=== PATIENT | female | born 1935 | race Hispanic/Latino ===

== ENCOUNTER 2017-02-07 06:23 | Day surgery (SDC) | payer MEDICARE, OTHER ==
[2017-02-07 06:55] VITALS: BMI 23.5
[2017-02-07] MEDS ORDERED: Sodium Chloride 0.9% 1,000 ML IV SCH (07:30)
[2017-02-07] MEDS ORDERED: cefTRIAXone (Rocephin) 1 gm Inj ONE (07:58)
[2017-02-07] MEDS ORDERED: Iohexol 240 (50 ml) ONE (07:59)
[2017-02-07] MEDS ORDERED: Propofol 10 mg/ml Inj (20 ML) ONE (08:03)
[2017-02-07] MEDS ORDERED: Lidocaine 2% Inj (20ml) ONE (08:04)
[2017-02-07 09:36] VITALS: PULSE 76; RESP 18; TEMP 98; O2SAT 98
[2017-02-07 10:06] VITALS: BP 159/73
--- NOTE | 2017-02-16 09:31 | OP ---
UROLOGY OPERATIVE REPORT PROCEDURE DATE: 02/07/2017 PREOPERATIVE DIAGNOSIS: Hematuria and hydronephrosis. POSTOPERATIVE DIAGNOSES: Hematuria and hydronephrosis and nonfunctional left kidney, hematuria and hydronephrosis. PROCEDURES: Cystoscopy, removal of a double-J stent, a right retrograde pyelogram, and insertion of a new right double-J stent. COMPLICATIONS: There were no complications. INDICATIONS: See the history and physical for the details. The patient is here for the above listed change on a stent and there were no complications. DESCRIPTION OF PROCEDURE: After obtaining informed consent from the patient, we discussed the options with the patient. Risks and benefits has been discussed at length. The patient was brought to the OR and placed on the table. Routine monitors placed, time-out was called to confirm the patient's positioning. We introduced the cystoscope via the urethra. We identify the old urethral stent. We removed that without difficulty. We kept a wire through the stent. There is mild , but no difficulty. We put an open-ended over this. We injected a contrast to confirm that positioning outline of the kidney exact to the hydronephrosis noted. And we put a new double-J stent in place. Put a wire back through the open-ended and put a double-J stent and confirmed the positioning. The patient tolerated this without complications. Jareth Lau MD
--- NOTE | 2017-02-16 15:39 | HP ---
UROLOGY ADMISSION HISTORY AND PHYSICAL DATE: 02/07/2017 REASON FOR THE ADMISSION: Changing a stent. HISTORY OF PRESENT ILLNESS: Ms. Antonio is a very pleasant lady, extremely pleasant about all matters who happens to have a nonfunctioning left kidney and right hydronephrosis and an aneurysm, she is very pleasant, but extremely noncompliant with her medical care at large. She is currently 81 years old, she is a patient of Dr. Rey, currently being covered by Dr. Tate and Candido and Dr. Russell Rey is planning on doing some kind of aneurysm endovascular procedure once she quits smoking. From urology standpoint, she was noted to have hydronephrosis and the request was to place the stent, which we have done and we are just waiting and changing the stents until the aneurysm is taken care of. PAST MEDICAL AND SURGICAL HISTORY: She is here today for the stent change. Past medical and surgical history is otherwise unchanged. MEDICATIONS: See chart. ALLERGIES: SEE CHART. REVIEW OF SYSTEMS: Listed as above and noncontributory. SOCIAL HISTORY: Essentially unremarkable. PHYSICAL EXAMINATION: GENERAL: She is a well-developed and well-nourished female, in no apparent distress. She is appearing in her stated age. VITAL SIGNS: Within normal limits. LUNGS: Clear. HEART: Normal S1 and S2. ABDOMEN: Soft and nontender. PELVIC EXAM: , but otherwise no pelvic or rectal mass. LABORATORY DATA: See chart. DIAGNOSES: Right hydronephrosis, nonfunctioning left kidney, and today we are going to add an aneurysm and mild renal dysfunction. PLAN: As follows; today we are going to change her stent and then we are going to wait for the aneurysm repair and then subsequently may be we will consider removing the stent, but for now, we are just going to continue the change the stent particularly on the right side. Jareth Lau MD cc: DR. TATE
== END 2017-02-07 10:30 | disposition home or self-care (01) ==
LOC: SDS 06:23
PROVIDERS: ATTEND Urology
DX: R31.9 Hematuria, unspecified (principal); N13.30 Unspecified hydronephrosis; N28.9 Disorder of kidney and ureter, unspecified
CPT/HCPCS: 52332; 74430; C2625; J0360; J0696; J2405; J2704; J3010; J7040; J7120; Q9966

== ENCOUNTER 2017-06-27 06:44 | Day surgery (SDC) | payer MEDICARE, OTHER ==
[2017-06-27 07:09] VITALS: BMI 23.1
[2017-06-27 07:40] LABS: BASO # 0.01 K/mm3 (0.0-2.0); BASO % 0.2 % (0.0-3.0); EOS # 0.1 (0.0-0.7); EOS % 1.4 % (1.5-5.0); GRAN # 4.2 (1.4-6.5); GRAN % 65.7 % (50.0-68.0); HEMATOCRIT 35.6 % (36.0-48.0); LYMPH # 1.7 (1.2-3.4); LYMPH % 26.8 % (22.0-35.0); MEAN CELL VOLUME 83.4 fl (80.0-105.0); MEAN CORPUSCULAR HGB CONC 31.2 g/dl (31.0-37.0); MEAN PLATELET VOLUME 7.8 fl (7.0-11.0); MONO # 0.4 (0.1-0.6); MONO % 5.9 % (1.0-6.0); RED CELL DISTRIBUTION WIDTH 14.7 % (11.5-14.5); WHITE BLOOD COUNT 6.4 10^3/ul (4.5-11.0)
[2017-06-27 07:55] LABS: CALCIUM 10.6 mg/dL (8.4-10.5); POTASSIUM 4.6 mmol/L (3.6-5.0)
[2017-06-27] MEDS ORDERED: cefTRIAXone (Rocephin) 1 gm Inj ONE (09:07)
[2017-06-27] MEDS ORDERED: Iohexol 240 (50 ml) ONE (09:07)
[2017-06-27] MEDS ORDERED: Oxycodone/Acetaminophen 5/325 mg Tab PO PRN (09:14)
[2017-06-27] MEDS ORDERED: Propofol 10 mg/ml Inj (20 ML) ONE (09:24)
[2017-06-27] MEDS ORDERED: Midazolam 2 MG/2 ML VIAL ONE (09:25)
[2017-06-27] MEDS ORDERED: Etomidate 20 mg/10ml Inj IV ONE (09:25)
[2017-06-27] MEDS ORDERED: Lactated Ringer's 1,000 ML IV SCH (10:15)
--- NOTE | 2017-06-27 11:05 | RAD ---
PROCEDURE: Retrograde pyelogram HISTORY: RT NEPHROURETERAL STENT EXCHANGE COMPARISON: TECHNIQUE: Fluoroscopy was provided in the operating room. 59.4 seconds of fluoro time were use. 22 images were submitted FINDINGS: The study shows right-sided hydronephrosis with narrowing of the proximal ureter. There is passage of a straight catheter and wire past the point of relative obstruction into the collecting system with eventual placement of a ureteral stent. IMPRESSION: As above
[2017-06-27 11:29] VITALS: RESP 24; TEMP 98; O2SAT 98
[2017-06-27 11:46] VITALS: BP 154/70; PULSE 70
--- NOTE | 2017-06-27 13:42 | CARD ---
APPROVED REPORT EKG Measurement Heart [id number] <Conclusion> Sinus rhythm with marked sinus arrhythmia Otherwise normal ECG
--- NOTE | 2017-07-09 08:41 | PN ---
DATE: 06/27/2017 POSTOPERATIVE NOTE PREOPERATIVE DIAGNOSIS: Hydronephrosis, hematuria. POSTOPERATIVE DIAGNOSIS: Hydronephrosis, hematuria. PROCEDURE: Cystoscopy. POSTOPERATIVE DISCHARGE PLAN: There were no complications in the postop. The vital signs are within normal limits. The patient is doing well with the plan for subsequent discharge home. The patient was explained everything. We explained the results to the patient. The patients' vital signs remain stable. Jareth Lau MD
--- NOTE | 2017-07-09 15:01 | HP ---
UROLOGY ADMISSION HISTORY AND PHYSICAL REASON FOR ADMISSION: Changing stent. HISTORY OF PRESENT ILLNESS: A very pleasant, but somewhat noncomplaint lady who has stones, hydronephrosis, who is here now. She mostly has a stent in because she is planning to have an aneurysm adjusted. Waiting for her creatinine, medical clearance and to quit smoking, but from urologic standpoint of view, she is here now to change her stent. PAST MEDICAL AND SURGICAL HISTORY: Otherwise, no other changes. REVIEW OF SYSTEMS: Listed above. SOCIAL HISTORY: Unremarkable. PHYSICAL EXAMINATION: GENERAL: Well-nourished female, in no apparent distress. VITAL SIGNS: Noted. PELVIC: now though no real abnormalities are detected. DIAGNOSES: Hydronephrosis, hematuria, azotemia, urolithiasis. PLAN: The plans for now is as follows; mostly right now she is not having any major stone issue. We just need to change her stent and whenever she is ready for the aneurysm repair. I discussed with the patient plans, risks, benefits and alternatives. The plan is as follows; 1. Antibiotic prophylaxis. 2. Changing stent and then for results to follow. Jareth Lau MD
--- NOTE | 2017-07-09 15:01 | OP ---
PROCEDURE DATE: 06/27/2017 UROLOGY OPERATIVE REPORT PREOPERATIVE DIAGNOSES: Urolithiasis, hematuria, right hydronephrosis, and left nonfunctioning kidney. POSTOPERATIVE DIAGNOSES: Urolithiasis, hematuria, right hydronephrosis, and left nonfunctioning kidney. PROCEDURES: Cystoscopy, removal of right double-J stent, right retrograde pyelogram, and insertion of right double-J stent. ESTIMATED BLOOD LOSS: Less than 10 mL. DRAINS: Mariscal catheter. COMPLICATIONS: There were no complications. INDICATIONS: See history and physical for further details. This is a very pleasant lady, who I know quite well who is here now for the above-listed procedure. She also has an aneurysm and is expecting repair with Interventional Radiology. She has an elevation in BUN and creatinine. For now, all we are planning is changing her stent. She is working on her medical issues including smoking and then she is expecting further treatment. DESCRIPTION OF PROCEDURE: After explaining to the patient risks, benefits, and treatment alternatives, the patient was placed in a table. Routine monitors were placed. Time-outs were called to confirm the patient positioning and antibiotic prophylaxis were given. We introduced the cystoscope via urethra. The medial stent itself is fairly well in the prostate. Certainly, making the procedure somewhat more difficult. We were able to remove the stent without too much difficulty. We passed a wire up to the kidney without again too much difficulty. I do want to mention that on the beet end supervisor film, it looks like the double-J stent is fairly low and then see further at the end of the description here, we definitely fixed the stent in the upper pole. We can see that on the fluoroscopic imaging, but then very quickly it fell back down to the same location, as the previous stent was done. Even as I was trying to get it to stay up in the upper pole, it does not remain up there, but it is definitely beyond and above the renal pelvis. So the procedure continues, we introduced the cystoscope via urethra across stent. We passed the wire, eventually goes up to the kidney at the level where it is on a beet end supervisor film, it gets a little bit jammed from getting further up the wire and putting the wire all the way up, but by using the open-ended ureteral and a wire together, we were able to negotiate the narrowing area and get the wire all the way up to the kidney. This is confirmed with fluoroscopic imaging. So once we had the wire up to the upper pole, we put the double-J stent and then we tried to keep that in the upper pole, but eventually it falls back down, but either way the patient still has a brand new stent, which is draining nicely. I should mention that the patient still has some significant hydronephrosis. Overall, she tolerated the procedure well without complication. ADDENDUM I spoke to the patient about this and I spoke to Dr. Rey about discussing further timing the treatments well. From a Urology standpoint, whenever cleared medically and other issues that are going on, Urology mccauley, she can have the aneurysm addressed. Jareth Lau MD
== END 2017-06-27 11:43 | disposition home or self-care (01) ==
LOC: SDS 06:44
PROVIDERS: ATTEND Urology
DX: N13.2 Hydronephrosis with renal and ureteral calculous obstruction (principal); N28.9 Disorder of kidney and ureter, unspecified
CPT/HCPCS: 36415; 52005; 52332; 74420; 80048; 85025; 93005; C1887; C2625; J0696; J2250; J2704; J3010; J7120 ×2; Q9966

== ENCOUNTER 2018-01-09 12:16 | Observation (INO) | payer MEDICARE, OTHER ==
[2018-01-09 12:16] VITALS: BMI 22.2
--- NOTE | 2018-01-09 13:00 | ED PDOC ---
Arrival/HPI - General Chief Complaint: Abnormal Labs Time Seen by Provider: 01/09/18 12:34 Historian: Patient, Other () - History of Present Illness Narrative History of Present Illness (Text): 01/09/18 12:50 Patient is a 82 year old female who presented to the Emergency department as instructed by due to elevated blood pressure and potassium. reports that the patient was scheduled to undergo a stent placement today in a outpatient setting, but her blood pressure and potassium was elevated. She was subsequently brought to the emergency department to stabilize her blood pressure and potassium. Patient's medical history includes right kidney stent placement, right kidney hydronephrosis, right kidney aneurysm , and left kidney failure. Dr.Peter Rey wants patient to stop smoking before performing surgery on patient's kidney aneurysm. Patient continues to smoke. Patient reports that she urinates every 2 hours, and takes all her medications. Past Medical History - Provider Review Nursing Documentation Reviewed: Yes - Infectious Disease Hx of Infectious Diseases: None - Tetanus Immunization Tetanus Immunization: Unknown - Cardiac Hx Pacemaker: No - Pulmonary Hx Respiratory Disorders: Yes (SMOKES CIGARETTES PPD.ON CHANTIX) Hx Chronic Obstructive Pulmonary Disease (COPD): Yes - Neurological Hx Paralysis: No - HEENT Hx HEENT Disorder: Yes Hx Blind: No Hx Cataracts: Yes Hx Deafness: No Hx Difficulty Chewing: No Hx Epistaxis: No Hx Glaucoma: No Hx Macular Degeneration: No - Renal Hx Renal Failure: No - Endocrine/Metabolic Hx Endocrine Disorders: No Hx Diabetes Mellitus Type 1: No Hx Diabetes Mellitus Type 2: No Hx Hypothyroidism: No - Hematological/Oncological Hx Blood Transfusions: Yes (MANY YRS AGO) Hx Blood Transfusion Reaction: No - Integumentary Hx Dermatological Disorder: Yes (HYPOPIGMENTATION-WHITISH SKIN DISCOLORATION. SCARRING TO LEFT ARM,R ARM,LE) Hx Basal Cell Carcinoma: No Hx Eczema: No Hx Melanoma: No Hx Psoriasis: No Hx Squamous Cell Carcinoma: No - Musculoskeletal/Rheumatological Hx Musculoskeletal Disorders: No - Gastrointestinal Hx Gastrointestinal Disorders: Yes (CONSTIPATION) Hx Colostomy: No Hx Crohn's Disease: No Hx Diverticulitis: No Hx Gall Bladder Disease: Yes (CHOLECYSTECTOMY,) Hx Gastroesophageal Reflux: Yes Hx Gastrointestinal Ulcer: Yes Hx Ileostomy: No Hx Liver Failure: No Hx Pancreatitis: No HX Swallowing Problems: No - Genitourinary/Gynecological Hx Genitourinary Disorders: Yes (LEFT KIDNEY NON FUNCTIONING SHE STATED.) Hx Hematuria: Yes Hx Incontinence: No Hx Prostate Problems: No Hx Sexually Transmitted Diseases: No Hx Urinary Tract Infection: Yes Other/Comment: BILATERAL HYDRONEPHROSIS - Psychiatric Hx Emotional Abuse: No Hx Physical Abuse: No Hx Substance Use: No - Surgical History Hx Cholecystectomy: Yes Hx Hysterectomy: Yes - Anesthesia Hx Anesthesia Reactions: No Hx Malignant Hyperthermia: No - Suicidal Assessment Feels Threatened In Home Enviroment: No Family/Social History - Physician Review Nursing Documentation Reviewed: Yes Family/Social History: No Known Family HX Smoking Status: Current Some Days Smoker Hx Alcohol Use: No Hx Substance Use: No Allergies/Home Meds Allergies/Adverse Reactions: Allergies No Known Allergies Allergy (Verified 08/22/16 07:12) Home Medications: Home Meds Medication Instructions Recorded Confirmed Esomeprazole Magnesium [Nexium] 40 mg PO DAILY 02/25/15 01/09/18 oxyCODONE/Acetaminophen [Percocet 1.5 tab PO DAILY 08/21/16 01/09/18 5/325 mg Tab] Albuterol Sulfate [Proair Hfa] 0.09 mg IH Q4H PRN 02/01/17 01/09/18 Vit C/E/Zn/Coppr/Lutein/Zeaxan 2 tab PO DAILY 01/08/18 01/09/18 [Preservision Areds 2 Softgel] Review of Systems - Physician Review All systems were reviewed & negative as marked: Yes - Review of Systems Constitutional: absent: Fevers, Night Sweats Genitourinary Female: Frequency Neurological: absent: Dizziness Physical Exam Vital Signs Reviewed: Yes Vital Signs Temp Pulse Resp BP Pulse Ox 01/09/18 20:04 77 18 149/72 98 01/09/18 19:35 78 18 188/92 H 98 01/09/18 18:15 83 18 173/81 H 99 01/09/18 18:14 173/81 H 01/09/18 14:37 72 18 150/72 99 01/09/18 13:34 66 190/93 H 01/09/18 12:21 98.4 F 58 L 18 156/101 H 98 Temperature: Afebrile Blood Pressure: Hypertensive Pulse: Bradycardic Respiratory Rate: Normal Appearance: Positive for: Well-Appearing Mental Status: Positive for: Alert and Oriented X 3 - Systems Exam Head: Present: Atraumatic, Normocephalic Pupils: Present: PERRL Extroacular Muscles: Present: EOMI Conjunctiva: Present: Normal Mouth: Present: Moist Mucous Membranes Neck: Present: Normal Range of Motion Respiratory/Chest: Present: Clear to Auscultation, Good Air Exchange. No: Respiratory Distress, Accessory Muscle Use Cardiovascular: Present: Regular Rate and Rhythm, Normal S1, S2. No: Murmurs Abdomen: No: Tenderness, Distention, Peritoneal Signs Back: Present: Normal Inspection Upper Extremity: Present: Normal Inspection. No: Cyanosis, Edema Lower Extremity: Present: Normal Inspection. No: Edema Neurological: Present: GCS=15, CN II-XII Intact, Speech Normal Skin: Present: Warm, Dry, Normal Color. No: Rashes Psychiatric: Present: Alert, Oriented x 3, Normal Insight, Normal Concentration Medical Decision Making ED Course and Treatment: 01/09/18 13:02 Impression: Patient is a 82 year old female who was instructed to present to the Emergency department to stabilize her BP and potassium. Differential Diagnosis included but are not limited to: Hyperkalemia vs. hypertension vs. renal artery stenosis vs. hydronephrosis vs. electrolyte abnormality vs. UTI Plan: --cardiac enzymes --EKG --Labs --Chest X-ray --Apresoline --Urinalysis --Urine and blood cluture -- Reassess and disposition Prior Visits: Notes and results from previous visits were reviewed. Progress Notes: 01/09/18 12:36 would like patient's blood pressure and potassium to be stabilized, and will try to admit patient under so that patient may undergo the stent procedure as an inpatient. 01/09/18 13:05 EKG shows sinus bradycardia at 54 BPM with normal axis and intervals. Interpreted by me. 01/09/18 14:20 Chest X-ray: Creator : Singh Akers MD IMPRESSION: No active disease. - Lab Interpretations Microbiology Results: Microbiology Results 01/09/18 13:13 Blood-Venous Blood Culture - Preliminary NO GROWTH AFTER 24 HOURS Lab Results: 01/09/18 13:30 01/09/18 16:40 Lab Results 01/09/18 16:40: Sodium 144, Chloride 111 H, Potassium 3.8, Carbon Dioxide 22, Anion Gap 15, BUN 16, Creatinine 1.0, Est GFR ( Amer) > 60, Est GFR (Non- Af Amer) 53, Random Glucose 53 L, Calcium 10.2 01/09/18 13:30: pO2 22 L, VBG pH 7.37, VBG pCO2 47.0, VBG HCO3 27.2, VBG Total CO2 28.6 H, VBG O2 Sat (Calc) 48.1, VBG Base Excess 1.3, VBG Potassium 5.4 H, Sodium 140.0, Chloride 110.0 H, Glucose 83, Lactate 1.1, FiO2 21.0, Venous Blood Potassium 5.4 H 01/09/18 13:30: Sodium 143, Chloride 109 H, Potassium 5.4 H, Carbon Dioxide 24, Anion Gap 16, BUN 18, Creatinine 1.2, Est GFR ( Amer) 52, Est GFR (Non- Af Amer) 43, Random Glucose 83, Calcium 10.5, Total Bilirubin 0.4, AST 20, ALT 18, Alkaline Phosphatase 87, Lactate Dehydrogenase 526, Total Creatine Kinase 50 , Troponin I < 0.01 D, NT-Pro-B Natriuret Pep 1520 H, Total Protein 7.4, Albumin 4.3, Globulin 3.1, Albumin/Globulin Ratio 1.4 01/09/18 13:30: PT 12.4, INR 1.08 01/09/18 13:30: WBC 5.8, RBC 4.47, Hgb 11.7 L, Hct 36.9, MCV 82.6, MCH 26.2, MCHC 31.7, RDW 16.2 H, Plt Count 191, MPV 8.0, Gran % 58.2, Lymph % (Auto) 34.1 , Da[place]hin % (Auto) 6.0, Eos % (Auto) 1.4 L, Baso % (Auto) 0.3, Gran # 3.37, Lymph # (Auto) 2.0, Da[place]hin # (Auto) 0.4, Eos # (Auto) 0.1, Baso # (Auto) 0.02 I have reviewed the lab results: Yes - RAD Interpretation Radiology Orders: 01/09/18 12:38 CHEST PORTABLE [RAD] Stat Is/It Project Manager: Radiologist - EKG Interpretation Interpreted by ED Physician: Yes Type: 12 lead EKG - Medication Orders Current Medication Orders: Discontinued Medications Dextrose (Dextrose 50% Inj) 50 ml IVP STAT STA Stop: 01/09/18 14:28 Last Admin: 01/09/18 14:56 Dose: 50 ml IVP Administration Document 01/09/18 14:56 EQ (Rec: 01/09/18 14:57 EQ [id number]) Charges for Administration # of IVP Administrations 1 Furosemide (Lasix) 40 mg IVP STAT STA Stop: 01/09/18 17:00 Last Admin: 01/09/18 18:14 Dose: 40 mg MAR Blood Pressure Document 01/09/18 18:14 EQ (Rec: 01/09/18 18:14 EQ [id number]) Blood Pressure Blood Pressure (100/60-150/90) 173/81 IVP Administration Document 01/09/18 18:14 EQ (Rec: 01/09/18 18:14 EQ [id number]) Charges for Administration # of IVP Administrations 1 Hydralazine HCl (Apresoline) 10 mg IVP ONCE ONE Stop: 01/09/18 12:54 Last Admin: 01/09/18 13:34 Dose: 10 mg IVP Administration Document 01/09/18 13:34 EQ (Rec: 01/09/18 13:35 EQ [id number]) Charges for Administration # of IVP Administrations 1 [facility] Pulse and Blood Pressure Document 01/09/18 13:34 EQ (Rec: 01/09/18 13:35 EQ [id number]) Pulse Pulse Rate (60-90) 66 Blood Pressure Blood Pressure (100/60-150/90) 190/93 Hydralazine HCl (Apresoline) 10 mg IVP ONCE ONE Stop: 01/10/18 09:27 Last Admin: 01/10/18 09:35 Dose: 10 mg IVP Administration Document 01/10/18 09:35 LMN (Rec: 01/10/18 09:36 LMN [id number][place] Charges for Administration # of IVP Administrations 1 [facility] Pulse and Blood Pressure Document 01/10/18 09:35 LMN (Rec: 01/10/18 09:36 LMN [id number][place] Blood Pressure Blood Pressure (100/60-150/90) 163/80 Calcium Gluconate 1,000 mg/ (Sodium Chloride) 110 mls @ 110 mls/hr IVPB ONCE ONE Stop: 01/09/18 15:26 Last Admin: 01/09/18 14:59 Dose: 110 mls/hr eMAR Start Stop Document 01/09/18 14:59 EQ (Rec: 01/09/18 14:59 EQ [id number]) Intravenous Solution Start Date 01/09/18 Start Time 14:59 Sodium Chloride (Sodium Chloride 0.9%) 1,000 mls @ 999 mls/hr IV .Q1H1M STA Stop: 01/09/18 15:27 Last Admin: 01/09/18 14:54 Dose: 999 mls/hr eMAR Start Stop Document 01/09/18 14:54 EQ (Rec: 01/09/18 14:54 EQ [id number]) Intravenous Solution Start Date 01/09/18 Start Time 14:54 Insulin Human Regular (Humulin R) 7 units IVP STAT STA Stop: 01/09/18 14:28 Last Admin: 01/09/18 14:54 Dose: 7 units IVP Administration Document 01/09/18 14:54 EQ (Rec: 01/09/18 14:54 EQ [id number]) Charges for Administration # of IVP Administrations 1 Losartan Potassium (Cozaar) 100 mg PO DAILY MIKEL Losartan Potassium (Cozaar) 100 mg PO DAILY MIKEL Losartan Potassium (Cozaar) 100 mg PO ONCE ONE Stop: 01/10/18 06:49 Last Admin: 01/10/18 06:57 Dose: 100 mg Oxycodone/Acetaminophen (Percocet 5/325 Mg Tab) 1 tab PO Q4H PRN PRN Reason: Pain, moderate (4-7) Stop: 01/12/18 22:35 Sodium Bicarbonate (Sodium Bicarbonate 8.4% (50 Meq) Syringe) 50 meq IVP ONCE ONE Stop: 01/09/18 14:28 Last Admin: 01/09/18 14:55 Dose: 50 meq IVP Administration Document 01/09/18 14:55 EQ (Rec: 01/09/18 14:56 EQ [id number]) Charges for Administration # of IVP Administrations 1 - Scribe Statement The provider has reviewed the documentation as recorded by the Kay Thomason Provider Scribe Attestation: All medical record entries made by the Scribe were at my direction and personally dictated by me. I have reviewed the chart and agree that the record accurately reflects my personal performance of the history, physical exam, medical decision making, and the department course for this patient. I have also personally directed, reviewed, and agree with the discharge instructions and disposition. Disposition/Present on Arrival - Present on Arrival Any Indicators Present on Arrival: No History of DVT/PE: No History of Uncontrolled Diabetes: No Urinary Catheter: No History of Decub. Ulcer: No History Surgical Site Infection Following: None - Disposition Have Diagnosis and Disposition been Completed?: Yes Diagnosis: Uncontrolled hypertension, Hyperkalemia, Hydronephrosis, Solitary kidney Disposition: HOSPITALIZED Disposition Time: 15:44 Patient Plan: Admission Condition: GOOD
--- NOTE | 2018-01-09 13:29 | RAD ---
HISTORY: Uncontrolled Hypertension COMPARISON: 02/01/2017 FINDINGS: LUNGS: No active pulmonary disease. PLEURA: No significant pleural effusion identified, no pneumothorax apparent. CARDIOVASCULAR: Normal. OSSEOUS STRUCTURES: No significant abnormalities. VISUALIZED UPPER ABDOMEN: Normal. OTHER FINDINGS: None. IMPRESSION: No active disease.
[2018-01-09 13:48] LABS: BASO # 0.02 K/mm3 (0.0-2.0); BASO % 0.3 % (0.0-3.0); EOS # 0.1 (0.0-0.7); EOS % 1.4 % (1.5-5.0); GRAN # 3.37 (1.4-6.5); GRAN % 58.2 % (50.0-68.0); HEMOGLOBIN 11.7 g/dL (12.0-16.0); LYMPH % 34.1 % (22.0-35.0); MEAN CELL VOLUME 82.6 fl (80.0-105.0); MEAN CORPUSCULAR HEMOGLOBIN 26.2 pg (25.0-35.0); MEAN CORPUSCULAR HGB CONC 31.7 g/dl (31.0-37.0); MONO # 0.4 (0.1-0.6); RBC 4.47 10^6/uL (3.5-6.1); RED CELL DISTRIBUTION WIDTH 16.2 % (11.5-14.5); WHITE BLOOD COUNT 5.8 10^3/ul (4.5-11.0)
[2018-01-09 13:54] LABS: INR 1.08 (0.93-1.08); PROTHROMBIN TIME 12.4 SECONDS (9.4-12.5)
[2018-01-09 13:56] LABS: ALB/GLOB RATIO 1.4 (1.1-1.8); ALBUMIN 4.3 g/dL (3.0-4.8); ALT/SGPT 18 U/L (7-56); AST/SGOT 20 U/L (14-36); BLOOD UREA NITROGEN 18 mg/dL (7-21); CALCIUM 10.5 mg/dL (8.4-10.5); GFR AFRICAN-AMERICAN 52; GFR NON-AFRICAN AMERICAN 43
[2018-01-09 14:08] LABS: B-TYPE NATRIURETIC PEPTIDE 1520 pg/mL (0-450); TROPONIN I < 0.01 ng/mL
[2018-01-09 14:22] LABS: VENOUS BLOOD GAS BASE EXCESS 1.3 mmol/L (0.0-2.0); VENOUS BLOOD GAS PO2 22 mm/Hg (30-55); VENOUS BLOOD PH 7.37 (7.32-7.43)
[2018-01-09] MEDS ORDERED: Insulin Regular 1 UNITS/0.01 ML ML IVP STA (14:27)
[2018-01-09] MEDS ORDERED: Sodium Bicarbonate (8.4%) 50 Meq Syringe IVP ONE (14:27)
[2018-01-09] MEDS ORDERED: Sodium Chloride 0.9% 1,000 ML IV STA (14:27)
[2018-01-09] MEDS ORDERED: Dextrose 50% SYRINGE Inj (50 ml) IVP STA (14:27)
[2018-01-09 17:07] LABS: BLOOD UREA NITROGEN 16 mg/dL (7-21); CALCIUM 10.2 mg/dL (8.4-10.5); GFR AFRICAN-AMERICAN > 60; GFR NON-AFRICAN AMERICAN 53
--- NOTE | 2018-01-09 17:54 | CARD ---
APPROVED REPORT EKG Measurement Heart [id number] <Conclusion> Sinus bradycardia Otherwise normal ECG
[2018-01-09 19:05] LABS: PH,URINE 7.5 (4.7-8.0); URINE BILIRUBIN NEGATIVE (NEGATIVE); URINE BLOOD SMALL (NEGATIVE); URINE GLUCOSE (UA) NEGATIVE (NEGATIVE); URINE LEUKOCYTE ESTERASE LARGE Leu/uL (NEGATIVE); URINE PROTEIN TRACE mg/dL (<30 mg/dL); URINE UROBILINOGEN 0.2 E.U./dL (<1 E.U./dL)
[2018-01-09 19:06] LABS: URINE APPEARANCE SL CLOUDY (CLEAR); URINE COLOR YELLOW (YELLOW)
[2018-01-09 19:28] LABS: URINE BACTERIA MANY (NEG); URINE WBC TNTC /hpf (0-6)
[2018-01-09] MEDS ORDERED: Oxycodone/Acetaminophen 5/325 mg Tab PO PRN (22:34)
--- NOTE | 2018-01-10 06:29 | PCM.URO ---
Urology Progress Note - Objective Lab Studies: Reviewed (gu plans ; see dictated noted from 01/09 if pt is clear today we will plan cysto today) Lab Results Last 24 Hours: Laboratory Results - last 24 hr 01/09/18 18:41 Urine Color Yellow Urine Appearance Sl cloudy Urine pH 7.5 Ur Specific [place] 1.010 Urine Protein Trace H Urine Glucose (UA) Negative Urine Ketones Negative Urine Blood Small H Urine Nitrate Positive H Urine Bilirubin Negative Urine Urobilinogen 0.2 Ur Leukocyte Esterase Large H Urine RBC 5 - 10 Urine WBC Tntc Ur Epithelial Cells 6 - 8 Urine Bacteria Many Intake & Output: Intake & Output 01/09/18 01/09/18 01/10/18 06:59 18:59 06:59 Intake Total 180 Balance 180 Weight 142 lb Intake: Oral 180 Other: Voiding Method Toilet # Voids Urine, Voided 2 Vital Signs: Vital Signs - 24 hr 01/09/18 01/09/18 01/09/18 18:14 18:15 19:35 Temperature Pulse Rate 83 78 Pulse Rate [ Bilateral Radial] Respiratory 18 18 Rate Blood Pressure 173/81 H 173/81 H 188/92 H O2 Sat by Pulse 99 98 Oximetry 01/09/18 01/09/18 01/09/18 20:04 20:19 20:45 Temperature Pulse Rate 77 77 Pulse Rate [ 61 Bilateral Radial] Respiratory 18 18 19 Rate Blood Pressure 149/72 149/72 O2 Sat by Pulse 98 98 Oximetry 01/09/18 01/09/18 22:50 23:45 Temperature 98.4 F Pulse Rate 61 70 Pulse Rate [ Bilateral Radial] Respiratory 18 Rate Blood Pressure 183/76 H 153/76 H O2 Sat by Pulse Oximetry
[2018-01-10 06:57] LABS: HEMOGLOBIN 12.1 g/dL (12.0-16.0); MEAN CELL VOLUME 81.5 fl (80.0-105.0); MEAN CORPUSCULAR HEMOGLOBIN 26.7 pg (25.0-35.0); MEAN CORPUSCULAR HGB CONC 32.7 g/dl (31.0-37.0); RBC 4.54 10^6/uL (3.5-6.1); RED CELL DISTRIBUTION WIDTH 16.4 % (11.5-14.5); WHITE BLOOD COUNT 5.5 10^3/ul (4.5-11.0)
[2018-01-10 07:14] LABS: ALB/GLOB RATIO 1.3 (1.1-1.8); CALCIUM 10.6 mg/dL (8.4-10.5)
[2018-01-10 07:31] VITALS: PULSE 74; RESP 20; TEMP 98.3; O2SAT 94
--- NOTE | 2018-01-10 11:47 | PN ---
DATE: 01/10/2018 UROLOGY PROGRESS NOTE See the consultation from yesterday. The patient is currently resting comfortably. Her blood pressure overnight was 160 or so. Even now, it is now 160. See below plan. From the urine standpoint, no changes. See plans listed below. Past medical and surgical is otherwise no change. The remainder of the physical exam and medications, everything unchanged. DIAGNOSES: Hydronephrosis, hematuria, azotemia, malfunctioning left kidney and all the other. The plan is as follows: She has a right double-J stent and we would like to change it as quickly as we can. Just waiting for medical clearance. The patient actually reports to me that she is not able to stay, so I asked her to seek medical clearance and we will try to do this morning. If not, we will discharge her home and will be made for outpatient followup. In the interim, clinical followup. I am going to try our best to see we can schedule her today. The patient again is overdue for a stent up to three months. She had this in now for close to 5 months or so. So, we will see how she does. So, the plan is to follow. Jareth Lau MD
[2018-01-10 17:25] VITALS: BP 153/80
--- NOTE | 2018-01-10 18:57 | HP ---
DATE OF EXAM: 01/10/2018 CHIEF COMPLAINT AND HISTORY OF PRESENT ILLNESS: This is an 82-year-old female who was coming in to the hospital sent to the emergency room by Dr. Lau for elevated blood pressure and hypokalemia. The patient was going to have a stent placement, but her blood pressure is elevated and so she was brought in to the emergency room for management. The patient has a right kidney stent and has right-sided hydronephrosis. She gets the stent changed every few months. The patient also has a AAA and has been advised to quit smoking. She follows with Dr. Rey. This morning, she was comfortable. She has no complaints of any chest pain. No shortness of breath. No headaches or dizziness. No nausea. No vomiting. ALLERGIES: NO KNOWN DRUG ALLERGIES. PAST MEDICAL HISTORY: 1. Dyslipidemia. 2. Hypertension. 3. Osteoarthritis. 4. COPD. 5. AAA. SOCIAL HISTORY: She denies drinking, but does smoke. FAMILY HISTORY: Mother at 82 of bone cancer. Father of unknown causes. PHYSICAL EXAMINATION: VITAL SIGNS: Temperature is 98.3, pulse of 74, blood pressure is 166/80, respirations 20, O2 saturation 94%. GENERAL: The patient lying in bed, uncomfortable, and in no acute distress. HEENT: Atraumatic and normocephalic. Anicteric sclerae. Moist mucosa. [place] conjunctivae. No oral lesions. NECK: No JVD, anterior and posterior adenopathy, thyromegaly, or bruits. CARDIOVASCULAR: S1 and S2 regular. No murmur, rubs, or gallop. LUNGS: Clear to auscultation bilaterally. No wheezes, rales, or rhonchi. ABDOMEN: Bowel sounds are positive. Soft, nontender and nondistended. No hepatosplenomegaly. No rebound and no guarding EXTREMITIES: No cyanosis, clubbing, or edema. NEUROLOGIC: No facial asymmetry. Tongue is midline. No uvula deviation. Power is 5/5 upper extremity and lower extremity. Sensation intact in upper extremity and lower extremity. PSYCHIATRIC: She is awake, alert and oriented x3. No anxiety or depression. She has normal affect. GENITOURINARY: No CVA tenderness. VASCULAR: 2+ pulses in the carotid pulses and pedal pulses. SKIN: No erythema or nodules. SPINE: Shows normal curvature. ASSESSMENT: 1. Hypertension, uncontrolled. 2. Chronic obstructive pulmonary disease, stable. 3. Congestive heart failure secondary to diastolic dysfunction, stable. 4. Abdominal aortic aneurysm, 4.9 cm. 5. Bilateral hydronephrosis. 6. Dyslipidemia. 7. Osteoarthritis. PLAN: The patient was given hydralazine. Her blood pressure was better maintained. She was also placed on losartan. I added Norvasc for her blood pressure management. She was discharged and is going to be followed up as an outpatient for rescheduling of her procedure. CONDITION: Stable. ACTIVITIES: Increase as tolerated. Ede Rebolledo MD
--- NOTE | 2018-01-11 07:50 | CON ---
DATE: 01/09/2018 UROLOGY CONSULTATION REASON FOR CONSULTATION: Right hydronephrosis. HISTORY OF PRESENT ILLNESS: Ms. Antonio is an extremely pleasant, but not perfectly compliant patient who has an indwelling right double-J stent. She had a left kidney that does not function. At this point, she is functioning on the right kidney alone. BUN and creatinine are noted. She also had some kind of aneurysm that is planned for repair with Dr. Russell Rey if she is able to quit smoking. From Urology standpoint, we have been changing her stent on a regular basis when the patient comes in. She does not come in for routine visit, she only comes in when it is time for changing the catheter. At this point, it has been several months overdue. We discussed options. The patient was brought in today for a same day procedure, but upon presentation to the same day unit, her blood pressure was extremely high and as the Anesthesia assessed her risks, they felt uncomfortable to do the procedure. We then discussed options with the patient, but given her compliant history, I recommended to her that she stay in the hospital; two reasons, one is when blood pressure is very high. In the ER, it was up to 180 systolic and above 100 diastolic and it is very concerning to me from the patient standpoint and so we had the patient admitted now for medical care and when she is medically cleared, we will try to do a cystoscopy, it would be possibly tomorrow, 01/10/2018. PAST MEDICAL AND SURGICAL HISTORY: Listed on chart. She is a patient of Dr. Rey, I believe he is currently under Dr. Rebolledo's care. Although, she reports that she does not go on a regular basis and is not able to take all of her medications that we gave. REVIEW OF SYSTEMS: As listed above, otherwise noncontributory. SOCIAL HISTORY: Essentially unremarkable. PHYSICAL EXAMINATION: GENERAL: A well-nourished female, in no apparent distress. VITAL SIGNS: Within normal limits, noted within the chart. Blood pressure is a little bit elevated. LUNGS: Relatively clear. ABDOMEN: Overall soft. No CVA tenderness. No flank . The remainder of the physical exam otherwise essentially unremarkable. DIAGNOSES: 1. Hematuria. 2. Right hydronephrosis. 3. Nonfunctioning left kidney in a patient with multiple medical issues. So, at this point, we would like to change the stent as quickly as possible . In summary, this is an extremely pleasant lady who has multiple medical issues. She is 82 years old. I was very concerned about the stenting specifically that her right kidney is her only kidney that is functioning well. So, at this point, from the Urology standpoint, we plan as follows: Medical clearance, control of blood pressure and when she is medically cleared, we will bring her to OR. Jareth Lau MD
== END 2018-01-10 14:58 | disposition home or self-care (01) ==
LOC: ED 12:16 → INTOOBSV 17:14 → ERH 17:14 → 5RNO 20:13
PROVIDERS: ADMIT Internal Medicine Nephrology; ATTEND Internal Medicine Nephrology
DX: I11.0 Hypertensive heart disease with heart failure (principal); I50.30 Unspecified diastolic (congestive) heart failure; J44.9 Chronic obstructive pulmonary disease, unspecified; E87.6 Hypokalemia; E78.5 Hyperlipidemia, unspecified; N13.30 Unspecified hydronephrosis; I71.4 Abdominal aortic aneurysm, without rupture; F17.210 Nicotine dependence, cigarettes, uncomplicated; R31.9 Hematuria, unspecified; M19.90 Unspecified osteoarthritis, unspecified site
CPT/HCPCS: 87181; 96374; 96375; 99284; G0378; J0360; J0610; J1940; J7030

== ENCOUNTER 2018-01-10 16:51 | Inpatient (IN) | payer MEDICARE, OTHER ==
[2018-01-10 16:51] VITALS: BMI 22.2
[2018-01-10] MEDS ORDERED: Sodium Chloride 0.9% 1,000 ML IV STA (17:06)
[2018-01-10] MEDS ORDERED: HYDROmorphone 2 mg/ml ISec IVP STA (17:06)
--- NOTE | 2018-01-10 17:08 | ED PDOC ---
Arrival/HPI - General Time Seen by Provider: 01/10/18 16:52 Historian: Patient - History of Present Illness Narrative History of Present Illness (Text): 01/10/18 17:03 80 year old female, whose past medical history includes right kidney stent placement, right kidney hydronephrosis, right kidney aneurysm, left kidney failure, hypertension, hyperkalemia, and sciatica, presents to the Emergency department status post a fall just prior to arrival. Patient states she felt the urge to use the restroom so strongly that she began to sweat as she was walking to the restroom; she then fell on her left side before she made it there. Patient denies any fever, chills, chest pain, shortness of breath, nausea , vomiting, diarrhea, urinary symptoms, back pain, neck pain, headache, dizziness, or any other complaints. As per Dr. Lau, patient was scheduled to undergo a stent placement yesterday in a outpatient setting, but her blood pressure and potassium were elevated. She was subsequently brought to the emergency department to stabilize her blood pressure and potassium where she was admitted and later discharged earlier today. She has not yet had the opportunity to fill her medication. Time/Duration: Prior to Arrival Symptom Onset: Sudden Symptom Course: Unchanged Context: Walking, Home Past Medical History - Provider Review Nursing Documentation Reviewed: Yes - Infectious Disease Hx of Infectious Diseases: None - Tetanus Immunization Tetanus Immunization: Unknown - Cardiac Hx Pacemaker: No - Pulmonary Hx Respiratory Disorders: Yes (SMOKES CIGARETTES PPD.ON CHANTIX) Hx Chronic Obstructive Pulmonary Disease (COPD): Yes - Neurological Hx Paralysis: No - HEENT Hx HEENT Disorder: Yes Hx Blind: No Hx Cataracts: Yes Hx Deafness: No Hx Difficulty Chewing: No Hx Epistaxis: No Hx Glaucoma: No Hx Macular Degeneration: No - Renal Hx Renal Failure: No - Endocrine/Metabolic Hx Endocrine Disorders: No Hx Diabetes Mellitus Type 1: No Hx Diabetes Mellitus Type 2: No Hx Hypothyroidism: No - Hematological/Oncological Hx Blood Transfusions: Yes (MANY YRS AGO) Hx Blood Transfusion Reaction: No - Integumentary Hx Dermatological Disorder: Yes (HYPOPIGMENTATION-WHITISH SKIN DISCOLORATION. SCARRING TO LEFT ARM,R ARM,LE) Hx Basal Cell Carcinoma: No Hx Eczema: No Hx Melanoma: No Hx Psoriasis: No Hx Squamous Cell Carcinoma: No - Musculoskeletal/Rheumatological Hx Musculoskeletal Disorders: No - Gastrointestinal Hx Gastrointestinal Disorders: Yes (CONSTIPATION) Hx Colostomy: No Hx Crohn's Disease: No Hx Diverticulitis: No Hx Gall Bladder Disease: Yes (CHOLECYSTECTOMY,) Hx Gastroesophageal Reflux: Yes Hx Gastrointestinal Ulcer: Yes Hx Ileostomy: No Hx Liver Failure: No Hx Pancreatitis: No HX Swallowing Problems: No - Genitourinary/Gynecological Hx Genitourinary Disorders: Yes (LEFT KIDNEY NON FUNCTIONING SHE STATED.) Hx Hematuria: Yes Hx Incontinence: No Hx Prostate Problems: No Hx Sexually Transmitted Diseases: No Hx Urinary Tract Infection: Yes Other/Comment: BILATERAL HYDRONEPHROSIS - Psychiatric Hx Emotional Abuse: No Hx Physical Abuse: No Hx Substance Use: No - Surgical History Hx Cholecystectomy: Yes Hx Hysterectomy: Yes - Anesthesia Hx Anesthesia Reactions: No Hx Malignant Hyperthermia: No - Suicidal Assessment Feels Threatened In Home Enviroment: No Family/Social History - Physician Review Nursing Documentation Reviewed: Yes Family/Social History: Unknown Family HX Smoking Status: Current Some Days Smoker Hx Alcohol Use: No Hx Substance Use: No Allergies/Home Meds Allergies/Adverse Reactions: Allergies No Known Allergies Allergy (Verified 01/10/18 17:07) Home Medications: Home Meds Medication Instructions Recorded Confirmed Esomeprazole Magnesium [Nexium] 40 mg PO DAILY 02/25/15 01/09/18 oxyCODONE/Acetaminophen [Percocet 1.5 tab PO DAILY 08/21/16 01/09/18 5/325 mg Tab] Albuterol Sulfate [Proair Hfa] 0.09 mg IH Q4H PRN 02/01/17 01/09/18 Vit C/E/Zn/Coppr/Lutein/Zeaxan 2 tab PO DAILY 01/08/18 01/09/18 [Preservision Areds 2 Softgel] Review of Systems - Physician Review All systems were reviewed & negative as marked: Yes - Review of Systems Constitutional: absent: Fevers Respiratory: absent: SOB Cardiovascular: absent: Chest Pain Gastrointestinal: absent: Diarrhea, Nausea, Vomiting Genitourinary Female: absent: Dysuria Musculoskeletal: absent: Neck Pain Neurological: absent: Headache, Dizziness Endocrine: Diaphoresis Physical Exam Vital Signs Reviewed: Yes Vital Signs Temp Pulse Resp BP Pulse Ox 01/10/18 21:45 98 01/10/18 17:05 98.0 F 92 H 18 168/85 H 100 - Systems Exam Head: Present: Atraumatic, Normocephalic Pupils: Present: PERRL Extroacular Muscles: Present: EOMI Conjunctiva: Present: Normal Mouth: Present: Moist Mucous Membranes Neck: Present: Normal Range of Motion Respiratory/Chest: Present: Clear to Auscultation, Good Air Exchange. No: Respiratory Distress, Accessory Muscle Use Cardiovascular: Present: Regular Rate and Rhythm, Normal S1, S2. No: Murmurs Abdomen: No: Tenderness, Distention, Peritoneal Signs Back: Present: Normal Inspection Upper Extremity: Present: Normal Inspection. No: Cyanosis, Edema Lower Extremity: Present: Other (left leg is shortened and externally rotated). No: Edema Neurological: Present: GCS=15, CN II-XII Intact, Speech Normal Skin: Present: Warm, Dry, Normal Color. No: Rashes Psychiatric: Present: Alert, Oriented x 3, Normal Insight, Normal Concentration Medical Decision Making ED Course and Treatment: 01/10/18 17:12 Impression: 82 year old female presents to the Emergency department status post a fall just prior to arrival. Differential Diagnosis included but are not limited to: pelvic fracture Plan: -- Dilaudid, Zofran, and Sodium Chloride IV fluids -- Reassess and disposition Prior Visits: Notes and results from previous visits were reviewed. Patient was last seen in the emergency department on 01/09/18, was diagnosed with Uncontrolled hypertension, Hyperkalemia, Hydronephrosis, Solitary kidney, and was admitted to the hospital. The patient was discharged earlier today. Progress Notes: 01/10/18 20:33 Discussed case in detail with Dr. Rebolledo who requests to consult Dr. Cooney. 01/10/18 20:38 Discussed case in.detail with Dr. Cooney. Will admit the patient and make her NPO after midnight to prep for tomorrow's surgery. - Lab Interpretations Lab Results: 01/10/18 18:02 01/10/18 18:02 Lab Results 01/10/18 18:02: Sodium 144, Potassium 3.7, Chloride 105, Carbon Dioxide 25, Anion Gap 18, BUN 22 H, Creatinine 1.6 H, Est GFR ( Amer) 37, Est GFR ( Non-Af Amer) 31, Random Glucose 114 H, Calcium 10.9 H, Total Bilirubin 0.8, AST 26, ALT 21, Alkaline Phosphatase 109, Lactate Dehydrogenase 504, Total Creatine Kinase 119, Troponin I 0.01, NT-Pro-B Natriuret Pep 3060 H, Total Protein 8.2, Albumin 4.5, Globulin 3.7, Albumin/Globulin Ratio 1.2 01/10/18 18:02: PT 12.7 H, INR 1.11 H 01/10/18 18:02: WBC 12.8 H D, RBC 4.82, Hgb 12.9, Hct 39.3, MCV 81.5, MCH 26.8, MCHC 32.8, RDW 16.4 H, Plt Count 208, MPV 8.1, Gran % 88.1 H, Lymph % (Auto) 6.1 L, [place] % (Auto) 5.5, Eos % (Auto) 0.1 L, Baso % (Auto) 0.2, Gran # 11.30 H , Lymph # (Auto) 0.8 L, [place] # (Auto) 0.7 H, Eos # (Auto) 0.0, Baso # (Auto) 0.02 - RAD Interpretation Narrative RAD Interpretations (Text): 01/10/18 20:15 Chest xray impression: As read by me, no pneumothorax, no pneumonia, no cardiomegaly, no infiltrates Left Wrist xray Impression: As read by me, normal xray. Left Hand xray Impression:As read by me, normal xray. Left Hip xray Impression: As read by me, intertrochanteric fracture to left hip. Radiology Orders: 01/10/18 17:07 CHEST PORTABLE [RAD] Stat HAND LEFT 3 VIEWS ROUTINE [RAD] Stat Hip Left [HIP MIN 2V W/ PELVIS LT] [RAD] Stat WRIST, LEFT 3 VIEWS [RAD] Stat - EKG Interpretation EKG Interpretation (Text): 01/10/18 17:45 EKG: Ordered, reviewed, and independently interpreted the EKG. Rate : 88 BPM Rhythm : NSR Interpretation : No ST-segment elevations or depressions, no T-wave inversions, normal intervals. Interpreted by ED Physician: Yes Type: 12 lead EKG - Medication Orders Current Medication Orders: Amlodipine Besylate (Norvasc) 5 mg PO DAILY MIKEL Last Admin: 01/11/18 09:44 Dose: Hydralazine HCl (Apresoline) 10 mg PO QID PRN PRN Reason: for sbp>170 Dextrose/Sodium Chloride (Dextrose 5%/0.9% Ns 1000 Ml) 1,000 mls @ 80 mls/hr IV .[id number] [facility] Last Admin: 01/11/18 00:23 Dose: Losartan Potassium (Cozaar) 100 mg PO DAILY [facility] Last Admin: 01/11/18 09:45 Dose: Metoprolol Tartrate (Lopressor) 25 mg PO BID [facility] Last Admin: 01/11/18 09:35 Dose: 25 mg MAR Pulse and Blood Pressure Document 01/11/18 09:35 POLLY (Rec: 01/11/18 09:35 [facility]-[id number]) Pulse Pulse Rate (60-90) 75 Blood Pressure Blood Pressure (100/60-150/90) 132/102 Morphine Sulfate (Morphine) 3 mg IVP Q6H PRN PRN Reason: Pain, severe (8-10) Last Admin: 01/11/18 08:17 Dose: 3 mg MAR Pain Assessment Document 01/11/18 08:17 POLLY (Rec: 01/11/18 08:17 [facility]-[id number]) Pain Reassessment Is this a pain reassessment? No Presence of Pain Presence of Pain Yes Pain Scale Used Pain Scale Used Numeric Location Left, Right or Bilateral Left Pain Location Body Site Hip Description Description Constant Intensity of Pain at present 10 Acceptable Level of Pain 0-3 Pain Behavior Moaning IVP Administration Document 01/11/18 08:17 POLLY (Rec: 01/11/18 08:17 [facility]-[id number]) Charges for Administration # of IVP Administrations 1 Discontinued Medications Amlodipine Besylate (Norvasc) 5 mg PO STAT STA Stop: 01/11/18 05:06 Last Admin: 01/11/18 05:13 Dose: 5 mg MAR Pulse and Blood Pressure Document 01/11/18 05:13 (Rec: 01/11/18 05:13 [id number] Pulse Pulse Rate (60-90) 65 Blood Pressure Blood Pressure (100/60-150/90) 163/64 Enoxaparin Sodium (Lovenox) 30 mg SC STAT STA PRN Reason: Protocol Stop: 01/10/18 21:17 Last Admin: 01/10/18 22:43 Dose: 30 mg Subcutaneous Administrations Document 01/10/18 22:43 KP (Rec: 01/10/18 22:44 [id number]) Injection Site MAR Injection Site Umbilicus Charges for Administration # of Subcutaneous Administrations 1 Hydralazine HCl (Apresoline) 10 mg IVP ONCE ONE Stop: 01/11/18 06:41 Last Admin: 01/11/18 06:50 Dose: 10 mg IVP Administration Document 01/11/18 06:50 KP (Rec: 01/11/18 06:51 [id number]) Charges for Administration # of IVP Administrations 1 MAR Pulse and Blood Pressure Document 01/11/18 06:50 KP (Rec: 01/11/18 06:51 [id number]) Pulse Pulse Rate (60-90) 65 Blood Pressure Blood Pressure (100/60-150/90) 167/69 Hydromorphone HCl (Dilaudid) 2 mg IVP STAT STA Stop: 01/10/18 18:01 Last Admin: 01/10/18 18:23 Dose: 2 mg MAR Pain Assessment Document 01/10/18 18:23 MR (Rec: 01/10/18 18:24 [id number] Pain Reassessment Is this a pain reassessment? Yes Sleep Is patient sleeping during reassessment? No Presence of Pain Presence of Pain Yes Pain Scale Used Pain Scale Used Numeric Location Left, Right or Bilateral Left Pain Location Body Site Hip Leg Description Description Constant Intensity of Pain at present 10 Pain Behavior Moaning Withdrawal from Touch Facial Grimacing Aggravating Factors Changing Position IVP Administration Document 01/10/18 18:23 MR (Rec: 01/10/18 18:24 MR [id number]) Charges for Administration # of IVP Administrations 1 Re-Assess: MAR Pain Assessment Document 01/10/18 22:00 (Rec: 01/11/18 00:22 [id number]) Pain Reassessment Is this a pain reassessment? Yes Sleep Is patient sleeping during reassessment? No Presence of Pain Presence of Pain No Sodium Chloride (Sodium Chloride 0.9%) 1,000 mls @ 999 mls/hr IV .Q1H1M STA Stop: 01/10/18 18:06 Last Admin: 01/10/18 18:22 Dose: 999 mls/hr eMAR Start Stop Document 01/10/18 18:22 MR (Rec: 01/10/18 18:23 MR [id number]) Intravenous Solution Start Date 01/10/18 Start Time 18:22 End Date 01/10/18 End time 19:22 Total Infusion Time 60 Losartan Potassium (Cozaar) 100 mg PO STAT STA Stop: 01/11/18 05:06 Last Admin: 01/11/18 05:13 Dose: 100 mg Morphine Sulfate (Morphine) 1 mg IVP Q6H PRN PRN Reason: Pain, severe (8-10) Ondansetron HCl (Zofran Inj) 8 mg IM STAT STA Stop: 01/10/18 17:07 Last Admin: 01/10/18 18:23 Dose: 8 mg IM Administration Charges Document 01/10/18 18:23 MR (Rec: 01/10/18 18:23 MR [id number]) Injection Site MAR Injection Site Right Deltoid Charges for Administration # of IM Administrations 1 Ondansetron HCl (Zofran Inj) 8 mg IVP STAT STA Stop: 01/10/18 20:57 Last Admin: 01/10/18 21:18 Dose: 8 mg IVP Administration Document 01/10/18 21:18 SS (Rec: 01/10/18 21:18 SS [id number]) Charges for Administration # of IVP Administrations 1 - Scribe Statement The provider has reviewed the documentation as recorded by the Scribe Francisco Javier Venegas All medical record entries made by the Scribe were at my direction and personally dictated by me. I have reviewed the chart and agree that the record accurately reflects my personal performance of the history, physical exam, medical decision making, and the department course for this patient. I have also personally directed, reviewed, and agree with the discharge instructions and disposition. Disposition/Present on Arrival - Present on Arrival Any Indicators Present on Arrival: No History of DVT/PE: No History of Uncontrolled Diabetes: No Urinary Catheter: No History Surgical Site Infection Following: None - Disposition Have Diagnosis and Disposition been Completed?: Yes Diagnosis: Left displaced femoral neck fracture Disposition: HOSPITALIZED Disposition Time: 22:00 Patient Plan: Admission Condition: FAIR
[2018-01-10] MEDS ORDERED: HYDROmorphone 0.5 mg/0.5 ml ISec IVP STA (18:00)
[2018-01-10 18:08] LABS: BASO # 0.02 K/mm3 (0.0-2.0); BASO % 0.2 % (0.0-3.0); EOS % 0.1 % (1.5-5.0); GRAN # 11.3 (1.4-6.5); GRAN % 88.1 % (50.0-68.0); HEMOGLOBIN 12.9 g/dL (12.0-16.0); LYMPH # 0.8 (1.2-3.4); LYMPH % 6.1 % (22.0-35.0); MEAN CELL VOLUME 81.5 fl (80.0-105.0); MEAN CORPUSCULAR HEMOGLOBIN 26.8 pg (25.0-35.0); MEAN CORPUSCULAR HGB CONC 32.8 g/dl (31.0-37.0); MEAN PLATELET VOLUME 8.1 fl (7.0-11.0); MONO # 0.7 (0.1-0.6); MONO % 5.5 % (1.0-6.0); RBC 4.82 10^6/uL (3.5-6.1); RED CELL DISTRIBUTION WIDTH 16.4 % (11.5-14.5); WHITE BLOOD COUNT 12.8 10^3/ul (4.5-11.0)
[2018-01-10 18:16] LABS: INR 1.11 (0.93-1.08); PROTHROMBIN TIME 12.7 SECONDS (9.4-12.5)
[2018-01-10 18:23] LABS: ALB/GLOB RATIO 1.2 (1.1-1.8); ALBUMIN 4.5 g/dL (3.0-4.8); CALCIUM 10.9 mg/dL (8.4-10.5)
[2018-01-10 18:29] LABS: TROPONIN I 0.01 ng/mL
[2018-01-10] MEDS ORDERED: Morphine 2 mg/ml ISec IVP PRN (21:15)
[2018-01-10] MEDS ORDERED: Enoxaparin 30 mg Syringe SC STA (21:16)
[2018-01-10] MEDS ORDERED: Dextrose 5%/0.9% NS 1,000 ML IV SCH (21:30)
--- NOTE | 2018-01-11 05:05 | CP.PCM.PN ---
Subjective - Date & Time of Evaluation Date of Evaluation: 01/11/18 Time of Evaluation: 05:04 - Subjective Subjective: Patient was seen for elevated blood pressure reading. BP 163/64, 64/min. Medical record was reviewed. This 82 year old woman is admitted with elevated blood pressure reading and hypokalemai. Has PMH of HTN,HLD,OA,COPD,AAA. On Cozaar and norvasc at home . Objective - Vital Signs/Intake and Output Vital Signs (last 24 hours): Temp Pulse Resp BP Pulse Ox 98.0 F 92 H 18 168/85 H 98 01/10/18 17:05 01/10/18 17:05 01/10/18 22:13 01/10/18 17:05 01/10/18 21:45 - Medications Medications: Current Medications Dextrose/Sodium Chloride (Dextrose 5%/0.9% Ns 1000 Ml) 1,000 mls @ 80 mls/hr IV .[id number] MIKEL Last Admin: 01/11/18 00:23 Dose: Not Given Morphine Sulfate (Morphine) 1 mg IVP Q6H PRN PRN Reason: Pain, severe (8-10) - Labs Labs: PT 12.7 SECONDS (9.4-12.5) H 01/10/18 18:02 INR 1.11 (0.93-1.08) H 01/10/18 18:02 Most Recent Lab Values WBC 12.8 10^3/ul (4.5-11.0) H D 01/10/18 18:02 RBC 4.82 10^6/uL (3.5-6.1) 01/10/18 18:02 Hgb 12.9 g/dL (12.0-16.0) 01/10/18 18:02 Hct 39.3 % (36.0-48.0) 01/10/18 18:02 MCV 81.5 fl (80.0-105.0) 01/10/18 18:02 MCH 26.8 pg (25.0-35.0) 01/10/18 18:02 MCHC 32.8 g/dl (31.0-37.0) 01/10/18 18:02 RDW 16.4 % (11.5-14.5) H 01/10/18 18:02 Plt Count 208 10^3/uL (120.0-450.0) 01/10/18 18:02 MPV 8.1 fl (7.0-11.0) 01/10/18 18:02 Gran % 88.1 % (50.0-68.0) H 01/10/18 18:02 Lymph % (Auto) 6.1 % (22.0-35.0) L 01/10/18 18:02 [place] % (Auto) 5.5 % (1.0-6.0) 01/10/18 18:02 Eos % (Auto) 0.1 % (1.5-5.0) L 01/10/18 18:02 Baso % (Auto) 0.2 % (0.0-3.0) 01/10/18 18: Gran # 11.30 (1.4-6.5) H 01/10/18 18:02 Lymph # (Auto) 0.8 (1.2-3.4) L 01/10/18 18:02 [place] # (Auto) 0.7 (0.1-0.6) H 01/10/18 18:02 Eos # (Auto) 0.0 (0.0-0.7) 01/10/18 18:02 Baso # (Auto) 0.02 K/mm3 (0.0-2.0) 01/10/18 18:02 PT 12.7 SECONDS (9.4-12.5) H 01/10/18 18:02 INR 1.11 (0.93-1.08) H 01/10/18 18:02 Sodium 144 mmol/L (132-148) 01/10/18 18:02 Potassium 3.7 mmol/L (3.6-5.0) 01/10/18 18:02 Chloride 105 mmol/L (98-107) 01/10/18 18:02 Carbon Dioxide 25 mmol/L (21-33) 01/10/18 18:02 Anion Gap 18 (10-20) 01/10/18 18:02 BUN 22 mg/dL (7-21) H 01/10/18 18:02 Creatinine 1.6 mg/dl (0.7-1.2) H 01/10/18 18:02 Est GFR ( Amer) 37 01/10/18 18:02 Est GFR (Non-Af Amer) 31 01/10/18 18:02 Random Glucose 114 mg/dL (70-110) H 01/10/18 18:02 Calcium 10.9 mg/dL (8.4-10.5) H 01/10/18 18:02 Total Bilirubin 0.8 mg/dL (0.2-1.3) 01/10/18 18:02 AST 26 U/L (14-36) 01/10/18 18:02 ALT 21 U/L (7-56) 01/10/18 18:02 Alkaline Phosphatase 109 U/L (38-126) 01/10/18 18:02 Lactate Dehydrogenase 504 U/L (333-699) 01/10/18 18:02 Total Creatine Kinase 119 U/L (35-230) 01/10/18 18:02 Troponin I 0.01 ng/mL 01/10/18 18:02 NT-Pro-B Natriuret Pep 3060 pg/mL (0-450) H 01/10/18 18:02 Total Protein 8.2 g/dL (5.8-8.3) 01/10/18 18:02 Albumin 4.5 g/dL (3.0-4.8) 01/10/18 18:02 Globulin 3.7 gm/dL 01/10/18 18:02 Albumin/Globulin Ratio 1.2 (1.1-1.8) 01/10/18 18:02 Blood Type A POSITIVE 01/10/18 22:49 Antibody Screen Negative 01/10/18 22:49 Crossmatch See Detail 01/10/18 22:49 BBK History Checked Patient has bt 01/10/18 22:49 - Constitutional Appears: Well, No Acute Distress - Head Exam Head Exam: ATRAUMATIC, NORMAL INSPECTION, NORMOCEPHALIC - Eye Exam Eye Exam: Normal appearance - ENT Exam ENT Exam: Normal External Ear Exam - Neck Exam Neck Exam: Normal Inspection - Respiratory Exam Respiratory Exam: NORMAL BREATHING PATTERN - Cardiovascular Exam Cardiovascular Exam: absent: JVD - Rectal Exam Rectal Exam: Deferred - Extremities Exam Extremities Exam: Normal Inspection - Back Exam Back Exam: NORMAL INSPECTION - Neurological Exam Neurological Exam: Alert, Awake, Oriented x3 - Psychiatric Exam Psychiatric exam: Normal Affect, Normal Mood - Skin Skin Exam: Normal Color Assessment and Plan - Assessment and Plan (Free Text) Assessment: Elevated blood pressure reading. HLD. HTN. COPD. OA. AAA. Plan: Cozaar 100 mg PO x 1. Norvasc 5 mg PO x 1. Continue management as per PMD.
[2018-01-11] MEDS ORDERED: Morphine 4 mg/ml ISec IVP PRN (06:31)
--- NOTE | 2018-01-11 07:38 | CON ---
DATE: 01/10/2018 Left hip fracture,on xray . This patient slipped and fell at home, lives alone. X-ray shows that the base of the neck displaced left hip fracture and will require left hip bipolar prosthesis. I would like to get her cleared for surgery by Dr. Rebolledo and Dr. Martinez. Hopefully, I could do it on 01/11/2018. Today's date is 01/10/2018 and it is about 9.30 p.m. We are going to keep her n.p.o after 2 a.m., give her some Lovenox and hopefully, she could be cleared for surgery for Sunday at 01/11/2018 at about 2 o' clock which is medically ready to go, I could do a bipolar hip prosthesis. Otherwise, her electrolytes and lab work looks fine and put a pillow under left leg, give her some Lovenox tonight and hopefully do this surgery tomorrow afternoon. FINAL DIAGNOSIS: Displaced left femoral neck fracture requiring a left hip bipolar prosthesis. Singh Cooney DO [id number]
--- NOTE | 2018-01-11 08:28 | RAD ---
HISTORY: Pre Op Hip Fracture COMPARISON: 01/09/2018 FINDINGS: LUNGS: No active pulmonary disease. PLEURA: No significant pleural effusion identified, no pneumothorax apparent. CARDIOVASCULAR: Normal. OSSEOUS STRUCTURES: No significant abnormalities. VISUALIZED UPPER ABDOMEN: Normal. OTHER FINDINGS: None. IMPRESSION: No active disease.
--- NOTE | 2018-01-11 09:55 | RAD ---
PROCEDURE: Left Hip and pelvis X-ray Radiographs. HISTORY: fall, left leg externally rotated and shortened, COMPARISON: None. FINDINGS: BONES: There is a displaced fracture of the left femoral neck. No pelvic fracture JOINTS: Normal. SOFT TISSUES: Normal. OTHER FINDINGS: None. IMPRESSION: Displaced left femoral neck fracture
--- NOTE | 2018-01-11 09:56 | RAD ---
PROCEDURE: Left Hand Radiographs. HISTORY: fall ? Fx COMPARISON: None. FINDINGS: BONES: Normal. No fracture. JOINTS: Normal. No osteoarthritic changes. SOFT TISSUES: Normal. OTHER FINDINGS: None. IMPRESSION: Normal left hand radiographs.
--- NOTE | 2018-01-11 09:58 | RAD ---
PROCEDURE: Left Wrist Radiographs. HISTORY: fall ? Fracture COMPARISON: None. FINDINGS: BONES: Normal. No fracture. JOINTS: Degenerative changes of the base of the thumb SOFT TISSUES: Normal. OTHER FINDINGS: None. IMPRESSION: Negative study
--- NOTE | 2018-01-11 10:06 | RAD ---
PROCEDURE: Left hip portable HISTORY: r/o fx COMPARISON: Earlier study same day TECHNIQUE: Two portable views. The left hip was not completely included on the decubitus view FINDINGS: The left femoral neck fracture is less visible on the portable film than it was on the original film. IMPRESSION: Left femoral neck fracture.
[2018-01-11] MEDS ORDERED: Vancomycin 1 g Inj ONE (11:47)
[2018-01-11] MEDS ORDERED: Bupivacaine 0.5% Inj(30mL) ONE (11:47)
--- NOTE | 2018-01-11 12:37 | HP ---
CHIEF COMPLAINT AND HISTORY OF PRESENT ILLNESS: This is an 82-year-old female who has a past medical history of right kidney stent and right-sided hydronephrosis. The patient has hypertension, she was discharged from the hospital yesterday. She was initially admitted because of stent replacement that needed to be done, but her blood pressure was high and potassium was elevated so it was canceled. She was being seen by Dr. Lau who is going to place the stent. The patient had gone home and she stated that she was going to the restroom, she fell and after the fall, she was not able to get up. The patient has no complaints of any dizziness. No syncope, no chest pain, no shortness of breath, no headaches, no abdominal pain. No dysuria or frequency. She denied any incontinence. She does have 10/10 pain. She is not able to move her left leg because of pain. REVIEW OF SYSTEMS: All other review of systems are within normal limits except that as mentioned. ALLERGIES: NO KNOWN DRUG ALLERGIES. MEDICATIONS: Her home medications have been reviewed on the SEP. PAST MEDICAL HISTORY: Dyslipidemia, hypertension, osteoarthritis, AAA, COPD, right-sided hydro with stent. FAMILY HISTORY: Mother at 82 of bone cancer. Father of unknown causes. SOCIAL HISTORY: She does smoke. She denies drinking or drugs. PHYSICAL EXAMINATION: VITAL SIGNS: Temperature is 98, pulse of 92, blood pressure is 160/85, respirations 18, O2 saturation 100%. GENERAL: The patient lying in bed, uncomfortable, and in no acute distress. HEENT: Atraumatic and normocephalic. Anicteric sclerae. Moist mucosa. Arena conjunctivae. No oral lesions. NECK: No JVD, anterior and posterior adenopathy, thyromegaly, or bruits. CARDIOVASCULAR: S1 and S2 regular. No murmur, rubs, or gallop. LUNGS: Clear to auscultation bilaterally. No wheezes, rales, or rhonchi. ABDOMEN: Bowel sounds are positive. Soft, nontender and nondistended. No hepatosplenomegaly. No rebound and no guarding. EXTREMITIES: No cyanosis, clubbing, or edema. She is not able to move her left leg because of pain. NEUROLOGIC: No facial asymmetry. Tongue is midline. No uvula deviation. Power is 5/5 upper extremity and lower extremity. Sensation intact in upper extremity and lower extremity. PSYCHIATRIC: She is awake, alert and oriented x3. No anxiety or depression. She has normal affect. GENITOURINARY: No CVA tenderness. VASCULAR: 2+ pulses in the carotid pulses and pedal pulses. SKIN: No erythema or nodules. SPINE: Shows normal curvature. LABORATORY DATA: Labs have been reviewed. Her hemoglobin is 12.9, white count is 12.8. Chemistry shows a creatinine of 1.6, calcium is 10.9. Chest x-ray done shows no signs of infiltrates, no pneumonia. There is a left hip x-ray that shows an intertrochanteric fracture. ASSESSMENT: 1. Left intertrochanteric fracture. 2. Fall. 3. Hypertension. 4. Chronic obstructive pulmonary disease. 5. Congestive heart failure secondary to diastolic dysfunction. 6. Abdominal aortic aneurysm of 4.9 cm. 7. Right-sided hydronephrosis with stent. 8. Dyslipidemia. 9. Osteoarthritis. PLAN: The patient is admitted to the hospital. Dr. Cooney had evaluated the patient and deemed that the patient will probably need surgery. She has asked Dr. Martinez for preoperative evaluation. The patient was given losartan for hypertension. The patient is on IV fluids. She is on morphine for pain. The patient is n.p.o. The patient will most likely need some acute rehab. The patient will continue on losartan for blood pressure. Ede Rebolledo MD
[2018-01-11] MEDS ORDERED: CeFAZolin 1 gm in NS 100ml IVPB ONE (14:15)
[2018-01-11] MEDS ORDERED: Bupivacaine Liposomal Inj 20 ml ONE (14:42)
[2018-01-11] MEDS ORDERED: Bupivacaine Liposomal Inj 20 ml INJ ONE (15:41)
[2018-01-11] MEDS ORDERED: Vancomycin 1 g Inj IVPB ONE (15:45)
--- NOTE | 2018-01-11 16:32 | PCM.SURG1 ---
Surgeon's Initial Post Op Note - Surgeon's Notes Surgeon: Dr. Cooney Java Web Architect: Kristie Minor, PGY-1 Type of Anesthesia: General Endo Anesthesia Administered By: Dr. Ly Pre-Operative Diagnosis: Left hip transcervical femoral head fracture Operative Findings: see op report Post-Operative Diagnosis: Left hip transcervical femoral head fracture Operation Performed: Left hip bipolar with prosthesis Specimen/Specimens Removed: Femoral head Estimated Blood Loss: EBL {In ML}: 200 Blood Products Given: N/A Drains Used: No Drains Post-Op Condition: Good Date of Surgery/Procedure: 01/11/18 Time of Surgery/Procedure: 16:32
[2018-01-11] MEDS ORDERED: HYDROmorphone 0.5 mg/0.5 ml ISec IVP PRN (16:34)
[2018-01-11] MEDS ORDERED: Lactated Ringer's 1,000 ML IV SCH (16:45)
[2018-01-11] MEDS ORDERED: HYDROmorphone 0.5 mg/0.5 ml ISec ONE (16:59)
--- NOTE | 2018-01-11 17:11 | RAD ---
PROCEDURE: Left Hip X-ray Radiographs. HISTORY: post op lt hip COMPARISON: Left hip radiographs dated 01/10/2018. FINDINGS: The patient is status post total left arthroplasty with prosthetic components seen in good alignment. A small amount of expected air and fluid is seen adjacent to the surgical bed. Skin wily are seen superficially. No other significant interval change is identified IMPRESSION: Status post left hip arthroplasty.
--- NOTE | 2018-01-11 18:17 | CON ---
REASON FOR CONSULTATION AND FOLLOWUP: Preop evaluation, risk stratification for left hip fracture for OR. 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 Patient was going to the bathroom and tripped into the carpet and fell down and sustained fracture of the hip requiring OR and internal fixation. Denies any chest pain, shortness of breath or any palpitations. PAST HISTORY: Significant for hypertension, history of hydronephrosis, had a stone in kidney in the past. 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 SOCIAL HISTORY: Active tobacco abuse, a pack a day, started at age of 18, since then the patient continues smoking. Denies any history of alcohol abuse. FAMILY HISTORY: Noncontributory. No history of diabetes or coronary artery disease. CURRENT MEDICATIONS: Patient is taking (oxycodone and acetaminophen) Percocet 5/325 one to two tablets daily, amlodipine 5 mg daily, losartan 100 mg daily, Nexium, and albuterol inhaler. ALLERGIES: NO KNOWN DRUG ALLERGIES. REVIEW OF SYSTEMS: As per HPI. PHYSICAL EXAMINATION: GENERAL: Height of the patient is 5 feet 7 inches, weight of the patient 142 pounds, body mass index 22.2 kg/m2. VITAL SIGNS: Temperature afebrile, heart rate 69, blood pressure 162/64. HEENT: PERRLA. Extraocular muscles intact. NECK: Supple. No carotid bruits or thyromegaly. CHEST: Clear to auscultation. HEART: S1 and S2, regular. ABDOMEN: Soft. EXTREMITIES: Clubbing and cyanosis negative. LABORATORY DATA: Blood workup as follows: WBC 12.8, hemoglobin 12.9, hematocrit 39.3, and platelet count 208. Chemistry shows sodium 144, potassium 3.7, chloride 105, carbon dioxide 25, anion gap of 15. BUN 22 and creatinine 1.6. BNP 3060. EKG shows normal sinus, no acute ST-T changes noted, rate 68. Chest x-ray shows no congestive heart failure changes, but minimal and emphysematous chest noted. IMPRESSION: An 82-year-old female with active tobacco abuse, history of renal insufficiency, nonfunctional left kidney, right kidney hydronephrosis and hydroureter requiring possible stenting and procedure was canceled to discharge home, came back again after a mechanical fall and sustained trauma to the hip, requiring open reduction and internal fixation for left intertrochanteric fracture. Patient is asymptomatic. No complaints of chest pain. No history of congestive heart failure or angina. We will clear the patient with moderate risk because of underlying comorbidities. We will monitor closely. Patient has some renal insufficiency baseline because of nonfunctional left kidney and right kidney has hydronephrosis and hydroureter. We will follow closely. Continue amlodipine 5 mg and p.r.n. hydralazine. We will follow with you. We will put a low dose of beta-deven as well. For respiratory progression, we will get p.r.n. hydralazine for systolic more than 170. We will notify Dr. Cooney in the OR for clearance, as mentioned is at moderate risk, we will clear for the surgery. Thank you Dr. Rebolledo, for providing me the opportunity in taking care of the patient, Daiana Antonio. Ruth Martinez MD
--- NOTE | 2018-01-11 19:00 | CARD ---
APPROVED REPORT EKG Measurement Heart [id number] <Conclusion> Normal sinus rhythm Normal ECG
[2018-01-12] MEDS: Oxycodone/Acetaminophen 5/325 mg Tab PO PRN ×3 (00:21→21:16)
[2018-01-12 07:23] LABS: BASO # 0.01 K/mm3 (0.0-2.0); BASO % 0.1 % (0.0-3.0); EOS % 0.6 % (1.5-5.0); GRAN # 5.15 (1.4-6.5); GRAN % 73.5 % (50.0-68.0); LYMPH # 1.1 (1.2-3.4); LYMPH % 15.7 % (22.0-35.0); MEAN CORPUSCULAR HEMOGLOBIN 26.3 pg (25.0-35.0); MEAN CORPUSCULAR HGB CONC 31.3 g/dl (31.0-37.0); MEAN PLATELET VOLUME 7.7 fl (7.0-11.0); MONO # 0.7 (0.1-0.6); MONO % 10.1 % (1.0-6.0); RBC 3.31 10^6/uL (3.5-6.1); RED CELL DISTRIBUTION WIDTH 16.8 % (11.5-14.5)
[2018-01-12 07:35] LABS: HEMOGLOBIN 8.7 g/dL (12.0-16.0)
[2018-01-12 07:40] LABS: ALB/GLOB RATIO 1.2 (1.1-1.8); CALCIUM 8.9 mg/dL (8.4-10.5)
--- NOTE | 2018-01-12 09:04 | CP.PCM.CON ---
<Gregorio Flores - Last Filed: 01/12/18 09:01> History of Present Illness - History of Present Illness History of Present Illness: Podiatry consult note for attending, Dr. Bowling 82 y/o female patient with PMHx of right kidney stent placement, right kidney hydronephrosis, right kidney aneurysm, left kidney failure, hypertension, hyperkalemia, and sciatica was seen at bedside with attending, Dr. Bowling. Podiatry was consulted for a podiatric evaluation. Patient was resting comfortably in bed, and was in NAD. Patient has left hip surgery on 01/11/18 due to a fall. Patient reports she is unable to cut her own toenails. Patient denied any acute overnight events, and denies N/V/V/SOB/C/CP. Review of Systems - Constitutional Constitutional: As Per HPI Past Patient History - Infectious Disease Hx of Infectious Diseases: None - Tetanus Immunizations Tetanus Immunization: Unknown - Past Social History Smoking Status: Current Some Days Smoker - CARDIAC Hx Pacemaker: No - PULMONARY Hx Respiratory Disorders: Yes (SMOKES CIGARETTES PPD.ON CHANTIX) Hx Chronic Obstructive Pulmonary Disease (COPD): Yes - NEUROLOGICAL Hx Paralysis: No - HEENT Hx HEENT Problems: Yes Hx Blind: No Hx Cataracts: Yes Hx Deafness: No Hx Difficulty Chewing: No Hx Epistaxis: No Hx Glaucoma: No Hx Macular Degeneration: No - RENAL Hx Renal Failure: No - ENDOCRINE/METABOLIC Hx Endocrine Disorders: No Hx Diabetes Mellitus Type 1: No Hx Diabetes Mellitus Type 2: No Hx Hypothyroidism: No - HEMATOLOGICAL/ONCOLOGICAL Hx Blood Transfusions: Yes (MANY YRS AGO) Hx Blood Transfusion Reaction: No - INTEGUMENTARY Hx Dermatological Problems: Yes (HYPOPIGMENTATION-WHITISH SKIN DISCOLORATION. SCARRING TO LEFT ARM,R ARM,LE) Hx Basil Cell: No Hx Eczema: No Hx Melanoma: No Hx Psoriasis: No Hx Squamous Cell: No - MUSCULOSKELETAL/RHEUMATOLOGICAL Hx Musculoskeletal Disorders: No - GASTROINTESTINAL Hx Gastrointestinal Disorders: Yes (CONSTIPATION) Hx Colostomy: No Hx Crohn's Disease: No Hx Diverticulitis: No Hx Gall Bladder Disease: Yes (CHOLECYSTECTOMY,) Hx Gastroesophageal Reflux: Yes Hx Ileostomy: No Hx Liver Failure: No Hx Pancreatitis: No HX Swallowing Problems: No - GENITOURINARY/GYNECOLOGICAL Hx Genitourinary Disorders: Yes (LEFT KIDNEY NON FUNCTIONING SHE STATED.) Hx Hematuria: Yes Hx Incontinence: No Hx Sexually Transmitted Disorders: No Hx Urinary Tract Infection: Yes Other/Comment: BILATERAL HYDRONEPHROSIS - PSYCHIATRIC Hx Emotional Abuse: No Hx Physical Abuse: No Hx Substance Use: No - SURGICAL HISTORY Hx Cholecystectomy: Yes Hx Hysterectomy: Yes - ANESTHESIA Hx Anesthesia Reactions: No Hx Malignant Hyperthermia: No Meds Allergies/Adverse Reactions: Allergies Allergy/AdvReac Type Severity Reaction Status Date / Time No Known Allergies Allergy Verified 01/10/18 17:07 - Medications Medications: Current Medications Acetaminophen (Tylenol 325mg Tab) 650 mg PO Q6H PRN PRN Reason: Pain, moderate (4-7) Amlodipine Besylate (Norvasc) 5 mg PO DAILY [facility] Last Admin: 01/11/18 09:44 Dose: Not Given Hydralazine HCl (Apresoline) 10 mg PO QID PRN PRN Reason: for sbp>170 Losartan Potassium (Cozaar) 100 mg PO DAILY [facility] Last Admin: 01/11/18 09:45 Dose: Not Given Metoprolol Tartrate (Lopressor) 25 mg PO BID [facility] Last Admin: 01/11/18 19:00 Dose: Not Given Ondansetron HCl (Zofran Inj) 4 mg IVP Q4H PRN PRN Reason: Nausea/Vomiting Last Admin: 01/11/18 19:01 Dose: 4 mg Oxycodone/Acetaminophen (Percocet 5/325 Mg Tab) 1 tab PO Q6H PRN PRN Reason: Pain, severe (8-10) Stop: 01/14/18 16:37 Last Admin: 01/12/18 00:21 Dose: 1 tab Physical Exam - Constitutional Appears: Well, Non-toxic, No Acute Distress - Head Exam Head Exam: ATRAUMATIC, NORMOCEPHALIC - Extremities Exam Additional comments: LE Examination bilaterally VASC: DP and PT pulses palpable 2/4 bilaterally, CFT less than 3 seconds X 10, TG warm to cool proximal to distal, no edema, no varicosities NEURO: protective and epicritic sensation intact bilaterally DERM: nails elongated, thickened, mycotic, dystrophic X 10, no interdigital maceration, no open wounds, no clinical signs of infection MSK: pain on palpation to the nails due to thickening - Neurological Exam Neurological exam: Alert, Oriented x3 - Psychiatric Exam Psychiatric exam: Normal Affect, Normal Mood Results - Vital Signs Recent Vital Signs: Last Vital Signs Temp 98 F 01/12/18 06:00 Pulse 73 01/12/18 06:00 Resp 20 01/12/18 06:00 BP 111/59 L 01/12/18 06:00 Pulse Ox 95 01/12/18 06:00 - Labs Result Diagrams: 01/12/18 07:00 01/12/18 07:00 Labs: Laboratory Results - last 24 hr 01/12/18 01/12/18 01/12/18 07:00 07:00 07:00 WBC 7.0 D RBC 3.31 L Hgb 8.7 L D Hct 27.8 L MCV 84.0 MCH 26.3 MCHC 31.3 RDW 16.8 H Plt Count 144 MPV 7.7 Gran % 73.5 H Lymph % (Auto) 15.7 L Hand % (Auto) 10.1 H Eos % (Auto) 0.6 L Baso % (Auto) 0.1 Gran # 5.15 Lymph # (Auto) 1.1 L Hand # (Auto) 0.7 H Eos # (Auto) 0.0 Baso # (Auto) 0.01 Sodium 140 Potassium 4.2 Chloride 107 Carbon Dioxide 25 Anion Gap 13 BUN 31 H Creatinine 1.5 H Est GFR ( Amer) 40 Est GFR (Non-Af Amer) 33 Random Glucose 87 Calcium 8.9 Phosphorus 3.3 Magnesium 1.7 Total Bilirubin 0.4 AST 25 ALT 25 Alkaline Phosphatase 63 Total Protein 5.5 L Albumin 3.0 Globulin 2.5 Albumin/Globulin Ratio 1.2 Triglycerides 121 Cholesterol 139 LDL Cholesterol Direct 73 HDL Cholesterol 36 TSH 3rd Generation 1.25 Assessment & Plan - Assessment and Plan (Free Text) Assessment: 82 y/o female patient with PMHx of right kidney stent placement, right kidney hydronephrosis, right kidney aneurysm, left kidney failure, hypertension, hyperkalemia, and sciatica was seen at bedside with attending, Dr. Bowling for a podiatric evaluation Plan: Patient seen and evaluated at bedside with attending, Dr. Bowling Charts, labs and vitals reviewed Patient nails sharply debrided with large nail nippers to the level of normal length Patient tolerated the procedure well without complications Patient questions answered to satisfaction Thank you for the opportunity in the care of your patient - Date & Time Date: 01/12/18 Time: 09:10 <JorgewarrenLanden - Last Filed: 01/12/18 10:42> Meds - Medications Medications: Current Medications Acetaminophen (Tylenol 325mg Tab) 650 mg PO Q6H PRN PRN Reason: Pain, moderate (4-7) Amlodipine Besylate (Norvasc) 5 mg PO DAILY [facility] Last Admin: 01/12/18 09:56 Dose: Not Given Furosemide (Lasix) 40 mg IV ONCE ONE Stop: 01/12/18 13:01 Hydralazine HCl (Apresoline) 10 mg PO QID PRN PRN Reason: for sbp>170 Losartan Potassium (Cozaar) 50 mg PO DAILY [facility] Metoprolol Tartrate (Lopressor) 25 mg PO BID [facility] Last Admin: 01/12/18 09:54 Dose: Not Given Ondansetron HCl (Zofran Inj) 4 mg IVP Q4H PRN PRN Reason: Nausea/Vomiting Last Admin: 01/11/18 19:01 Dose: 4 mg Oxycodone/Acetaminophen (Percocet 5/325 Mg Tab) 1 tab PO Q6H PRN PRN Reason: Pain, severe (8-10) Stop: 01/14/18 16:37 Last Admin: 01/12/18 00:21 Dose: 1 tab Results - Vital Signs Recent Vital Signs: Last Vital Signs Temp 98 F 01/12/18 06:00 Pulse 73 01/12/18 06:00 Resp 20 01/12/18 06:00 BP 110/55 L 01/12/18 09:54 Pulse Ox 95 01/12/18 06:00 - Labs Result Diagrams: 01/12/18 07:00 01/12/18 07:00 Labs: Laboratory Results - last 24 hr 01/12/18 01/12/18 01/12/18 07:00 07:00 07:00 WBC 7.0 D RBC 3.31 L Hgb 8.7 L D Hct 27.8 L MCV 84.0 MCH 26.3 MCHC 31.3 RDW 16.8 H Plt Count 144 MPV 7.7 Gran % 73.5 H Lymph % (Auto) 15.7 L Hand % (Auto) 10.1 H Eos % (Auto) 0.6 L Baso % (Auto) 0.1 Gran # 5.15 Lymph # (Auto) 1.1 L Hand # (Auto) 0.7 H Eos # (Auto) 0.0 Baso # (Auto) 0.01 Sodium 140 Potassium 4.2 Chloride 107 Carbon Dioxide 25 Anion Gap 13 BUN 31 H Creatinine 1.5 H Est GFR ( Amer) 40 Est GFR (Non-Af Amer) 33 Random Glucose 87 Calcium 8.9 Phosphorus 3.3 Magnesium 1.7 Total Bilirubin 0.4 AST 25 ALT 25 Alkaline Phosphatase 63 Total Protein 5.5 L Albumin 3.0 Globulin 2.5 Albumin/Globulin Ratio 1.2 Triglycerides 121 Cholesterol 139 LDL Cholesterol Direct 73 HDL Cholesterol 36 TSH 3rd Generation 1.25 Attending/Attestation - Attestation I have personally seen and examined this patient.: Yes I have fully participated in the care of the patient.: Yes I have reviewed all pertinent clinical information: Yes
--- NOTE | 2018-01-12 10:53 | PN ---
DATE: 01/12/2018 FIRST DAY POSTOP LOCATION: Presently in room 576, bed 1. SUBJECTIVE: She is 1 day postop left hip bipolar prosthesis for displaced neck fracture of the left hip. She is sitting up in bed, ate her breakfast, hemoglobin did drop to 8.[address] Martinez and I have decided to give her a unit of blood to not tax the heart too much so we will get her up out of bed plus give her suplementals to raise the albumin level She is allowed to put weight on that left hip. The plan is for go to subacute rehab when the time comes. Wound is a little bloody, soaked but not total. We will change the dressing tomorrow; otherwise, she has no undue pain. Singh Cooney DO [email or web address]
--- NOTE | 2018-01-12 11:08 | PN ---
DATE: 01/12/2018 SUBJECTIVE: The patient has no complaints of any chest pain. No shortness of breath. No headaches. She says she has difficult time sleeping because of her pain. PHYSICAL EXAMINATION: VITAL SIGNS: Temperature is 98, pulse of 73, blood pressure is 111/56, respiration is 20. GENERAL: The patient is lying in bed, flat, comfortable. HEENT: No oral lesion. Anicteric sclerae. Moist mucosa. NECK: No JVD, adenopathy, or thyromegaly. CARDIOVASCULAR: S1 and S2, regular. No murmurs, rubs, or gallops. LUNGS: Clear to auscultation bilaterally. No wheeze, rales, or rhonchi. ABDOMEN: Bowel sounds are positive, soft, nontender and nondistended. EXTREMITIES: No cyanosis, clubbing or edema. LABORATORY DATA: White count of 7, hemoglobin 8.7. ASSESSMENT: 1. Left hip fracture, status post open reduction and internal fixation. 2. Fall. 3. Hypertension. 4. Chronic obstructive pulmonary disease. 5. Congestive heart failure secondary to diastolic dysfunction, stable. 6. Abdominal aortic aneurysm, 4.9 cm. 7. Right-sided hydronephrosis, was stented. 8. Dyslipidemia. 9. Osteoarthritis. PLAN: The patient is currently comfortable. She is on hydralazine. The patient is going to be on losartan for hypertension. She is on metoprolol. She is going to continue with Percocet for pain. She is on heart-healthy diet. We will wait for evaluation by Physical Therapy. She will most likely need subacute rehab. Ede Rebolledo MD
--- NOTE | 2018-01-12 11:28 | PN ---
DATE: 01/12/2018 REASON FOR CONSULTATION AND FOLLOWUP: Preop evaluation, risk stratification for hip fracture, status post OR, status post followup postop. SUBJECTIVE: The patient denies any chest pain, shortness of breath, or any palpitations. OBJECTIVE: GENERAL: Not in apparent distress. VITAL SIGNS: Temperature afebrile, heart rate 73, blood pressure 110/55. HEENT: PERRLA. Extraocular muscles intact. NECK: Supple. No carotid bruits or thyromegaly. CHEST: Clear to auscultation. HEART: S1 and S2, regular. ABDOMEN: Soft. EXTREMITIES: Clubbing and cyanosis negative. LABORATORY DATA: Blood workup as follows: WBC 7, hemoglobin 8.3, hematocrit 27.8, platelet count 144. Chemistry shows sodium 140, potassium 4.2, chloride 106, carbon dioxide 25, anion gap of 13. BUN 31 and creatinine 1.5, magnesium 1.5, phosphorus 3.3, TSH 1.25, LDL 73, HDL 36, albumin 3, total protein 5, globulin 2.5, albumin-globulin ratio 1.2, triglyceride 121. IMPRESSION: Status post fall, status post fracture of hip, status post open reduction and internal fixation, postop anemia, drop from 12 to hemoglobin 8, hypertension, history of hydronephrosis, had stone in the kidney in the past, history of non-functioning left kidney, right kidney hydronephrosis, noted in the right kidney, briefly had renal insufficiency, hypertension. Now, the blood pressure is at lower side. Yesterday, the patient had 100 mg of losartan and 5 mg of amlodipine, now the blood pressure is 110. RECOMMENDATION: We will transfuse 1 unit of packed RBC, 40 mg of Lasix post transfusion. We will decrease losartan 50 mg once a day. Hold amlodipine and continue p.r.n. hydralazine if needed. We will follow repeat blood workup in the morning. Discussed with Dr. Cooney. Also, we will get nutritional support to start Ensure 1 can p.o. t.i.d. Ruth Martinez MD [facility] # [id number]
[2018-01-12] MEDS ORDERED: DiphenhydrAMINE 50 mg/ml Inj IVP ONE (12:09)
[2018-01-13 06:45] LABS: BASO # 0.01 K/mm3 (0.0-2.0); BASO % 0.1 % (0.0-3.0); EOS # 0.1 (0.0-0.7); EOS % 0.8 % (1.5-5.0); GRAN # 9.28 (1.4-6.5); GRAN % 85.4 % (50.0-68.0); HEMOGLOBIN 9.5 g/dL (12.0-16.0); LYMPH % 9.6 % (22.0-35.0); MEAN CELL VOLUME 83.8 fl (80.0-105.0); MEAN CORPUSCULAR HEMOGLOBIN 27.1 pg (25.0-35.0); MEAN CORPUSCULAR HGB CONC 32.3 g/dl (31.0-37.0); MEAN PLATELET VOLUME 8.1 fl (7.0-11.0); MONO # 0.5 (0.1-0.6); MONO % 4.1 % (1.0-6.0); RBC 3.51 10^6/uL (3.5-6.1); RED CELL DISTRIBUTION WIDTH 16.4 % (11.5-14.5); WHITE BLOOD COUNT 10.9 10^3/ul (4.5-11.0)
[2018-01-13 06:58] LABS: ALBUMIN 2.8 g/dL (3.0-4.8); CALCIUM 8.5 mg/dL (8.4-10.5)
[2018-01-13] MEDS: Oxycodone/Acetaminophen 5/325 mg Tab PO PRN ×2 (07:42→19:32)
[2018-01-13] MEDS ORDERED: Enoxaparin 30 mg Syringe SC SCH (12:00)
--- NOTE | 2018-01-13 13:16 | PN ---
DATE: 01/13/2018 SUBJECTIVE: The patient has no complaints of any chest pain, no shortness of breath, no headaches or dizziness. PHYSICAL EXAMINATION: VITAL SIGNS: Temperature is 99, pulse of 97, blood pressure is 134/55, respirations 18. GENERAL: The patient is lying in bed, flat, comfortable. HEENT: No oral lesion. Anicteric sclerae. Moist mucosa. NECK: No JVD, adenopathy, or thyromegaly. CARDIOVASCULAR: S1 and S2, regular. No murmurs, rubs, or gallops. LUNGS: Clear to auscultation bilaterally. No wheeze, rales, or rhonchi. ABDOMEN: Bowel sounds are positive, soft, nontender and nondistended. EXTREMITIES: No cyanosis, clubbing or edema. LABORATORY DATA: White count of 10.9, hemoglobin of 9.5. Creatinine is 1.4. ASSESSMENT: 1. Left intertrochanteric fracture, status post open reduction and internal fixation. 2. Fall. 3. Hypertension. 4. Chronic obstructive pulmonary disease. 5. Congestive heart failure secondary to diastolic dysfunction, stable. 6. Abdominal aortic aneurysm of 4.9 cm. 7. Right-sided hydronephrosis with stent, chronic. 8. Dyslipidemia. 9. Osteoarthritis. PLAN: The patient states she continues to have pain . She is having difficulty sleeping. I did advise her to take her pain medications. She is on losartan for her hypertension. She is on metoprolol. She is on Percocet for pain. She is on Zofran. She is currently comfortable and eating well. We will continue to follow closely. Ede Rebolledo MD
[2018-01-13] MEDS ORDERED: Cefepime 1gm in NS 100ml 1 GM/100 ML BAG IVPB SCH ×3 (15:30→15:44)
--- NOTE | 2018-01-13 16:03 | PN ---
DATE: 01/13/2018 SUBJECTIVE: An 82-year-old female who underwent surgery on her left hip on 01/11/2018 for a bipolar prosthesis. She is doing well. one unit of blood . Her hemoglobin is presently elevated, it is 9.5 hemoglobin, hematocrit 29.4, platelets 134; so, we have to slow down the Lovenox and use aspirin for DVT prophylaxis. BUN is 30, creatinine 1.4. We got the patient out of bed. She is eating. I instructed that she should eat as much as she can because her albumin level is low. It is going to account for slow healing. So continue therapy, nutrition and watch her CBC and get her up out of bed. Otherwise, she is doing well. Singh Cooney DO MTDD
[2018-01-13] MEDS ORDERED: Vancomycin 1.5 GM in Sodium Chloride 0.9% 500 ML IVPB ONE (16:51)
[2018-01-13 17:02] LABS: URINE BILIRUBIN NEGATIVE (NEGATIVE); URINE BLOOD LARGE (NEGATIVE); URINE GLUCOSE (UA) NEGATIVE (NEGATIVE); URINE LEUKOCYTE ESTERASE LARGE Leu/uL (NEGATIVE); URINE PROTEIN 100 mg/dL (<30 mg/dL); URINE UROBILINOGEN 0.2 E.U./dL (<1 E.U./dL)
[2018-01-13 17:07] LABS: URINE APPEARANCE CLOUDY (CLEAR); URINE COLOR YELLOW (YELLOW)
[2018-01-13 17:11] LABS: URINE BACTERIA MANY (NEG); URINE RBC TNTC /hpf (0-2); URINE WBC TNTC /hpf (0-6)
--- NOTE | 2018-01-13 17:33 | RAD ---
HISTORY: rule out pneumonia COMPARISON: Comparison chest 01/10/2018 FINDINGS: LUNGS: Minor bibasilar atelectasis PLEURA: No significant pleural effusion identified, no pneumothorax apparent. CARDIOVASCULAR: Prominent appearing right hilum which could be secondary to patient rotation to the left. OSSEOUS STRUCTURES: No significant abnormalities. VISUALIZED UPPER ABDOMEN: Normal. OTHER FINDINGS: None. IMPRESSION: Minor bibasilar atelectasis. Prominent right hilum possibly due to patient rotation.
[2018-01-13] MEDS: Cefepime IV 2 gm in NS 2 GM/100 ML BAG IVPB SCH (21:10)
--- NOTE | 2018-01-13 21:18 | PN ---
DATE: 01/13/2018 REASON FOR CONSULTATION AND FOLLOWUP: Preop evaluation, risk stratification for hip fracture, status post OR and internal fixation, postop followup. SUBJECTIVE: The patient denies any chest pain, shortness of breath, or any palpitations. OBJECTIVE: GENERAL: Not in apparent distress. VITAL SIGNS: Temperature 102.5, heart rate 97, blood pressure 144/70. HEENT: PERRLA. Extraocular muscles intact. NECK: Supple. No carotid bruits or thyromegaly. CHEST: Clear to auscultation. HEART: S1 and S2, regular. ABDOMEN: Soft. EXTREMITIES: Clubbing and cyanosis negative. LABORATORY DATA: Blood workup as follows: WBC 10.9, hemoglobin 9.2, hematocrit 29.4, platelet count 134. Chemistry shows sodium 140, potassium 3.8, chloride 107, carbon dioxide 25, anion gap of 11. BUN 30, creatinine 1.4. Total protein 5.4, albumin 2.8, albumin-globulin ratio 1. IMPRESSION: Protein calorie malnutrition which was mild, which was not present on admission and she is status post packed red blood cells transfusion; fall, status post open reduction and internal fixation; history of nonfunctioning left kidney and right kidney, hydroureter. Status post packed red blood cells transfusion given yesterday. The patient is stable. Kidney function has improved. RECOMMENDATION: Increase nutritional support, continue aspirin, continue metoprolol. Continue out of bed to chair, rehab. We will supplement for Ensure. We will follow with you. Thank you Dr. Cooney, for providing this opportunity in taking care of the patient, Daiana Antonio. Ruth Martinez MD
[2018-01-14] MEDS: Oxycodone/Acetaminophen 5/325 mg Tab PO PRN ×3 (02:55→20:40)
--- NOTE | 2018-01-14 07:10 | CP.PCM.PN ---
Subjective - Date & Time of Evaluation Date of Evaluation: 01/14/18 Time of Evaluation: 06:40 - Subjective Subjective: Awake, lying in bed, no distress Reason for consultation and follow up: Cardiac evaluation and risk stratification for hip surgery, post left hip bipolar prosthesis, Objective - Vital Signs/Intake and Output Vital Signs (last 24 hours): Temp Pulse Resp BP Pulse Ox 98.9 F 91 H 18 108/56 L 92 L 01/13/18 22:00 01/13/18 22:00 01/13/18 22:00 01/13/18 22:00 01/13/18 22:00 Intake and Output: 01/14/18 01/14/18 06:59 18:59 Intake Total 1900 Balance 1900 - Medications Medications: Current Medications Acetaminophen (Tylenol 325mg Tab) 650 mg PO Q6H PRN PRN Reason: Pain, moderate (4-7) Last Admin: 01/13/18 14:24 Dose: 650 mg Amlodipine Besylate (Norvasc) 5 mg PO DAILY [facility] Last Admin: 01/12/18 09:56 Dose: Not Given Aspirin (Ecotrin) 81 mg PO 0800 [facility] Hydralazine HCl (Apresoline) 10 mg PO QID PRN PRN Reason: for sbp>170 Cefepime HCl (Maxipime 2gm) 2 gm in 100 mls @ 100 mls/hr IVPB Q12 [facility] PRN Reason: Protocol Stop: 01/18/18 22:01 Last Admin: 01/13/18 21:10 Dose: 100 mls/hr Losartan Potassium (Cozaar) 50 mg PO DAILY [facility] Last Admin: 01/13/18 09:27 Dose: 50 mg Metoprolol Tartrate (Lopressor) 25 mg PO BID [facility] Last Admin: 01/13/18 18:31 Dose: Not Given Ondansetron HCl (Zofran Inj) 4 mg IVP Q4H PRN PRN Reason: Nausea/Vomiting Last Admin: 01/11/18 19:01 Dose: 4 mg Oxycodone/Acetaminophen (Percocet 5/325 Mg Tab) 1 tab PO Q6H PRN PRN Reason: Pain, severe (8-10) Stop: 01/14/18 16:37 Last Admin: 01/14/18 02:55 Dose: 1 tab - Labs Labs: 01/13/18 06:00 01/13/18 06:00 PT 12.7 SECONDS (9.4-12.5) H 01/10/18 18:02 INR 1.11 (0.93-1.08) H 01/10/18 18:02 - Constitutional Appears: No Acute Distress - Head Exam Head Exam: NORMOCEPHALIC - Eye Exam Eye Exam: Normal appearance - ENT Exam ENT Exam: Mucous Membranes Dry, Mucous Membranes Moist - Respiratory Exam Respiratory Exam: NORMAL BREATHING PATTERN - Cardiovascular Exam Cardiovascular Exam: +S1, +S2 - GI/Abdominal Exam GI & Abdominal Exam: Soft, Normal Bowel Sounds - Extremities Exam Additional comments: left hip dressing, abductor pillow intact - Neurological Exam Neurological Exam: Alert, Awake, Oriented x3 - Psychiatric Exam Psychiatric exam: Normal Affect, Normal Mood - Skin Skin Exam: Normal Color, Warm Assessment and Plan - Assessment and Plan (Free Text) Assessment: An 82 year old female who came in to the ER due to fall and had a fracture left hip. History of right kidney stent placement, right kidney hydronephrosis, right kidney aneurysm, left kidney failure, hypertension, hyperkalemia, and sciatica. Prior to admission, she was in [facility] for renal stent procedure however cancelled due to elevated blood pressure,she was sent to ER and was given Hydralazine, stabilized and was sent home. Few hours after,she fell thus admitted. consult was called for cardiac clearance. Had left hip bipolar prosthesis surgery last 01/11/18. Doing well. Hemoglobin was borderline low and was given 1 unit PRBC postoperatively. Plan: Cardiac status stable Heart rate and blood pressure controlled On Norvasc 5 mg daily,ASA 81 mg daily,Hydralazine 10 mg PRN Cozaar 50 mg daily, Lopressor 25 mg BID PRN medication for pain Continue current treatment Continue current medications Physical therapy Will follow up Plan and treatment discussed with Dr. Martinez
[2018-01-14 07:19] LABS: BASO # 0.02 K/mm3 (0.0-2.0); BASO % 0.1 % (0.0-3.0); EOS # 0.1 (0.0-0.7); EOS % 0.6 % (1.5-5.0); GRAN # 13.8 (1.4-6.5); GRAN % 87.5 % (50.0-68.0); HEMOGLOBIN 9.1 g/dL (12.0-16.0); LYMPH # 1.3 (1.2-3.4); LYMPH % 8.2 % (22.0-35.0); MEAN CELL VOLUME 84.8 fl (80.0-105.0); MEAN CORPUSCULAR HEMOGLOBIN 26.7 pg (25.0-35.0); MEAN CORPUSCULAR HGB CONC 31.5 g/dl (31.0-37.0); MEAN PLATELET VOLUME 8.3 fl (7.0-11.0); MONO # 0.6 (0.1-0.6); MONO % 3.6 % (1.0-6.0); RBC 3.41 10^6/uL (3.5-6.1); RED CELL DISTRIBUTION WIDTH 16.6 % (11.5-14.5); WHITE BLOOD COUNT 15.8 10^3/ul (4.5-11.0)
--- NOTE | 2018-01-14 07:27 | OP ---
PROCEDURE DATE: 01/11/2018 PREOPERATIVE DIAGNOSIS: Displaced transcervical fracture, left hip. POSTOPERATIVE DIAGNOSIS: Displaced transcervical fracture, left hip. PROCEDURE: Excision of the femoral head and neck and replacement with Biomet bipolar hip prosthesis using a 17 mm stem x 185 mm long, +3 neck with the acetabulum of 52 mm. ELECTRICAL ASSISTANT SURGEON: rahul Graves ANESTHESIA: General endotracheal tube. DESCRIPTION OF PROCEDURE: _the Patient is an 82-year-old female with left transcervical fracture displaced. We put on the right lateral decubitus position with left hip up. A posterolateral incision made on left hip, went through the fascia polina in line with the incision. External rotators released intact and we opened up the capsule, removed the femoral head and neck and with appropriate reaming and rasping to allow us to fit in the largest stem behind, which is 17 mm wide x 185 mm long porous coated. With this trial in place, we were able to get a good reduction and we put in the permanent prosthesis, which was the porous coated stem 17 x 185 mm with +3 neck and 52 mm acetabulum bipolar component. Wounds were irrigated with normal saline and capsule closed with #2 Vicryl, subcu with 0 Vicryl and fascia with #2 Vicryl and skin with stainless steel wily and nylon. The patient was taken to the recovery room with abduction pillow in good condition.the patient tolerated the complex procedure well.she will be on dvt profilaxis c lovenozx and sart theraphy in the am. dr gatica was anintergral person during the surgery and performed very well. Singh Cooney DO [facility] [place] DIVISIONBhupinder
[2018-01-14 07:29] LABS: ALBUMIN 2.8 g/dL (3.0-4.8); CALCIUM 8.9 mg/dL (8.4-10.5)
--- NOTE | 2018-01-14 09:16 | PN ---
DATE: 01/14/2018 SUBJECTIVE: The patient has no complaints of any chest pain. No shortness of breath. No headaches. She did have a low-grade fever yesterday. She said her pain controlled with the medications. PHYSICAL EXAMINATION: VITAL SIGNS: Temperature is 98.2, pulse of 88, blood pressure is 126/76, respirations 20. GENERAL: The patient is lying in bed, flat, comfortable. HEENT: No oral lesion. Anicteric sclerae. Moist mucosa. NECK: No JVD, adenopathy, or thyromegaly. CARDIOVASCULAR: S1 and S2, regular. No murmurs, rubs, or gallops. LUNGS: Clear to auscultation bilaterally. No wheeze, rales, or rhonchi. ABDOMEN: Bowel sounds are positive, soft, nontender and nondistended. EXTREMITIES: No cyanosis, clubbing or edema. LABORATORY DATA: White count of 15.8, hemoglobin 9.1, creatinine is 1.6. Chest x-ray shows minor bibasilar atelectasis, prominent right hilum, possibly due to the patient's rotation. ASSESSMENT: 1. Fever postoperative. 2. Left intertrochanteric fracture, status post open reduction and internal fixation. 3. Hypertension. 4. Chronic obstructive pulmonary disease. 5. Congestive heart failure secondary to diastolic dysfunction, stable. 6. Abdominal aortic aneurysm, 4.9 cm. 7. Right-sided hydronephrosis with stent, chronic. 8. Dyslipidemia. 9. Osteoarthritis. 10. Gait dysfunction. 11. Chronic kidney disease stage 3. PLAN: The patient is currently comfortable. She has an elevated white count. She had a low-grade fever yesterday. I have asked Dr. Colbert to follow the patient. The patient most likely has a urinary tract infection. Urine cultures have been sent. She has been started on cefepime for antibiotics. The patient is on losartan. She is going to continue with Percocet for pain. I will renew her pain medications. She is on Zofran. The patient is on a heart healthy diet. I will also add on heparin for DVT prophylaxis. I will also place her on calcium and vitamin D. Ede Rebolledo MD
[2018-01-14] MEDS ORDERED: Pantoprazole 40 mg EC Tab PO ONE (09:57)
[2018-01-14] MEDS ORDERED: Pantoprazole 40 mg EC Tab PO STA (09:58)
[2018-01-14] MEDS: Calcium-Vit D 250 mg-125 Units Tab UD PO SCH (10:00)
[2018-01-14] MEDS: Cefepime IV 2 gm in NS 2 GM/100 ML BAG IVPB SCH ×2 (10:08→21:39)
--- NOTE | 2018-01-14 18:03 | CP.PCM.CON ---
History of Present Illness - History of Present Illness History of Present Illness: 82 year old female with PMH of chronic CHF, COPD, HTN, dyslipidemia, history of cervical cancer S/P radiation and hysterectomy, abdominal aortic aneurysm, S/P cholecystectomy sustained a fall and had left hip fracture. She underwent surgery 3 days ago, and was doing well until yesterday when she developed fevers. She states that she did not even notice that she had fever. She denies rigors or chills, no nausea or vomiting, no headache or dizziness, has dry cough but no sore throat, no SOB, no chest pain, no bleeding at the site of surgery, no increased pain at site of surgery, no abdominal pain, no diarrhea, no dysuria. Infectious Diseases consult is requested to further evaluate and manage. Review of Systems - Review of Systems All systems: reviewed and no additional remarkable complaints except (as per HPI ) Past Patient History - Infectious Disease Hx of Infectious Diseases: None - Tetanus Immunizations Tetanus Immunization: Unknown - Past Social History Smoking Status: Current Some Days Smoker - CARDIAC Hx Hypertension: Yes - PULMONARY Hx Respiratory Disorders: Yes (SMOKES CIGARETTES PPD.ON CHANTIX) Hx Chronic Obstructive Pulmonary Disease (COPD): Yes - NEUROLOGICAL Hx Paralysis: No - HEENT Hx HEENT Problems: Yes Hx Blind: No Hx Cataracts: Yes Hx Deafness: No Hx Difficulty Chewing: No Hx Epistaxis: No Hx Glaucoma: No Hx Macular Degeneration: No - RENAL Hx Renal Failure: No - ENDOCRINE/METABOLIC Hx Endocrine Disorders: No Hx Diabetes Mellitus Type 1: No Hx Diabetes Mellitus Type 2: No Hx Hypothyroidism: No - HEMATOLOGICAL/ONCOLOGICAL Hx Blood Transfusions: Yes (MANY YRS AGO) Hx Blood Transfusion Reaction: No - INTEGUMENTARY Hx Dermatological Problems: Yes (HYPOPIGMENTATION-WHITISH SKIN DISCOLORATION. SCARRING TO LEFT ARM,R ARM,LE) Hx Basil Cell: No Hx Eczema: No Hx Melanoma: No Hx Psoriasis: No Hx Squamous Cell: No - MUSCULOSKELETAL/RHEUMATOLOGICAL Hx Musculoskeletal Disorders: No - GASTROINTESTINAL Hx Gastrointestinal Disorders: Yes (CONSTIPATION) Hx Colostomy: No Hx Crohn's Disease: No Hx Diverticulitis: No Hx Gall Bladder Disease: Yes (CHOLECYSTECTOMY,) Hx Gastroesophageal Reflux: Yes Hx Ileostomy: No Hx Liver Failure: No Hx Pancreatitis: No HX Swallowing Problems: No - GENITOURINARY/GYNECOLOGICAL Hx Genitourinary Disorders: Yes (LEFT KIDNEY NON FUNCTIONING SHE STATED.) Hx Hematuria: Yes Hx Incontinence: No Hx Sexually Transmitted Disorders: No Hx Urinary Tract Infection: Yes Other/Comment: BILATERAL HYDRONEPHROSIS - PSYCHIATRIC Hx Emotional Abuse: No Hx Physical Abuse: No Hx Substance Use: No - SURGICAL HISTORY Hx Cholecystectomy: Yes Hx Hysterectomy: Yes - ANESTHESIA Hx Anesthesia Reactions: No Hx Malignant Hyperthermia: No Meds Allergies/Adverse Reactions: Allergies Allergy/AdvReac Type Severity Reaction Status Date / Time No Known Allergies Allergy Verified 01/10/18 17:07 - Medications Medications: Current Medications Acetaminophen (Tylenol 325mg Tab) 650 mg PO Q6H PRN PRN Reason: Pain, moderate (4-7) Last Admin: 01/13/18 14:24 Dose: 650 mg Amlodipine Besylate (Norvasc) 5 mg PO DAILY [facility] Last Admin: 01/12/18 09:56 Dose: Not Given Aspirin (Ecotrin) 81 mg PO 0800 [facility] Hydralazine HCl (Apresoline) 10 mg PO QID PRN PRN Reason: for sbp>170 Cefepime HCl (Maxipime 2gm) 2 gm in 100 mls @ 100 mls/hr IVPB Q12 [facility] PRN Reason: Protocol Stop: 01/18/18 22:01 Vancomycin HCl 1.5 gm/ Sodium (Chloride) 500 mls @ 167 mls/hr IVPB ONCE ONE PRN Reason: Protocol Stop: 01/13/18 19:50 Losartan Potassium (Cozaar) 50 mg PO DAILY [facility] Last Admin: 01/13/18 09:27 Dose: 50 mg Metoprolol Tartrate (Lopressor) 25 mg PO BID [facility] Last Admin: 01/13/18 09:27 Dose: 25 mg Ondansetron HCl (Zofran Inj) 4 mg IVP Q4H PRN PRN Reason: Nausea/Vomiting Last Admin: 01/11/18 19:01 Dose: 4 mg Oxycodone/Acetaminophen (Percocet 5/325 Mg Tab) 1 tab PO Q6H PRN PRN Reason: Pain, severe (8-10) Stop: 01/14/18 16:37 Last Admin: 01/13/18 07:42 Dose: 1 tab Physical Exam - Constitutional Appears: Non-toxic, Chronically Ill - Head Exam Head Exam: NORMAL INSPECTION - ENT Exam ENT Exam: Mucous Membranes Moist - Neck Exam Neck exam: Negative for: Meningismus - Respiratory Exam Respiratory Exam: Decreased Breath Sounds - Cardiovascular Exam Cardiovascular Exam: +S1, +S2 - GI/Abdominal Exam GI & Abdominal Exam: Soft. absent: Tenderness Additional comments: left hip surgical site with dressings in place, no tenderness on palpation , no discharge or bleeding Results - Vital Signs Recent Vital Signs: Last Vital Signs Temp 102.5 F H 01/13/18 14:24 Pulse 97 H 01/13/18 14:00 Resp 18 01/13/18 14:00 BP 144/70 01/13/18 14:00 Pulse Ox 94 L 01/13/18 14:00 - Labs Result Diagrams: 01/14/18 06:51 01/14/18 06:51 Labs: Laboratory Results - last 24 hr 01/13/18 01/13/18 06:00 06:00 WBC 10.9 D RBC 3.51 Hgb 9.5 L Hct 29.4 L MCV 83.8 MCH 27.1 MCHC 32.3 RDW 16.4 H Plt Count 134 MPV 8.1 Gran % 85.4 H Lymph % (Auto) 9.6 L [place] % (Auto) 4.1 Eos % (Auto) 0.8 L Baso % (Auto) 0.1 Gran # 9.28 H Lymph # (Auto) 1.0 L [place] # (Auto) 0.5 Eos # (Auto) 0.1 Baso # (Auto) 0.01 Sodium 140 Potassium 3.8 Chloride 107 Carbon Dioxide 25 Anion Gap 11 BUN 30 H Creatinine 1.4 H Est GFR ( Amer) 44 Est GFR (Non-Af Amer) 36 Random Glucose 102 Calcium 8.5 Phosphorus 2.3 L Magnesium 1.8 Total Bilirubin 0.5 AST 31 ALT 25 Alkaline Phosphatase 70 Total Protein 5.4 L Albumin 2.8 L Globulin 2.6 Albumin/Globulin Ratio 1.0 L Assessment & Plan - Assessment and Plan (Free Text) Plan: Assessment post-op day 2 fever with systemic inflammatory response syndrome, R/O sepsis in this patient who is S/P left hip surgery for fracture chronic CHF history of pneumonia history of urinary tract infection chronic renal failure COPD HTN dyslipidemia history of cervical cancer S/P radiation and hysterectomy abdominal aortic aneurysm S/P cholecystectomy calcifications on the left kidney Plan gave a dose of IV Vancomycin and started Cefepime pending blood, urine cx; CXR shows atelectasis, PCT is normal will monitor clinically
[2018-01-15] MEDS ORDERED: Pantoprazole 40 mg EC Tab PO SCH ×2 (06:00)
[2018-01-15] MEDS ORDERED: Albuterol-Ipratrop 3 mg / 0.5 (3 ml) UD IH ONE (06:20)
--- NOTE | 2018-01-15 06:42 | CP.PCM.PN ---
Subjective - Date & Time of Evaluation Date of Evaluation: 01/15/18 Time of Evaluation: 06:15 - Subjective Subjective: Awake, lying in bed, some wheezing after doing AM care Reason for consultation and follow up: Cardiac evaluation and risk stratification for hip surgery, post left hip bipolar prosthesis, history of right kidney stent placement, right kidney hydronephrosis, right kidney aneurysm , left kidney failure, hypertension, hyperkalemia, and sciatica. Seen and examined by and Dr. Martinez Objective - Vital Signs/Intake and Output Vital Signs (last 24 hours): Temp Pulse Resp BP Pulse Ox 99.5 F 92 H 18 130/46 L 92 L 01/14/18 23:20 01/14/18 23:20 01/14/18 23:20 01/14/18 23:20 01/14/18 23:20 Intake and Output: 01/14/18 01/15/18 18:59 06:59 Intake Total 240 Balance 240 - Medications Medications: Current Medications Acetaminophen (Tylenol 325mg Tab) 650 mg PO Q6H PRN PRN Reason: Pain, moderate (4-7) Last Admin: 01/13/18 14:24 Dose: 650 mg Amlodipine Besylate (Norvasc) 5 mg PO DAILY [facility] Last Admin: 01/12/18 09:56 Dose: Not Given Aspirin (Ecotrin) 81 mg PO 0800 [facility] Last Admin: 01/14/18 10:01 Dose: 81 mg Calcium/Vitamin D (Oscal-D 250 Mg-125 Units Tab) 2 tab PO DAILY [facility] Last Admin: 01/14/18 10:00 Dose: 2 tab Heparin Sodium (Porcine) (Heparin) 5,000 units SC Q12 [facility] PRN Reason: Protocol Last Admin: 01/14/18 21:39 Dose: 5,000 units Hydralazine HCl (Apresoline) 10 mg PO QID PRN PRN Reason: for sbp>170 Cefepime HCl (Maxipime 2gm) 2 gm in 100 mls @ 100 mls/hr IVPB Q12 [facility] PRN Reason: Protocol Stop: 01/18/18 22:01 Last Admin: 01/14/18 21:39 Dose: 100 mls/hr Losartan Potassium (Cozaar) 50 mg PO DAILY [facility] Last Admin: 01/14/18 10:01 Dose: 50 mg Metoprolol Tartrate (Lopressor) 25 mg PO BID [facility] Last Admin: 01/14/18 17:06 Dose: 25 mg Ondansetron HCl (Zofran Inj) 4 mg IVP Q4H PRN PRN Reason: Nausea/Vomiting Last Admin: 01/11/18 19:01 Dose: 4 mg Oxycodone/Acetaminophen (Percocet 5/325 Mg Tab) 1 tab PO Q4H PRN PRN Reason: Pain, moderate (4-7) Stop: 01/17/18 20:25 Last Admin: 01/14/18 20:40 Dose: 1 tab Pantoprazole Sodium (Protonix Ec Tab) 40 mg PO 0600 [facility] Last Admin: 01/15/18 06:09 Dose: 40 mg - Labs Labs: 01/14/18 06:51 01/14/18 06:51 PT 12.7 SECONDS (9.4-12.5) H 01/10/18 18:02 INR 1.11 (0.93-1.08) H 01/10/18 18:02 - Constitutional Appears: No Acute Distress - ENT Exam ENT Exam: Mucous Membranes Moist - Respiratory Exam Respiratory Exam: Wheezes, NORMAL BREATHING PATTERN - Cardiovascular Exam Cardiovascular Exam: +S1, +S2 - GI/Abdominal Exam GI & Abdominal Exam: Soft, Normal Bowel Sounds - Extremities Exam Extremities Exam: Normal Capillary Refill Additional comments: left hip dressing with abductor pillow - Neurological Exam Neurological Exam: Alert, Awake, Oriented x3 - Psychiatric Exam Psychiatric exam: Normal Affect, Normal Mood - Skin Skin Exam: Intact, Normal Color, Warm Assessment and Plan - Assessment and Plan (Free Text) Assessment: An 82 year old female who came in to the ER due to fall and had a fracture left hip. History of right kidney stent placement, right kidney hydronephrosis, right kidney aneurysm, left kidney failure, hypertension, hyperkalemia, dyslipidemia, COPD, chronic CHF, current smoker, and sciatica. Prior to admission, she was in [facility] for renal stent procedure however cancelled due to elevated blood pressure,she was sent to ER and was given Hydralazine, stabilized and was sent home. Few hours after,she fell thus admitted. consult was called for cardiac clearance. Had left hip bipolar prosthesis surgery last . Doing well. Hemoglobin was borderline low and was given 1 unit PRBC postoperatively. Plan: Mild wheezing after turning side to side for AM care Nebulizer treatment ordered Cardiac status stable Heart rate and blood pressure controlled On Norvasc 5 mg daily,ASA 81 mg daily,Hydralazine 10 mg PRN Cozaar 50 mg daily, Lopressor 25 mg BID PRN medication for pain Low grade fever yesterday, ID on consult Chest Xray negative for pneumonia Started on antibiotics Continue current treatment Continue current medications Physical therapy in progress Will follow up Plan and treatment discussed with Dr. Martinez
[2018-01-15 07:22] LABS: BASO # 0.01 K/mm3 (0.0-2.0); BASO % 0.1 % (0.0-3.0); EOS # 0.1 (0.0-0.7); EOS % 0.6 % (1.5-5.0); GRAN # 11.85 (1.4-6.5); GRAN % 84.6 % (50.0-68.0); HEMOGLOBIN 8.4 g/dL (12.0-16.0); LYMPH # 1.4 (1.2-3.4); LYMPH % 10.1 % (22.0-35.0); MEAN CORPUSCULAR HEMOGLOBIN 26.4 pg (25.0-35.0); MEAN CORPUSCULAR HGB CONC 31.5 g/dl (31.0-37.0); MEAN PLATELET VOLUME 8.1 fl (7.0-11.0); MONO # 0.6 (0.1-0.6); MONO % 4.6 % (1.0-6.0); RBC 3.18 10^6/uL (3.5-6.1); RED CELL DISTRIBUTION WIDTH 16.6 % (11.5-14.5)
[2018-01-15 07:33] LABS: ALBUMIN 2.8 g/dL (3.0-4.8); CALCIUM 9.4 mg/dL (8.4-10.5)
[2018-01-15 08:51] VITALS: RESP 20; O2SAT 96
[2018-01-15] MEDS ORDERED: Levalbuterol 0.63 MG/3 ML Inhal Soln UD IH PRN (08:52)
[2018-01-15] MEDS ORDERED: Albuterol-Ipratrop 3 mg / 0.5 (3 ml) UD IH SCH (09:00)
[2018-01-15] MEDS: Oxycodone/Acetaminophen 5/325 mg Tab PO PRN ×2 (09:21→15:38)
[2018-01-15] MEDS: Calcium-Vit D 250 mg-125 Units Tab UD PO SCH (09:23)
[2018-01-15] MEDS: Cefepime IV 2 gm in NS 2 GM/100 ML BAG IVPB SCH (09:24)
[2018-01-15] MEDS ORDERED: Pantoprazole 40 mg EC Tab PO ONE (09:40)
[2018-01-15] MEDS ORDERED: Bacitracin 500 Units/gm Oint Foilpak UD ONE (09:41)
[2018-01-15] MEDS: Bacitracin 500 Units/gm Oint Foilpak UD TOP SCH ×2 (10:45→18:45)
[2018-01-15 15:43] VITALS: TEMP 99
--- NOTE | 2018-01-15 16:27 | DS ---
HISTORY OF PRESENT ILLNESS: This is an 82-year-old female who is coming in to the hospital because she had a hip fracture. The patient had surgery and she had improved. The patient has no complaints of any chest pain or shortness of breath. She does have pain in the hip and she says the pain medications did help her. She is waiting to go to subacute rehab at [facility]. The patient has no headaches or dizziness. No nausea. No vomiting. PHYSICAL EXAMINATION: VITAL SIGNS: Temperature is 98.8, pulse of 90, blood pressure 123/56, respirations 20. GENERAL: The patient is lying in bed, flat, comfortable. HEENT: No oral lesion. Anicteric sclerae. Moist mucosa. NECK: No JVD, adenopathy, or thyromegaly. CARDIOVASCULAR: S1 and S2, regular. No murmurs, rubs, or gallops. LUNGS: Clear to auscultation bilaterally. No wheeze, rales, or rhonchi. ABDOMEN: Bowel sounds are positive, soft, nontender and nondistended. EXTREMITIES: No cyanosis, clubbing or edema. LABORATORY DATA: White count of 14, hemoglobin 8.4. ASSESSMENT: 1. Left intratrochanteric fracture, status post open reduction and internal fixation. 2. Postoperative fever, improved. 3. Hypertension. 4. Chronic obstructive pulmonary disease. 5. Congestive heart failure secondary to diastolic dysfunction. 6. Abdominal aortic aneurysm 4.9 cm. 7. Right-sided hydronephrosis with stent, chronic. 8. Dyslipidemia. 9. Osteoarthritis. 10. Chronic kidney disease stage 3. 11. Gait dysfunction. 12. Smoking, advised she quit. PLAN: The patient is currently comfortable. She does have gram-negative rods in the urine. The patient is currently on IV antibiotics. We will continue the IV antibiotics. She is on Cozaar. She is going to be on iron. She is receiving heparin for DVT prophylaxis. The patient has hemoglobin of 8.4. The patient is on Percocet for pain. She is going to continue with Xopenex. The patient is on a heart-healthy diet. I have placed her on calcium, vitamin D. She is going to be discharged to subacute rehab at [facility]. We will continue to follow her there for the IV antibiotics and I will follow up the blood cultures and urine cultures. The other cultures have been negative. Condition is stable. Activities increase as tolerated. Ede Rebolledo MD
[2018-01-15 18:16] VITALS: BP 122/86; PULSE 96
[2018-01-15] MEDS ORDERED: Oxycodone/Acetaminophen 10/325 mg Tab PO PRN (19:01)
--- NOTE | 2018-01-16 01:55 | PN ---
DATE: 01/15/2018 SUBJECTIVE: The patient is in bed, in no acute distress, nontoxic. PHYSICAL EXAMINATION: VITAL SIGNS: Temperature is 99, blood pressure is 122/80, respiratory rate of 20, heart rate of 80. HEENT: Unremarkable. NECK: Supple. LUNGS: Have decreased breath sounds. HEART: Normal S1 and S2. ABDOMEN: Soft, nontender. LABORATORY DATA: Reveals a white count of 14,000; hemoglobin of 8; platelets of 187. BUN of 34, creatinine of 1.6. Procalcitonin is 0.28. Microbiology reveals Gram-negative karyn in the urine. The blood culture is negative. ASSESSMENT AND PLAN: This is an 82-year-old female, seen earlier this morning in 575, bed 1. Gram-negative karyn in the urine as the source, status post hip surgery for fracture, chronic congestive heart failure, pneumonia, history of urinary tract infection, chronic obstructive pulmonary disease, hypertension and Gram-negative karyn in the urine . We will follow closely with you. On cefepime. Raúl Colbert MD
[2018-01-16] MEDS ORDERED: Multivitamin Therapeutic Tab PO SCH (08:00)
== END 2018-01-15 20:45 | DRG 470 ==
LOC: ED 16:51 → ERH 20:29 → 5RNO 21:56 → 5RSO 01-11 14:16 → UNDODISIN 01-15 14:11
PROVIDERS: ADMIT Internal Medicine Nephrology; ATTEND Internal Medicine Nephrology
PROC: 0SRS0JZ Replacement of Left Hip Joint, Femoral Surface with Synthetic Substitute, Open Approach (ICD-10-PCS; principal; 2018-01-11 13:00)
PROC: 30233N1 Transfusion of Nonautologous Red Blood Cells into Peripheral Vein, Percutaneous Approach (ICD-10-PCS; 2018-01-12)
PROC: 0HBRXZZ Excision of Toe Nail, External Approach (ICD-10-PCS; 2018-01-12)
PROC: 0HBRXZZ Excision of Toe Nail, External Approach (ICD-10-PCS; 2018-01-12)
PROC: 0HBRXZZ Excision of Toe Nail, External Approach (ICD-10-PCS; 2018-01-12)
PROC: 0HBRXZZ Excision of Toe Nail, External Approach (ICD-10-PCS; 2018-01-12)
PROC: 0HBRXZZ Excision of Toe Nail, External Approach (ICD-10-PCS; 2018-01-12)
PROC: 0HBRXZZ Excision of Toe Nail, External Approach (ICD-10-PCS; 2018-01-12)
PROC: 0HBRXZZ Excision of Toe Nail, External Approach (ICD-10-PCS; 2018-01-12)
PROC: 0HBRXZZ Excision of Toe Nail, External Approach (ICD-10-PCS; 2018-01-12)
PROC: 0HBRXZZ Excision of Toe Nail, External Approach (ICD-10-PCS; 2018-01-12)
PROC: 0HBRXZZ Excision of Toe Nail, External Approach (ICD-10-PCS; 2018-01-12)
DX: S72.032A Displaced midcervical fracture of left femur, initial encounter for closed fracture (principal); I13.0 Hypertensive heart and chronic kidney disease with heart failure and stage 1 through stage 4 chronic kidney disease, or unspecified chronic kidney disease; I50.32 Chronic diastolic (congestive) heart failure; N13.30 Unspecified hydronephrosis; E44.1 Mild protein-calorie malnutrition; N39.0 Urinary tract infection, site not specified; R65.10 Systemic inflammatory response syndrome (SIRS) of non-infectious origin without acute organ dysfunction; I71.4 Abdominal aortic aneurysm, without rupture; N18.3 Chronic kidney disease, stage 3 (moderate); I72.2 Aneurysm of renal artery; J44.9 Chronic obstructive pulmonary disease, unspecified; K21.9 Gastro-esophageal reflux disease without esophagitis; M19.90 Unspecified osteoarthritis, unspecified site; E78.5 Hyperlipidemia, unspecified; M54.30 Sciatica, unspecified side; R50.82 Postprocedural fever; D64.9 Anemia, unspecified; B35.1 Tinea unguium; F17.200 Nicotine dependence, unspecified, uncomplicated; R26.9 Unspecified abnormalities of gait and mobility; W01.0XXA Fall on same level from slipping, tripping and stumbling without subsequent striking against object, initial encounter; Y93.01 Activity, walking, marching and hiking; Y92.009 Unspecified place in unspecified non-institutional (private) residence as the place of occurrence of the external cause; Z68.22 Body mass index [BMI] 22.0-22.9, adult; Z85.41 Personal history of malignant neoplasm of cervix uteri; Z92.3 Personal history of irradiation; Z87.01 Personal history of pneumonia (recurrent); Z80.8 Family history of malignant neoplasm of other organs or systems; Z87.11 Personal history of peptic ulcer disease; E87.6 Hypokalemia; R31.9 Hematuria, unspecified

== ENCOUNTER 2018-03-20 08:53 | Day surgery (SDC) | payer MEDICARE, OTHER ==
[2018-03-20 08:39] VITALS: BMI 21.6
[2018-03-20 09:38] LABS: BASO # 0.02 K/mm3 (0.0-2.0); BASO % 0.3 % (0.0-3.0); EOS # 0.1 (0.0-0.7); GRAN # 4.95 (1.4-6.5); GRAN % 72.8 % (50.0-68.0); HEMOGLOBIN 12.5 g/dL (12.0-16.0); LYMPH # 1.5 (1.2-3.4); LYMPH % 21.3 % (22.0-35.0); MEAN CELL VOLUME 85.7 fl (80.0-105.0); MEAN CORPUSCULAR HEMOGLOBIN 27.5 pg (25.0-35.0); MEAN CORPUSCULAR HGB CONC 32.1 g/dl (31.0-37.0); MEAN PLATELET VOLUME 7.7 fl (7.0-11.0); MONO # 0.3 (0.1-0.6); MONO % 4.6 % (1.0-6.0); RBC 4.55 10^6/uL (3.5-6.1); RED CELL DISTRIBUTION WIDTH 15.2 % (11.5-14.5); WHITE BLOOD COUNT 6.8 10^3/ul (4.5-11.0)
[2018-03-20 09:55] LABS: CALCIUM 10.7 mg/dL (8.4-10.5)
[2018-03-20] MEDS ORDERED: Propofol 10 mg/ml Inj (20 ML) ONE (10:03)
[2018-03-20] MEDS ORDERED: Iohexol 240 (50 ml) ONE (10:03)
[2018-03-20] MEDS ORDERED: cefTRIAXone (Rocephin) 1 gm Inj IVPB ONE (10:16)
[2018-03-20] MEDS ORDERED: cefTRIAXone (Rocephin) 1 gm Inj ONE (10:27)
[2018-03-20] MEDS ORDERED: Etomidate 20 mg/10ml Inj IV ONE (10:50)
[2018-03-20] MEDS ORDERED: Labetalol 5 mg/ml Inj 20ML IV PRN (10:59)
[2018-03-20 12:03] VITALS: BP 141/75; PULSE 68; RESP 18; TEMP 97.5; O2SAT 98
--- NOTE | 2018-03-20 14:12 | RAD ---
Date of service: 03/20/2018 PROCEDURE: Retrograde pyelogram HISTORY: RT retrograde pyelogram, RT nephroureteral stent placement COMPARISON: TECHNIQUE: 86 seconds of fluoro time. 16.26 mGy cumulative dose. Twenty-one images submitted FINDINGS: Placement of a right ureteral stent IMPRESSION: As above
--- NOTE | 2018-03-21 08:24 | PN ---
Copied To: Jareth Lau MD Attending MD: Jareth Lau MD DATE: 03/20/2018 IMMEDIATE POSTOPERATIVE NOTE SUBJECTIVE: See history and physical and the operative note. PREOPERATIVE DIAGNOSES: Hydronephrosis on the right side, nonfunctioning left kidney. POSTOPERATIVE DIAGNOSES: Hydronephrosis on the right side, nonfunctioning left kidney. PROCEDURE: Cystoscopy, change of the stent, see the body of the operative report. Vital signs are currently stable. Patient is currently in the Recovery Room in stable condition. FINAL DIAGNOSES: Right hydronephrosis, hematuria, voiding dysfunction. From Urology standpoint if the patient is stable, the plan will be for discharge home with analgesics, antibiotics and then, further plans will follow. Jareth Lau MD
--- NOTE | 2018-03-21 15:41 | OP ---
Copied To: Jareth Lau MD Attending MD: Jareth Lau MD PROCEDURE DATE: 03/20/2018 PREOPERATIVE DIAGNOSES: Right hydronephrosis, hematuria, solitary left a poorly functioning right kidney. POSTOPERATIVE DIAGNOSES: Right hydronephrosis, hematuria, solitary left a poorly functioning right kidney. PROCEDURES: Exam under anesthesia, cystoscopy, removal of a right double-J stent, a right retrograde pyelogram, manipulation of the right ureter, right retrograde pyelogram, and insertion of a right double-J stent. SURGEON: Jareth Lau MD ESTIMATED BLOOD LOSS: Less than 10 mL. COMPLICATIONS: There were no complications. At the termination of the procedure, the patient has a functioning well placed right double-J stent. UROLOGY OPERATIVE FINDINGS: 1. Relatively normal bladder mucosa. 2. An encrusted distal ureteral stent, but it removed easily and the stent is sent to the lab for confirmation. 3. There is significant amount of right hydronephrosis. 4. In the upper ureter, there is some kind of kink that did not allow easily passage of the wire, see the body of the report, but with manipulation and a torque catheter, we were able to negotiate the wire past this kink and get it into the renal pelvis in a much better fashion. 5. At termination of the procedure, the patient has well placed double-J stent, which we confirmed with fluoroscopic imaging. 6. The bladder itself is relatively full with somewhat of an odor to the urine. (The patient was covered with antibiotics after today's procedure) and there were no complications. 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 Rey. See many previously dictated notes by Dr. Russell Rey. This plan is apparently been changed now, but in the meantime from Urology standpoint, the patient is now here for exchange of a double-J stent. From an Urology standpoint, that is our plan to continue to change it every 3 months or so. DESCRIPTION OF PROCEDURE: After obtaining informed consent, the patient was placed on the table. Routine monitor was placed and time-out was called to confirm the patient's positioning. Antibiotic prophylaxis used. Time-out was called. The patient was placed in lithotomy position. The cystoscope was introduced via urethra, what I note is the presence of foul odor urine, relatively clear, not purulent, with volume of about 250 to 300 mL. We irrigated out the bladder a little bit to get things clear. There is a little bit of debris noted. The procedure continued with the old stent removed, it is a little bit across, but I pulled out relatively easily. We then cut the stent and passed the wire. We would not have been able to pass it through the distal end without any crepitation. Wire passed up to the kidney. Under fluoroscopic imaging, that wire did not go all the way, and I have been watching it. So, at this point, we converted to an open-ended, we injected contrast and we could feel a kink in the upper ureter. We tried negotiating with the open-ended and the wire. After much trying, we were still not able to get the wire all the way up in multiple pictures that were taken and saved. The procedure then continued with the wire in place and converting to the torque catheter, the Justice catheter and with manipulation and help of an leasing assistant, under fluoroscopic imaging, we are able to get that wire to the kidney then we put the open-ended torque catheter all the way up to the kidney. We confirmed our positioning again with fluoroscopic imaging. Now, with kink in the ureter now straightened, we had the wire up in the kidney, we put the double-J stent in and it has been in good location, (sometimes the double-J stent relocates itself). See below plan. But at this point, we have a well functioning, well placed double-J stent. The presence of hydronephrosis was noted. Whether this is secondary to encrustation of the stent or whether this is the kink in the ureter, this could be evaluated, but at this point, we have a well placed stent. Overall, the patient tolerated the procedure without complication. We are going to plan to change that stent in 3 months. I discussed all this with the patient at great length. Jareth Lau MD [facility] # [id number]
--- NOTE | 2018-03-22 08:15 | HP ---
Copied To: Jareth Lau MD Attending MD: Jareth Lau MD UROLOGY ADMISSION HISTORY AND PHYSICAL REASON FOR ADMISSION: Changing ureteral stent. HISTORY OF PRESENT ILLNESS: This is a very pleasant lady who I know well. This is a very pleasant somewhat noncompliant lady in many previously dictated notes, but very pleasant about . She is here today to change a ureteral stent. From a Urology standpoint, she has a solitary kidney by function. She has the left kidney in place, but it is not working and on the right side, we keep changing the stent. BUN and creatinine as noted. Underlying, she has multiple medical issues. She is the patient of Dr. Raúl Rey. She currently is the patient of Dr. Rebolledo. Most recently, she had a fall requiring hip surgery. We had seen her at that time. She was not eligible for a stent change at that time. See the previously dictated notes. Now, she is here to change the stents. PAST MEDICAL AND SURGICAL HISTORY: All listed. Regarding her aneurysm, she was previously seeing interventional radiologist, Dr. Russell Rey. She is actually switching to Dr. Pryor. REVIEW OF SYSTEMS: Listed above, otherwise noncontributory. No weight loss, chest pain, shortness of breath. She reports she is recovering well from her hip surgery. SOCIAL HISTORY: She has 2 children that lives in [place]. She otherwise takes care of herself with the help of a friend. MEDICATIONS: See the list on the chart. PHYSICAL EXAMINATION: GENERAL: A well-nourished female, in no apparent distress. VITAL SIGNS: Noted in the chart. LUNGS: Clear. ABDOMEN: Overall soft, nontender. No flank mass appreciated. PELVIC: Noted for cysto as mentioned. No pelvic or rectal masses. DIAGNOSES: Right-sided hydronephrosis and a relatively solitary kidney. With the left kidney not working. So at this point, from a Urology standpoint, we are going to continue to change the stent. PLAN: 1. No antibiotic prophylaxis. 2. Change of stent. ADDENDUM See the operative note. The stent sometimes below the kidney. There is some kind of abnormality in the upper ureter with a kink in the ureter. See the body of the operative report for today, yesterday's procedure there are still hydronephrosis noted on the right side. At the termination of the procedure that we have a properly well placed stent. See the body of the operative report. Jareth Lau MD
== END 2018-03-20 13:09 | disposition home or self-care (01) ==
LOC: SDS 08:53
PROVIDERS: ATTEND Urology
DX: N13.30 Unspecified hydronephrosis (principal); R31.9 Hematuria, unspecified; Z91.19 Patient's noncompliance with other medical treatment and regimen
CPT/HCPCS: 36415; 52332; 74420; 80048; 85025; C2625; J0696; J2001; J2405; J2704; J3010; J7120; Q9966

== ENCOUNTER 2018-07-03 06:02 | Day surgery (SDC) | payer OTHER ==
[2018-07-02 09:04] VITALS: BMI 21.2
[2018-07-03 07:28] VITALS: RESP 20
[2018-07-03] MEDS ORDERED: Iohexol 240 (50 ml) ONE (08:33)
[2018-07-03] MEDS ORDERED: Sodium Chloride 0.9% 1,000 ML IV SCH (09:00)
[2018-07-03] MEDS ORDERED: cefTRIAXone (Rocephin) 1 gm Inj ONE (09:44)
[2018-07-03 10:47] VITALS: TEMP 98; O2SAT 97
[2018-07-03 11:21] VITALS: BP 160/80; PULSE 72
--- NOTE | 2018-07-04 16:57 | RAD ---
Date of service: 07/03/2018 PROCEDURE: Right retrograde study and stent placement HISTORY: REMOVE AND INSERT STENT COMPARISON: None TECHNIQUE: Standard protocol for this study/examination. FINDINGS: Total fluoroscopic time (continuous mode) utilized during the procedure 23.1 seconds. Total exam DLP: 4.59 (mGy). IMPRESSION: Submitted images from the current procedure: 21.
--- NOTE | 2018-07-05 08:36 | PN ---
UROLOGY IMMEDIATE POSTOPERATIVE NOTE DATE: 07/05/2018 SUBJECTIVE: Very pleasant lady. She has got cholecystoscopy, retrograde pyelogram, stent . VITAL SIGNS: Within normal limits. COMPLICATIONS: There were no complications. BLOOD LOSS: Less than 10 mL. The patient has double-J stent. . The patient tolerated the procedure without complications. Jareth Lau MD
--- NOTE | 2018-07-05 20:42 | OP ---
PROCEDURE DATE: 07/03/2018 PREOPERATIVE DIAGNOSIS: Right hydronephrosis, nonfunctioning left kidney. POSTOPERATIVE DIAGNOSIS: Right hydronephrosis, nonfunctioning left kidney. PROCEDURE: Cystoscopy, removal of right double-J stent or right retrograde pyelogram, and insertion of right double-J stent. COMPLICATIONS: There were no complications. INDICATIONS: See history and physical for further details. In brief, this is a very pleasant lady, who has a nonfunctioning left kidney and right hydronephrosis, who is now here for the above-listed procedure. We have discussed the options, . Her doctor is retired, and so in search of a new medical doctor was discussed with her at length. In the meantime, we have provided some prescriptions for the patient, explaining that all that needs is to go to a medical doctor. The past medical and surgical history is as listed on the chart. Otherwise, unremarkable. MEDICATIONS: See the chart. Procedure is today. UROLOGY OPERATIVE FINDINGS: I do want to mention the bladder mucosa within normal limits. There are no bladder lesions identified. The right hydronephrosis, there is still hydro despite the fact that this mesh was in place. I do want to mention as all the time that it happens with the patient, it looks like the stent falls down. At the end of the day, we passed the stents. At this time, we elected a little bit higher. Again, I suspect the stent fell down. We did entertain the possibility of inserting a larger size. She is being otherwise stable and she is now here for this procedure. DESCRIPTION OF PROCEDURE: After obtaining informed consent, the patient was placed on the table. Routine monitor was placed. Timeout was called to confirm patient positioning. Antibiotic prophylaxis used. We confirmed the patient's positioning. The patient was placed in lithotomy position, was prepped and draped in the usual sterile fashion. The scope was introduced via the urethra. We identified the old stent, removed it, passed the wire up to the kidney. Once we were able to do that, we placed an open-ended. Sometimes, I had difficulty with her proximal ureter, but not today, we were able to get the open-ended right catheter. Now, I put a wire all the way up to the upper pole calyx deliberately and I will leave it there. With the double-J stent all the way, they are not trying to trying to go to the renal pelvis, trying to stay high. Although comparing the pre and post films, the other film looks like it was much lower, still within the renal pelvis but lower, so at this time we deliberately tried to leave it very high. Overall, the patient tolerated the procedure well without complication. Jareth Lau MD
--- NOTE | 2018-07-08 09:42 | HP ---
DATE OF EXAM: 07/05/2018 UROLOGY ADMISSION HISTORY AND PHYSICAL REASON FOR ADMISSION: Change of her stent on the right double-J stent. HISTORY OF PRESENT ILLNESS: Ms. Ahmadi is a very pleasant lady who has right hydronephrosis. Her left kidney does not function well. Of note, she has multiple medical problems. She is now here today for a cysto and a stent change on the right side. Originally, she is going to get the left side treated. She has a but this is currently on hold. She is here today for the change. She is currently in need of a medical doctor. Her current doctor has retired. She is in search of medical doctor. PAST MEDICAL AND SURGICAL HISTORY: No other changes. she feels well. I have been providing the patient medications that she needs, but she is searching a new medical doctor. She is here with her friend. MEDICATIONS: See chart. ALLERGIES: SEE CHART. REVIEW OF SYSTEMS: As listed above, noncontributory. PHYSICAL EXAMINATION: GENERAL: A well-nourished female, in no apparent distress. VITAL SIGNS: Noted in the chart. LUNGS: Clear. ABDOMEN: Overall soft, nontender. No flank mass appreciated. PELVIC: Noted for cysto as mentioned. No pelvic or rectal masses. LABORATORY DATA: The labs noted. DIAGNOSES: Right-sided hydronephrosis. Left kidney not functioning. Aneurysm, multiple medical issues. PLAN: Extremely pleasant lady who I know quite well. Today, we are planning to just change her stent on the right side. Further plans will follow. Discussed with her at great length. . Jareth Lau MD
== END 2018-07-03 11:40 | disposition home or self-care (01) ==
LOC: SDS 06:02
PROVIDERS: ATTEND Urology
DX: T83.122A Displacement of indwelling ureteral stent, initial encounter (principal); N13.30 Unspecified hydronephrosis; N28.9 Disorder of kidney and ureter, unspecified; I10 Essential (primary) hypertension
CPT/HCPCS: 52005; 52332; 74420; C1758; C2625; J0696; J7030; J7120; Q9966

== ENCOUNTER 2018-09-03 07:27 | Inpatient (IN) | payer OTHER ==
[2018-09-03] MEDS ORDERED: Albuterol-Ipratrop 3 mg / 0.5 (3 ml) UD IH STA (07:56)
--- NOTE | 2018-09-03 08:02 | ED PDOC ---
Arrival/HPI - General Chief Complaint: Shortness Of Breath Time Seen by Provider: 09/03/18 07:44 Historian: Patient - History of Present Illness Narrative History of Present Illness (Text): 09/03/18 08:02 A 83 year old female, whose past medical history includes COPD, right kidney stent placement, right kidney hydronephrosis, right kidney aneurysm, left kidney failure, hypertension, hyperkalemia, and sciatica, presents to the emergency department complaining of shortness of breath for the past few days. Patient reports shortness of breath worsened last night, and states this morning she was gagging, however not vomiting. Mentions taking inhalers, however has had no relief. Patient denies any fever, chills, cough, chest pain, or any other complaints at this time. Admits to currently smoking. No PMD Urologist: Dr. Lau Past Medical History - Provider Review Nursing Documentation Reviewed: Yes - Infectious Disease Hx of Infectious Diseases: None - Tetanus Immunization Tetanus Immunization: Unknown - Reproductive Menopause: No - Cardiac Hx Cardiac Disorders: Yes Hx Hypertension: Yes - Pulmonary Hx Respiratory Disorders: Yes (SMOKES CIGARETTES PPD.ON CHANTIX) Hx Chronic Obstructive Pulmonary Disease (COPD): Yes - Neurological Hx Paralysis: No - HEENT Hx HEENT Disorder: Yes Hx Blind: No Hx Cataracts: Yes Hx Deafness: No Hx Difficulty Chewing: No Hx Epistaxis: No Hx Glaucoma: No Hx Macular Degeneration: No - Renal Hx Renal Failure: No - Endocrine/Metabolic Hx Endocrine Disorders: No - Hematological/Oncological Hx Blood Transfusions: Yes - Integumentary Hx Dermatological Disorder: Yes (HYPOPIGMENTATION-WHITISH SKIN DISCOLORATION. SCARRING TO LEFT ARM,R ARM,LE) Hx Basal Cell Carcinoma: No Hx Eczema: No Hx Melanoma: No Hx Psoriasis: No Hx Squamous Cell Carcinoma: No - Musculoskeletal/Rheumatological Hx Musculoskeletal Disorders: No - Gastrointestinal Hx Gastrointestinal Disorders: Yes (CONSTIPATION) Hx Colostomy: No Hx Crohn's Disease: No Hx Diverticulitis: No Hx Gall Bladder Disease: Yes (CHOLECYSTECTOMY,) Hx Gastroesophageal Reflux: Yes Hx Ileostomy: No Hx Liver Failure: No Hx Pancreatitis: No HX Swallowing Problems: No - Genitourinary/Gynecological Hx Genitourinary Disorders: Yes (LEFT KIDNEY NON FUNCTIONING SHE STATED.) Hx Hematuria: Yes Hx Incontinence: No Hx Sexually Transmitted Diseases: No Hx Urinary Tract Infection: Yes Other/Comment: BILATERAL HYDRONEPHROSIS - Psychiatric Hx Emotional Abuse: No Hx Physical Abuse: No Hx Substance Use: No - Surgical History Hx Cholecystectomy: Yes Hx Hysterectomy: Yes - Anesthesia Hx Anesthesia Reactions: No Hx Malignant Hyperthermia: No - Suicidal Assessment Feels Threatened In Home Enviroment: No Family/Social History - Physician Review Nursing Documentation Reviewed: Yes Family/Social History: No Known Family HX Smoking Status: Current Some Days Smoker Hx Alcohol Use: No Hx Substance Use: No Allergies/Home Meds Allergies/Adverse Reactions: Allergies No Known Allergies Allergy (Verified 09/03/18 12:35) Home Medications: Home Meds Medication Instructions Recorded Confirmed Albuterol Sulfate [Proair Hfa] 2 puff INH PRN PRN 03/20/18 09/03/18 RX: Losartan [Cozaar] 100 mg PO DAILY 03/20/18 09/03/18 Esomeprazole Magnesium [Nexium] 40 mg PO DAILY 07/02/18 09/03/18 Review of Systems - Physician Review All systems were reviewed & negative as marked: Yes - Review of Systems Constitutional: absent: Fevers, Night Sweats Respiratory: SOB. absent: Cough Cardiovascular: absent: Chest Pain Gastrointestinal: absent: Vomiting Physical Exam - Physical Exam Narrative Physical Exam (Text): Gen: NAD, cooperative, speaking in full sentences, well appearing, non-toxic. Head: NCAT. HEENT: EYES: PERRL, EOMI, conjunctiva clear, MOUTH: moist MM, posterior pharynx without erythema or exudate, uvula midline. CV: (+) S1S2, RRR, no M/G/R LUNGS: decreased breath sounds bilaterally, No W/R/R Abd: Soft, NTTP, no guarding, rebound or rigidity. Neuro: AAO x 3, GCS 15, CN 2-12 intact, motor and sensory grossly intact, 5/5 muscle strength B/L UE's and LE's. ext: no cyanosis or edema Vital Signs Reviewed: Yes Vital Signs Temp Pulse Resp BP Pulse Ox 09/03/18 07:28 97.7 F 107 H 22 167/98 H 94 L Temperature: Afebrile Blood Pressure: Hypertensive Pulse: Regular Respiratory Rate: Normal Appearance: Positive for: Well-Appearing, Non-Toxic, Comfortable Pain Distress: None Mental Status: Positive for: Alert and Oriented X 3 Medical Decision Making ED Course and Treatment: 09/03/18 08:03 Impression: 83 year old female with shortness of breath. Plan: -- EKG -- Chest X-ray -- Labs -- Blood Culture -- Duoneb -- SOLU-Medrol -- Reassess and disposition Prior Visits: Notes and results from previous visits were reviewed. Patient was last seen here in the ER on 01/10/2018 for s/p fall. Patient was admitted for left displaced femoral neck fracture. Progress Notes: EKG: Ordered, reviewed, and independently interpreted the EKG. Rate : 107 BPM Rhythm : Sinus tachycardia Interpretation : Normal intervals, no ST elevations or depressions. Comparison : No previous EKG for comparison. 09/03/2018 09:53 Chest X-ray IMPRESSION: Small pleural effusion bilaterally. Congestive change. Patchy opacity at left base, possible developing pneumonia. Rule out pulmonary edema. Follow-up advised. Dictator: Russell Paulino MD 09/03/18 10:[address] Meyer, who accepts patient into his service. - RAD Interpretation Radiology Orders: 09/03/18 07:50 CHEST PORTABLE [RAD] Stat - Scribe Statement The provider has reviewed the documentation as recorded by the Eleonoraibpanda Ruiz Provider Scribe Attestation: All medical record entries made by the Scribe were at my direction and personally dictated by me. I have reviewed the chart and agree that the record accurately reflects my personal performance of the history, physical exam, medical decision making, and the department course for this patient. I have also personally directed, reviewed, and agree with the discharge instructions and disposition. Disposition/Present on Arrival - Present on Arrival Any Indicators Present on Arrival: No History of DVT/PE: No History of Uncontrolled Diabetes: No Urinary Catheter: No History of Decub. Ulcer: No History Surgical Site Infection Following: None - Disposition Have Diagnosis and Disposition been Completed?: Yes Diagnosis: Congestive heart failure (CHF), Dyspnea, Hypomagnesemia, Anemia Disposition: HOSPITALIZED Disposition Time: 10:10 Patient Plan: Admission, Telemetry Patient Problems: Current Active Problems Problem Status Onset Anemia Acute Congestive heart failure (CHF) Acute Dyspnea Acute Hypomagnesemia Acute Condition: STABLE
[2018-09-03 08:17] LABS: BASO # 0.02 K/mm3 (0.0-2.0); BASO % 0.2 % (0.0-3.0); EOS % 0.4 % (1.5-5.0); HEMOGLOBIN 8.1 g/dL (12.0-16.0); LYMPH # 0.8 (1.2-3.4); LYMPH % 8.9 % (22.0-35.0); MEAN CELL VOLUME 84.8 fl (80.0-105.0); MEAN CORPUSCULAR HEMOGLOBIN 25.6 pg (25.0-35.0); MEAN CORPUSCULAR HGB CONC 30.2 g/dl (31.0-37.0); MONO # 0.3 (0.1-0.6); MONO % 3.7 % (1.0-6.0); RBC 3.16 10^6/uL (3.5-6.1); RED CELL DISTRIBUTION WIDTH 16.1 % (11.5-14.5)
[2018-09-03 08:39] LABS: TROPONIN I 0.05 ng/mL
[2018-09-03 09:00] LABS: CALCIUM 7.4 mg/dL (8.4-10.5)
[2018-09-03] MEDS ORDERED: Magnesium Sulfate 2 gm/50 ml 2 GM/50 ML BAG IVPB ONE ×2 (09:13→16:00)
--- NOTE | 2018-09-03 09:56 | RAD ---
Date of service: 09/03/2018 HISTORY: cough COMPARISON: 07/02/2018 FINDINGS: LUNGS: Patchy opacity at left base. Possible. Follow-up advised. PLEURA: Minimal blunting of both costophrenic angles may reflect small pleural effusions. CARDIOVASCULAR: No aortic atherosclerotic calcification present. Normal heart size. Congestive change noted. OSSEOUS STRUCTURES: No significant abnormalities. VISUALIZED UPPER ABDOMEN: Normal. OTHER FINDINGS: None. IMPRESSION: Small pleural effusion bilaterally. Congestive change. Patchy opacity at left base, possible developing pneumonia. Rule out pulmonary edema. Follow-up advised
[2018-09-03] MEDS ORDERED: Azithromycin 500MG/NS 250ml 500 MG/250 ML BAG IVPB STA (10:12)
--- NOTE | 2018-09-03 10:13 | CARD ---
APPROVED REPORT Date of service: 09/03/2018 EKG Measurement Heart [id number] <Conclusion> Sinus tachycardia Possible Left atrial enlargement Borderline ECG
--- NOTE | 2018-09-03 12:37 | CP.PCM.HP ---
<Gustavo Ivory - Last Filed: 09/03/18 14:00> History of Present Illness - History of Present Illness History of Present Illness: PGY-2 H&P for Dr Rebolledo Mrs Antonio is a 83 year old female with a PMHx of AAA (4.9 cm), COPD, OA, HTN, HLD, hx of right-sided hydronephrosis, left-sided kidney failure, diastolic CHF, cervical cancer s/p radiation and hysterectomy, left hip fracture who presents with 1 week of worsening shortness of breath. She also endorsed a dry cough that she's had "for a while". She also complained of a "gagging" feeling this morning but did not have emesis - just the feeling of it. She used her proair pump without relief. She denies fever, hemoptysis, pain. She stated she had severe respiratory issues 6 weeks ago for 2 weeks - at that time her urologist Rx'd her amoxicillin. She had a right kidney stent replacement in 06/[address] Lau. She lives alone, with her neighbor periodically checking-in on her. She ambulates with a walker. PMHx: AAA (4.9 cm), COPD, OA, HTN, HLD, hx of right-sided hydronephrosis, diastolic CHF, cervical cancer s/p radiation and hysterectomy, left hip fracture PSHx: hysterectomy, cholecystectomy, surgery for left hip fracture, right kidney stent replacement 06/2018 Allergies: NKA Home Meds: losartan 100mg po qd, nexium 40mg po qd, proair hfa 2puff prn FamHx: mother at 82 of bone cancer, father diet of unknown causes SocialHx: currently smoker; denies alcohol or illicits; lives alone at home - with neighbor periodically checking-in on her; ambulates with a walker Present on Admission - Present on Admission Any Indicators Present on Admission: No Review of Systems - Review of Systems All systems: reviewed and no additional remarkable complaints except (as stated in HPI) Past Patient History - Infectious Disease Hx of Infectious Diseases: None - Tetanus Immunizations Tetanus Immunization: Unknown - Past Social History Smoking Status: Current Some Days Smoker - CARDIAC Hx Cardiac Disorders: Yes Hx Hypertension: Yes - PULMONARY Hx Respiratory Disorders: Yes (SMOKES CIGARETTES PPD.ON CHANTIX) Hx Chronic Obstructive Pulmonary Disease (COPD): Yes - NEUROLOGICAL Hx Paralysis: No - HEENT Hx HEENT Problems: Yes Hx Blind: No Hx Cataracts: Yes Hx Deafness: No Hx Difficulty Chewing: No Hx Epistaxis: No Hx Glaucoma: No Hx Macular Degeneration: No - RENAL Hx Renal Failure: No - ENDOCRINE/METABOLIC Hx Endocrine Disorders: No - HEMATOLOGICAL/ONCOLOGICAL Hx Blood Transfusions: Yes - INTEGUMENTARY Hx Dermatological Problems: Yes (HYPOPIGMENTATION-WHITISH SKIN DISCOLORATION. SCARRING TO LEFT ARM,R ARM,LE) Hx Basil Cell: No Hx Eczema: No Hx Melanoma: No Hx Psoriasis: No Hx Squamous Cell: No - MUSCULOSKELETAL/RHEUMATOLOGICAL Hx Musculoskeletal Disorders: No - GASTROINTESTINAL Hx Gastrointestinal Disorders: Yes (CONSTIPATION) Hx Colostomy: No Hx Crohn's Disease: No Hx Diverticulitis: No Hx Gall Bladder Disease: Yes (CHOLECYSTECTOMY,) Hx Gastroesophageal Reflux: Yes Hx Ileostomy: No Hx Liver Failure: No Hx Pancreatitis: No HX Swallowing Problems: No - GENITOURINARY/GYNECOLOGICAL Hx Genitourinary Disorders: Yes (LEFT KIDNEY NON FUNCTIONING SHE STATED.) Hx Hematuria: Yes Hx Incontinence: No Hx Sexually Transmitted Disorders: No Hx Urinary Tract Infection: Yes Other/Comment: BILATERAL HYDRONEPHROSIS - PSYCHIATRIC Hx Emotional Abuse: No Hx Physical Abuse: No Hx Substance Use: No - SURGICAL HISTORY Hx Cholecystectomy: Yes Hx Hysterectomy: Yes - ANESTHESIA Hx Anesthesia Reactions: No Hx Malignant Hyperthermia: No Meds Allergies/Adverse Reactions: Allergies Allergy/AdvReac Type Severity Reaction Status Date / Time No Known Allergies Allergy Verified 09/03/18 12:35 Physical Exam - Constitutional Appears: Non-toxic, No Acute Distress, Cachectic, Chronically Ill - Head Exam Head Exam: ATRAUMATIC, NORMAL INSPECTION - Eye Exam Eye Exam: EOMI, Normal appearance, PERRL. absent: Scleral icterus - ENT Exam ENT Exam: Mucous Membranes Dry - Neck Exam Neck exam: Positive for: Full Rom - Respiratory Exam Respiratory Exam: Rales, NORMAL BREATHING PATTERN Additional comments: bibasaler rales - Cardiovascular Exam Cardiovascular Exam: Tachycardia, REGULAR RHYTHM, +S1, +S2, Systolic Murmur. absent: JVD - GI/Abdominal Exam GI & Abdominal Exam: Normal Bowel Sounds, Soft. absent: Distended, Firm, Guarding, Tenderness - Extremities Exam Extremities exam: Positive for: normal capillary refill, normal inspection, pedal pulses present. Negative for: pedal edema - Neurological Exam Neurological exam: Alert, Oriented x3 - Psychiatric Exam Psychiatric exam: Anxious, Normal Affect, Normal Mood - Skin Skin Exam: Dry, Intact, Normal Color, Warm Results - Vital Signs Recent Vital Signs: Last Vital Signs Temp 97.7 F 09/03/18 07:28 Pulse 107 H 09/03/18 07:28 Resp 22 09/03/18 07:50 BP 167/98 H 09/03/18 07:28 Pulse Ox 94 L 09/03/18 07:28 - Labs Result Diagrams: 09/03/18 08:00 09/03/18 08:00 Labs: Laboratory Results - last 24 hr 09/03/18 09/03/18 08:00 08:00 WBC 9.0 RBC 3.16 L Hgb 8.1 L D Hct 26.8 L MCV 84.8 MCH 25.6 MCHC 30.2 L RDW 16.1 H Plt Count 296 MPV 8.0 Neut % (Auto) 86.8 H Lymph % (Auto) 8.9 L Mcdonald % (Auto) 3.7 Eos % (Auto) 0.4 L Baso % (Auto) 0.2 Lymph # (Auto) 0.8 L Mcdonald # (Auto) 0.3 Eos # (Auto) 0.0 Baso # (Auto) 0.02 Absolute Neuts (auto) 7.84 H Sodium 142 Potassium 4.4 Chloride 113 H Carbon Dioxide 16 L Anion Gap 17 BUN 37 H Creatinine 4.4 H Est GFR ( Amer) 12 Est GFR (Non-Af Amer) 10 Random Glucose 111 H Calcium 7.4 L Magnesium 0.6 L* Lactate Dehydrogenase 565 Total Creatine Kinase 163 Troponin I 0.05 D NT-Pro-B Natriuret Pep 08912 H Assessment & Plan - Assessment and Plan (Free Text) Plan: Mrs Antonio is a 83 year old female with a PMHx of AAA (4.9 cm), COPD, OA, HTN, HLD, hx of right-sided hydronephrosis, left-sided kidney failure, diastolic CHF, cervical cancer s/p radiation and hysterectomy, left hip fracture who presents with 1 week of worsening shortness of breath: Diastolic CHF Exacerbation -probnp on admissioni: [id number] -cxr 09/03/18 showed small pleural effusion b/l, rule-out pulm edema -ekg showed left atrial enlargement and normal sinus tachycardia -echo from 2016: mild biatrial enlargement, normal LV function, moderate concentric LVH, aortic sclerosis, mild MR, mild TR -f/u echo -lasix 60ivp q12h -daily weights, head of bed at 30 degrees, strict Is/Os -consult cardiology, Dr Springer Possible Pneumonia -cxr 09/03/18 showed opacity at left base - possibly developing pneumonia -was given rocephin and azithromycin in ED -will need to treat for hcap as patient with recent right kidney stent replacement -consult ID, Dr Lockhart JAMI on CKD stage IIIB -BUN/Cr on admission: 37/4.4 -f/u renal duplex scan Hypomagnesemia, Improved -mag on admission: 0.6 -mag 2g iv given in ED, plan to give another 2g iv this afternoon running slow at 15 cc/hr -start mag oxide 800mg po tid (started 09/03) Anemia -Hgb on admission: 8.1 -f/u iron studies, ferritin, b12, folate, retic count Hx of Right Kidney Stent Replacement -right-kidney stent replacement 06/[address] Lau -f/u renal duplex scan -consult Dr Lua PPX -SCDs -will wait for pt/ptt to return before starting ppx anticoagulation -heart healthy diet -protonix 40mg po qd Case discussed with Dr Rebolledo <Ede Rebolledo S - Last Filed: 09/08/18 21:49> Results - Vital Signs Recent Vital Signs: Last Vital Signs Temp 98 F 09/06/18 08:14 Pulse 88 09/06/18 08:14 Resp 20 09/06/18 08:14 BP 150/70 09/06/18 09:53 Pulse Ox 98 09/06/18 08:14 - Labs Result Diagrams: 09/06/18 06:15 09/06/18 06:15 Assessment & Plan - Assessment and Plan (Free Text) Plan: Pt seen and examined by me. This is a late entry. I have reviewed the note of the biomedical manager and I agree with it. I have discussed the assessment and plan with the resident. I have reviewed the medications and the last labs. Pt with community acquired pneumonia and is on IV Abx. She has acute CHF due to diastolic dysfunction. She has hypomagnesemia and it has been replaced and is improving. She will need PT. She does not want to go to [facility]. She is being followed by Dr Lau from Urology.
[2018-09-03] MEDS ORDERED: Albuterol-Ipratrop 3 mg / 0.5 (3 ml) UD IH PRN (13:59)
[2018-09-03 14:51] LABS: IRON 17 ug/dL (45-180)
[2018-09-03] MEDS: Magnesium Oxide 400 mg Tab UD PO SCH ×2 (14:55→18:00)
[2018-09-03 15:00] LABS: % IRON SATURATION 8 % (20-55); TOTAL IRON BINDING CAPACITY 201 ug/dL (265-497)
[2018-09-03] MEDS: Albuterol-Ipratrop 3 mg / 0.5 (3 ml) UD IH SCH ×2 (18:14→20:30)
[2018-09-03 21:01] LABS: FOLATE 10.1 ng/mL
[2018-09-03] MEDS ORDERED: Pneumococcal 23-Valent Vaccine IM ONE (22:14)
[2018-09-03] MEDS ORDERED: Influenza Vaccine 60 mcg/0.5 mL SYR (4YR UP) IM ONE (22:14)
[2018-09-04] MEDS: Albuterol-Ipratrop 3 mg / 0.5 (3 ml) UD IH SCH ×4 (03:00→19:29)
[2018-09-04] MEDS ORDERED: Vancomycin 1gm in NS 250ml 1 GM/250 ML BAG IVPB STA (06:38)
[2018-09-04 06:59] LABS: HEMOGLOBIN 8.3 g/dL (12.0-16.0); LYMPH # 0.6 (1.2-3.4); LYMPH % 5.5 % (22.0-35.0); MEAN CELL VOLUME 82.8 fl (80.0-105.0); MEAN CORPUSCULAR HGB CONC 31.4 g/dl (31.0-37.0); MEAN PLATELET VOLUME 7.9 fl (7.0-11.0); MONO # 0.6 (0.1-0.6); MONO % 5.1 % (1.0-6.0); RBC 3.19 10^6/uL (3.5-6.1); RED CELL DISTRIBUTION WIDTH 15.9 % (11.5-14.5); WHITE BLOOD COUNT 11.1 10^3/uL (4.5-11.0)
[2018-09-04 07:07] LABS: INR 1.29; PARTIAL THROMBOPLASTIN TIME 32.3 Seconds (26.9-38.3); PROTHROMBIN TIME 14.6 SECONDS (9.4-12.5)
[2018-09-04 07:30] LABS: ALB/GLOB RATIO 0.9 (1.1-1.8); ALBUMIN 3.5 g/dL (3.0-4.8); AST/SGOT 21 U/L (14-36); BLOOD UREA NITROGEN 42 mg/dL (7-21); CALCIUM 8.1 mg/dL (8.4-10.5); GFR NON-AFRICAN AMERICAN 10; HDL CHOLESTEROL 42 mg/dL (29-60)
[2018-09-04 07:32] LABS: ALT/SGPT < 6 U/L (7-56)
[2018-09-04 07:41] LABS: LDL CHOLESTEROL 91 mg/dL (0-129)
[2018-09-04] MEDS ORDERED: Iron Sucrose 100 mg/5 ml Inj IVP SCH (10:00)
[2018-09-04] MEDS: Cefepime 1gm in NS 100ml 1 GM/100 ML BAG IVPB SCH (10:16)
[2018-09-04] MEDS: Magnesium Oxide 400 mg Tab UD PO SCH ×3 (10:17→17:36)
[2018-09-04] MEDS: Pantoprazole 40 mg EC Tab PO SCH (10:17)
--- NOTE | 2018-09-04 12:37 | US ---
Date of service: 09/04/2018 PROCEDURE: Ultrasound of the Kidneys HISTORY: Recently replaced right kidney stent COMPARISON: None available. TECHNIQUE: Grayscale imaging was performed. FINDINGS: RIGHT KIDNEY: Measures: 15.4 cm. Enlarged with normal contour and echogenicity. No stone visualized. There is moderate hydronephrosis. LEFT KIDNEY: Measures: 14.7 cm. Enlarged with normal contour and echogenicity. No stone mass lesion or hydronephrosis visualized. There is severe hydronephrosis. OTHER FINDINGS: None. IMPRESSION: Enlarged kidneys. Moderate right and severe hydronephrosis.
--- NOTE | 2018-09-04 12:44 | CP.PCM.CON ---
History of Present Illness - History of Present Illness History of Present Illness: 83 year old female with PMH of chronic CHF, COPD, HTN, dyslipidemia, history of cervical cancer S/P radiation and hysterectomy, abdominal aortic aneurysm, S/P cholecystectomy, S/P left hip surgery for fracture came in to [facility] because of worsening shortness of breath for the past week, associated with generalized weakness. She was also having a dry cough. She denies sputum production, no hemoptysis, no nausea or vomiting, no abdominal pain, no headache or dizziness, no sore throat, no fever or chills, no dysphagia, no diarrhea, no dysuria. In the ED, she was noted to have BNP of 97k and CXR was done which showed left base patchy opacity. Infectious Diseases consult is requested to further evaluate and manage. Review of Systems - Review of Systems All systems: reviewed and no additional remarkable complaints except (as per HPI) Past Patient History - Infectious Disease Hx of Infectious Diseases: None - Tetanus Immunizations Tetanus Immunization: Unknown - Past Social History Smoking Status: Current Some Days Smoker - CARDIAC Hx Cardiac Disorders: Yes Hx Congestive Heart Failure: Yes Hx Hypertension: Yes - PULMONARY Hx Respiratory Disorders: Yes (SMOKES CIGARETTES PPD.ON CHANTIX,CUT DOWN ON 3 CIG A WEEK.) Hx Chronic Obstructive Pulmonary Disease (COPD): Yes - NEUROLOGICAL Hx Neurological Disorder: No - HEENT Hx HEENT Problems: Yes Hx Blind: No Hx Cataracts: Yes Hx Deafness: No Hx Difficulty Chewing: No Hx Epistaxis: No Hx Glaucoma: No Hx Macular Degeneration: No - RENAL Hx Chronic Kidney Disease: Yes (RIGHT KIDNEY STENT) Hx Renal Failure: No - ENDOCRINE/METABOLIC Hx Endocrine Disorders: No - HEMATOLOGICAL/ONCOLOGICAL Hx Blood Disorders: Yes Hx Cancer: 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 SCARRING TO LEFT ARM,R ARM,LE) Hx Basil Cell: No Hx Eczema: No Hx Melanoma: No Hx Psoriasis: No Hx Squamous Cell: No - MUSCULOSKELETAL/RHEUMATOLOGICAL Hx Musculoskeletal Disorders: Yes Hx Falls: Yes Hx Fractures: Yes (LEFT HIP FX) - GASTROINTESTINAL Hx Gastrointestinal Disorders: Yes (CONSTIPATION) Hx Colostomy: No Hx Crohn's Disease: No Hx Diverticulitis: No Hx Gall Bladder Disease: Yes (CHOLECYSTECTOMY,) Hx Gastroesophageal Reflux: Yes Hx Ileostomy: No Hx Liver Failure: No Hx Pancreatitis: No HX Swallowing Problems: No - GENITOURINARY/GYNECOLOGICAL Hx Genitourinary Disorders: Yes (LEFT KIDNEY NON FUNCTIONING SHE STATED.) Hx Hematuria: Yes Hx Incontinence: No Hx Sexually Transmitted Disorders: No Hx Urinary Tract Infection: Yes Other/Comment: BILATERAL HYDRONEPHROSIS,OVARIAN CA WITH RADIATION AND SX - PSYCHIATRIC Hx Emotional Abuse: No Hx Physical Abuse: No Hx Substance Use: No - SURGICAL HISTORY Hx Surgeries: Yes (RIGHT KIDNEY STENT,) Hx Cholecystectomy: Yes Hx Hysterectomy: Yes - ANESTHESIA Hx Anesthesia Reactions: No Hx Malignant Hyperthermia: No Meds Allergies/Adverse Reactions: Allergies Allergy/AdvReac Type Severity Reaction Status Date / Time No Known Allergies Allergy Verified 09/03/18 12:35 - Medications Medications: Current Medications Acetaminophen (Tylenol 325mg Tab) 650 mg PO Q6H PRN PRN Reason: Pain, Mild (1-3) Albuterol/Ipratropium (Duoneb 3 Mg/0.5 Mg (3 Ml) Ud) 3 ml IH [id number] [facility] Last Admin: 09/04/18 03:00 Dose: 3 ml Albuterol/Ipratropium (Duoneb 3 Mg/0.5 Mg (3 Ml) Ud) 3 ml IH Q2H PRN PRN Reason: Shortness of Breath Amlodipine Besylate (Norvasc) 10 mg PO DAILY [facility] Last Admin: 09/03/18 17:57 Dose: 10 mg Furosemide (Lasix) 60 mg IVP Q12H [facility] Last Admin: 09/04/18 01:35 Dose: 60 mg Magnesium Oxide (Mag-Ox) 800 mg PO TID [facility] Last Admin: 09/03/18 18:00 Dose: 800 mg Pantoprazole Sodium (Protonix Ec Tab) 40 mg PO DAILY [facility] Physical Exam - Constitutional Appears: Non-toxic, Chronically Ill - Head Exam Head Exam: NORMAL INSPECTION - ENT Exam ENT Exam: Mucous Membranes Moist - Neck Exam Neck exam: Negative for: Lymphadenopathy, Meningismus - Respiratory Exam Respiratory Exam: Decreased Breath Sounds - Cardiovascular Exam Cardiovascular Exam: +S1, +S2 - GI/Abdominal Exam GI & Abdominal Exam: Soft. absent: Tenderness Results - Vital Signs Recent Vital Signs: Last Vital Signs Temp 97.9 F 09/04/18 06:00 Pulse 91 H 09/04/18 06:00 Resp 19 09/04/18 06:00 BP 143/87 09/04/18 06:00 Pulse Ox 97 09/04/18 06:00 - Labs Result Diagrams: 09/04/18 06:30 09/04/18 06:30 Labs: Laboratory Results - last 24 hr 09/03/18 09/03/18 09/03/18 08:00 08:00 08:10 WBC 9.0 RBC 3.16 L Hgb 8.1 L D Hct 26.8 L MCV 84.8 MCH 25.6 MCHC 30.2 L RDW 16.1 H Plt Count 296 MPV 8.0 Neut % (Auto) 86.8 H Lymph % (Auto) 8.9 L [place] % (Auto) 3.7 Eos % (Auto) 0.4 L Baso % (Auto) 0.2 Lymph # (Auto) 0.8 L [place] # (Auto) 0.3 Eos # (Auto) 0.0 Baso # (Auto) 0.02 Absolute Neuts (auto) 7.84 H Retic Count Sodium 142 Potassium 4.4 Chloride 113 H Carbon Dioxide 16 L Anion Gap 17 BUN 37 H Creatinine 4.4 H Est GFR ( Amer) 12 Est GFR (Non-Af Amer) 10 Random Glucose 111 H Calcium 7.4 L Phosphorus 4.1 Magnesium 0.6 L* Iron TIBC % Saturation Ferritin 245.0 Lactate Dehydrogenase 565 Total Creatine Kinase 163 Troponin I 0.05 D NT-Pro-B Natriuret Pep 47279 H Vitamin B12 254 Folate 10.1 09/03/18 09/03/18 09/03/18 08:10 13:00 15:40 WBC RBC Hgb Hct MCV MCH MCHC RDW Plt Count MPV Neut % (Auto) Lymph % (Auto) [place] % (Auto) Eos % (Auto) Baso % (Auto) Lymph # (Auto) [place] # (Auto) Eos # (Auto) Baso # (Auto) Absolute Neuts (auto) Retic Count 0.91 Sodium Potassium Chloride Carbon Dioxide Anion Gap BUN Creatinine Est GFR ( Amer) Est GFR (Non-Af Amer) Random Glucose Calcium Phosphorus Magnesium 1.2 L Iron 17 L TIBC 201 L % Saturation 8 L Ferritin Lactate Dehydrogenase Total Creatine Kinase Troponin I NT-Pro-B Natriuret Pep Vitamin B12 Folate Assessment & Plan - Assessment and Plan (Free Text) Plan: Assessment systemic inflammatory response syndrome, consider due acute decompensated heart failure, as well as left sided HCAP S/P left hip surgery for fracture chronic CHF history of pneumonia history of urinary tract infection chronic renal failure COPD HTN dyslipidemia history of cervical cancer S/P radiation and hysterectomy abdominal aortic aneurysm S/P cholecystectomy calcifications on the left kidney Plan gave a dose of IV Vancomycin and started Cefepime and Doxycycline pending blood cx, sputum cx, PCT, urine Legionella Ag; reviewed CXR will monitor clinically
--- NOTE | 2018-09-04 13:40 | CP.PCM.PN ---
<Gustavo Ivory - Last Filed: 09/04/18 13:21> Subjective - Date & Time of Evaluation Date of Evaluation: 09/04/18 Time of Evaluation: 13:21 - Subjective Subjective: PGY-[address] Rebolledo No acute events noted overnight. Patient stated she's feeling better compared to yesterday. Breathing easy without NC. With vaughn - had 1L output after vaughn placement. Stated she still felt weak but overall better compared to yesterday. Denied pain, abdominal pain. Complained of cough still. Objective - Vital Signs/Intake and Output Vital Signs (last 24 hours): Temp Pulse Resp BP Pulse Ox 97.4 F L 95 H 20 145/70 97 09/04/18 12:00 09/04/18 12:42 09/04/18 12:00 09/04/18 13:12 09/04/18 06:00 Intake and Output: 09/04/18 09/04/18 06:59 18:59 Intake Total 1440 Output Total 2225 Balance -785 - Medications Medications: Current Medications Acetaminophen (Tylenol 325mg Tab) 650 mg PO Q6H PRN PRN Reason: Pain, Mild (1-3) Last Admin: 09/04/18 13:14 Dose: 650 mg Albuterol/Ipratropium (Duoneb 3 Mg/0.5 Mg (3 Ml) Ud) 3 ml IH [id number] [facility] Last Admin: 09/04/18 13:12 Dose: 3 ml Albuterol/Ipratropium (Duoneb 3 Mg/0.5 Mg (3 Ml) Ud) 3 ml IH Q2H PRN PRN Reason: Shortness of Breath Amlodipine Besylate (Norvasc) 10 mg PO DAILY [facility] Last Admin: 09/04/18 10:16 Dose: 10 mg Doxycycline Hyclate (Doryx) 100 mg PO Q12 [facility]; Protocol Last Admin: 09/04/18 10:16 Dose: 100 mg Furosemide (Lasix) 60 mg IVP Q12H [facility] Last Admin: 09/04/18 13:12 Dose: 60 mg Cefepime HCl (Maxipime 1gm) 1 gm in 100 mls @ 100 mls/hr IVPB Q24H [facility]; Protocol Stop: 09/11/18 06:46 Last Admin: 09/04/18 10:16 Dose: 100 mls/hr Iron Sucrose 100 mg/ Sodium (Chloride) 105 mls @ 210 mls/hr IVPB DAILY [facility] Stop: 09/07/18 10:01 Last Admin: 09/04/18 10:09 Dose: 210 mls/hr Magnesium Oxide (Mag-Ox) 800 mg PO TID [facility] Last Admin: 09/04/18 13:12 Dose: 800 mg Pantoprazole Sodium (Protonix Ec Tab) 40 mg PO DAILY [facility] Last Admin: 09/04/18 10:17 Dose: 40 mg - Labs Labs: 09/04/18 06:30 09/04/18 06:30 PT 14.6 SECONDS (9.4-12.5) H 09/04/18 06:30 INR 1.29 09/04/18 06:30 APTT 32.3 Seconds (26.9-38.3) 09/04/18 06:30 - Additional Findings Additional findings: - Constitutional Appears: Non-toxic, No Acute Distress, Cachectic, Chronically Ill - Head Exam Head Exam: ATRAUMATIC, NORMAL INSPECTION - Eye Exam Eye Exam: EOMI, Normal appearance, PERRL. absent: Scleral icterus - ENT Exam ENT Exam: Mucous Membranes Dry - Neck Exam Neck exam: Positive for: Full Rom - Respiratory Exam Respiratory Exam: Rales, NORMAL BREATHING PATTERN Additional comments: bibasaler rales - Cardiovascular Exam Cardiovascular Exam: Tachycardia, REGULAR RHYTHM, +S1, +S2, Systolic Murmur. absent: JVD - GI/Abdominal Exam GI & Abdominal Exam: Normal Bowel Sounds, Soft. absent: Distended, Firm, Guarding, Tenderness - Extremities Exam Extremities exam: Positive for: normal capillary refill, normal inspection, pedal pulses present. Negative for: pedal edema - Neurological Exam Neurological exam: Alert, Oriented x3 - Psychiatric Exam Psychiatric exam: Anxious, Normal Affect, Normal Mood - Skin Skin Exam: Dry, Intact, Normal Color, Warm Assessment and Plan - Assessment and Plan (Free Text) Plan: Mrs Antonio is a 83 year old female with a PMHx of AAA (4.9 cm), COPD, OA, HTN, HLD, hx of right-sided hydronephrosis, left-sided kidney failure, diastolic CHF, cervical cancer s/p radiation and hysterectomy, left hip fracture who presents with 1 week of worsening shortness of breath: Diastolic CHF Exacerbation -probnp on admissioni: [id number] -cxr 09/03/18 showed small pleural effusion b/l, rule-out pulm edema -ekg showed left atrial enlargement and normal sinus tachycardia -echo from 2016: mild biatrial enlargement, normal LV function, moderate concentric LVH, aortic sclerosis, mild MR, mild TR -lipid panel normal -f/u echo -lasix 60ivp q12h -daily weights, head of bed at 30 degrees, strict Is/Os -consult cardiology, Dr Springer Possible Pneumonia -cxr 09/03/18 showed opacity at left base - possibly developing pneumonia -was given rocephin and azithromycin in ED -will need to treat for hcap as patient with recent right kidney stent replacement -procalc negative, f/u blood culture, f/u sputum culture, f/u rapid flu -currently on cefepime 1g ivpb q24h (started 09/04) and doxycycline 100mg po q12h (started 09/04) and received 1 dose vanco 1g on 09/04 -consulted ID, Dr Lockhart JAMI on CKD stage IIIB -BUN/Cr on admission: 37/4.4 -renal duplex scan 09/04: * RIGHT KIDNEY: Measures: 15.4 cm. Enlarged with normal contour and echogenicity. No stone visualized. There is moderate hydronephrosis. * LEFT KIDNEY: Measures: 14.7 cm. Enlarged with normal contour and echogenicity. No stone mass lesion or hydronephrosis visualized. There is severe hydronephrosis. -patient was retaining urine evening of 09/03 - vaughn was inserted with 550cc of immediate normal appearing urinary output - possible obstructive component contributing to worsening kidney function Hypomagnesemia, Resolved -mag on admission: 0.6 -mag 2g iv given in ED, and another 2g iv on floors running slow at 15 cc/hr on 09/03 -start mag oxide 800mg po tid (started 09/03) Iron Deficiency Anemia -Hgb on admission: 8.1 -f/u iron studies, ferritin, b12, folate, retic count * iron studies indicate iron deficiency anemia -give venofer 200mg ivp qd for 3 days (started 09/04) -will need iron tablets on discharge Hx of Right Kidney Stent Replacement -right-kidney stent replacement 06/[address] Lau -renal duplex scan 09/04: * RIGHT KIDNEY: Measures: 15.4 cm. Enlarged with normal contour and echogenicity. No stone visualized. There is moderate hydronephrosis. * LEFT KIDNEY: Measures: 14.7 cm. Enlarged with normal contour and echogenicity. No stone mass lesion or hydronephrosis visualized. There is severe hydronephrosis. -patient was retaining urine evening of 09/03 - vaughn was inserted with 550cc of immediate normal appearing urinary output - possible obstructive component contributing to worsening kidney function -consulted urologist Dr Lau HTN -norvasc 10mg po qd (started 09/03) PPX -SCDs -heparin 5000u q12h sc -heart healthy diet -protonix 40mg po qd Dispo: evaluated by PT who recommend [facility] - and Home w/ Services if patient refuses [facility] Case discussed with Dr Rebolledo <Ede Rebolledo S - Last Filed: 09/08/18 21:14> Objective - Vital Signs/Intake and Output Vital Signs (last 24 hours): Temp Pulse Resp BP Pulse Ox 98 F 88 20 150/70 98 09/06/18 08:14 09/06/18 08:14 09/06/18 08:14 09/06/18 09:53 09/06/18 08:14 - Labs Labs: 09/06/18 06:15 09/06/18 06:15 PT 14.6 SECONDS (9.4-12.5) H 09/04/18 06:30 INR 1.29 09/04/18 06:30 APTT 32.3 Seconds (26.9-38.3) 09/04/18 06:30 Assessment and Plan - Assessment and Plan (Free Text) Plan: Pt seen and examined by me. This is a late entry. I have reviewed the note of the medical laboratory technician and I agree with it. I have discussed the assessment and plan with the resident. I have reviewed the medications and the last labs.Pt with acute CHF due to diastolic dysfunction. She has community acquired pneumon ia and is on IV Abx. She will continue with Norvasc for HTN. Hypomagnesmia being replaced. Dr Lau on consult from Urology. JAMI that is improving.
--- NOTE | 2018-09-04 17:27 | CON ---
DATE OF CONSULTATION: 09/04/2018 REQUESTING PHYSICIAN: Dr. Rebolledo. REASON FOR CONSULTATION: Dyspnea, elevated BNP. HISTORY: This is an 83-year-old woman, known to us from prior admissions with a history of active tobacco abuse, severe COPD, and abdominal aortic aneurysm, admitted with significant dyspnea for the past several weeks. She has been treated with antibiotics as an outpatient with partial improvement. However, her dyspnea is worse, and she also complains of constant heaviness on her chest. She is admitted and evaluation was requested. Her BNP was noted to be markedly elevated. PAST MEDICAL HISTORY: Her past history is notable for hypertension, hyperlipidemia. She also has a history of hydronephrosis, status post stent placement. She has had cervical cancer, for which she has undergone radiation therapy and hysterectomy. She has had a prior left hip fracture as well. Past history as noted. She has undergone a prior cholecystectomy. CURRENT MEDICATIONS: Include doxycycline, DuoNeb inhaler, iron infusion, Lasix 60 mg every 12 hours, Maxipime, Norvasc 10 mg daily, Protonix. ALLERGIES: NONE. SOCIAL HISTORY: She continues to smoke. She lives at home alone. She ambulates with a walker. FAMILY HISTORY: Mother from metastatic cancer at the age of 82. Father from unknown causes. REVIEW OF SYSTEMS: A 10-point review of systems is notable mainly for the problems mentioned above. PHYSICAL EXAMINATION: GENERAL: She is a somewhat frail-appearing elderly woman. VITAL SIGNS: Her blood pressure is 140/86 with a pulse of 90 and sinus, respirations are 16. She is afebrile. HEENT: Normocephalic, atraumatic. NECK: Supple. No JVD noted. CHEST: Bilateral coarse rhonchi heard. HEART: PMI displaced laterally with a systolic murmur at the lower left sternal border as well as the apex. ABDOMEN: Soft, nontender with normoactive bowel sounds. EXTREMITIES: No clubbing, cyanosis, or edema. SKIN: Warm and dry. PSYCHIATRIC: Normal mood and affect. NEUROLOGICAL: Alert and oriented x3. No gross motor or sensory deficits noted. DIAGNOSTIC DATA: Potassium 4.3, BUN and creatinine are 42 and 4.1. White count is 11.1, hemoglobin and hematocrit are 8.3 and 26.4 with a platelet count of 313,000. PT/PTT are 14.6 and 32.3. Chest x-ray reveals normal cardiac silhouette with mild pulmonary vascular congestion as well as small bilateral pleural effusions. Electrocardiogram reveals sinus tachycardia with left atrial abnormality, nonspecific ST-T abnormalities. Echocardiogram was performed and will be reviewed. IMPRESSION: 1. Dyspnea appears mainly due to severe chronic obstructive pulmonary disease, probably has some component of right heart strain. 2. Chest pain. Given its constant nature, more likely due to chest wall pleuritic cause, doubt cardiac ischemia present. 3. Active tobacco abuse. 4. Acute renal failure, etiology unclear. 5. Rest of the problems as noted. RECOMMENDATIONS: Lasix therapy will continue for now. Monitoring renal function is advised. Renal studies should proceed. An eventual stress test can be considered. Her echocardiogram will be reviewed and further recommendations will be made based upon those results. Improvement in her hemoglobin with iron transfusion is also strongly encouraged. We will continue to follow along and make further recommendations as appropriate. Adrián Springer MD
[2018-09-05] MEDS: Albuterol-Ipratrop 3 mg / 0.5 (3 ml) UD IH SCH ×4 (01:37→19:34)
[2018-09-05] MEDS: Cefepime 1gm in NS 100ml 1 GM/100 ML BAG IVPB SCH (05:44)
[2018-09-05 06:40] LABS: PH,URINE 6.5 (4.7-8.0); URINE BILIRUBIN NEGATIVE (NEGATIVE); URINE BLOOD MODERATE (NEGATIVE); URINE GLUCOSE (UA) NEGATIVE (NEGATIVE); URINE LEUKOCYTE ESTERASE LARGE Leu/uL (NEGATIVE); URINE PROTEIN TRACE mg/dL (<30 mg/dL); URINE UROBILINOGEN 0.2 E.U./dL (<1 E.U./dL)
[2018-09-05 06:41] LABS: URINE APPEARANCE CLOUDY (CLEAR); URINE COLOR YELLOW (YELLOW)
[2018-09-05 06:47] LABS: URINE BACTERIA SMALL /hpf; URINE WBC TNTC /hpf (0-6)
--- NOTE | 2018-09-05 07:08 | CP.PCM.PN ---
<Gustavo Ivory - Last Filed: 09/05/18 10:22> Subjective - Date & Time of Evaluation Date of Evaluation: 09/05/18 Time of Evaluation: 07:04 - Subjective Subjective: PGY-[address] Rebolledo No acute events noted overnight. Patient stated she felt better compared to arrival. Stated she worked with physical therapy yesterday. Denied pain, sob, discomfort. Complained of elongated toe nails and asked if she could be seen by podiatry. Objective - Vital Signs/Intake and Output Vital Signs (last 24 hours): Temp Pulse Resp BP Pulse Ox 97.8 F 94 H 20 154/76 H 96 09/05/18 06:00 09/05/18 06:00 09/05/18 06:00 09/05/18 06:00 09/05/18 06:00 Intake and Output: 09/05/18 09/05/18 06:59 18:59 Intake Total 1294 Output Total 4000 Balance -2706 - Medications Medications: Current Medications Acetaminophen (Tylenol 325mg Tab) 650 mg PO Q6H PRN PRN Reason: Pain, Mild (1-3) Last Admin: 09/04/18 13:14 Dose: 650 mg Albuterol/Ipratropium (Duoneb 3 Mg/0.5 Mg (3 Ml) Ud) 3 ml IH [id number] MIKEL Last Admin: 09/05/18 01:37 Dose: Not Given Albuterol/Ipratropium (Duoneb 3 Mg/0.5 Mg (3 Ml) Ud) 3 ml IH Q2H PRN PRN Reason: Shortness of Breath Amlodipine Besylate (Norvasc) 10 mg PO DAILY MIKEL Last Admin: 09/04/18 10:16 Dose: 10 mg Doxycycline Hyclate (Doryx) 100 mg PO Q12 MIKEL; Protocol Last Admin: 09/04/18 21:06 Dose: 100 mg Furosemide (Lasix) 60 mg IVP Q12H MIKEL Last Admin: 09/05/18 01:00 Dose: 60 mg Heparin Sodium (Porcine) (Heparin) 5,000 units SC Q12H MIKEL; Protocol Cefepime HCl (Maxipime 1gm) 1 gm in 100 mls @ 100 mls/hr IVPB Q24H MIKEL; Protocol Stop: 09/11/18 06:46 Last Admin: 09/05/18 05:44 Dose: 100 mls/hr Iron Sucrose 100 mg/ Sodium (Chloride) 105 mls @ 210 mls/hr IVPB DAILY [facility] Stop: 09/07/18 10:01 Last Admin: 09/04/18 10:09 Dose: 210 mls/hr Magnesium Oxide (Mag-Ox) 800 mg PO TID [facility] Last Admin: 09/04/18 17:36 Dose: 800 mg Pantoprazole Sodium (Protonix Ec Tab) 40 mg PO DAILY [facility] Last Admin: 09/04/18 10:17 Dose: 40 mg - Labs Labs: 09/04/18 06:30 09/04/18 06:30 PT 14.6 SECONDS (9.4-12.5) H 09/04/18 06:30 INR 1.29 09/04/18 06:30 APTT 32.3 Seconds (26.9-38.3) 09/04/18 06:30 - Additional Findings Additional findings: - Constitutional Appears: Non-toxic, No Acute Distress, Cachectic, Chronically Ill - Head Exam Head Exam: ATRAUMATIC, NORMAL INSPECTION - Eye Exam Eye Exam: EOMI, Normal appearance, PERRL. absent: Scleral icterus - ENT Exam ENT Exam: Mucous Membranes Dry - Neck Exam Neck exam: Positive for: Full Rom - Respiratory Exam Respiratory Exam: Rales, NORMAL BREATHING PATTERN Additional comments: bibasaler rales - Cardiovascular Exam Cardiovascular Exam: Tachycardia, REGULAR RHYTHM, +S1, +S2, Systolic Murmur. absent: JVD - GI/Abdominal Exam GI & Abdominal Exam: Normal Bowel Sounds, Soft. absent: Distended, Firm, Guarding, Tenderness - Extremities Exam Extremities exam: Positive for: normal capillary refill, normal inspection, pedal pulses present. Negative for: pedal edema - Neurological Exam Neurological exam: Alert, Oriented x3 - Psychiatric Exam Psychiatric exam: Anxious, Normal Affect, Normal Mood - Skin Skin Exam: Dry, Intact, Normal Color, Warm Assessment and Plan - Assessment and Plan (Free Text) Plan: Mrs Antonio is a 83 year old female with a PMHx of AAA (4.9 cm), COPD, OA, HTN, HLD, hx of right-sided hydronephrosis, left-sided kidney failure, diastolic CHF, cervical cancer s/p radiation and hysterectomy, left hip fracture who presents with 1 week of worsening shortness of breath: Diastolic CHF Exacerbation -probnp on admissioni: [id number] -cxr 09/03/18 showed small pleural effusion b/l, rule-out pulm edema -ekg showed left atrial enlargement and normal sinus tachycardia -echo from 2016: mild biatrial enlargement, normal LV function, moderate concentric LVH, aortic sclerosis, mild MR, mild TR -lipid panel normal -echo 09/04/2018: EF 30%, mild LV enlargement, dilated LA, moderate MR, moderate TR -lasix 60ivp q12h started on 09/03 and discontinued on 09/05 -daily weights, head of bed at 30 degrees, strict Is/Os -f/u repeat cxr ordered on 09/05 -consult cardiology, Dr Springer Possible Pneumonia -cxr 09/03/18 showed opacity at left base - possibly developing pneumonia -was given rocephin and azithromycin in ED -will need to treat for hcap as patient with recent right kidney stent replacement -procalc negative, f/u blood culture, f/u sputum culture, rapid flu negative -currently on cefepime 1g ivpb q24h (started 09/04) and doxycycline 100mg po q12h (started 09/04) and received 1 dose vanco 1g on 09/04 -f/u repeat cxr ordered on 09/05 -consulted ID, Dr Lockhart JAMI on CKD stage IIIB, Improving -BUN/Cr on admission: 37/4.4 -renal duplex scan 09/04: * RIGHT KIDNEY: Measures: 15.4 cm. Enlarged with normal contour and echogenicity. No stone visualized. There is moderate hydronephrosis. * LEFT KIDNEY: Measures: 14.7 cm. Enlarged with normal contour and echogenicity. No stone mass lesion or hydronephrosis visualized. There is severe hydronephrosis. -patient was retaining urine evening of 09/03 - vaughn was inserted with 550cc of immediate normal appearing urinary output - possible obstructive component contributing to worsening kidney function -lasix and vaughn discontinued on 09/05 as she has had good response to lasix w/ good urinary output, we will see how she responds Hypomagnesemia, Resolved -mag on admission: 0.6 -mag 2g iv given in ED, and another 2g iv on floors running slow at 15 cc/hr on 09/03 -start mag oxide 800mg po tid (started 09/03) -2g mag iv given on 09/05 Iron Deficiency Anemia -Hgb on admission: 8.1 -f/u iron studies, ferritin, b12, folate, retic count * iron studies indicate iron deficiency anemia -give venofer 200mg ivp qd for 3 days (started 09/04) -will need iron tablets on discharge Hx of Right Kidney Stent Replacement -right-kidney stent replacement 06/[address] Lau -renal duplex scan 09/04: * RIGHT KIDNEY: Measures: 15.4 cm. Enlarged with normal contour and echogenicity. No stone visualized. There is moderate hydronephrosis. * LEFT KIDNEY: Measures: 14.7 cm. Enlarged with normal contour and echogenicity. No stone mass lesion or hydronephrosis visualized. There is severe hydronephrosis. -patient was retaining urine evening of 09/03 - vaughn was inserted with 550cc of immediate normal appearing urinary output - possible obstructive component contributing to worsening kidney function -lasix and vaughn discontinued on 09/05 as she has had good response to lasix w/ good urinary output, we will see how she responds -consulted urologist Dr Lau HTN -norvasc 10mg po qd (started 09/03) PPX -SCDs -heparin 5000u q12h sc -heart healthy diet -protonix 40mg po qd Dispo: patient is currently refusing ALEXANDRA as was recommended by PT Case discussed with Dr Rebolledo <Ede Rebolledo S - Last Filed: 09/08/18 20:33> Objective - Vital Signs/Intake and Output Vital Signs (last 24 hours): Temp Pulse Resp BP Pulse Ox 98 F 88 20 150/70 98 09/06/18 08:14 09/06/18 08:14 09/06/18 08:14 09/06/18 09:53 09/06/18 08:14 - Labs Labs: 09/06/18 06:15 09/06/18 06:15 PT 14.6 SECONDS (9.4-12.5) H 09/04/18 06:30 INR 1.29 09/04/18 06:30 APTT 32.3 Seconds (26.9-38.3) 09/04/18 06:30 Assessment and Plan - Assessment and Plan (Free Text) Plan: Pt seen and examined by me. This is a late entry. I have reviewed the note of the infertility medical assistant and I agree with it. I have discussed the assessment and plan with the resident. I have reviewed the medications and the last labs.Acute CHF due to diastolic dysfunction. Pneumoina- CAP and is on IV Abx. JAMI present. Vaughn in place. HTN controlled with Norvasc. Heparin for DVT prophylaxsis. Urology consult.
[2018-09-05 07:35] LABS: BASO # 0.01 K/mm3 (0.0-2.0); BASO % 0.1 % (0.0-3.0); EOS # 0.1 (0.0-0.7); EOS % 0.7 % (1.5-5.0); HEMOGLOBIN 8.8 g/dL (12.0-16.0); LYMPH # 0.9 (1.2-3.4); LYMPH % 9.6 % (22.0-35.0); MEAN CORPUSCULAR HEMOGLOBIN 25.8 pg (25.0-35.0); MEAN CORPUSCULAR HGB CONC 31.1 g/dl (31.0-37.0); MEAN PLATELET VOLUME 7.9 fl (7.0-11.0); MONO # 0.6 (0.1-0.6); MONO % 6.5 % (1.0-6.0); RBC 3.41 10^6/uL (3.5-6.1); RED CELL DISTRIBUTION WIDTH 16.3 % (11.5-14.5); WHITE BLOOD COUNT 9.6 10^3/uL (4.5-11.0)
[2018-09-05 07:52] LABS: ALB/GLOB RATIO 0.9 (1.1-1.8); ALBUMIN 3.5 g/dL (3.0-4.8); ALT/SGPT < 6 U/L (7-56); AST/SGOT 23 U/L (14-36); BLOOD UREA NITROGEN 48 mg/dL (7-21); CALCIUM 8.5 mg/dL (8.4-10.5); GFR NON-AFRICAN AMERICAN 12
--- NOTE | 2018-09-05 08:52 | CARD ---
APPROVED REPORT Date of service: 09/04/2018 EXAM: Two-dimensional and M-mode echocardiogram with Doppler and color Doppler. INDICATION ELEVATED PRO BNP 2D DIMENSIONS Left Atrium (2D)5.0 (1.6-4.0cm)IVSd1.1 (0.7-1.1cm) LVDd5.7 (3.9-5.9cm)PWd1.1 (0.7-1.1cm) LVDs4.8 (2.5-4.0cm)FS (%) 14.7 % LVEF (%)30.6 (>50%) M-Mode DIMENSIONS Aortic Root3.20 (2.2-3.7cm)Aortic Cusp Exc.1.40 (1.5-2.0cm) Aortic Valve AoV Peak Raetcrib704.0cm/Ramonita Peak GR.8mmHg Mitral Valve MV E Mqewljli97.8cm/sMV A Lxpjclee241.0cm/sE/A ratio0.8 TDI Lateral E' Peak V6.14cm/sMedial E' Peak V4.87cm/sE/Lateral E'15.3 E/Medial E'19.3 Pulmonary Valve PV Peak Qwkwxxit85.0cm/sPV Peak Grad.2mmHg Tricuspid Valve TR Peak Qpsdpojj187rc/sRAP MSZROPIP13wfHhFM Peak Gr.35mmHg [id number] LEFT VENTRICLE The Left Ventricle is borderline dilated. AORTIC VALVE The aortic valve is moderately sclerotic. The aortic valve is trileaflet. No aortic regurgitation is present. There is no aortic valvular stenosis. MITRAL VALVE Mitral annular calcification is mild to moderate. The mitral valve is mildly thickened. Mitral regurgitation is mild to moderate. TRICUSPID VALVE The tricuspid valve is normal in structure. There is moderate tricuspid regurgitation. PULMONIC VALVE There is mild pulmonic valvular regurgitation. GREAT VESSELS The aortic root is normal in size. The IVC is normal in size and collapses >50% with inspiration. PERICARDIAL EFFUSION There is no pleural effusion. There is no pericardial effusion. <Conclusion> Dilated LA. Borderline LV enlargement. Moderate LV systolic dysfunction with global hypokinesis. Mild to moderate MR. Moderate TR.
[2018-09-05] MEDS: Pantoprazole 40 mg EC Tab PO SCH (10:14)
[2018-09-05] MEDS: Magnesium Oxide 400 mg Tab UD PO SCH ×3 (10:14→17:19)
[2018-09-05] MEDS ORDERED: Magnesium Sulfate 2 gm/50 ml 2 GM/50 ML BAG IVPB ONE (10:21)
--- NOTE | 2018-09-05 11:50 | CP.PCM.CON ---
<Leela Madrigal - Last Filed: 09/05/18 11:47> History of Present Illness - History of Present Illness History of Present Illness: Podiatry consult note for attending, Dr. Bowling 83 y/o female patient with PMHx of AAA (4.9 cm), COPD, OA, HTN, HLD, hx of right-sided hydronephrosis, left-sided kidney failure, diastolic CHF, cervical cancer s/p radiation and hysterectomy seen and evaluated at bedside for bilateral foot care. Podiatry was consulted for a podiatric evaluation. Patient was resting comfortably in bed, and was in NAD. Patient reports she is unable to cut her own toenails. Patient denied any acute overnight events, and denies N/V/V/C/CP. Patient states he symptoms of SOB have significantly improved since arrival to the ED. Patient denies regular Podiatric care. Review of Systems - Review of Systems All systems: reviewed and no additional remarkable complaints except Review of Systems: As per HPI Past Patient History - Infectious Disease Hx of Infectious Diseases: None - Tetanus Immunizations Tetanus Immunization: Unknown - Past Social History Smoking Status: Current Some Days Smoker - CARDIAC Hx Cardiac Disorders: Yes Hx Congestive Heart Failure: Yes Hx Hypertension: Yes - PULMONARY Hx Respiratory Disorders: Yes (SMOKES CIGARETTES PPD.ON CHANTIX,CUT DOWN ON 3 CIG A WEEK.) Hx Chronic Obstructive Pulmonary Disease (COPD): Yes - NEUROLOGICAL Hx Neurological Disorder: No - HEENT Hx HEENT Problems: Yes Hx Blind: No Hx Cataracts: Yes Hx Deafness: No Hx Difficulty Chewing: No Hx Epistaxis: No Hx Glaucoma: No Hx Macular Degeneration: No - RENAL Hx Chronic Kidney Disease: Yes (RIGHT KIDNEY STENT) Hx Renal Failure: No - ENDOCRINE/METABOLIC Hx Endocrine Disorders: No - HEMATOLOGICAL/ONCOLOGICAL Hx Blood Disorders: Yes Hx Cancer: 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 SCARRING TO LEFT ARM,R ARM,LE) Hx Basil Cell: No Hx Eczema: No Hx Melanoma: No Hx Psoriasis: No Hx Squamous Cell: No - MUSCULOSKELETAL/RHEUMATOLOGICAL Hx Musculoskeletal Disorders: Yes Hx Falls: Yes Hx Fractures: Yes (LEFT HIP FX) - GASTROINTESTINAL Hx Gastrointestinal Disorders: Yes (CONSTIPATION) Hx Colostomy: No Hx Crohn's Disease: No Hx Diverticulitis: No Hx Gall Bladder Disease: Yes (CHOLECYSTECTOMY,) Hx Gastroesophageal Reflux: Yes Hx Ileostomy: No Hx Liver Failure: No Hx Pancreatitis: No HX Swallowing Problems: No - GENITOURINARY/GYNECOLOGICAL Hx Genitourinary Disorders: Yes (LEFT KIDNEY NON FUNCTIONING SHE STATED.) Hx Hematuria: Yes Hx Incontinence: No Hx Sexually Transmitted Disorders: No Hx Urinary Tract Infection: Yes Other/Comment: BILATERAL HYDRONEPHROSIS,OVARIAN CA WITH RADIATION AND SX - PSYCHIATRIC Hx Emotional Abuse: No Hx Physical Abuse: No Hx Substance Use: No - SURGICAL HISTORY Hx Surgeries: Yes (RIGHT KIDNEY STENT,) Hx Cholecystectomy: Yes Hx Hysterectomy: Yes - ANESTHESIA Hx Anesthesia Reactions: No Hx Malignant Hyperthermia: No Meds Allergies/Adverse Reactions: Allergies Allergy/AdvReac Type Severity Reaction Status Date / Time No Known Allergies Allergy Verified 09/03/18 12:35 - Medications Medications: Current Medications Acetaminophen (Tylenol 325mg Tab) 650 mg PO Q6H PRN PRN Reason: Pain, Mild (1-3) Last Admin: 09/04/18 13:14 Dose: 650 mg Albuterol/Ipratropium (Duoneb 3 Mg/0.5 Mg (3 Ml) Ud) 3 ml IH [id number] MIKEL Last Admin: 09/05/18 08:09 Dose: 3 ml Albuterol/Ipratropium (Duoneb 3 Mg/0.5 Mg (3 Ml) Ud) 3 ml IH Q2H PRN PRN Reason: Shortness of Breath Amlodipine Besylate (Norvasc) 10 mg PO DAILY [facility] Last Admin: 09/05/18 10:14 Dose: 10 mg Doxycycline Hyclate (Doryx) 100 mg PO Q12 MIKEL; Protocol Last Admin: 09/05/18 10:13 Dose: 100 mg Heparin Sodium (Porcine) (Heparin) 5,000 units SC Q12H MIKEL; Protocol Last Admin: 09/05/18 10:13 Dose: 5,000 units Cefepime HCl (Maxipime 1gm) 1 gm in 100 mls @ 100 mls/hr IVPB Q24H MIKEL; Protocol Stop: 09/11/18 06:46 Last Admin: 09/05/18 05:44 Dose: 100 mls/hr Iron Sucrose 100 mg/ Sodium (Chloride) 105 mls @ 210 mls/hr IVPB DAILY MIKEL Stop: 09/07/18 10:01 Last Admin: 09/05/18 10:13 Dose: 210 mls/hr Magnesium Sulfate (Magnesium Sulfate 2 Gm/50 Ml Water) 2 gm in 50 mls @ 25 mls/hr IVPB ONCE ONE Stop: 09/05/18 12:20 Magnesium Oxide (Mag-Ox) 800 mg PO TID [facility] Last Admin: 09/05/18 10:14 Dose: 800 mg Pantoprazole Sodium (Protonix Ec Tab) 40 mg PO DAILY [facility] Last Admin: 09/05/18 10:14 Dose: 40 mg Physical Exam - Constitutional Appears: Well, Non-toxic, No Acute Distress - Head Exam Head Exam: ATRAUMATIC, NORMOCEPHALIC - Extremities Exam Additional comments: LE Examination bilaterally VASC: DP and PT pulses palpable 2/4 bilaterally, CFT less than 3 seconds X 10, TG warm to cool proximal to distal, no edema, no varicosities NEURO: protective and epicritic sensation intact bilaterally DERM: nails elongated, thickened, mycotic, dystrophic X 10, no interdigital maceration, no open wounds, no clinical signs of infection MSK: pain on palpation to the nails due to thickening - Neurological Exam Neurological exam: Alert, Oriented x3 - Psychiatric Exam Psychiatric exam: Normal Affect, Normal Mood Results - Vital Signs Recent Vital Signs: Last Vital Signs Temp 97.8 F 09/05/18 06:00 Pulse 94 H 09/05/18 06:00 Resp 20 09/05/18 06:00 BP 141/75 09/05/18 10:14 Pulse Ox 96 09/05/18 06:00 - Labs Result Diagrams: 09/05/18 07:25 09/05/18 07:25 Labs: Laboratory Results - last 24 hr 09/04/18 09/05/18 09/05/18 07:00 06:20 06:20 WBC RBC Hgb Hct MCV MCH MCHC RDW Plt Count MPV Neut % (Auto) Lymph % (Auto) [place] % (Auto) Eos % (Auto) Baso % (Auto) Lymph # (Auto) [place] # (Auto) Eos # (Auto) Baso # (Auto) Absolute Neuts (auto) Sodium Potassium Chloride Carbon Dioxide Anion Gap BUN Creatinine Est GFR ( Amer) Est GFR (Non-Af Amer) Random Glucose Calcium Phosphorus Magnesium Total Bilirubin AST ALT Alkaline Phosphatase Total Protein Albumin Globulin Albumin/Globulin Ratio Procalcitonin 0.18 L Urine Color Yellow Urine Appearance Cloudy Urine pH 6.5 Ur Specific [place] 1.010 Urine Protein Trace H Urine Glucose (UA) Negative Urine Ketones Negative Urine Blood Moderate H Urine Nitrate Negative Urine Bilirubin Negative Urine Urobilinogen 0.2 Ur Leukocyte Esterase Large H Urine RBC 1 - 3 H Urine WBC Tntc H Ur Epithelial Cells 1 - 3 Urine Bacteria Small Urine Other Uyeast Influenza Typ A,B (EIA) Negative for flu a/b 09/05/18 09/05/18 07:25 07:25 WBC 9.6 RBC 3.41 L Hgb 8.8 L Hct 28.3 L MCV 83.0 MCH 25.8 MCHC 31.1 RDW 16.3 H Plt Count 343 MPV 7.9 Neut % (Auto) 83.1 H Lymph % (Auto) 9.6 L [place] % (Auto) 6.5 H Eos % (Auto) 0.7 L Baso % (Auto) 0.1 Lymph # (Auto) 0.9 L [place] # (Auto) 0.6 Eos # (Auto) 0.1 Baso # (Auto) 0.01 Absolute Neuts (auto) 7.97 H Sodium 140 Potassium 4.0 Chloride 107 Carbon Dioxide 22 Anion Gap 15 BUN 48 H Creatinine 3.5 H Est GFR ( Amer) 15 Est GFR (Non-Af Amer) 12 Random Glucose 100 Calcium 8.5 Phosphorus 3.3 Magnesium 1.6 L Total Bilirubin 0.4 AST 23 ALT < 6 L Alkaline Phosphatase 73 Total Protein 7.5 Albumin 3.5 Globulin 3.9 Albumin/Globulin Ratio 0.9 L Procalcitonin Urine Color Urine Appearance Urine pH Ur Specific [place] Urine Protein Urine Glucose (UA) Urine Ketones Urine Blood Urine Nitrate Urine Bilirubin Urine Urobilinogen Ur Leukocyte Esterase Urine RBC Urine WBC Ur Epithelial Cells Urine Bacteria Urine Other Influenza Typ A,B (EIA) Assessment & Plan - Assessment and Plan (Free Text) Assessment: 83 y/o female patient with PMHx of right kidney stent placement, right kidney hy dronephrosis, right kidney aneurysm, left kidney failure, hypertension, hyperkalemia, and sciatica was seen at bedside for podiatric evaluation Plan: Patient seen and evaluated at bedside with attending, Dr. Bowling Charts, labs and vitals reviewed Patient nails sharply debrided with large nail nippers to the level of normal length Patient tolerated the procedure well without complications Patient questions answered to satisfaction Patient advised to follow up with Podiatry as an outpatient for continued care Thank you for the opportunity in the care of your patient - Date & Time Date: 09/05/18 Time: 11:51 <JorgejonLanden balderas - Last Filed: 09/06/18 11:59> Meds - Medications Medications: Current Medications Acetaminophen (Tylenol 325mg Tab) 650 mg PO Q6H PRN PRN Reason: Pain, Mild (1-3) Last Admin: 09/04/18 13:14 Dose: 650 mg Albuterol/Ipratropium (Duoneb 3 Mg/0.5 Mg (3 Ml) Ud) 3 ml IH [id number] MIKEL Last Admin: 09/06/18 07:54 Dose: 3 ml Albuterol/Ipratropium (Duoneb 3 Mg/0.5 Mg (3 Ml) Ud) 3 ml IH Q2H PRN PRN Reason: Shortness of Breath Amlodipine Besylate (Norvasc) 10 mg PO DAILY [facility] Last Admin: 09/06/18 09:53 Dose: 10 mg Doxycycline Hyclate (Doryx) 100 mg PO Q12 MIKEL; Protocol Last Admin: 09/06/18 09:53 Dose: 100 mg Heparin Sodium (Porcine) (Heparin) 5,000 units SC Q12H MIKEL; Protocol Last Admin: 09/06/18 09:53 Dose: 5,000 units Cefepime HCl (Maxipime 1gm) 1 gm in 100 mls @ 100 mls/hr IVPB Q24H MIKEL; Protocol Stop: 09/11/18 06:46 Last Admin: 09/06/18 07:03 Dose: 100 mls/hr Iron Sucrose 100 mg/ Sodium (Chloride) 105 mls @ 210 mls/hr IVPB DAILY MIKEL Stop: 09/07/18 10:01 Last Admin: 09/06/18 10:19 Dose: 210 mls/hr Magnesium Oxide (Mag-Ox) 800 mg PO TID [facility] Last Admin: 09/06/18 09:52 Dose: 800 mg Pantoprazole Sodium (Protonix Ec Tab) 40 mg PO DAILY [facility] Last Admin: 09/06/18 09:52 Dose: 40 mg Results - Vital Signs Recent Vital Signs: Last Vital Signs Temp 98 F 09/06/18 08:14 Pulse 88 09/06/18 08:14 Resp 20 09/06/18 08:14 BP 150/70 09/06/18 09:53 Pulse Ox 98 09/06/18 08:14 - Labs Result Diagrams: 09/06/18 06:15 09/06/18 06:15 Labs: Laboratory Results - last 24 hr 09/06/18 09/06/18 06:15 06:15 WBC 8.3 RBC 3.34 L Hgb 8.6 L Hct 28.0 L MCV 83.8 MCH 25.7 MCHC 30.7 L RDW 16.0 H Plt Count 394 MPV 8.1 Neut % (Auto) 74.1 H Lymph % (Auto) 16.1 L [place] % (Auto) 7.7 H Eos % (Auto) 1.9 Baso % (Auto) 0.2 Lymph # (Auto) 1.3 [place] # (Auto) 0.6 Eos # (Auto) 0.2 Baso # (Auto) 0.02 Absolute Neuts (auto) 6.16 Sodium 139 Potassium 4.7 Chloride 106 Carbon Dioxide 24 Anion Gap 14 BUN 49 H Creatinine 3.4 H Est GFR ( Amer) 16 Est GFR (Non-Af Amer) 13 Random Glucose 96 Calcium 9.1 Total Bilirubin 0.4 AST 27 ALT 6 L Alkaline Phosphatase 75 Total Protein 7.5 Albumin 3.6 Globulin 3.9 Albumin/Globulin Ratio 0.9 L Attending/Attestation - Attestation I have personally seen and examined this patient.: Yes I have fully participated in the care of the patient.: Yes I have reviewed all pertinent clinical information: Yes
[2018-09-05 12:29] VITALS: TEMP 98
--- NOTE | 2018-09-05 12:42 | RAD ---
Date of service: 09/05/2018 HISTORY: improvement from prior? COMPARISON: 09/03/2018 FINDINGS: LUNGS: No active pulmonary disease. PLEURA: No significant pleural effusion identified, no pneumothorax apparent. CARDIOVASCULAR: Aortic calcification Mild cardiomegaly. No pulmonary vascular congestion. OSSEOUS STRUCTURES: No significant abnormalities. VISUALIZED UPPER ABDOMEN: Normal. OTHER FINDINGS: None. IMPRESSION: No active disease.
--- NOTE | 2018-09-05 13:44 | CP.PCM.PN ---
Subjective - Date & Time of Evaluation Date of Evaluation: 09/05/18 Time of Evaluation: 10:30 - Subjective Subjective: Patient is resting comfortably in bed, not in distress, no fevers. Objective - Vital Signs/Intake and Output Vital Signs (last 24 hours): Temp Pulse Resp BP Pulse Ox 97.4 F L 96 H 20 156/84 H 97 09/04/18 12:00 09/04/18 12:00 09/04/18 12:00 09/04/18 12:00 09/04/18 06:00 Intake and Output: 09/04/18 09/04/18 06:59 18:59 Intake Total 1440 Output Total 2225 Balance -785 - Medications Medications: Current Medications Acetaminophen (Tylenol 325mg Tab) 650 mg PO Q6H PRN PRN Reason: Pain, Mild (1-3) Albuterol/Ipratropium (Duoneb 3 Mg/0.5 Mg (3 Ml) Ud) 3 ml IH [id number] MIKEL Last Admin: 09/04/18 07:56 Dose: 3 ml Albuterol/Ipratropium (Duoneb 3 Mg/0.5 Mg (3 Ml) Ud) 3 ml IH Q2H PRN PRN Reason: Shortness of Breath Amlodipine Besylate (Norvasc) 10 mg PO DAILY [facility] Last Admin: 09/04/18 10:16 Dose: 10 mg Doxycycline Hyclate (Doryx) 100 mg PO Q12 MIKEL; Protocol Last Admin: 09/04/18 10:16 Dose: 100 mg Furosemide (Lasix) 60 mg IVP Q12H MIKEL Last Admin: 09/04/18 01:35 Dose: 60 mg Cefepime HCl (Maxipime 1gm) 1 gm in 100 mls @ 100 mls/hr IVPB Q24H MIKEL; Protocol Stop: 09/11/18 06:46 Last Admin: 09/04/18 10:16 Dose: 100 mls/hr Iron Sucrose 100 mg/ Sodium (Chloride) 105 mls @ 210 mls/hr IVPB DAILY MIKEL Stop: 09/07/18 10:01 Last Admin: 09/04/18 10:09 Dose: 210 mls/hr Magnesium Oxide (Mag-Ox) 800 mg PO TID MIKEL Last Admin: 09/04/18 10:17 Dose: 800 mg Pantoprazole Sodium (Protonix Ec Tab) 40 mg PO DAILY MIKEL Last Admin: 09/04/18 10:17 Dose: 40 mg - Labs Labs: 09/04/18 06:30 09/04/18 06:30 PT 14.6 SECONDS (9.4-12.5) H 09/04/18 06:30 INR 1.29 09/04/18 06:30 APTT 32.3 Seconds (26.9-38.3) 09/04/18 06:30 - Constitutional Appears: Chronically Ill - Head Exam Head Exam: NORMAL INSPECTION - Respiratory Exam Respiratory Exam: Decreased Breath Sounds - Cardiovascular Exam Cardiovascular Exam: +S1, +S2 - GI/Abdominal Exam GI & Abdominal Exam: Soft. absent: Tenderness Assessment and Plan - Assessment and Plan (Free Text) Plan: Assessment systemic inflammatory response syndrome, consider due acute decompensated heart failure, as well as left sided HCAP S/P left hip surgery for fracture chronic CHF history of pneumonia history of urinary tract infection chronic renal failure COPD HTN dyslipidemia history of cervical cancer S/P radiation and hysterectomy abdominal aortic aneurysm S/P cholecystectomy calcifications on the left kidney Plan gave a dose of IV Vancomycin and continue Cefepime and Doxycycline day 2 pending final blood cx, sputum cx, urine Legionella Ag; PCT is 0.18; reviewed CXR will continue to monitor clinically
--- NOTE | 2018-09-05 15:12 | PCM.URO ---
Urology Progress Note - Objective Lab Studies: Reviewed (full note to be dictated madison, johana, dejon) Lab Results Last 24 Hours: Laboratory Results - last 24 hr 09/05/18 09/05/18 09/05/18 06:20 06:20 07:25 WBC 9.6 RBC 3.41 L Hgb 8.8 L Hct 28.3 L MCV 83.0 MCH 25.8 MCHC 31.1 RDW 16.3 H Plt Count 343 MPV 7.9 Neut % (Auto) 83.1 H Lymph % (Auto) 9.6 L Morton % (Auto) 6.5 H Eos % (Auto) 0.7 L Baso % (Auto) 0.1 Lymph # (Auto) 0.9 L Morton # (Auto) 0.6 Eos # (Auto) 0.1 Baso # (Auto) 0.01 Absolute Neuts (auto) 7.97 H Sodium Potassium Chloride Carbon Dioxide Anion Gap BUN Creatinine Est GFR ( Amer) Est GFR (Non-Af Amer) Random Glucose Calcium Phosphorus Magnesium Total Bilirubin AST ALT Alkaline Phosphatase Total Protein Albumin Globulin Albumin/Globulin Ratio Urine Color Yellow Urine Appearance Cloudy Urine pH 6.5 Ur Specific Powell 1.010 Urine Protein Trace H Urine Glucose (UA) Negative Urine Ketones Negative Urine Blood Moderate H Urine Nitrate Negative Urine Bilirubin Negative Urine Urobilinogen 0.2 Ur Leukocyte Esterase Large H Urine RBC 1 - 3 H Urine WBC Tntc H Ur Epithelial Cells 1 - 3 Urine Bacteria Small Urine Other Uyeast Influenza Typ A,B (EIA) Negative for flu a/b 09/05/18 07:25 WBC RBC Hgb Hct MCV MCH MCHC RDW Plt Count MPV Neut % (Auto) Lymph % (Auto) Morton % (Auto) Eos % (Auto) Baso % (Auto) Lymph # (Auto) Morton # (Auto) Eos # (Auto) Baso # (Auto) Absolute Neuts (auto) Sodium 140 Potassium 4.0 Chloride 107 Carbon Dioxide 22 Anion Gap 15 BUN 48 H Creatinine 3.5 H Est GFR ( Amer) 15 Est GFR (Non-Af Amer) 12 Random Glucose 100 Calcium 8.5 Phosphorus 3.3 Magnesium 1.6 L Total Bilirubin 0.4 AST 23 ALT < 6 L Alkaline Phosphatase 73 Total Protein 7.5 Albumin 3.5 Globulin 3.9 Albumin/Globulin Ratio 0.9 L Urine Color Urine Appearance Urine pH Ur Specific Powell Urine Protein Urine Glucose (UA) Urine Ketones Urine Blood Urine Nitrate Urine Bilirubin Urine Urobilinogen Ur Leukocyte Esterase Urine RBC Urine WBC Ur Epithelial Cells Urine Bacteria Urine Other Influenza Typ A,B (EIA) Intake & Output: Intake & Output 09/04/18 09/05/18 09/05/18 18:59 06:59 18:59 Intake Total 450 1294 Output Total 4000 Balance 450 -2706 Weight 127 lb 14.4 oz Intake: IV 450 100 Left Antecubital 100 Left Forearm 350 100 Oral 1194 Output: Urine 4000 Urethral (Mariscal) 2000 Urine, Voided 1999 Other: # Bowel Movements 0 Vital Signs: Vital Signs - 24 hr 09/04/18 09/04/18 09/05/18 18:00 23:08 01:00 Temperature 98.2 F 98.0 F Pulse Rate 95 H 87 Respiratory 20 20 Rate Blood Pressure 140/77 137/65 150/80 O2 Sat by Pulse 97 Oximetry 09/05/18 09/05/18 09/05/18 06:00 10:14 12:00 Temperature 97.8 F 98 F Pulse Rate 94 H 90 Respiratory 20 18 Rate Blood Pressure 154/76 H 141/75 144/68 O2 Sat by Pulse 96 Oximetry
--- NOTE | 2018-09-05 16:22 | PN ---
DATE: 09/05/2018 SUBJECTIVE: The patient is seen lying in bed on telemetry. She states she is feeling somewhat better. Her dyspnea is improved. CURRENT MEDICATIONS: Include doxycycline, DuoNeb inhaler, subcutaneous heparin, iron infusion, magnesium, Maxipime, Norvasc 10 mg daily, Protonix. OBJECTIVE: GENERAL: She is an elderly woman who appears comfortable at rest. VITAL SIGNS: Blood pressure is 140/76 with pulse of 90 in sinus, respirations 16. She is afebrile. HEENT: No JVD. CHEST: A few scattered rhonchi heard. HEART: PMI displaced laterally. A systolic murmur is noted in the lower left sternal border and apex. ABDOMEN: Soft and nontender with normoactive bowel sounds. EXTREMITIES: No edema. DIAGNOSTIC DATA: White count 9.6, hemoglobin and hematocrit 8.8 and 28.3 with platelet count 343,000. Potassium 4, BUN and creatinine of 48 and 3.5. Repeat chest x-ray reveals borderline cardiac silhouette enlarged with mildly increased vascular markings, relatively unchanged. IMPRESSION: 1. Decompensated congestive heart failure, clinically improved. 2. Pleuritic chest pain, now resolved. 3. Continued tobacco abuse. 4. Esfrt-ug-brdiflb renal failure, etiology uncertain. 5. Moderate tricuspid regurgitation with [id number] mitral regurgitation and moderate pulmonary hypertension. RECOMMENDATIONS: Her current medications will continue for now. Conservative cardiac management of her valvular heart disease will be planned at this time. Whenever medically stable, she appears stable for discharge from a cardiac standpoint. We will be happy to see her as needed. Adrián Springer MD
--- NOTE | 2018-09-05 21:35 | CON ---
DATE: 09/05/2018 REASON FOR CONSULTATION: Retention. HISTORY OF PRESENT ILLNESS: Ms. Antonio is a very pleasant lady, she is 83-year-old, who is under the care of Dr. Rebolledo for exacerbation of CHF. From urology standpoint is as follows; she has right hydronephrosis, we changed her stent. She often now has been found to have new onset urinary retention, difficult to evaluate. There is severe retention, worse is the situation because she was getting Lasix to diuresed the patient. When I put the Mariscal in, about 400 to 500 mL, it is not necessarily postvoid. Just to monitor. See the plans listed below because we are going to remove the catheter. PAST MEDICAL HISTORY: As listed on the chart. PAST SURGICAL HISTORY: As listed on the chart. The patient of Dr. Rebolledo, the patient used to be a patient of Dr. Rey. REVIEW OF SYSTEMS: Listed above. She does have some weight loss, but I think this is induced by the CHF, so it is almost somewhat deliberate. She also complains that her eye sight is now what it used to be and she is concerned about this. See the plan as listed above past medical and surgical history; otherwise, unremarkable from urology standpoint. physical exam is otherwise unremarkable. LABORATORY DATA: See chart. BUN and creatinine noted. CBC noted. DIAGNOSES: 1. Hydronephrosis on the right side. She has basically a nonfunctioning left kidney. 2. She also was found to have retention (this was Mariscal catheter). 3. Plus/minus we may use the Flomax, we have to considered the risks, benefits, treatment, side effects, etc. We are going to keep the catheter in. PLAN: As follows: 1. Trial void. 2. After removing catheter, monitor the patient closely. 3. Encourage fluid, ins and outs both and then also encouraged the patient to void. The patient in general does not like to drink, we discussed with her perhaps drinking juice, if it is more tolerable , but in the meantime here is the plan. 1. Remove Maricsal and a trial of void. 2. She will need a stent change in a couple of months and we will see how she is feeling. The patient is given my cell number again plus she has my cell number as she mentions. I put as myself as a contact. Then further plans will follow. We will make arrangements. We need to change her stent every 3 months. Jareth Lau MD
[2018-09-06 06:34] LABS: BASO # 0.02 K/mm3 (0.0-2.0); BASO % 0.2 % (0.0-3.0); EOS # 0.2 (0.0-0.7); EOS % 1.9 % (1.5-5.0); HEMOGLOBIN 8.6 g/dL (12.0-16.0); LYMPH # 1.3 (1.2-3.4); LYMPH % 16.1 % (22.0-35.0); MEAN CELL VOLUME 83.8 fl (80.0-105.0); MEAN CORPUSCULAR HEMOGLOBIN 25.7 pg (25.0-35.0); MEAN CORPUSCULAR HGB CONC 30.7 g/dl (31.0-37.0); MEAN PLATELET VOLUME 8.1 fl (7.0-11.0); MONO # 0.6 (0.1-0.6); MONO % 7.7 % (1.0-6.0); RBC 3.34 10^6/uL (3.5-6.1); WHITE BLOOD COUNT 8.3 10^3/uL (4.5-11.0)
[2018-09-06 06:49] LABS: ALB/GLOB RATIO 0.9 (1.1-1.8); ALBUMIN 3.6 g/dL (3.0-4.8); CALCIUM 9.1 mg/dL (8.4-10.5)
[2018-09-06] MEDS: Cefepime 1gm in NS 100ml 1 GM/100 ML BAG IVPB SCH (07:03)
[2018-09-06] MEDS: Albuterol-Ipratrop 3 mg / 0.5 (3 ml) UD IH SCH ×3 (07:54→14:01)
[2018-09-06 08:15] VITALS: BP 150/70; PULSE 88; RESP 20; O2SAT 98
[2018-09-06] MEDS: Pantoprazole 40 mg EC Tab PO SCH (09:52)
[2018-09-06] MEDS: Magnesium Oxide 400 mg Tab UD PO SCH ×2 (09:52→14:30)
--- NOTE | 2018-09-06 14:39 | CP.PCM.DIS ---
<Gustavo Ivory R - Last Filed: 09/06/18 15:05> Provider - Provider Date of Admission: 09/03/18 10:17 Attending physician: Ede Rebolledo MD Primary care physician: PMD: Dr Rebolledo Consults: 09/03/18 13:42 Cardiology Consult Routine Comment: Consulting Provider: Adrián Springer Consulting Physician: Adrián Springer Reason for Consult: elevated probnp 09/03/18 13:43 Infectious Disease Consult Routine Comment: Consulting Provider: Aleks Lockhart Consulting Physician: Aleks Lockhart Reason for Consult: cxr - hcap pnuemonia? 09/03/18 13:45 Physician Consult Routine Comment: Consulting Provider: Sánchez Lau Consulting Physician: Sánchez Lau Reason for Consult: patient known to you 09/03/18 22:14 Case Management Referral Routine Comment: NEEDS ASSISTANCE AT HOME.LIVES [facility]. Physician Instructions: Reason For Exam: EVALUATION Reason for Referral: Neon Light Installer Eval Inpatient J2EE DEVELOPER Core Measures Referral Routine Comment: Physician Instructions: Reason For Exam: EVALUATION Transition In Care/Readmission Reduction Routine Comment: Physician Instructions: Reason For Exam: EVALUATION 09/03/18 22:18 Social Work Referral Routine Comment: NEEDS ASSISTANCE AT HOME.LIVES AT [facility] Physician Instructions: Reason For Exam: EVALUATION 09/05/18 07:00 Podiatry Consult Routine Comment: Consulting Provider: Landen Bowling Consulting Physician: Landen Bowling Reason for Consult: foot care b/l Time Spent in preparation of Discharge (in minutes): 40 Diagnosis - Discharge Diagnosis (1) Anemia Status: Chronic Priority: High (2) Congestive heart failure (CHF) Status: Chronic Priority: High (3) Hypomagnesemia Status: Acute Priority: High (4) Hydronephrosis Status: Chronic Priority: High Hospital Course - Lab Results Lab Results: Micro Results 09/03/18 08:30 Blood-Venous Blood Culture - Preliminary NO GROWTH AFTER 3 DAYS 09/03/18 08:00 Blood-Venous Blood Culture - Preliminary NO GROWTH AFTER 3 DAYS Most Recent Lab Values WBC 8.3 10^3/uL (4.5-11.0) 09/06/18 06:15 RBC 3.34 10^6/uL (3.5-6.1) L 09/06/18 06:15 Hgb 8.6 g/dL (12.0-16.0) L 09/06/18 06:15 Hct 28.0 % (36.0-48.0) L 09/06/18 06:15 MCV 83.8 fl (80.0-105.0) 09/06/18 06:15 MCH 25.7 pg (25.0-35.0) 09/06/18 06:15 MCHC 30.7 g/dl (31.0-37.0) L 09/06/18 06:15 RDW 16.0 % (11.5-14.5) H 09/06/18 06:15 Plt Count 394 10^3/uL (120.0-450.0) 09/06/18 06:15 MPV 8.1 fl (7.0-11.0) 09/06/18 06:15 Neut % (Auto) 74.1 % (50.0-68.0) H 09/06/18 06:15 Lymph % (Auto) 16.1 % (22.0-35.0) L 09/06/18 06:15 Geary % (Auto) 7.7 % (1.0-6.0) H 09/06/18 06:15 Eos % (Auto) 1.9 % (1.5-5.0) 09/06/18 06:15 Baso % (Auto) 0.2 % (0.0-3.0) 09/06/18 06:15 Lymph # (Auto) 1.3 (1.2-3.4) 09/06/18 06:15 Geary # (Auto) 0.6 (0.1-0.6) 09/06/18 06:15 Eos # (Auto) 0.2 (0.0-0.7) 09/06/18 06:15 Baso # (Auto) 0.02 K/mm3 (0.0-2.0) 09/06/18 06:15 Absolute Neuts (auto) 6.16 (1.4-6.5) 09/06/18 06:15 Retic Count 0.91 % (0.5-1.5) 09/03/18 15:40 PT 14.6 SECONDS (9.4-12.5) H 09/04/18 06:30 INR 1.29 09/04/18 06:30 APTT 32.3 Seconds (26.9-38.3) 09/04/18 06:30 Sodium 139 mmol/L (132-148) 09/06/18 06:15 Potassium 4.7 mmol/L (3.6-5.0) 09/06/18 06:15 Chloride 106 mmol/L (98-107) 09/06/18 06:15 Carbon Dioxide 24 mmol/L (21-33) 09/06/18 06:15 Anion Gap 14 (10-20) 09/06/18 06:15 BUN 49 mg/dL (7-21) H 09/06/18 06:15 Creatinine 3.4 mg/dl (0.7-1.2) H 09/06/18 06:15 Est GFR ( Amer) 16 09/06/18 06:15 Est GFR (Non-Af Amer) 13 09/06/18 06:15 Random Glucose 96 mg/dL (70-110) 09/06/18 06:15 Calcium 9.1 mg/dL (8.4-10.5) 09/06/18 06:15 Phosphorus 3.3 mg/dL (2.5-4.5) 09/05/18 07:25 Magnesium 1.6 mg/dL (1.7-2.2) L 09/05/18 07:25 Iron 17 ug/dL (45-180) L 09/03/18 08:10 TIBC 201 ug/dL (265-497) L 09/03/18 08:10 % Saturation 8 % (20-55) L 09/03/18 08:10 Ferritin 245.0 ng/mL 09/03/18 08:10 Total Bilirubin 0.4 mg/dL (0.2-1.3) 09/06/18 06:15 AST 27 U/L (14-36) 09/06/18 06:15 ALT 6 U/L (7-56) L 09/06/18 06:15 Alkaline Phosphatase 75 U/L (38-126) 09/06/18 06:15 Lactate Dehydrogenase 565 U/L (333-699) 09/03/18 08:00 Total Creatine Kinase 163 U/L (35-230) 09/03/18 08:00 Troponin I 0.05 ng/mL D 09/03/18 08:00 NT-Pro-B Natriuret Pep 39802 pg/mL (0-450) H 09/03/18 08:00 Total Protein 7.5 g/dL (5.8-8.3) 09/06/18 06:15 Albumin 3.6 g/dL (3.0-4.8) 09/06/18 06:15 Globulin 3.9 gm/dL 09/06/18 06:15 Albumin/Globulin Ratio 0.9 (1.1-1.8) L 09/06/18 06:15 Triglycerides 66 mg/dL (35-160) 09/04/18 06:30 Cholesterol 165 mg/dL (130-200) 09/04/18 06:30 LDL Cholesterol Direct 91 mg/dL (0-129) 09/04/18 06:30 HDL Cholesterol 42 mg/dL (29-60) 09/04/18 06:30 Vitamin B12 254 pg/mL (239-931) 09/03/18 08:10 Folate 10.1 ng/mL 09/03/18 08:10 Procalcitonin 0.18 NG/ML (0.19-0.49) L 09/04/18 07:00 Urine Color Yellow (YELLOW) 09/05/18 06:20 Urine Appearance Cloudy (CLEAR) 09/05/18 06:20 Urine pH 6.5 (4.7-8.0) 09/05/18 06:20 Ur Specific Kane 1.010 (1.005-1.035) 09/05/18 06:20 Urine Protein Trace mg/dL (<30 mg/dL) H 09/05/18 06:20 Urine Glucose (UA) Negative mg/dL (NEGATIVE) 09/05/18 06:20 Urine Ketones Negative mg/dL (NEGATIVE) 09/05/18 06:20 Urine Blood Moderate (NEGATIVE) H 09/05/18 06:20 Urine Nitrate Negative (NEGATIVE) 09/05/18 06:20 Urine Bilirubin Negative (NEGATIVE) 09/05/18 06:20 Urine Urobilinogen 0.2 E.U./dL (<1 E.U./dL) 09/05/18 06:20 Ur Leukocyte Esterase Large Clyde/uL (NEGATIVE) H 09/05/18 06:20 Urine RBC 1 - 3 /hpf (0-2) H 09/05/18 06:20 Urine WBC Tntc /hpf (0-6) H 09/05/18 06:20 Ur Epithelial Cells 1 - 3 /hpf (0-5) 09/05/18 06:20 Urine Bacteria Small /hpf (NONE) 09/05/18 06:20 Urine Other Uyeast /hpf 09/05/18 06:20 Influenza Typ A,B (EIA) Negative for flu a/b (NEGATIVE) 09/05/18 06:20 - Hospital Course Hospital Course: Mrs Antonio is a 83 year old female with a PMHx of AAA (4.9 cm), COPD, OA, HTN, HLD, hx of right-sided hydronephrosis, left-sided kidney failure, diastolic CHF, cervical cancer s/p radiation and hysterectomy, left hip fracture who presents with 1 week of worsening shortness of breath. She also endorsed a dry cough that she's had "for a while". She also complained of a "gagging" feeling this morning but did not have emesis - just the feeling of it. She used her proair pump without relief. She denies fever, hemoptysis, pain. She stated she had severe respiratory issues 6 weeks ago for 2 weeks - at that time her urologist Rx'd her amoxicillin. She had a right kidney stent replacement in 06/[address] Lau. She lives alone, with her neighbor periodically checking-in on her. She ambulates with a walker. PMHx: AAA (4.9 cm), COPD, OA, HTN, HLD, hx of right-sided hydronephrosis, diastolic CHF, cervical cancer s/p radiation and hysterectomy, left hip fracture PSHx: hysterectomy, cholecystectomy, surgery for left hip fracture, right kidney stent replacement 06/2018 Allergies: NKA Home Meds: losartan 100mg po qd, nexium 40mg po qd, proair hfa 2puff prn FamHx: mother at 82 of bone cancer, father diet of unknown causes SocialHx: currently smoker; denies alcohol or illicits; lives alone at home - with neighbor periodically checking-in on her; ambulates with a walker Diastolic CHF Exacerbation -probnp on admissioni: [id number] -cxr 09/03/18 showed small pleural effusion b/l, rule-out pulm edema -ekg showed left atrial enlargement and normal sinus tachycardia -echo from 2016: mild biatrial enlargement, normal LV function, moderate concentric LVH, aortic sclerosis, mild MR, mild TR -lipid panel normal -echo 09/04/2018: EF 30%, mild LV enlargement, dilated LA, moderate MR, moderate TR -lasix 60ivp q12h started on 09/03 and discontinued on 09/05 -daily weights, head of bed at 30 degrees, strict Is/Os -f/u repeat cxr ordered on 09/05 -consult cardiology, Dr Springer Possible Pneumonia -cxr 09/03/18 showed opacity at left base - possibly developing pneumonia -was given rocephin and azithromycin in ED -will need to treat for hcap as patient with recent right kidney stent replacement -procalc negative, blood culture negative, f/u sputum culture, rapid flu negative -currently on cefepime 1g ivpb q24h (started 09/04) and doxycycline 100mg po q12h (started 09/04) and received 1 dose vanco 1g on 09/04 -repeat cxr ordered on 09/05 showed no active disease -given blood work, vital signs and imaging, a pneumonia is not likely -consulted ID, Dr Lockhart JAMI on CKD stage IIIB, Improving -BUN/Cr on admission: 37/4.4 -renal duplex scan 09/04: * RIGHT KIDNEY: Measures: 15.4 cm. Enlarged with normal contour and echogenicity. No stone visualized. There is moderate hydronephrosis. * LEFT KIDNEY: Measures: 14.7 cm. Enlarged with normal contour and echogenicity. No stone mass lesion or hydronephrosis visualized. There is severe hydronephrosis. -patient was retaining urine evening of 09/03 - vaughn was inserted with 550cc of immediate normal appearing urinary output - possible obstructive component contributing to worsening kidney function -lasix and vaughn discontinued on 09/05 as she has had good response to lasix w/ good urinary output, we will see how she responds Hypomagnesemia, Resolved -mag on admission: 0.6 -mag 2g iv given in ED, and another 2g iv on floors running slow at 15 cc/hr on 09/03 -start mag oxide 800mg po tid (started 09/03) -2g mag iv given on 09/05 Iron Deficiency Anemia -Hgb on admission: 8.1 -f/u iron studies, ferritin, b12, folate, retic count * iron studies indicate iron deficiency anemia -give venofer 200mg ivp qd for 3 days (started 09/04) -will need iron tablets on discharge Hx of Right Kidney Stent Replacement -right-kidney stent replacement 06/[address] Lau -renal duplex scan 09/04: * RIGHT KIDNEY: Measures: 15.4 cm. Enlarged with normal contour and echogenicity. No stone visualized. There is moderate hydronephrosis. * LEFT KIDNEY: Measures: 14.7 cm. Enlarged with normal contour and echogenicity. No stone mass lesion or hydronephrosis visualized. There is severe hydronephrosis. -patient was retaining urine evening of 09/03 - vaughn was inserted with 550cc of immediate normal appearing urinary output - possible obstructive component contributing to worsening kidney function -lasix and vaughn discontinued on 09/05 as she has had good response to lasix w/ good urinary output, we will see how she responds -consulted urologist Dr Lau HTN -norvasc 10mg po qd (started 09/03) PPX -SCDs -heparin 5000u q12h sc -heart healthy diet -protonix 40mg po qd Dispo: patient is currently refusing ALEXANDRA as was recommended by PT Discharge Exam - Head Exam Head Exam: NORMAL INSPECTION - Additional Findings Additional findings: - Constitutional Appears: Non-toxic, No Acute Distress, Cachectic, Chronically Ill - Head Exam Head Exam: ATRAUMATIC, NORMAL INSPECTION - Eye Exam Eye Exam: EOMI, Normal appearance, PERRL. absent: Scleral icterus - ENT Exam ENT Exam: Mucous Membranes Dry - Neck Exam Neck exam: Positive for: Full Rom - Respiratory Exam Respiratory Exam: Rales, NORMAL BREATHING PATTERN Additional comments: bibasaler rales - Cardiovascular Exam Cardiovascular Exam: Tachycardia, REGULAR RHYTHM, +S1, +S2, Systolic Murmur. absent: JVD - GI/Abdominal Exam GI & Abdominal Exam: Normal Bowel Sounds, Soft. absent: Distended, Firm, Guarding, Tenderness - Extremities Exam Extremities exam: Positive for: normal capillary refill, normal inspection, pedal pulses present. Negative for: pedal edema - Neurological Exam Neurological exam: Alert, Oriented x3 - Psychiatric Exam Psychiatric exam: Anxious, Normal Affect, Normal Mood - Skin Skin Exam: Dry, Intact, Normal Color, Warm Discharge Plan - Discharge Medications Prescriptions: Docusate [Colace] 100 mg PO DAILY #30 cap Carvedilol [Coreg] 3.125 mg PO BID #60 tab RX: Losartan [Cozaar] 100 mg PO DAILY #30 tab RX: Ferrous Sulfate [Feosol] 325 mg PO BID #60 tab RX: Furosemide [Lasix] 40 mg PO DAILY #30 tab RX: Magnesium Oxide [Mag-Ox] 800 mg PO DAILY #30 tab RX: amLODIPine [Norvasc] 10 mg PO DAILY #30 tab RX: Spironolactone 25 mg PO DAILY #30 tablet - Follow Up Plan Condition: STABLE Disposition: HOME/ ROUTINE Instructions: Heart Failure, Adult Additional Instructions: Please follow-up with your primary medical doctor within 7 days. Please establish care with a veneer patcher, information for Dr Springer has been provided, and please follow-up with a veneer patcher within 7 days. Please follow-up with your urologist Dr Lau and have your stent replaced as scheduled. It is advised you take the following medications, please take them as ins tructed: 1. Furosemide (lasix) 40mg once a day at 2PM (this is a diuretic) 2. Spironolacton 25mg once a day at 10AM (this is a diuretic) 3. Carvedilol 3.125mg once at 10AM and once at 6PM (this will control your heart rate and your blood pressure) 4. Losartan 100mg once at 10AM (this will control your blood pressure) 5. Amlodipine 10mg once at 6PM (this will control your blood pressure) 6. Magnesium Oxide 800mg once at 10AM (stop taking this after 30 days) 7. Ferrous Sulfate 325mg once at 10AM and once at 6PM (this is to treat your iron deficiency) 8. Colace 100mg once at 6PM (this is to treat constipation which could occur as a result of taking ferrous sulfate) Please resume your other home medications as usual: 1. nexium 40mg once a day at 8AM 2. Albuterol pump 2 puffs when short of breath Please take steps to quit smoking. If symptoms return please go to your nearest emergency department. Referrals: Ede Rebolledo MD [Staff Provider] - Adrián Springer MD [Staff Provider] - Clinical Quality Measures - CQM - Heart Failure Ejection Fraction: Less Than 40 % YULY Inhibitor Prescribed: Yes Beta-Demario Prescribed: Carvedilol Angiotensin II Receptor Demario Prescribed: Yes Aldosterone Antagonist Prescribed: Yes Will be discharged to: Home Follow Up Date (must be within 7 days from discharge): 09/13/18 <Ede Rebolledo - Last Filed: 09/08/18 10:24> Provider - Provider Date of Admission: 09/03/18 10:17 Attending physician: Ede Rebolledo MD Consults: 09/03/18 13:42 Cardiology Consult Routine Comment: Consulting Provider: Adrián Springer Consulting Physician: Adrián Springer Reason for Consult: elevated probnp 09/03/18 13:43 Infectious Disease Consult Routine Comment: Consulting Provider: Aleks Lockhart Consulting Physician: Aleks Lockhart Reason for Consult: cxr - hcap pnuemonia? 09/03/18 13:45 Physician Consult Routine Comment: Consulting Provider: Sánchez Lau Consulting Physician: Sánchez Lau Reason for Consult: patient known to you 09/03/18 22:14 Case Management Referral Routine Comment: NEEDS ASSISTANCE AT HOME.[facility]. Physician Instructions: Reason For Exam: EVALUATION Reason for Referral: Neon Light Installer Eval Inpatient J2EE DEVELOPER Core Measures Referral Routine Comment: Physician Instructions: Reason For Exam: EVALUATION Transition In Care/Readmission Reduction Routine Comment: Physician Instructions: Reason For Exam: EVALUATION 09/03/18 22:18 Social Work Referral Routine Comment: NEEDS ASSISTANCE AT HOME.LIVES AT [facility] Physician Instructions: Reason For Exam: EVALUATION 09/05/18 07:00 Podiatry Consult Routine Comment: Consulting Provider: Landen Bowling Consulting Physician: Landen Bowling Reason for Consult: foot care b/l Hospital Course - Lab Results Lab Results: Micro Results 09/03/18 08:30 Blood-Venous Blood Culture - Final NO GROWTH AFTER 5 DAYS 09/03/18 08:30 Blood-Venous Gram Stain - Final TEST NOT PERFORMED 09/03/18 08:00 Blood-Venous Blood Culture - Final NO GROWTH AFTER 5 DAYS 09/03/18 08:00 Blood-Venous Gram Stain - Final TEST NOT PERFORMED 09/05/18 15:40 Urine,Vaughn Urine Culture - Final Yeast Species Most Recent Lab Values WBC 8.3 10^3/uL (4.5-11.0) 09/06/18 06:15 RBC 3.34 10^6/uL (3.5-6.1) L 09/06/18 06:15 Hgb 8.6 g/dL (12.0-16.0) L 09/06/18 06:15 Hct 28.0 % (36.0-48.0) L 09/06/18 06:15 MCV 83.8 fl (80.0-105.0) 09/06/18 06:15 MCH 25.7 pg (25.0-35.0) 09/06/18 06:15 MCHC 30.7 g/dl (31.0-37.0) L 09/06/18 06:15 RDW 16.0 % (11.5-14.5) H 09/06/18 06:15 Plt Count 394 10^3/uL (120.0-450.0) 09/06/18 06:15 MPV 8.1 fl (7.0-11.0) 09/06/18 06:15 Neut % (Auto) 74.1 % (50.0-68.0) H 09/06/18 06:15 Lymph % (Auto) 16.1 % (22.0-35.0) L 09/06/18 06:15 Geary % (Auto) 7.7 % (1.0-6.0) H 09/06/18 06:15 Eos % (Auto) 1.9 % (1.5-5.0) 09/06/18 06:15 Baso % (Auto) 0.2 % (0.0-3.0) 09/06/18 06:15 Lymph # (Auto) 1.3 (1.2-3.4) 09/06/18 06:15 Geary # (Auto) 0.6 (0.1-0.6) 09/06/18 06:15 Eos # (Auto) 0.2 (0.0-0.7) 09/06/18 06:15 Baso # (Auto) 0.02 K/mm3 (0.0-2.0) 09/06/18 06:15 Absolute Neuts (auto) 6.16 (1.4-6.5) 09/06/18 06:15 Retic Count 0.91 % (0.5-1.5) 09/03/18 15:40 PT 14.6 SECONDS (9.4-12.5) H 09/04/18 06:30 INR 1.29 09/04/18 06:30 APTT 32.3 Seconds (26.9-38.3) 09/04/18 06:30 Sodium 139 mmol/L (132-148) 09/06/18 06:15 Potassium 4.7 mmol/L (3.6-5.0) 09/06/18 06:15 Chloride 106 mmol/L (98-107) 09/06/18 06:15 Carbon Dioxide 24 mmol/L (21-33) 09/06/18 06:15 Anion Gap 14 (10-20) 09/06/18 06:15 BUN 49 mg/dL (7-21) H 09/06/18 06:15 Creatinine 3.4 mg/dl (0.7-1.2) H 09/06/18 06:15 Est GFR ( Amer) 16 09/06/18 06:15 Est GFR (Non-Af Amer) 13 09/06/18 06:15 Random Glucose 96 mg/dL (70-110) 09/06/18 06:15 Calcium 9.1 mg/dL (8.4-10.5) 09/06/18 06:15 Phosphorus 3.3 mg/dL (2.5-4.5) 09/05/18 07:25 Magnesium 1.6 mg/dL (1.7-2.2) L 09/05/18 07:25 Iron 17 ug/dL (45-180) L 09/03/18 08:10 TIBC 201 ug/dL (265-497) L 09/03/18 08:10 % Saturation 8 % (20-55) L 09/03/18 08:10 Ferritin 245.0 ng/mL 09/03/18 08:10 Total Bilirubin 0.4 mg/dL (0.2-1.3) 09/06/18 06:15 AST 27 U/L (14-36) 09/06/18 06:15 ALT 6 U/L (7-56) L 09/06/18 06:15 Alkaline Phosphatase 75 U/L (38-126) 09/06/18 06:15 Lactate Dehydrogenase 565 U/L (333-699) 09/03/18 08:00 Total Creatine Kinase 163 U/L (35-230) 09/03/18 08:00 Troponin I 0.05 ng/mL D 09/03/18 08:00 NT-Pro-B Natriuret Pep 69168 pg/mL (0-450) H 09/03/18 08:00 Total Protein 7.5 g/dL (5.8-8.3) 09/06/18 06:15 Albumin 3.6 g/dL (3.0-4.8) 09/06/18 06:15 Globulin 3.9 gm/dL 09/06/18 06:15 Albumin/Globulin Ratio 0.9 (1.1-1.8) L 09/06/18 06:15 Triglycerides 66 mg/dL (35-160) 09/04/18 06:30 Cholesterol 165 mg/dL (130-200) 09/04/18 06:30 LDL Cholesterol Direct 91 mg/dL (0-129) 09/04/18 06:30 HDL Cholesterol 42 mg/dL (29-60) 09/04/18 06:30 Vitamin B12 254 pg/mL (239-931) 09/03/18 08:10 Folate 10.1 ng/mL 09/03/18 08:10 Procalcitonin 0.18 NG/ML (0.19-0.49) L 09/04/18 07:00 Urine Color Yellow (YELLOW) 09/05/18 06:20 Urine Appearance Cloudy (CLEAR) 09/05/18 06:20 Urine pH 6.5 (4.7-8.0) 09/05/18 06:20 Ur Specific Kane 1.010 (1.005-1.035) 09/05/18 06:20 Urine Protein Trace mg/dL (<30 mg/dL) H 09/05/18 06:20 Urine Glucose (UA) Negative mg/dL (NEGATIVE) 09/05/18 06:20 Urine Ketones Negative mg/dL (NEGATIVE) 09/05/18 06:20 Urine Blood Moderate (NEGATIVE) H 09/05/18 06:20 Urine Nitrate Negative (NEGATIVE) 09/05/18 06:20 Urine Bilirubin Negative (NEGATIVE) 09/05/18 06:20 Urine Urobilinogen 0.2 E.U./dL (<1 E.U./dL) 09/05/18 06:20 Ur Leukocyte Esterase Large Clyde/uL (NEGATIVE) H 09/05/18 06:20 Urine RBC 1 - 3 /hpf (0-2) H 09/05/18 06:20 Urine WBC Tntc /hpf (0-6) H 09/05/18 06:20 Ur Epithelial Cells 1 - 3 /hpf (0-5) 09/05/18 06:20 Urine Bacteria Small /hpf (NONE) 09/05/18 06:20 Urine Other Uyeast /hpf 09/05/18 06:20 Influenza Typ A,B (EIA) Negative for flu a/b (NEGATIVE) 09/05/18 06:20 - Hospital Course Hospital Course: Pt seen and examined by me. This is a late entry. I have reviewed the note of the medical parasitologist and I agree with it. I have discussed the assessment and plan with the resident. I have reviewed the medications and the last labs.Pt with JAMI that is improving. The pt was given Venofer for her iron def anemia. Hypomagnesemia has improved with replacement. Pt was seen by Urology.
--- NOTE | 2018-09-06 14:50 | CP.PCM.PN ---
Subjective - Date & Time of Evaluation Date of Evaluation: 09/06/18 Time of Evaluation: 10:20 - Subjective Subjective: Resting in bed, not in distress, no fevers. Objective - Vital Signs/Intake and Output Vital Signs (last 24 hours): Temp Pulse Resp BP Pulse Ox 98 F 90 18 144/68 96 09/05/18 12:00 09/05/18 12:00 09/05/18 12:00 09/05/18 12:00 09/05/18 06:00 Intake and Output: 09/05/18 09/05/18 06:59 18:59 Intake Total 1294 Output Total 4000 Balance -2706 - Medications Medications: Current Medications Acetaminophen (Tylenol 325mg Tab) 650 mg PO Q6H PRN PRN Reason: Pain, Mild (1-3) Last Admin: 09/04/18 13:14 Dose: 650 mg Albuterol/Ipratropium (Duoneb 3 Mg/0.5 Mg (3 Ml) Ud) 3 ml IH [id number] MIKEL Last Admin: 09/05/18 08:09 Dose: 3 ml Albuterol/Ipratropium (Duoneb 3 Mg/0.5 Mg (3 Ml) Ud) 3 ml IH Q2H PRN PRN Reason: Shortness of Breath Amlodipine Besylate (Norvasc) 10 mg PO DAILY [facility] Last Admin: 09/05/18 10:14 Dose: 10 mg Doxycycline Hyclate (Doryx) 100 mg PO Q12 MIKEL; Protocol Last Admin: 09/05/18 10:13 Dose: 100 mg Heparin Sodium (Porcine) (Heparin) 5,000 units SC Q12H MIKEL; Protocol Last Admin: 09/05/18 10:13 Dose: 5,000 units Cefepime HCl (Maxipime 1gm) 1 gm in 100 mls @ 100 mls/hr IVPB Q24H MIKEL; Protocol Stop: 09/11/18 06:46 Last Admin: 09/05/18 05:44 Dose: 100 mls/hr Iron Sucrose 100 mg/ Sodium (Chloride) 105 mls @ 210 mls/hr IVPB DAILY MIKEL Stop: 09/07/18 10:01 Last Admin: 09/05/18 10:13 Dose: 210 mls/hr Magnesium Oxide (Mag-Ox) 800 mg PO TID MIKEL Last Admin: 09/05/18 10:14 Dose: 800 mg Pantoprazole Sodium (Protonix Ec Tab) 40 mg PO DAILY MIKEL Last Admin: 09/05/18 10:14 Dose: 40 mg - Labs Labs: 09/05/18 07:25 09/05/18 07:25 PT 14.6 SECONDS (9.4-12.5) H 09/04/18 06:30 INR 1.29 09/04/18 06:30 APTT 32.3 Seconds (26.9-38.3) 09/04/18 06:30 - Constitutional Appears: Chronically Ill - Head Exam Head Exam: NORMAL INSPECTION - Respiratory Exam Respiratory Exam: Decreased Breath Sounds - Cardiovascular Exam Cardiovascular Exam: +S1, +S2 - GI/Abdominal Exam GI & Abdominal Exam: Soft. absent: Tenderness Assessment and Plan - Assessment and Plan (Free Text) Plan: Assessment systemic inflammatory response syndrome, consider due acute decompensated heart failure, as well as left sided HCAP S/P left hip surgery for fracture chronic CHF history of pneumonia history of urinary tract infection chronic renal failure COPD HTN dyslipidemia history of cervical cancer S/P radiation and hysterectomy abdominal aortic aneurysm S/P cholecystectomy calcifications on the left kidney Plan gave a dose of IV Vancomycin and continue Cefepime and Doxycycline day 3; cultures have been negative, follow up urine Legionella Ag; PCT is 0.18; reviewed CXR; target 4-7 days of antibiotics will continue to monitor clinically
== END 2018-09-06 16:31 | disposition home or self-care (01) | DRG 291 ==
LOC: ED 07:27 → ERH 10:17 → 2RNO 14:19 → 3RNO 09-05 17:37
PROVIDERS: ADMIT Internal Medicine Nephrology; ATTEND Internal Medicine Nephrology
DX: I13.0 Hypertensive heart and chronic kidney disease with heart failure and stage 1 through stage 4 chronic kidney disease, or unspecified chronic kidney disease (principal); I50.33 Acute on chronic diastolic (congestive) heart failure; N17.9 Acute kidney failure, unspecified; N13.30 Unspecified hydronephrosis; R65.10 Systemic inflammatory response syndrome (SIRS) of non-infectious origin without acute organ dysfunction; N18.3 Chronic kidney disease, stage 3 (moderate); D50.9 Iron deficiency anemia, unspecified; K59.00 Constipation, unspecified; I27.20 Pulmonary hypertension, unspecified; I08.1 Rheumatic disorders of both mitral and tricuspid valves; J44.9 Chronic obstructive pulmonary disease, unspecified; I71.4 Abdominal aortic aneurysm, without rupture; E83.42 Hypomagnesemia; K21.9 Gastro-esophageal reflux disease without esophagitis; E78.5 Hyperlipidemia, unspecified; F17.210 Nicotine dependence, cigarettes, uncomplicated; Z85.41 Personal history of malignant neoplasm of cervix uteri; Z92.3 Personal history of irradiation; Z87.01 Personal history of pneumonia (recurrent); Z90.710 Acquired absence of both cervix and uterus

== ENCOUNTER 2018-09-08 15:22 | Inpatient (IN) | payer OTHER ==
--- NOTE | 2018-09-08 15:47 | ED PDOC ---
Arrival/HPI - General Chief Complaint: Weakness/Neurological Deficit Time Seen by Provider: 09/08/18 15:30 Historian: Patient - History of Present Illness Narrative History of Present Illness (Text): 09/08/18 15:54 Patient is an 83 y o F who has PMH of COPD, right kidney stent placement, right kidney hydronephrosis, right kidney aneurysm, left kidney failure, hypertension, hyperkalemia, and sciatica presents to the ED c/o generalized weakness today, diarrhea and incontinent of urine d/t not being able to get to BR because of weakness. Patient was admitted to this hospital on 09/03/18 for CHF exacerbation and possible pneumonia. She was discharged on 09/06/18. She denies focal weakness, dizziness, syncope, cp, sob, f/c/c, abd pain, vomiting, urinary symptoms. Past Medical History - Provider Review Nursing Documentation Reviewed: Yes - Infectious Disease Hx of Infectious Diseases: None - Tetanus Immunization Tetanus Immunization: Unknown - Cardiac Hx Cardiac Disorders: Yes Hx Congestive Heart Failure: Yes Hx Hypertension: Yes - Pulmonary Hx Respiratory Disorders: Yes (SMOKES CIGARETTES PPD.ON CHANTIX,CUT DOWN ON 3 CIG A WEEK.) Hx Chronic Obstructive Pulmonary Disease (COPD): Yes - Neurological Hx Neurological Disorder: No - HEENT Hx HEENT Disorder: Yes Hx Blind: No Hx Cataracts: Yes Hx Deafness: No Hx Difficulty Chewing: No Hx Epistaxis: No Hx Glaucoma: No Hx Macular Degeneration: No - Renal Hx Renal Disorder: Yes (RIGHT KIDNEY STENT) Hx Renal Failure: No - Endocrine/Metabolic Hx Endocrine Disorders: No - Hematological/Oncological Hx Blood Disorders: Yes 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 SCARRING TO LEFT ARM,R ARM,LE) Hx Basal Cell Carcinoma: No Hx Eczema: No Hx Melanoma: No Hx Psoriasis: No Hx Squamous Cell Carcinoma: No - Musculoskeletal/Rheumatological Hx Musculoskeletal Disorders: Yes Hx Falls: Yes Hx Fractures: Yes (LEFT HIP FX) - Gastrointestinal Hx Gastrointestinal Disorders: Yes (CONSTIPATION) Hx Colostomy: No Hx Crohn's Disease: No Hx Diverticulitis: No Hx Gall Bladder Disease: Yes (CHOLECYSTECTOMY,) Hx Gastroesophageal Reflux: Yes Hx Ileostomy: No Hx Liver Failure: No Hx Pancreatitis: No HX Swallowing Problems: No - Genitourinary/Gynecological Hx Genitourinary Disorders: Yes (LEFT KIDNEY NON FUNCTIONING SHE STATED.) Hx Hematuria: Yes Hx Incontinence: No Hx Sexually Transmitted Diseases: No Hx Urinary Tract Infection: Yes Other/Comment: BILATERAL HYDRONEPHROSIS,OVARIAN CA WITH RADIATION AND SX - Psychiatric Hx Emotional Abuse: No Hx Physical Abuse: No Hx Substance Use: No - Surgical History Hx Cholecystectomy: Yes Hx Hysterectomy: Yes - Anesthesia Hx Anesthesia Reactions: No Hx Malignant Hyperthermia: No - Suicidal Assessment Feels Threatened In Home Enviroment: No Family/Social History Family/Social History: Unknown Family HX Smoking Status: Current Some Days Smoker Hx Alcohol Use: No Hx Substance Use: No Allergies/Home Meds Allergies/Adverse Reactions: Allergies No Known Allergies Allergy (Verified 09/03/18 12:35) Home Medications: Home Meds Medication Instructions Recorded Confirmed RX: Albuterol Sulfate [Proair Hfa] 2 puff INH PRN PRN 03/20/18 09/08/18 RX: Esomeprazole Magnesium [Nexium] 40 mg PO DAILY 07/02/18 09/08/18 Physical Exam Vital Signs Reviewed: Yes Vital Signs Temp Pulse Resp BP Pulse Ox 09/08/18 15:32 98.0 F 65 18 129/65 98 Temperature: Afebrile Blood Pressure: Normal Pulse: Regular Respiratory Rate: Normal Appearance: Positive for: Non-Toxic, Uncomfortable Pain Distress: None Mental Status: Positive for: Alert and Oriented X 3 - Systems Exam Head: Present: Atraumatic, Normocephalic Pupils: Present: PERRL Extroacular Muscles: Present: EOMI Conjunctiva: Present: Normal Mouth: Present: Moist Mucous Membranes Pharnyx: Present: Normal Neck: Present: Normal Range of Motion Respiratory/Chest: Present: Decreased Breath Sounds, Rales. No: Respiratory Distress Cardiovascular: Present: Regular Rate and Rhythm, Normal S1, S2. No: Murmurs Abdomen: Present: Normal Bowel Sounds. No: Tenderness, Distention, Peritoneal Signs Upper Extremity: Present: Normal Inspection Lower Extremity: Present: Normal Inspection. No: Edema Neurological: Present: GCS=15, CN II-XII Intact, Speech Normal, Motor Func Grossly Intact, Normal Sensory Function Skin: Present: Warm, Dry, Normal Color. No: Rashes Psychiatric: Present: Alert, Oriented x 3, Normal Insight, Normal Concentration Medical Decision Making ED Course and Treatment: 09/08/2018 15:49 Chest X-ray IMPRESSION: No acute infiltrates. Vague ill-defined although somewhat rounded density in the left CP angle region which is of uncertain etiology and could represeent artifact however possibility of a parenchymal nodule should be further evaluated with non emergent CT scan of the chest. Lung squires otherwise clear. Dictator: Farooq Vogt MD 09/08/18 18:41 Upon reassessment, patient no longer having diarrhea and is not experiencing any abdominal pain. Patient still has not given a urine sample yet. Will page Dr. Meyer. 09/08/18 19:[address] Meyer, who accepts patient for admission. Also, it has been noted her urine looks infected, and Dr. Meyer states urine is chronically infected. Disposition/Present on Arrival - Present on Arrival Any Indicators Present on Arrival: No History of DVT/PE: No History of Uncontrolled Diabetes: No Urinary Catheter: No History of Decub. Ulcer: No History Surgical Site Infection Following: None - Disposition Have Diagnosis and Disposition been Completed?: Yes Diagnosis: Generalized weakness, CKD (chronic kidney disease), Elevated lipase, Anemia, Elevated brain natriuretic peptide (BNP) level Disposition: HOSPITALIZED Disposition Time: 19:28 Patient Plan: Admission Patient Problems: Current Active Problems Problem Status Onset CKD (chronic kidney disease) Acute Elevated brain natriuretic peptide (BNP) level Acute Elevated lipase Acute Generalized weakness Acute Anemia Chronic Condition: STABLE
[2018-09-08 16:38] LABS: BASO # 0.03 K/mm3 (0.0-2.0); BASO % 0.5 % (0.0-3.0); EOS % 0.7 % (1.5-5.0); HEMOGLOBIN 9.4 g/dL (12.0-16.0); LYMPH # 0.8 (1.2-3.4); MEAN CELL VOLUME 85.2 fl (80.0-105.0); MEAN CORPUSCULAR HEMOGLOBIN 26.3 pg (25.0-35.0); MEAN CORPUSCULAR HGB CONC 30.8 g/dl (31.0-37.0); MONO # 0.5 (0.1-0.6); MONO % 7.7 % (1.0-6.0); RBC 3.58 10^6/uL (3.5-6.1); WHITE BLOOD COUNT 5.9 10^3/uL (4.5-11.0)
[2018-09-08 16:58] LABS: CALCIUM 9.4 mg/dL (8.4-10.5)
[2018-09-08 17:02] LABS: TROPONIN I 0.02 ng/mL
--- NOTE | 2018-09-08 17:24 | RAD ---
Date of service: 09/08/2018 HISTORY: weakness COMPARISON: Comparison chest 09/05/2018 FINDINGS: LUNGS: There is a vague ill-defined although somewhat rounded density in the left CP angle region which is of uncertain etiology and could represent artifact however possibility of a parenchymal nodule should be further evaluated with non emergent CT scan of the chest. Lung squires otherwise clear. PLEURA: No significant pleural effusion identified, no pneumothorax apparent. CARDIOVASCULAR: No aortic atherosclerotic calcification present. Heart is borderline enlarged.. No pulmonary vascular congestion. OSSEOUS STRUCTURES: No significant abnormalities. VISUALIZED UPPER ABDOMEN: Normal. OTHER FINDINGS: None. IMPRESSION: No acute infiltrates. vague ill-defined although somewhat rounded density in the left CP angle region which is of uncertain etiology and could represent artifact however possibility of a parenchymal nodule should be further evaluated with non emergent CT scan of the chest. Lung squires otherwise clear.
[2018-09-08 19:08] LABS: PH,URINE 6.5 (4.7-8.0); URINE APPEARANCE SLIGHT-CLOUDY (CLEAR); URINE BILIRUBIN NEGATIVE (NEGATIVE); URINE BLOOD MODERATE (NEGATIVE); URINE COLOR YELLOW (YELLOW); URINE GLUCOSE (UA) NEGATIVE (NEGATIVE); URINE LEUKOCYTE ESTERASE LARGE Leu/uL (NEGATIVE); URINE PROTEIN 30 mg/dL (<30 mg/dL); URINE UROBILINOGEN 0.2 E.U./dL (<1 E.U./dL)
[2018-09-08 19:13] LABS: URINE WBC 25 - 30 /hpf (0-6)
[2018-09-08 19:14] LABS: URINE BACTERIA MOD /hpf
[2018-09-08] MEDS ORDERED: Albuterol 0.083% Inhal Sol (2.5 mg/3 mL) UD IH PRN (23:11)
[2018-09-09] MEDS ORDERED: Albuterol HFA 90 mcg/actuation (8 g) IH PRN (00:08)
[2018-09-09] MEDS ORDERED: Albuterol 0.083% Inhal Sol (2.5 mg/3 mL) UD IH PRN (00:11)
--- NOTE | 2018-09-09 03:23 | CP.PCM.PN ---
Subjective - Date & Time of Evaluation Date of Evaluation: 09/09/18 Time of Evaluation: 03:20 - Subjective Subjective: Patient was seen because I was asked to co- sign order for Ventolin inhaler. Spoke to nurse of patient as per whom, patient is on inhaler at home and want to keep inhaler on her. I saw patient. She complaints of sob and insists that we left an inhaler by bedside. She has no other complaints at this time. Medical record was reviewed. This 83 year old woman was admitted with generalized weakness, diarrhoea and incontinence of urine. Has PMH of HTN,Hyperkalemia, Sciatica, COPD, right kidney stent placement, right kidney aneurism,hydronephrosis. Objective - Vital Signs/Intake and Output Vital Signs (last 24 hours): Temp Pulse Resp BP Pulse Ox 99.0 F 85 20 147/79 96 09/09/18 00:01 09/09/18 02:00 09/09/18 00:01 09/09/18 00:01 09/09/18 00:01 - Medications Medications: Current Medications Albuterol Sulfate (Albuterol 0.083% Inhal Mariella (2.5 Mg/3 Ml) Ud) 2.5 mg IH [id number] PRN PRN Reason: Shortness of Breath Amlodipine Besylate (Norvasc) 10 mg PO DAILY [facility] Carvedilol (Coreg) 3.125 mg PO BID [facility] Last Admin: 09/08/18 21:38 Dose: 3.125 mg Docusate Sodium (Colace) 100 mg PO DAILY [facility] Ferrous Sulfate (Feosol) 324 mg PO BID [facility] Furosemide (Lasix) 40 mg PO DAILY [facility] Losartan Potassium (Cozaar) 100 mg PO DAILY [facility] Spironolactone (Aldactone) 25 mg PO DAILY [facility] - Labs Labs: 09/08/18 16:33 09/08/18 16:33 - Constitutional Appears: Well, No Acute Distress - Head Exam Head Exam: ATRAUMATIC, NORMAL INSPECTION, NORMOCEPHALIC - Eye Exam Eye Exam: Normal appearance - ENT Exam ENT Exam: Normal External Ear Exam - Neck Exam Neck Exam: Normal Inspection - Respiratory Exam Respiratory Exam: Prolonged Expiratory Phase - Cardiovascular Exam Cardiovascular Exam: absent: JVD - GI/Abdominal Exam GI & Abdominal Exam: absent: Distended - Rectal Exam Rectal Exam: Deferred - Exam Additional comments: Deferred. - Extremities Exam Extremities Exam: Normal Inspection - Back Exam Back Exam: NORMAL INSPECTION - Neurological Exam Neurological Exam: Alert, Awake, Oriented x3 - Psychiatric Exam Psychiatric exam: Normal Affect, Normal Mood - Skin Skin Exam: Normal Color Assessment and Plan - Assessment and Plan (Free Text) Assessment: COPD. Hypertension. Sciatica. Right kidney hydronephrosis, S/P stent, aneurism Plan: Patient can have her ventolin inhaler at bedside. Continue present management.
[2018-09-09 06:29] VITALS: O2SAT 97
--- NOTE | 2018-09-09 09:23 | CARD ---
APPROVED REPORT Date of service: 09/08/2018 EKG Measurement Heart [id number] <Conclusion> Normal sinus rhythm with sinus arrhythmia Nonspecific T wave abnormality Abnormal ECG
--- NOTE | 2018-09-09 10:58 | CP.PCM.HP ---
<Gustavo Ivory - Last Filed: 09/09/18 10:55> History of Present Illness - History of Present Illness History of Present Illness: PGY-[address] H&P for [address] Rebolledo Mrs Antonio is a 83 year old female with a PMHx of AAA (4.9 cm), COPD, OA, HTN, HLD, hx of right-sided hydronephrosis, left-sided kidney failure, diastolic CHF, cervical cancer s/p radiation and hysterectomy, left hip fracture who presents for diarrhea and weakness after being recently discharged after being treated for CHF exacerbation and rule-out pneumonia. She was discharged on 09/06 and stated the following day she felt weak to the point she couldn't get out of bed. She also stated she had multiple episodes of diarrhea with the last episode being yesterday. She denied fevers, nausea, chest pain. She stated her breathing is at her baseline. She says normally she can walk around the house with minimal difficulty. She was prescribed new CHF medications which she says she started. PMHx: AAA (4.9 cm), COPD, OA, HTN, HLD, hx of right-sided hydronephrosis, diastolic CHF, cervical cancer s/p radiation and hysterectomy, left hip fracture PSHx: hysterectomy, cholecystectomy, surgery for left hip fracture, right kidney stent replacement 06/2018 Allergies: NKA Home Meds: losartan 100mg po qd, nexium 40mg po qd, proair hfa 2puff prn FamHx: mother at 82 of bone cancer, father diet of unknown causes SocialHx: currently smoker; denies alcohol or illicits; lives alone at home - with neighbor periodically checking-in on her; ambulates with a walker Present on Admission - Present on Admission Any Indicators Present on Admission: No Review of Systems - Review of Systems All systems: reviewed and no additional remarkable complaints except (as stated in HPI) Past Patient History - Infectious Disease Hx of Infectious Diseases: None - Tetanus Immunizations Tetanus Immunization: Unknown - Past Social History Smoking Status: Former Smoker - CARDIAC Hx Cardiac Disorders: Yes Hx Congestive Heart Failure: Yes Hx Hypercholesterolemia: Yes Hx Hypertension: Yes Hx Peripheral Edema: Yes - PULMONARY Hx Bronchitis: Yes Hx Chronic Obstructive Pulmonary Disease (COPD): Yes Hx Pneumonia: Yes Hx Respiratory Tract Infection: Yes - NEUROLOGICAL Hx Dizziness: Yes - HEENT Hx Cataracts: Yes Hx Macular Degeneration: Yes - RENAL Hx Chronic Kidney Disease: Yes (RIGHT KIDNEY STENT) Hx Renal Failure: No - ENDOCRINE/METABOLIC Hx Endocrine Disorders: No - HEMATOLOGICAL/ONCOLOGICAL Hx Cancer: Yes (ovarian CA with surgeries and radiation) - INTEGUMENTARY Hx Dermatological Problems: Yes (HYPOPIGMENTATION-WHITISH SKIN DISCOLORATION. SCARRING TO LEFT ARM,R ARM,LE) Hx Basil Cell: No Hx Eczema: No Hx Melanoma: No Hx Psoriasis: No Hx Squamous Cell: No - MUSCULOSKELETAL/RHEUMATOLOGICAL Hx Musculoskeletal Disorders: Yes Hx Arthritis: Yes Hx Back Pain: Yes Hx Falls: Yes Hx Gout: Yes Hx Osteoarthritis: Yes Hx Unsteady Gait: Yes - GASTROINTESTINAL Hx Gastrointestinal Disorders: Yes (CONSTIPATION) Hx Colostomy: No Hx Crohn's Disease: No Hx Diverticulitis: No Hx Gall Bladder Disease: Yes (CHOLECYSTECTOMY,) Hx Gastroesophageal Reflux: Yes Hx Ileostomy: No Hx Liver Failure: No Hx Pancreatitis: No HX Swallowing Problems: No - GENITOURINARY/GYNECOLOGICAL Hx Hematuria: Yes Hx Urinary Tract Infection: Yes - PSYCHIATRIC Hx Anxiety: Yes - SURGICAL HISTORY Hx Surgeries: Yes (right kidney stent, hysterectomy) Hx Hysterectomy: Yes - ANESTHESIA Hx Anesthesia Reactions: No Hx Malignant Hyperthermia: No Meds Allergies/Adverse Reactions: Allergies Allergy/AdvReac Type Severity Reaction Status Date / Time No Known Allergies Allergy Verified 09/03/18 12:35 Physical Exam - Additional Findings Additional findings: - Constitutional Appears: Non-toxic, No Acute Distress, Cachectic, Chronically Ill - Head Exam Head Exam: ATRAUMATIC, NORMAL INSPECTION - Eye Exam Eye Exam: EOMI, Normal appearance, PERRL. absent: Scleral icterus - ENT Exam ENT Exam: Mucous Membranes Dry - Neck Exam Neck exam: Positive for: Full Rom - Respiratory Exam Respiratory Exam: NORMAL BREATHING PATTERN, no wheezing, rales, rhonci Additional comments: - Cardiovascular Exam Cardiovascular Exam: Tachycardia, REGULAR RHYTHM, +S1, +S2, Systolic Murmur. absent: JVD - GI/Abdominal Exam GI & Abdominal Exam: Normal Bowel Sounds, Soft. absent: Distended, Firm, Guarding, Tenderness - Extremities Exam Extremities exam: Positive for: normal capillary refill, normal inspection, pedal pulses present. Negative for: pedal edema - Neurological Exam Neurological exam: Alert, Oriented x3 - Psychiatric Exam Psychiatric exam: Anxious, Normal Affect, Normal Mood - Skin Skin Exam: Dry, Intact, Normal Color, Warm Results - Vital Signs Recent Vital Signs: Last Vital Signs Temp 99.4 F 09/09/18 06:00 Pulse 80 09/09/18 10:27 Resp 20 09/09/18 06:00 BP 127/63 09/09/18 10:27 Pulse Ox 97 09/09/18 06:00 - Labs Result Diagrams: 09/08/18 16:33 09/08/18 16:33 Labs: Laboratory Results - last 24 hr 09/08/18 09/08/18 09/08/18 16:33 16:33 19:00 WBC 5.9 D RBC 3.58 Hgb 9.4 L Hct 30.5 L MCV 85.2 MCH 26.3 MCHC 30.8 L RDW 16.0 H Plt Count 331 MPV 8.0 Neut % (Auto) 77.1 H Lymph % (Auto) 14.0 L [place] % (Auto) 7.7 H Eos % (Auto) 0.7 L Baso % (Auto) 0.5 Lymph # (Auto) 0.8 L [place] # (Auto) 0.5 Eos # (Auto) 0.0 Baso # (Auto) 0.03 Absolute Neuts (auto) 4.51 Sodium 136 Potassium 4.1 Chloride 103 Carbon Dioxide 20 L Anion Gap 16 BUN 57 H Creatinine 3.1 H Est GFR ( Amer) 17 Est GFR (Non-Af Amer) 14 Random Glucose 112 H Calcium 9.4 Magnesium 2.1 Total Bilirubin 0.5 AST 43 H D ALT 13 Alkaline Phosphatase 75 Troponin I 0.02 D NT-Pro-B Natriuret Pep 66868 H Total Protein 8.1 Albumin 4.0 Globulin 4.0 Albumin/Globulin Ratio 1.0 L Lipase 341 H Urine Color Yellow Urine Appearance Slight-cloudy Urine pH 6.5 Ur Specific [place] 1.020 Urine Protein 30 H Urine Glucose (UA) Negative Urine Ketones Negative Urine Blood Moderate H Urine Nitrate Negative Urine Bilirubin Negative Urine Urobilinogen 0.2 Ur Leukocyte Esterase Large H Urine RBC 2 - 5 H Urine WBC 25 - 30 H Ur Epithelial Cells 1 - 3 Urine Bacteria Mod Urine Other Uyeast Assessment & Plan - Assessment and Plan (Free Text) Plan: Mrs Antonio is a 83 year old female with a PMHx of AAA (4.9 cm), COPD, OA, HTN, HLD, hx of right-sided hydronephrosis, left-sided kidney failure, diastolic CHF, cervical cancer s/p radiation and hysterectomy, left hip fracture who presents for 2 days of diarrhea and weakness after being recently discharged: Diarrhea, Improving -consider abx induced vs magnesium administration -f/u cdiff toxin and antigen Systolic CHF -probnp on admissioni: [id number] (improvement) -echo 09/04/2018: EF 30%, mild LV enlargement, dilated LA, moderate MR, moderate TR -continue home meds lasix 40mg po qd, coreg 3.125mg po bid, losartan 100mg po qd, aldactone 25mg po qd -not currently in acute heart failure JAMI on CKD stage IIIB, Improving -renal duplex scan 09/04: * RIGHT KIDNEY: Measures: 15.4 cm. Enlarged with normal contour and echogenicity. No stone visualized. There is moderate hydronephrosis. * LEFT KIDNEY: Measures: 14.7 cm. Enlarged with normal contour and echogenicity. No stone mass lesion or hydronephrosis visualized. There is severe hydronephrosis. -w/ good urinary output Iron Deficiency Anemia -f/u iron studies, ferritin, b12, folate, retic count * iron studies indicate iron deficiency anemia -give venofer 200mg ivp qd for 3 days (started 09/09) -continue home med ferrous sulfate 324mg po bid -colace 100mg po qd for ferrous sulfate induced constipation Hx of Right Kidney Stent Replacement -right-kidney stent replacement 06/[address] Lau -renal duplex scan 09/04: * RIGHT KIDNEY: Measures: 15.4 cm. Enlarged with normal contour and echogenicity. No stone visualized. There is moderate hydronephrosis. * LEFT KIDNEY: Measures: 14.7 cm. Enlarged with normal contour and echogenicity. No stone mass lesion or hydronephrosis visualized. There is severe hydronephrosis. HTN -norvasc 10mg po qd (started 09/03) -continue home meds lasix 40mg po qd, coreg 3.125mg po bid, losartan 100mg po qd, aldactone 25mg po qd PPX -SCDs -heparin 5000u q12h sc -heart healthy diet -protonix 40mg po qd <Ede Rebolledo - Last Filed: 09/09/18 16:07> Results - Vital Signs Recent Vital Signs: Last Vital Signs Temp 99.4 F 09/09/18 12:00 Pulse 76 09/09/18 12:00 Resp 19 09/09/18 12:00 BP 121/67 09/09/18 12:00 Pulse Ox 97 09/09/18 06:00 - Labs Result Diagrams: 09/08/18 16:33 09/08/18 16:33 Labs: Laboratory Results - last 24 hr 09/08/18 09/08/18 09/08/18 16:33 16:33 19:00 WBC 5.9 D RBC 3.58 Hgb 9.4 L Hct 30.5 L MCV 85.2 MCH 26.3 MCHC 30.8 L RDW 16.0 H Plt Count 331 MPV 8.0 Neut % (Auto) 77.1 H Lymph % (Auto) 14.0 L [place] % (Auto) 7.7 H Eos % (Auto) 0.7 L Baso % (Auto) 0.5 Lymph # (Auto) 0.8 L [place] # (Auto) 0.5 Eos # (Auto) 0.0 Baso # (Auto) 0.03 Absolute Neuts (auto) 4.51 Sodium 136 Potassium 4.1 Chloride 103 Carbon Dioxide 20 L Anion Gap 16 BUN 57 H Creatinine 3.1 H Est GFR ( Amer) 17 Est GFR (Non-Af Amer) 14 Random Glucose 112 H Calcium 9.4 Magnesium 2.1 Total Bilirubin 0.5 AST 43 H D ALT 13 Alkaline Phosphatase 75 Troponin I 0.02 D NT-Pro-B Natriuret Pep 49318 H Total Protein 8.1 Albumin 4.0 Globulin 4.0 Albumin/Globulin Ratio 1.0 L Lipase 341 H Urine Color Yellow Urine Appearance Slight-cloudy Urine pH 6.5 Ur Specific [place] 1.020 Urine Protein 30 H Urine Glucose (UA) Negative Urine Ketones Negative Urine Blood Moderate H Urine Nitrate Negative Urine Bilirubin Negative Urine Urobilinogen 0.2 Ur Leukocyte Esterase Large H Urine RBC 2 - 5 H Urine WBC 25 - 30 H Ur Epithelial Cells 1 - 3 Urine Bacteria Mod Urine Other Uyeast Assessment & Plan - Assessment and Plan (Free Text) Plan: Pt seen and examined by me. I have reviewed the note of the medical physics professor and I agree with it. I have discussed the assessment and plan with the resident. I have reviewed the medications and the last labs.Pt with gait instability and difficulty in walking. She is not safe to go home alone. She lives alone. She has JAMI that is improving. She is on Norvasc for HTN. She will continue with Losartan and Aldactone for CHF systolic dysfunction chronic. She has anemia and will need further evaluation. Will give Venofer for Iron def. She has a R kidney stent. Will place on Heparin for DVT prophylaxsis.
[2018-09-09] MEDS: Albuterol 0.083% Inhal Sol (2.5 mg/3 mL) UD IH PRN (11:00)
[2018-09-09] MEDS ORDERED: Iron Sucrose 100 mg/5 ml Inj IVP SCH (11:00)
[2018-09-10 07:22] LABS: BASO # 0.02 K/mm3 (0.0-2.0); BASO % 0.4 % (0.0-3.0); EOS % 0.8 % (1.5-5.0); HEMOGLOBIN 8.9 g/dL (12.0-16.0); LYMPH # 1.3 (1.2-3.4); LYMPH % 26.8 % (22.0-35.0); MEAN CELL VOLUME 84.8 fl (80.0-105.0); MEAN CORPUSCULAR HEMOGLOBIN 25.5 pg (25.0-35.0); MEAN CORPUSCULAR HGB CONC 30.1 g/dl (31.0-37.0); MEAN PLATELET VOLUME 8.2 fl (7.0-11.0); MONO # 0.6 (0.1-0.6); MONO % 12.5 % (1.0-6.0); RBC 3.49 10^6/uL (3.5-6.1); RED CELL DISTRIBUTION WIDTH 15.8 % (11.5-14.5); WHITE BLOOD COUNT 4.8 10^3/uL (4.5-11.0)
[2018-09-10 07:32] LABS: ALB/GLOB RATIO 0.9 (1.1-1.8); ALBUMIN 3.4 g/dL (3.0-4.8); CALCIUM 8.5 mg/dL (8.4-10.5)
[2018-09-10] MEDS: Albuterol 0.083% Inhal Sol (2.5 mg/3 mL) UD IH PRN (07:36)
[2018-09-10] MEDS ORDERED: Pantoprazole 40 mg EC Tab PO SCH (10:00)
--- NOTE | 2018-09-10 10:11 | CP.PCM.DIS ---
<DianelysGustavo R - Last Filed: 09/10/18 10:08> Provider - Provider Date of Admission: 09/08/18 19:37 Attending physician: Ede Rebolledo MD Primary care physician: TANGELA: Amaury Consults: 09/08/18 23:28 Social Work Referral Routine Comment: baylock score 12 Physician Instructions: Reason For Exam: protocol 09/08/18 23:56 Nursing Referral for Wound Care Routine Comment: Physician Instructions: Reason For Exam: protocol Time Spent in preparation of Discharge (in minutes): 31 Diagnosis - Discharge Diagnosis (1) Clostridium difficile diarrhea Status: Resolved Priority: High Hospital Course - Lab Results Lab Results: Micro Results 09/08/18 22:00 Urine,Clean Catch Urine Culture - Final No Growth (<1,000 CFU/ML) 09/09/18 10:00 Stool C. difficile Antigen & Toxins A,B - Final Most Recent Lab Values WBC 4.8 10^3/uL (4.5-11.0) 09/10/18 07:00 RBC 3.49 10^6/uL (3.5-6.1) L 09/10/18 07:00 Hgb 8.9 g/dL (12.0-16.0) L 09/10/18 07:00 Hct 29.6 % (36.0-48.0) L 09/10/18 07:00 MCV 84.8 fl (80.0-105.0) 09/10/18 07:00 MCH 25.5 pg (25.0-35.0) 09/10/18 07:00 MCHC 30.1 g/dl (31.0-37.0) L 09/10/18 07:00 RDW 15.8 % (11.5-14.5) H 09/10/18 07:00 Plt Count 295 10^3/uL (120.0-450.0) 09/10/18 07:00 MPV 8.2 fl (7.0-11.0) 09/10/18 07:00 Neut % (Auto) 59.5 % (50.0-68.0) 09/10/18 07:00 Lymph % (Auto) 26.8 % (22.0-35.0) 09/10/18 07:00 [place] % (Auto) 12.5 % (1.0-6.0) H 09/10/18 07:00 Eos % (Auto) 0.8 % (1.5-5.0) L 09/10/18 07:00 Baso % (Auto) 0.4 % (0.0-3.0) 09/10/18 07:00 Lymph # (Auto) 1.3 (1.2-3.4) 09/10/18 07:00 [place] # (Auto) 0.6 (0.1-0.6) 09/10/18 07:00 Eos # (Auto) 0.0 (0.0-0.7) 09/10/18 07:00 Baso # (Auto) 0.02 K/mm3 (0.0-2.0) 09/10/18 07:00 Absolute Neuts (auto) 2.86 (1.4-6.5) 09/10/18 07:00 Sodium 136 mmol/L (132-148) 09/10/18 07:00 Potassium 4.6 mmol/L (3.6-5.0) 09/10/18 07:00 Chloride 104 mmol/L (98-107) 09/10/18 07:00 Carbon Dioxide 19 mmol/L (21-33) L 09/10/18 07:00 Anion Gap 17 (10-20) 09/10/18 07:00 BUN 70 mg/dL (7-21) H 09/10/18 07:00 Creatinine 3.3 mg/dl (0.7-1.2) H 09/10/18 07:00 Est GFR ( Amer) 16 09/10/18 07:00 Est GFR (Non-Af Amer) 13 09/10/18 07:00 Random Glucose 84 mg/dL (70-110) 09/10/18 07:00 Calcium 8.5 mg/dL (8.4-10.5) 09/10/18 07:00 Magnesium 2.1 mg/dL (1.7-2.2) 09/10/18 07:00 Total Bilirubin 0.3 mg/dL (0.2-1.3) 09/10/18 07:00 AST 41 U/L (14-36) H 09/10/18 07:00 ALT 9 U/L (7-56) 09/10/18 07:00 Alkaline Phosphatase 69 U/L (38-126) 09/10/18 07:00 Troponin I 0.02 ng/mL D 09/08/18 16:33 NT-Pro-B Natriuret Pep 81395 pg/mL (0-450) H 09/08/18 16:33 Total Protein 7.3 g/dL (5.8-8.3) 09/10/18 07:00 Albumin 3.4 g/dL (3.0-4.8) 09/10/18 07:00 Globulin 3.8 gm/dL 09/10/18 07:00 Albumin/Globulin Ratio 0.9 (1.1-1.8) L 09/10/18 07:00 Lipase 341 U/L (23-300) H 09/08/18 16:33 Urine Color Yellow (YELLOW) 09/08/18 19:00 Urine Appearance Slight-cloudy (CLEAR) 09/08/18 19:00 Urine pH 6.5 (4.7-8.0) 09/08/18 19:00 Ur Specific Jewell 1.020 (1.005-1.035) 09/08/18 19:00 Urine Protein 30 mg/dL (<30 mg/dL) H 09/08/18 19:00 Urine Glucose (UA) Negative mg/dL (NEGATIVE) 09/08/18 19:00 Urine Ketones Negative mg/dL (NEGATIVE) 09/08/18 19:00 Urine Blood Moderate (NEGATIVE) H 09/08/18 19:00 Urine Nitrate Negative (NEGATIVE) 09/08/18 19:00 Urine Bilirubin Negative (NEGATIVE) 09/08/18 19:00 Urine Urobilinogen 0.2 E.U./dL (<1 E.U./dL) 09/08/18 19:00 Ur Leukocyte Esterase Large Clyde/uL (NEGATIVE) H 09/08/18 19:00 Urine RBC 2 - 5 /hpf (0-2) H 09/08/18 19:00 Urine WBC 25 - 30 /hpf (0-6) H 09/08/18 19:00 Ur Epithelial Cells 1 - 3 /hpf (0-5) 09/08/18 19:00 Urine Bacteria Mod /hpf (NONE) 09/08/18 19:00 Urine Other Uyeast /hpf 09/08/18 19:00 - Hospital Course Hospital Course: Mrs Antonio is a 83 year old female with a PMHx of AAA (4.9 cm), COPD, OA, HTN, HLD, hx of right-sided hydronephrosis, left-sided kidney failure, diastolic CHF, cervical cancer s/p radiation and hysterectomy, left hip fracture who presents for diarrhea and weakness after being recently discharged after being treated for CHF exacerbation and rule-out pneumonia. She was discharged on 09/06 and stated the following day she felt weak to the point she couldn't get out of bed. She also stated she had multiple episodes of diarrhea with the last episode being yesterday. She denied fevers, nausea, chest pain. She stated her breathing is at her baseline. She says normally she can walk around the house with minimal difficulty. She was prescribed new CHF medications which she says she started. PMHx: AAA (4.9 cm), COPD, OA, HTN, HLD, hx of right-sided hydronephrosis, diastolic CHF, cervical cancer s/p radiation and hysterectomy, left hip fracture PSHx: hysterectomy, cholecystectomy, surgery for left hip fracture, right kidney stent replacement 06/2018 Allergies: NKA Home Meds: losartan 100mg po qd, nexium 40mg po qd, proair hfa 2puff prn FamHx: mother at 82 of bone cancer, father diet of unknown causes SocialHx: currently smoker; denies alcohol or illicits; lives alone at home - with neighbor periodically checking-in on her; ambulates with a walker HOSPITAL COURSE: Patient returned to hospital 2 days after being discharged due to diarrhea and weakness. CDiff toxin and antigen positive for antigen. She was started on flagyl 500mg po q8h which will be given for 7 days. Home medications continued for chronic conditions. Patient had refused [facility] on prior admission however patient now amenable. She will be transferred to [facility] for rehab. Discharge Exam - Head Exam Head Exam: ATRAUMATIC, NORMAL INSPECTION, NORMOCEPHALIC - Additional Findings Additional findings: - Constitutional Appears: Non-toxic, No Acute Distress, Cachectic, Chronically Ill - Head Exam Head Exam: ATRAUMATIC, NORMAL INSPECTION - Eye Exam Eye Exam: EOMI, Normal appearance, PERRL. absent: Scleral icterus - ENT Exam ENT Exam: Mucous Membranes Dry - Neck Exam Neck exam: Positive for: Full Rom - Respiratory Exam Respiratory Exam: NORMAL BREATHING PATTERN, no wheezing, rales, rhonci Additional comments: - Cardiovascular Exam Cardiovascular Exam: normal rate, REGULAR RHYTHM, +S1, +S2, Systolic Murmur. absent: JVD - GI/Abdominal Exam GI & Abdominal Exam: Normal Bowel Sounds, Soft. absent: Distended, Firm, Guarding, Tenderness - Extremities Exam Extremities exam: Positive for: normal capillary refill, normal inspection, pedal pulses present. Negative for: pedal edema - Neurological Exam Neurological exam: Alert, Oriented x3 - Psychiatric Exam Psychiatric exam: Anxious, Normal Affect, Normal Mood - Skin Skin Exam: Dry, Intact, Normal Color, Warm Discharge Plan - Follow Up Plan Condition: STABLE Disposition: REHAB FACILITY/REHAB UNIT Additional Instructions: Patient will be transferred to [facility] for subacute rehab Med reconciliation performed - patient should continue all home medications with exception of discontinuation of colace Patient currently receiving Flagyl for cdiff - patient should continue for 7 days until 09/17/2018. If symptoms return please go to nearest emergency department. <Ede Rebolledo - Last Filed: 09/10/18 18:33> Provider - Provider Date of Admission: 09/08/18 19:37 Attending physician: Ede Rebolledo MD Consults: 09/08/18 23:28 Social Work Referral Routine Comment: baylock score 12 Physician Instructions: Reason For Exam: protocol 09/08/18 23:56 Nursing Referral for Wound Care Routine Comment: Physician Instructions: Reason For Exam: protocol Hospital Course - Lab Results Lab Results: Micro Results 09/08/18 22:00 Urine,Clean Catch Urine Culture - Final No Growth (<1,000 CFU/ML) 09/09/18 10:00 Stool C. difficile Antigen & Toxins A,B - Final Most Recent Lab Values WBC 4.8 10^3/uL (4.5-11.0) 09/10/18 07:00 RBC 3.49 10^6/uL (3.5-6.1) L 09/10/18 07:00 Hgb 8.9 g/dL (12.0-16.0) L 09/10/18 07:00 Hct 29.6 % (36.0-48.0) L 09/10/18 07:00 MCV 84.8 fl (80.0-105.0) 09/10/18 07:00 MCH 25.5 pg (25.0-35.0) 09/10/18 07:00 MCHC 30.1 g/dl (31.0-37.0) L 09/10/18 07:00 RDW 15.8 % (11.5-14.5) H 09/10/18 07:00 Plt Count 295 10^3/uL (120.0-450.0) 09/10/18 07:00 MPV 8.2 fl (7.0-11.0) 09/10/18 07:00 Neut % (Auto) 59.5 % (50.0-68.0) 09/10/18 07:00 Lymph % (Auto) 26.8 % (22.0-35.0) 09/10/18 07:00 [place] % (Auto) 12.5 % (1.0-6.0) H 09/10/18 07:00 Eos % (Auto) 0.8 % (1.5-5.0) L 09/10/18 07:00 Baso % (Auto) 0.4 % (0.0-3.0) 09/10/18 07:00 Lymph # (Auto) 1.3 (1.2-3.4) 09/10/18 07:00 [place] # (Auto) 0.6 (0.1-0.6) 09/10/18 07:00 Eos # (Auto) 0.0 (0.0-0.7) 09/10/18 07:00 Baso # (Auto) 0.02 K/mm3 (0.0-2.0) 09/10/18 07:00 Absolute Neuts (auto) 2.86 (1.4-6.5) 09/10/18 07:00 Sodium 136 mmol/L (132-148) 09/10/18 07:00 Potassium 4.6 mmol/L (3.6-5.0) 09/10/18 07:00 Chloride 104 mmol/L (98-107) 09/10/18 07:00 Carbon Dioxide 19 mmol/L (21-33) L 09/10/18 07:00 Anion Gap 17 (10-20) 09/10/18 07:00 BUN 70 mg/dL (7-21) H 09/10/18 07:00 Creatinine 3.3 mg/dl (0.7-1.2) H 09/10/18 07:00 Est GFR ( Amer) 16 09/10/18 07:00 Est GFR (Non-Af Amer) 13 09/10/18 07:00 Random Glucose 84 mg/dL (70-110) 09/10/18 07:00 Calcium 8.5 mg/dL (8.4-10.5) 09/10/18 07:00 Magnesium 2.1 mg/dL (1.7-2.2) 09/10/18 07:00 Total Bilirubin 0.3 mg/dL (0.2-1.3) 09/10/18 07:00 AST 41 U/L (14-36) H 09/10/18 07:00 ALT 9 U/L (7-56) 09/10/18 07:00 Alkaline Phosphatase 69 U/L (38-126) 09/10/18 07:00 Troponin I 0.02 ng/mL D 09/08/18 16:33 NT-Pro-B Natriuret Pep 26256 pg/mL (0-450) H 09/08/18 16:33 Total Protein 7.3 g/dL (5.8-8.3) 09/10/18 07:00 Albumin 3.4 g/dL (3.0-4.8) 09/10/18 07:00 Globulin 3.8 gm/dL 09/10/18 07:00 Albumin/Globulin Ratio 0.9 (1.1-1.8) L 09/10/18 07:00 Lipase 341 U/L (23-300) H 09/08/18 16:33 Urine Color Yellow (YELLOW) 09/08/18 19:00 Urine Appearance Slight-cloudy (CLEAR) 09/08/18 19:00 Urine pH 6.5 (4.7-8.0) 09/08/18 19:00 Ur Specific Jewell 1.020 (1.005-1.035) 09/08/18 19:00 Urine Protein 30 mg/dL (<30 mg/dL) H 09/08/18 19:00 Urine Glucose (UA) Negative mg/dL (NEGATIVE) 09/08/18 19:00 Urine Ketones Negative mg/dL (NEGATIVE) 09/08/18 19:00 Urine Blood Moderate (NEGATIVE) H 09/08/18 19:00 Urine Nitrate Negative (NEGATIVE) 09/08/18 19:00 Urine Bilirubin Negative (NEGATIVE) 09/08/18 19:00 Urine Urobilinogen 0.2 E.U./dL (<1 E.U./dL) 09/08/18 19:00 Ur Leukocyte Esterase Large Clyde/uL (NEGATIVE) H 09/08/18 19:00 Urine RBC 2 - 5 /hpf (0-2) H 09/08/18 19:00 Urine WBC 25 - 30 /hpf (0-6) H 09/08/18 19:00 Ur Epithelial Cells 1 - 3 /hpf (0-5) 09/08/18 19:00 Urine Bacteria Mod /hpf (NONE) 09/08/18 19:00 Urine Other Uyeast /hpf 09/08/18 19:00 - Hospital Course Hospital Course: Pt seen and examined by me. I have reviewed the note of the medical lab assistant and I agree with it. I have discussed the assessment and plan with the resident. I have reviewed the medications and the last labs. Pt with gait instability and is refusing [facility]. She was advised to go to [facility] but is refusing. She was told about the dangers of falling and her safety and understands the risks. She initially agreed to go but has changed her mind. She has been started on Flagyl for possible Cdiff. She will continue with this medication. She is on Losartan for her HTN.
[2018-09-10 12:47] VITALS: RESP 18
[2018-09-10 18:12] VITALS: BP 106/55; PULSE 83
[2018-09-10 18:40] VITALS: TEMP 97.4
== END 2018-09-10 20:35 | DRG 372 ==
LOC: ED 15:22 → ERH 19:37 → 2RNO 21:08
PROVIDERS: ADMIT Internal Medicine Nephrology; ATTEND Internal Medicine Nephrology
DX: A04.72 Enterocolitis due to Clostridium difficile, not specified as recurrent (principal); N13.30 Unspecified hydronephrosis; I13.0 Hypertensive heart and chronic kidney disease with heart failure and stage 1 through stage 4 chronic kidney disease, or unspecified chronic kidney disease; I50.32 Chronic diastolic (congestive) heart failure; J44.9 Chronic obstructive pulmonary disease, unspecified; R32 Unspecified urinary incontinence; K21.9 Gastro-esophageal reflux disease without esophagitis; M54.30 Sciatica, unspecified side; E78.5 Hyperlipidemia, unspecified; K59.00 Constipation, unspecified; R26.2 Difficulty in walking, not elsewhere classified; Z85.43 Personal history of malignant neoplasm of ovary; Z87.440 Personal history of urinary (tract) infections; Z87.891 Personal history of nicotine dependence; Z90.49 Acquired absence of other specified parts of digestive tract; Z90.710 Acquired absence of both cervix and uterus; Z92.3 Personal history of irradiation; Z85.41 Personal history of malignant neoplasm of cervix uteri

== ENCOUNTER 2018-09-15 11:37 | Inpatient (IN) | payer OTHER ==
--- NOTE | 2018-09-15 12:39 | ED PDOC ---
Arrival/HPI - General Chief Complaint: Shortness Of Breath Time Seen by Provider: 09/15/18 11:41 Historian: Care Home - History of Present Illness Narrative History of Present Illness (Text): 09/15/18 12:44 83 year old female with a PMHx of AAA (4.9 cm), COPD, OA, HTN, HLD, hx of right- sided hydronephrosis, left-sided kidney failure, diastolic CHF, cervical cancer s/p radiation and hysterectomy presents to the ED from [facility] with unresolved diarrhea. [place] [facility] [place] exacerbation and C diff. She was discharged on Cipro PO. She reports that she feels weak and diarrhea is not improved. She also complains of SOB. Patient denied abdominal pain, nausea, chest pain, cough, fever, chills, urinary symptoms, headache, visual changes. Time/Duration: < week Past Medical History - Provider Review Nursing Documentation Reviewed: Yes - Infectious Disease Hx of Infectious Diseases: C.diff - Tetanus Immunization Tetanus Immunization: Unknown - Reproductive Menopause: No - Cardiac Hx Cardiac Disorders: Yes Hx Congestive Heart Failure: Yes Hx Hypertension: Yes - Pulmonary Hx Chronic Obstructive Pulmonary Disease (COPD): Yes - Neurological Hx Dizziness: Yes - HEENT Hx Cataracts: Yes Hx Macular Degeneration: Yes - Renal Hx Renal Failure: No - Endocrine/Metabolic Hx Endocrine Disorders: No - Hematological/Oncological Hx Cancer: Yes (ovarian CA with surgeries and radiation) - Integumentary Hx Dermatological Disorder: Yes (HYPOPIGMENTATION-WHITISH SKIN DISCOLORATION. SCARRING TO LEFT ARM,R ARM,LE) Hx Basal Cell Carcinoma: No Hx Eczema: No Hx Melanoma: No Hx Psoriasis: No Hx Squamous Cell Carcinoma: No - Musculoskeletal/Rheumatological Hx Arthritis: Yes - Gastrointestinal Hx Gastrointestinal Disorders: Yes (CONSTIPATION) Hx Colostomy: No Hx Crohn's Disease: No Hx Diverticulitis: No Hx Gall Bladder Disease: Yes (CHOLECYSTECTOMY,) Hx Gastroesophageal Reflux: Yes Hx Ileostomy: No Hx Liver Failure: No Hx Pancreatitis: No HX Swallowing Problems: No Other/Comment: c-diff precaution - Genitourinary/Gynecological Hx Hematuria: Yes Hx Urinary Tract Infection: Yes - Psychiatric Hx Anxiety: Yes Hx Substance Use: No - Surgical History Hx Hysterectomy: Yes - Anesthesia Hx Anesthesia: Yes Hx Anesthesia Reactions: No Hx Malignant Hyperthermia: No - Suicidal Assessment Feels Threatened In Home Enviroment: No Family/Social History - Physician Review Nursing Documentation Reviewed: Yes Family/Social History: No Known Family HX Smoking Status: Former Smoker Hx Alcohol Use: No Hx Substance Use: No Allergies/Home Meds Allergies/Adverse Reactions: Allergies No Known Allergies Allergy (Verified 09/03/18 12:35) Home Medications: Home Meds Medication Instructions Recorded Confirmed RX: Albuterol Sulfate [Proair Hfa] 2 puff INH PRN PRN 03/20/18 09/08/18 RX: Esomeprazole Magnesium [Nexium] 40 mg PO DAILY 07/02/18 09/08/18 Review of Systems - Review of Systems Constitutional: Fatigue. absent: Weight Change, Fevers, Night Sweats Eyes: Normal ENT: Normal Respiratory: SOB. absent: Cough, Sputum, Wheezing Cardiovascular: Normal. absent: Chest Pain, Edema, Syncope Gastrointestinal: Diarrhea. absent: Nausea, Vomiting, Hematochezia, Hematemesis Genitourinary Female: Normal. absent: Dysuria, Frequency, Hematuria Musculoskeletal: Myalgias Skin: Normal Neurological: Normal. absent: Headache, Dizziness, Focal Weakness Endocrine: Normal Hemo/Lymphatic: Normal Psychiatric: Normal Physical Exam Vital Signs Reviewed: Yes Vital Signs Temp Pulse Resp BP Pulse Ox 09/15/18 11:44 97.9 F 85 19 123/56 L 97 Temperature: Afebrile Blood Pressure: Normal Pulse: Regular Respiratory Rate: Normal Appearance: Positive for: Ill-Appearing Pain Distress: None Mental Status: Positive for: Alert and Oriented X 3 - Systems Exam Head: Present: Atraumatic, Normocephalic Pupils: Present: PERRL Extroacular Muscles: Present: EOMI Conjunctiva: Present: Normal Mouth: Present: Dry Pharnyx: Present: Normal. No: ERYTHEMA, EXUDATE Nose (Internal): Present: Normal Inspection Neck: Present: Normal Range of Motion Respiratory/Chest: Present: Wheezes, Decreased Breath Sounds, Rhonchi Cardiovascular: Present: Normal S1, S2, Peripheal Pulses Present Abdomen: Present: Normal Bowel Sounds. No: Tenderness, Distention, Mass/Organomegaly Upper Extremity: Present: Normal Inspection. No: Cyanosis, Edema Lower Extremity: Present: Normal Inspection. No: Edema Neurological: Present: GCS=15, CN II-XII Intact Skin: Present: Warm, Dry. No: Rashes Psychiatric: Present: Alert, Oriented x 3, Normal Insight, Normal Concentration Medical Decision Making - RAD Interpretation Radiology Orders: 09/15/18 12:14 CHEST PORTABLE [RAD] Stat 09/15/18 12:23 ABD & PELVIS W/O PO OR IV CONT [CT] Stat - Medication Orders Current Medication Orders: Albuterol/Ipratropium (Duoneb 3 Mg/0.5 Mg (3 Ml) Ud) 3 ml IH Q15M MIKEL Stop: 09/15/18 13:01 Discontinued Medications Methylprednisolone (Solu-Medrol) 125 mg IVP STAT STA Stop: 09/15/18 12:24 Disposition/Present on Arrival - Present on Arrival Any Indicators Present on Arrival: No History of DVT/PE: No History of Uncontrolled Diabetes: No Urinary Catheter: No History of Decub. Ulcer: No History Surgical Site Infection Following: None - Disposition Have Diagnosis and Disposition been Completed?: Yes Diagnosis: Diarrhea, Sepsis Disposition: HOSPITALIZED Disposition Time: 15:15 Isolation: Contact Patient Plan: Admission Condition: GUARDED
[2018-09-15] MEDS ORDERED: Ciprofloxacin 400mg/200ml D5W 400 MG/200 ML BAG IVPB STA (12:41)
[2018-09-15] MEDS: Albuterol-Ipratrop 3 mg / 0.5 (3 ml) UD IH SCH ×5 (12:43→23:26)
[2018-09-15] MEDS ORDERED: Vancomycin 1gm in NS 250ml 1 GM/250 ML BAG IVPB SCH (12:45)
--- NOTE | 2018-09-15 12:53 | RAD ---
Date of service: 09/15/2018 HISTORY: sob COMPARISON: No prior. FINDINGS: LUNGS: The lungs are hyperinflated and there is peribronchial thickening with chronic changes in both lungs. There is mild pulmonary venous congestion. There is interval development of patchy nodular airspace disease in the left perihilar region. PLEURA: No pleural effusions or pneumothorax. CARDIOVASCULAR: The heart is normal in size. No aortic atherosclerotic calcifications present. OSSEOUS STRUCTURES: Within normal limits for the patient's age. VISUALIZED UPPER ABDOMEN: Normal. OTHER FINDINGS: None. IMPRESSION: Patchy nodular airspace disease in the left perihilar ribs in could represent developed pneumonia. Follow-up after medical management is recommended to ensure complete resolution. Background of COPD. Mild pulmonary venous congestion.
[2018-09-15 14:05] LABS: BASO # 0.02 K/mm3 (0.0-2.0); BASO % 0.1 % (0.0-3.0); HEMOGLOBIN 9.6 g/dL (12.0-16.0); LYMPH # 1.8 (1.2-3.4); LYMPH % 6.8 % (22.0-35.0); MEAN CELL VOLUME 83.4 fl (80.0-105.0); MEAN CORPUSCULAR HEMOGLOBIN 26.2 pg (25.0-35.0); MEAN CORPUSCULAR HGB CONC 31.4 g/dl (31.0-37.0); MEAN PLATELET VOLUME 8.7 fl (7.0-11.0); MONO # 1.4 (0.1-0.6); MONO % 5.3 % (1.0-6.0); PLATELET COUNT 311 10^3/uL (120.0-450.0); RBC 3.67 10^6/uL (3.5-6.1); RED CELL DISTRIBUTION WIDTH 16.3 % (11.5-14.5)
[2018-09-15 14:15] LABS: WHITE BLOOD COUNT 26.7 10^3/uL (4.5-11.0)
[2018-09-15] MEDS ORDERED: metroNIDAZOLE IV 500 mg/100 ml 500 MG/100 ML BAG IVPB STA (14:16)
[2018-09-15 14:23] LABS: INR 1.58; PARTIAL THROMBOPLASTIN TIME 36.2 Seconds (26.9-38.3); PROTHROMBIN TIME 17.5 SECONDS (9.4-12.5)
[2018-09-15 14:32] LABS: B-TYPE NATRIURETIC PEPTIDE 12600 pg/mL (0-450); TROPONIN I 0.02 ng/mL
--- NOTE | 2018-09-15 14:45 | CT ---
Date of service: PROCEDURE: CT Abdomen and Pelvis without intravenous contrast HISTORY: Abdominal pain, history of C diff COMPARISON: 03/21/2016. TECHNIQUE: CT scan of the abdomen and pelvis was performed without administration of intravenous contrast. Oral contrast was not administered. Coronal and sagittal reformatted images were obtained. Radiation dose: Total exam DLP = 343.02 mGy-cm. This CT exam was performed using one or more of the following dose reduction techniques: Automated exposure control, adjustment of the mA and/or kV according to patient size, and/or use of iterative reconstruction technique. FINDINGS: LOWER THORAX: There is centrilobular emphysema and mild bronchial thickening. There are tree in bud opacities in the lower lobes and more confluent airspace disease in the lung bases, worse on the right. LIVER: Normal in size. There is a stable 2.6 cm simple cyst in the lateral segment of the left hepatic lobe. Additionally there are stable few low-attenuation lesions too small to characterize by CT criteria. GALLBLADDER AND BILE DUCTS: Surgically absent. PANCREAS: Mild diffuse atrophy. No ductal dilatation or calcifications. SPLEEN: Normal in size. ADRENALS: Thickening of both adrenal glands without discrete nodule.. KIDNEYS AND URETERS: There enlargement of the right kidney and moderate cortical atrophy. There is redemonstration of severe right hydronephrosis. Right-sided pelviureteral stent remains in customary position. Nonspecific right perinephric fat stranding. There is redemonstration of severe left hydronephrosis and near complete atrophy of the renal cortex. There is also severe dilatation of the proximal and mid ureteral. The distal ureter is normal in caliber. VASCULATURE: There is a 2.9 x 3.3 cm infrarenal abdominal aortic aneurysm and 3.8 x 5.0 cm infrarenal abdominal aortic aneurysm. These are unchanged since the prior examination. There are advanced atherosclerotic aortoiliac calcifications. BOWEL: Evaluation of the bowel is limited in the absence of oral contrast. The small bowel loops are normal in caliber. The left hemicolon is decompressed. There is gas in the ascending and transverse colon. Scattered colonic diverticula without CT evidence for acute diverticulitis. No bowel dilatation or wall thickening. No bowel obstruction. APPENDIX: Normal appendix. PERITONEUM: No free fluid. No free air. LYMPH NODES: No enlarged lymph nodes. BLADDER: Over distended urinary bladder is grossly normal in appearance. REPRODUCTIVE: The uterus is surgically absent. There are multiple surgical clips in the right hemipelvis. BONES: Severe diffuse bone demineralization and advanced multilevel degenerative disc disease. Moderate levoscoliosis in the lumbar spine. No acute fracture. Status post left hip arthroplasty. Extensive streak artifacts from hardware limit evaluation of the pelvis. OTHER FINDINGS: None. IMPRESSION: 1. Right-sided double-J ureteral stent remains in customary position. Persistent moderate hydronephrosis, mild renal cortical atrophy and nonspecific perinephric fat stranding. 2. Redemonstration of severe left hydronephrosis and severe diffuse renal cortical atrophy. Persistent moderate dilatation of the proximal and mid left ureter. The left distal ureter is not dilated. 3. Over distended grossly normal urinary bladder. 4. Gas in the ascending and transverse colon. Sigmoid diverticulosis without CT evidence for acute diverticulitis. 3. Bilobed fusiform infrarenal aortic aneurysm, stable since the prior examination.
[2018-09-15 14:46] LABS: ANISOCYTOSIS 1+; HYPOCHROMIA 1+; LYMPHOCYTE 7 % (22.0-35.0); MICROCYTOSIS 1+; MONOCYTE 5 % (1.0-6.0); NEUTROPHIL 88 % (50.0-70.0); PLATELET ESTIMATE NORMAL (NORMAL)
[2018-09-15 14:56] LABS: ALB/GLOB RATIO 0.9 (1.1-1.8); ALBUMIN 3.8 g/dL (3.0-4.8); ALT/SGPT < 6 U/L (7-56); AST/SGOT 22 U/L (14-36); BLOOD UREA NITROGEN 101 mg/dL (7-21); CALCIUM 9.3 mg/dL (8.4-10.5); GFR NON-AFRICAN AMERICAN 6; LIPASE 219 U/L (23-300)
[2018-09-15 15:03] LABS: PH,URINE 6.5 (4.7-8.0); URINE BILIRUBIN NEGATIVE (NEGATIVE); URINE BLOOD LARGE (NEGATIVE); URINE GLUCOSE (UA) NEGATIVE (NEGATIVE); URINE LEUKOCYTE ESTERASE MODERATE Leu/uL (NEGATIVE); URINE PROTEIN 100 mg/dL (<30 mg/dL); URINE UROBILINOGEN 0.2 E.U./dL (<1 E.U./dL)
[2018-09-15] MEDS ORDERED: Dextrose 5%/0.45% NS 500 ML IV SCH (15:15)
[2018-09-15] MEDS ORDERED: Dextrose 5%/0.45% NS 1,000 ML IV SCH ×2 (15:15→15:46)
[2018-09-15 15:23] LABS: URINE APPEARANCE SLIGHT-CLOUDY (CLEAR)
[2018-09-15 15:25] LABS: URINE AMORPHOUS SEDIMENT MODERATE /hpf; URINE BACTERIA TRACE /hpf; URINE RBC TNTC /hpf (0-2); URINE WBC TNTC /hpf (0-6)
--- NOTE | 2018-09-15 19:25 | PCM.URO ---
Urology Progress Note - Objective Lab Studies: Reviewed (will discuss plans) Lab Results Last 24 Hours: Laboratory Results - last 24 hr 09/15/18 09/15/18 09/15/18 13:00 13:00 13:00 WBC 26.7 H* D RBC 3.67 Hgb 9.6 L Hct 30.6 L MCV 83.4 MCH 26.2 MCHC 31.4 RDW 16.3 H Plt Count 311 MPV 8.7 Neut % (Auto) 87.8 H Lymph % (Auto) 6.8 L Adams % (Auto) 5.3 Eos % (Auto) 0.0 L Baso % (Auto) 0.1 Lymph # (Auto) 1.8 Adams # (Auto) 1.4 H Eos # (Auto) 0.0 Baso # (Auto) 0.02 Absolute Neuts (auto) 23.48 H Neutrophils % (Manual) 88 H Lymphocytes % (Manual) 7 L Monocytes % (Manual) 5 Platelet Evaluation Normal Hypochromasia 1+ Anisocytosis (manual) 1+ Microcytosis (manual) 1+ PT 17.5 H INR 1.58 APTT 36.2 Sodium 136 Potassium 5.8 H* D Chloride 107 Carbon Dioxide 14 L Anion Gap 21 H BUN 101 H Creatinine 6.2 H Est GFR ( Amer) 8 Est GFR (Non-Af Amer) 6 Random Glucose 104 Calcium 9.3 Magnesium 1.7 Total Bilirubin 0.6 AST 22 ALT < 6 L Alkaline Phosphatase 83 Lactate Dehydrogenase 735 H Total Creatine Kinase 29 L Troponin I 0.02 NT-Pro-B Natriuret Pep 84603 H Total Protein 8.2 Albumin 3.8 Globulin 4.4 Albumin/Globulin Ratio 0.9 L Lipase 219 Urine Color Urine Appearance Urine pH Ur Specific [place] Urine Protein Urine Glucose (UA) Urine Ketones Urine Blood Urine Nitrate Urine Bilirubin Urine Urobilinogen Ur Leukocyte Esterase Urine RBC Urine WBC Ur Epithelial Cells Amorphous Sediment Urine Bacteria 09/15/18 14:35 WBC RBC Hgb Hct MCV MCH MCHC RDW Plt Count MPV Neut % (Auto) Lymph % (Auto) Adams % (Auto) Eos % (Auto) Baso % (Auto) Lymph # (Auto) Adams # (Auto) Eos # (Auto) Baso # (Auto) Absolute Neuts (auto) Neutrophils % (Manual) Lymphocytes % (Manual) Monocytes % (Manual) Platelet Evaluation Hypochromasia Anisocytosis (manual) Microcytosis (manual) PT INR APTT Sodium Potassium Chloride Carbon Dioxide Anion Gap BUN Creatinine Est GFR ( Amer) Est GFR (Non-Af Amer) Random Glucose Calcium Magnesium Total Bilirubin AST ALT Alkaline Phosphatase Lactate Dehydrogenase Total Creatine Kinase Troponin I NT-Pro-B Natriuret Pep Total Protein Albumin Globulin Albumin/Globulin Ratio Lipase Urine Color yellow Urine Appearance Slight-cloudy Urine pH 6.5 Ur Specific [place] 1.020 Urine Protein 100 H Urine Glucose (UA) Negative Urine Ketones Negative Urine Blood Large H Urine Nitrate Negative Urine Bilirubin Negative Urine Urobilinogen 0.2 Ur Leukocyte Esterase Moderate H Urine RBC Tntc H Urine WBC Tntc H Ur Epithelial Cells 3 - 4 Amorphous Sediment Moderate Urine Bacteria Trace Intake & Output: Intake & Output 09/15/18 09/15/18 09/16/18 06:59 18:59 06:59 Weight 118 lb Vital Signs: Vital Signs - 24 hr 09/15/18 09/15/18 09/15/18 11:44 12:13 15:38 Temperature 97.9 F Pulse Rate 85 Respiratory 19 19 20 Rate Blood Pressure 123/56 L O2 Sat by Pulse 97 98 Oximetry 09/15/18 09/15/18 09/15/18 16:12 18:00 19:06 Temperature 98.2 F Pulse Rate 88 72 70 Respiratory 20 16 Rate Blood Pressure 125/61 142/74 O2 Sat by Pulse 97 98 Oximetry
--- NOTE | 2018-09-15 20:36 | CARD ---
APPROVED REPORT Date of service: 09/15/2018 EKG Measurement Heart [id number] ID [id number] <Conclusion> Sinus rhythm with premature atrial complexes in a pattern of bigeminy Possible Left atrial enlargement Nonspecific T wave abnormality Abnormal ECG
[2018-09-15] MEDS: metroNIDAZOLE IV 500 mg/100 ml 500 MG/100 ML BAG IVPB SCH (21:40)
[2018-09-15] MEDS: Dextrose 5%/0.9% NS 1,000 ML IV SCH (21:42)
[2018-09-15] MEDS: Vancomycin 25 MG/ML PO SCH (21:52)
[2018-09-16] MEDS ORDERED: Vancomycin 25 MG/ML PO SCH
[2018-09-16] MEDS: Albuterol-Ipratrop 3 mg / 0.5 (3 ml) UD IH SCH ×5 (05:01→19:19)
[2018-09-16] MEDS: metroNIDAZOLE IV 500 mg/100 ml 500 MG/100 ML BAG IVPB SCH ×3 (05:16→22:12)
[2018-09-16 07:05] LABS: HEMOGLOBIN 8.9 g/dL (12.0-16.0); MEAN CORPUSCULAR HEMOGLOBIN 25.6 pg (25.0-35.0); MEAN CORPUSCULAR HGB CONC 30.9 g/dl (31.0-37.0); MEAN PLATELET VOLUME 8.6 fl (7.0-11.0); RBC 3.47 10^6/uL (3.5-6.1); RED CELL DISTRIBUTION WIDTH 16.4 % (11.5-14.5); WHITE BLOOD COUNT 16.8 10^3/uL (4.5-11.0)
[2018-09-16 07:45] LABS: ALB/GLOB RATIO 0.8 (1.1-1.8); ALBUMIN 3.4 g/dL (3.0-4.8); CALCIUM 8.7 mg/dL (8.4-10.5)
--- NOTE | 2018-09-16 10:17 | CP.PCM.HP ---
<Addie Yap - Last Filed: 09/16/18 17:38> History of Present Illness - History of Present Illness History of Present Illness: Addie Yap, PGY2, H&P for Dr Rebolledo: CC: sob, diarrhea 83 year old female with PMH of chronic CHF, COPD, HTN, dyslipidemia, history of cervical cancer S/P radiation and hysterectomy, abdominal aortic aneurysm, S/P cholecystectomy, S/P left hip surgery for fracture came in from [facility] for diarrhea. She was [place] [facility] [place] exacerb[place] and cdiff. She currently feels weak and tired, denies fever or chills, abdominal pain, dysuria, hematuria, headache or dizziness, chest pain, SOB, cough or rhinorrhea, abdominal pain. CT abd pelvis showed right sided double J ureteral stent, persistent moderate hydronephrosis, mild renal cortical atrophy, nonspecific perinephric stranding. overly distended normal urinary bladder. Concern for aspiration pneumonia in lung bases. 12 point ROS obtained and negative, except as per HPI. PMH: chronic CHF, COPD, HTN, dyslipidemia, history of cervical cancer S/P radiation and hysterectomy, abdominal aortic aneurysm, S/P cholecystectomy, S/P left hip surgery for fracture PSH: cholecystectomy (1990), left hip surgery NKA FH: Father, unknown Mother, cancer Sister, alzheimer's SH: lives alone, has "helpful neighbors." Currently at [facility]. Quit smoking 10 days ago, prior 1-2 ppd x50-60 years. Denies alcohol, recreational drug use. Uses a walker at home. Present on Admission - Present on Admission Any Indicators Present on Admission: No History of DVT/PE: No History of Uncontrolled Diabetes: No Urinary Catheter: No Decubitus Ulcer Present: No Review of Systems - Review of Systems All systems: reviewed and no additional remarkable complaints except Review of Systems: as per HPI Past Patient History - Infectious Disease Hx of Infectious Diseases: C.diff - Tetanus Immunizations Tetanus Immunization: Unknown - Past Social History Smoking Status: Light Smoker < 10 Cigarettes Daily - CARDIAC Hx Cardiac Disorders: Yes Hx Congestive Heart Failure: Yes Hx Hypertension: Yes - PULMONARY Hx Respiratory Disorders: Yes Hx Bronchitis: Yes Hx Chronic Obstructive Pulmonary Disease (COPD): Yes Hx Pneumonia: Yes Hx Respiratory Tract Infection: Yes - NEUROLOGICAL Hx Dizziness: Yes - HEENT Hx HEENT Problems: Yes Hx Cataracts: Yes Hx Macular Degeneration: Yes - RENAL Hx Renal Failure: No - ENDOCRINE/METABOLIC Hx Endocrine Disorders: No - HEMATOLOGICAL/ONCOLOGICAL Hx Blood Disorders: Yes Hx Cancer: Yes (ovarian CA with surgeries and radiation) - INTEGUMENTARY Hx Dermatological Problems: Yes (HYPOPIGMENTATION-WHITISH SKIN DISCOLORATION. SCARRING TO LEFT ARM,R ARM,LE) Hx Basil Cell: No Hx Eczema: No Hx Melanoma: No Hx Psoriasis: No Hx Squamous Cell: No - MUSCULOSKELETAL/RHEUMATOLOGICAL Hx Arthritis: Yes Hx Back Pain: Yes Hx Falls: Yes Hx Fractures: Yes (left hip) Hx Gout: Yes Hx Osteoarthritis: Yes Hx Unsteady Gait: Yes - GASTROINTESTINAL Hx Gastrointestinal Disorders: Yes (CONSTIPATION) Hx Colostomy: No Hx Crohn's Disease: No Hx Diverticulitis: No Hx Gall Bladder Disease: Yes (CHOLECYSTECTOMY,) Hx Gastroesophageal Reflux: Yes Hx Ileostomy: No Hx Liver Failure: No Hx Pancreatitis: No HX Swallowing Problems: No Other/Comment: c-diff precaution - GENITOURINARY/GYNECOLOGICAL Hx Hematuria: Yes Hx Urinary Tract Infection: Yes - PSYCHIATRIC Hx Anxiety: Yes - SURGICAL HISTORY Hx Surgeries: Yes (right kidney stent hysterectomy) Hx Hysterectomy: Yes - ANESTHESIA Hx Anesthesia: Yes Hx Anesthesia Reactions: No Hx Malignant Hyperthermia: No Meds Allergies/Adverse Reactions: Allergies Allergy/AdvReac Type Severity Reaction Status Date / Time No Known Allergies Allergy Verified 09/03/18 12:35 Physical Exam - Constitutional Appears: Non-toxic, No Acute Distress - Head Exam Head Exam: ATRAUMATIC, NORMOCEPHALIC - Eye Exam Eye Exam: EOMI, PERRL. absent: Conjunctival injection, Nystagmus, Periorbital tenderness, Scleral icterus Pupil Exam: PERRL. absent: Miosis - ENT Exam ENT Exam: Mucous Membranes Moist - Neck Exam Neck exam: Positive for: Full Rom - Respiratory Exam Respiratory Exam: Clear to Auscultation Bilateral. absent: Accessory Muscle Use, Wheezes, Respiratory Distress - Cardiovascular Exam Cardiovascular Exam: RRR, +S1, +S2. absent: Systolic Murmur - GI/Abdominal Exam GI & Abdominal Exam: Normal Bowel Sounds, Soft. absent: Distended, Organomegaly, Pulsatile Mass, Rebound, Rigid - Extremities Exam Extremities exam: Positive for: normal inspection. Negative for: calf tenderness, pedal edema - Back Exam Back exam: NORMAL INSPECTION - Neurological Exam Neurological exam: Alert, Oriented x3 - Skin Skin Exam: Dry, Normal Color, Warm Results - Vital Signs Recent Vital Signs: Last Vital Signs Temp 97.8 F 09/16/18 07:56 Pulse 69 09/16/18 07:56 Resp 20 09/16/18 07:56 BP 127/59 L 09/16/18 07:56 Pulse Ox 95 09/16/18 07:56 - Labs Result Diagrams: 09/16/18 06:00 09/16/18 06:00 Labs: Laboratory Results - last 24 hr 09/15/18 09/15/18 09/15/18 13:00 13:00 13:00 WBC 26.7 H* D RBC 3.67 Hgb 9.6 L Hct 30.6 L MCV 83.4 MCH 26.2 MCHC 31.4 RDW 16.3 H Plt Count 311 MPV 8.7 Neut % (Auto) 87.8 H Lymph % (Auto) 6.8 L [place] % (Auto) 5.3 Eos % (Auto) 0.0 L Baso % (Auto) 0.1 Lymph # (Auto) 1.8 [place] # (Auto) 1.4 H Eos # (Auto) 0.0 Baso # (Auto) 0.02 Absolute Neuts (auto) 23.48 H Neutrophils % (Manual) 88 H Lymphocytes % (Manual) 7 L Monocytes % (Manual) 5 Platelet Evaluation Normal Hypochromasia 1+ Anisocytosis (manual) 1+ Microcytosis (manual) 1+ PT 17.5 H INR 1.58 APTT 36.2 Sodium 136 Potassium 5.8 H* D Chloride 107 Carbon Dioxide 14 L Anion Gap 21 H BUN 101 H Creatinine 6.2 H Est GFR ( Amer) 8 Est GFR (Non-Af Amer) 6 Random Glucose 104 Calcium 9.3 Phosphorus Magnesium 1.7 Total Bilirubin 0.6 AST 22 ALT < 6 L Alkaline Phosphatase 83 Lactate Dehydrogenase 735 H Total Creatine Kinase 29 L Troponin I 0.02 NT-Pro-B Natriuret Pep 48049 H Total Protein 8.2 Albumin 3.8 Globulin 4.4 Albumin/Globulin Ratio 0.9 L Lipase 219 Urine Color Urine Appearance Urine pH Ur Specific [place] Urine Protein Urine Glucose (UA) Urine Ketones Urine Blood Urine Nitrate Urine Bilirubin Urine Urobilinogen Ur Leukocyte Esterase Urine RBC Urine WBC Ur Epithelial Cells Amorphous Sediment Urine Bacteria 09/15/18 09/16/18 09/16/18 14:35 06:00 06:00 WBC 16.8 H D RBC 3.47 L Hgb 8.9 L Hct 28.8 L MCV 83.0 MCH 25.6 MCHC 30.9 L RDW 16.4 H Plt Count 290 MPV 8.6 Neut % (Auto) Lymph % (Auto) [place] % (Auto) Eos % (Auto) Baso % (Auto) Lymph # (Auto) [place] # (Auto) Eos # (Auto) Baso # (Auto) Absolute Neuts (auto) Neutrophils % (Manual) Lymphocytes % (Manual) Monocytes % (Manual) Platelet Evaluation Hypochromasia Anisocytosis (manual) Microcytosis (manual) PT INR APTT Sodium 138 Potassium 5.0 Chloride 109 H Carbon Dioxide 15 L Anion Gap 19 BUN 101 H Creatinine 5.8 H Est GFR ( Amer) 8 Est GFR (Non-Af Amer) 7 Random Glucose 205 H Calcium 8.7 Phosphorus 7.2 H Magnesium 1.7 Total Bilirubin 0.3 AST 20 ALT 8 Alkaline Phosphatase 69 Lactate Dehydrogenase Total Creatine Kinase Troponin I NT-Pro-B Natriuret Pep Total Protein 7.6 Albumin 3.4 Globulin 4.2 Albumin/Globulin Ratio 0.8 L Lipase Urine Color yellow Urine Appearance Slight-cloudy Urine pH 6.5 Ur Specific [place] 1.020 Urine Protein 100 H Urine Glucose (UA) Negative Urine Ketones Negative Urine Blood Large H Urine Nitrate Negative Urine Bilirubin Negative Urine Urobilinogen 0.2 Ur Leukocyte Esterase Moderate H Urine RBC Tntc H Urine WBC Tntc H Ur Epithelial Cells 3 - 4 Amorphous Sediment Moderate Urine Bacteria Trace Assessment & Plan - Assessment and Plan (Free Text) Assessment: 1. Sepsis 2. Diarrhea, r/o c diff 3. JAMI 4. UTI 5. Hypovolemia 6. Distended urinary bladder 7. Hx of COPD 8. Hx of HTN Obtain cdiff specimen. Will start IV Flagyl and PO Vancomycin. ID is consulted. Dr Lau consulted, put in vaughn catheter, will maintain strict I&Os. Will provide duonebs elizabeth. Monitor renal function. Will hold anti-HTN in setting of sepsis. Start heart healthy diet. Obtain Physical therapy evaluation. PPX: Pepcid, SCDs Case discussed with Dr Rebolledo. <Ede Rebolledo S - Last Filed: 09/16/18 20:59> Results - Vital Signs Recent Vital Signs: Last Vital Signs Temp 97.5 F L 09/16/18 17:10 Pulse 84 09/16/18 17:10 Resp 20 09/16/18 17:10 BP 133/60 09/16/18 17:10 Pulse Ox 93 L 09/16/18 17:10 - Labs Result Diagrams: 09/16/18 06:00 09/16/18 06:00 Labs: Laboratory Results - last 24 hr 09/16/18 09/16/18 09/16/18 06:00 06:00 06:00 WBC 16.8 H D RBC 3.47 L Hgb 8.9 L Hct 28.8 L MCV 83.0 MCH 25.6 MCHC 30.9 L RDW 16.4 H Plt Count 290 MPV 8.6 Sodium 138 Potassium 5.0 Chloride 109 H Carbon Dioxide 15 L Anion Gap 19 BUN 101 H Creatinine 5.8 H Est GFR ( Amer) 8 Est GFR (Non-Af Amer) 7 Random Glucose 205 H Calcium 8.7 Phosphorus 7.2 H Magnesium 1.7 Total Bilirubin 0.3 AST 20 ALT 8 Alkaline Phosphatase 69 Total Protein 7.6 Albumin 3.4 Globulin 4.2 Albumin/Globulin Ratio 0.8 L Procalcitonin 4.38 H Assessment & Plan - Assessment and Plan (Free Text) Assessment: Pt seen and examined by me. I have reviewed the note of the medical records custodian and I agree with it. I have discussed the assessment and plan with the resident. I have reviewed the medications and the last labs.
[2018-09-16] MEDS: Vancomycin 25 MG/ML PO SCH ×4 (10:34→22:09)
[2018-09-16] MEDS: Dextrose 5%/0.9% NS 1,000 ML IV SCH (10:36)
--- NOTE | 2018-09-16 15:59 | CP.PCM.CON ---
History of Present Illness - History of Present Illness History of Present Illness: 83 year old female with PMH of chronic CHF, COPD, HTN, dyslipidemia, history of cervical cancer S/P radiation and hysterectomy, abdominal aortic aneurysm, S/P cholecystectomy, S/P left hip surgery for fracture [place]. She was recently in [facility] [place]F exacerbation. She currently feels weak and tired, denies fever or chills, no abdominal pain, no diarrhea is improving, no dysuria, no headache or dizziness, no chest pain, no SOB, no cough or rhinorrhea, no abdominal pain. Infectious Diseases consult is requested to further evaluate and manage. Review of Systems - Review of Systems All systems: reviewed and no additional remarkable complaints except (as per HPI) Past Patient History - Infectious Disease Hx of Infectious Diseases: C.diff - Tetanus Immunizations Tetanus Immunization: Unknown - Past Social History Smoking Status: Light Smoker < 10 Cigarettes Daily - CARDIAC Hx Cardiac Disorders: Yes Hx Congestive Heart Failure: Yes Hx Hypertension: Yes - PULMONARY Hx Respiratory Disorders: Yes Hx Bronchitis: Yes Hx Chronic Obstructive Pulmonary Disease (COPD): Yes Hx Pneumonia: Yes Hx Respiratory Tract Infection: Yes - NEUROLOGICAL Hx Dizziness: Yes - HEENT Hx HEENT Problems: Yes Hx Cataracts: Yes Hx Macular Degeneration: Yes - RENAL Hx Renal Failure: No - ENDOCRINE/METABOLIC Hx Endocrine Disorders: No - HEMATOLOGICAL/ONCOLOGICAL Hx Blood Disorders: Yes Hx Cancer: Yes (ovarian CA with surgeries and radiation) - INTEGUMENTARY Hx Dermatological Problems: Yes (HYPOPIGMENTATION-WHITISH SKIN DISCOLORATION. SCARRING TO LEFT ARM,R ARM,LE) Hx Basil Cell: No Hx Eczema: No Hx Melanoma: No Hx Psoriasis: No Hx Squamous Cell: No - MUSCULOSKELETAL/RHEUMATOLOGICAL Hx Arthritis: Yes Hx Back Pain: Yes Hx Falls: Yes Hx Fractures: Yes (left hip) Hx Gout: Yes Hx Osteoarthritis: Yes Hx Unsteady Gait: Yes - GASTROINTESTINAL Hx Gastrointestinal Disorders: Yes (CONSTIPATION) Hx Colostomy: No Hx Crohn's Disease: No Hx Diverticulitis: No Hx Gall Bladder Disease: Yes (CHOLECYSTECTOMY,) Hx Gastroesophageal Reflux: Yes Hx Ileostomy: No Hx Liver Failure: No Hx Pancreatitis: No HX Swallowing Problems: No Other/Comment: c-diff precaution - GENITOURINARY/GYNECOLOGICAL Hx Hematuria: Yes Hx Urinary Tract Infection: Yes - PSYCHIATRIC Hx Anxiety: Yes - SURGICAL HISTORY Hx Surgeries: Yes (right kidney stent hysterectomy) Hx Hysterectomy: Yes - ANESTHESIA Hx Anesthesia: Yes Hx Anesthesia Reactions: No Hx Malignant Hyperthermia: No Meds Allergies/Adverse Reactions: Allergies Allergy/AdvReac Type Severity Reaction Status Date / Time No Known Allergies Allergy Verified 09/03/18 12:35 - Medications Medications: Current Medications Albuterol/Ipratropium (Duoneb 3 Mg/0.5 Mg (3 Ml) Ud) 3 ml IH [id number] MIKEL Last Admin: 09/16/18 05:01 Dose: 3 ml Dextrose/Sodium Chloride (Dextrose 5%/0.9% Ns 1000 Ml) 1,000 mls @ 100 mls/hr IV .Q10H MIKEL Stop: 09/16/18 14:29 Last Admin: 09/15/18 21:42 Dose: 100 mls/hr Metronidazole (Flagyl) 500 mg in 100 mls @ 100 mls/hr IVPB Q8 MIKEL; Protocol Stop: 09/24/18 22:01 Last Admin: 09/16/18 05:16 Dose: 100 mls/hr Vancomycin HCl (Vancocin 25 Mg/Ml (Oral Use)) 500 mg PO QID MIKEL; Protocol Stop: 09/24/18 22:01 Last Admin: 09/15/18 21:52 Dose: 500 mg Physical Exam - Constitutional Appears: Chronically Ill - Head Exam Head Exam: NORMAL INSPECTION - ENT Exam ENT Exam: Mucous Membranes Moist - Neck Exam Neck exam: Negative for: Meningismus - Respiratory Exam Respiratory Exam: Decreased Breath Sounds - Cardiovascular Exam Cardiovascular Exam: +S1, +S2 - GI/Abdominal Exam GI & Abdominal Exam: Soft. absent: Tenderness Results - Vital Signs Recent Vital Signs: Last Vital Signs Temp 98.2 F 09/15/18 19:41 Pulse 61 09/16/18 06:00 Resp 19 09/15/18 19:41 BP 129/63 09/15/18 19:41 Pulse Ox 94 L 09/15/18 19:41 - Labs Result Diagrams: 09/16/18 06:00 09/16/18 06:00 Labs: Laboratory Results - last 24 hr 09/15/18 09/15/18 09/15/18 13:00 13:00 13:00 WBC 26.7 H* D RBC 3.67 Hgb 9.6 L Hct 30.6 L MCV 83.4 MCH 26.2 MCHC 31.4 RDW 16.3 H Plt Count 311 MPV 8.7 Neut % (Auto) 87.8 H Lymph % (Auto) 6.8 L [place] % (Auto) 5.3 Eos % (Auto) 0.0 L Baso % (Auto) 0.1 Lymph # (Auto) 1.8 [place] # (Auto) 1.4 H Eos # (Auto) 0.0 Baso # (Auto) 0.02 Absolute Neuts (auto) 23.48 H Neutrophils % (Manual) 88 H Lymphocytes % (Manual) 7 L Monocytes % (Manual) 5 Platelet Evaluation Normal Hypochromasia 1+ Anisocytosis (manual) 1+ Microcytosis (manual) 1+ PT 17.5 H INR 1.58 APTT 36.2 Sodium 136 Potassium 5.8 H* D Chloride 107 Carbon Dioxide 14 L Anion Gap 21 H BUN 101 H Creatinine 6.2 H Est GFR ( Amer) 8 Est GFR (Non-Af Amer) 6 Random Glucose 104 Calcium 9.3 Magnesium 1.7 Total Bilirubin 0.6 AST 22 ALT < 6 L Alkaline Phosphatase 83 Lactate Dehydrogenase 735 H Total Creatine Kinase 29 L Troponin I 0.02 NT-Pro-B Natriuret Pep 61673 H Total Protein 8.2 Albumin 3.8 Globulin 4.4 Albumin/Globulin Ratio 0.9 L Lipase 219 Urine Color Urine Appearance Urine pH Ur Specific [place] Urine Protein Urine Glucose (UA) Urine Ketones Urine Blood Urine Nitrate Urine Bilirubin Urine Urobilinogen Ur Leukocyte Esterase Urine RBC Urine WBC Ur Epithelial Cells Amorphous Sediment Urine Bacteria 09/15/18 09/16/18 14:35 06:00 WBC 16.8 H D RBC 3.47 L Hgb 8.9 L Hct 28.8 L MCV 83.0 MCH 25.6 MCHC 30.9 L RDW 16.4 H Plt Count 290 MPV 8.6 Neut % (Auto) Lymph % (Auto) [place] % (Auto) Eos % (Auto) Baso % (Auto) Lymph # (Auto) [place] # (Auto) Eos # (Auto) Baso # (Auto) Absolute Neuts (auto) Neutrophils % (Manual) Lymphocytes % (Manual) Monocytes % (Manual) Platelet Evaluation Hypochromasia Anisocytosis (manual) Microcytosis (manual) PT INR APTT Sodium Potassium Chloride Carbon Dioxide Anion Gap BUN Creatinine Est GFR ( Amer) Est GFR (Non-Af Amer) Random Glucose Calcium Magnesium Total Bilirubin AST ALT Alkaline Phosphatase Lactate Dehydrogenase Total Creatine Kinase Troponin I NT-Pro-B Natriuret Pep Total Protein Albumin Globulin Albumin/Globulin Ratio Lipase Urine Color yellow Urine Appearance Slight-cloudy Urine pH 6.5 Ur Specific [place] 1.020 Urine Protein 100 H Urine Glucose (UA) Negative Urine Ketones Negative Urine Blood Large H Urine Nitrate Negative Urine Bilirubin Negative Urine Urobilinogen 0.2 Ur Leukocyte Esterase Moderate H Urine RBC Tntc H Urine WBC Tntc H Ur Epithelial Cells 3 - 4 Amorphous Sediment Moderate Urine Bacteria Trace Assessment & Plan - Assessment and Plan (Free Text) Plan: Assessment systemic inflammatory response syndrome with diarrhea, R/O C. diff. history of systemic inflammatory response syndrome, due acute decompensated heart failure, as well as left sided HCAP S/P left hip surgery for fracture chronic CHF history of pneumonia history of urinary tract infection chronic renal failure COPD HTN dyslipidemia history of cervical cancer S/P radiation and hysterectomy abdominal aortic aneurysm S/P cholecystectomy calcifications on the left kidney Plan started patient on PO vancomycin and IV flagyl and follow up sdtool for C. idff. will trend WBC count will monitor clinically
--- NOTE | 2018-09-16 18:21 | PCM.URO ---
Urology Progress Note - Subjective Abdominal Pain: Yes (looks much stephanie//maintain vaughn/dictated) - Objective Lab Results Last 24 Hours: Laboratory Results - last 24 hr 09/16/18 09/16/18 09/16/18 06:00 06:00 06:00 WBC 16.8 H D RBC 3.47 L Hgb 8.9 L Hct 28.8 L MCV 83.0 MCH 25.6 MCHC 30.9 L RDW 16.4 H Plt Count 290 MPV 8.6 Sodium 138 Potassium 5.0 Chloride 109 H Carbon Dioxide 15 L Anion Gap 19 BUN 101 H Creatinine 5.8 H Est GFR ( Amer) 8 Est GFR (Non-Af Amer) 7 Random Glucose 205 H Calcium 8.7 Phosphorus 7.2 H Magnesium 1.7 Total Bilirubin 0.3 AST 20 ALT 8 Alkaline Phosphatase 69 Total Protein 7.6 Albumin 3.4 Globulin 4.2 Albumin/Globulin Ratio 0.8 L Procalcitonin 4.38 H Intake & Output: Intake & Output 09/15/18 09/16/18 09/16/18 18:59 06:59 18:59 Weight 118 lb Vital Signs: Vital Signs - 24 hr 09/15/18 09/15/18 09/15/18 19:06 19:41 22:00 Temperature 98.2 F 98.2 F Pulse Rate 70 74 62 Respiratory 16 19 Rate Blood Pressure 142/74 129/63 O2 Sat by Pulse 98 94 L Oximetry 09/16/18 09/16/18 09/16/18 02:00 06:00 07:56 Temperature 97.8 F Pulse Rate 62 61 69 Respiratory 20 Rate Blood Pressure 127/59 L O2 Sat by Pulse 95 Oximetry 09/16/18 09/16/18 10:00 17:10 Temperature 97.5 F L Pulse Rate 61 84 Respiratory 20 Rate Blood Pressure 133/60 O2 Sat by Pulse 93 L Oximetry
--- NOTE | 2018-09-16 20:36 | OP ---
PROCEDURE DATE: 09/15/2018 PREOPERATIVE DIAGNOSES: Renal failure, urinary retention, atrophic left kidney, hydronephrosis on the right. POSTOPERATIVE DIAGNOSES: Renal failure, urinary retention, atrophic left kidney, hydronephrosis on the right. PROCEDURE: Insertion of Mariscal catheter somewhat. COMPLICATIONS: There were no complications. INDICATION: The patient has been on medication; see the history and physical and consultation; for a longstanding history, her left kidney is atrophic, her right kidney has hydronephrosis now and her renal failure is new in onset. DESCRIPTION OF PROCEDURE: So, under sterile technique, we inserted a Mariscal catheter. I explained to the patient our plan. We inserted a Mariscal catheter with a large volume and cloudy-appearing urine with purulence of drainage. At this point, we left the Mariscal to straight drainage. See the history and physical and the consultation. The plan is as follows, drainage, antibiotics. We will follow the BUN and creatinine, will follow ultrasound and make sure that there is no further hydronephrosis and then further plans will follow. Her last stent change was in 06/2018, so she is scheduled for 09/2018, but if we need to do it earlier we will, but first we are going to see if this will improve just with the Mariscal, the issue may just be retention rather than the hydronephrosis, maybe secondary to retention because she always has chronic hydronephrosis and does not have renal failure on a regular basis. Jareth Lau MD
--- NOTE | 2018-09-16 21:20 | CON ---
DATE: 09/15/2018 UROLOGY PROGRESS NOTE REASON FOR CONSULTATION: Hydronephrosis and renal failure. HISTORY OF PRESENT ILLNESS: She is a very pleasant lady, 83 years old who I know quite well. I change her stent on an every 3-month basis. Her left kidney does not work, it is an atrophic kidney. Her right kidney has been sustaining her. She actually now comes in with a creatinine of 6, see below. She was in a retirement, not thriving. Apparently, they transferred her back here. See below, after we inserted a Mariscal catheter and we obtained cloudy urine. She is being admitted to Dr. Rebolledo's Service with basically exacerbation of her COPD and also with renal failure. See the labs as listed below with the elevated caffeine, etc. PAST MEDICAL HISTORY AND SURGICAL HISTORY: As listed on the chart. She used to be a patient of Dr. Wilson Rey and she is currently a patient under the care of Dr. Rebolledo. From a Urology standpoint, this is a very pleasant lady. She does not come to the office at all. She only just comes to the hospital when she is not feeling well and we just change her stent every couple of months and this has been sustaining her well. SOCIAL HISTORY: She lives alone. She takes care of herself. She has some family help, children, grandchildren, etc., but mostly, she is on her own. The last time she was in the hospital, the decision was to get her to have her recover and rehab through [facility] where she was residing. MEDICATIONS: See the chart. ALLERGIES: SEE THE CHART. REVIEW OF SYSTEMS: See the chart. PHYSICAL EXAMINATION GENERAL: A well-nourished female. She is actually very tired, but she is responsive. When I woke her up, she was alert and oriented x3, but she was pretty tired initially, but alert and responds to questions well and alert and oriented x3. GENITOURINARY: It is difficult to evaluate her abdominal distention. We inserted a Mariscal catheter without difficulty. See separately dictated procedure note. DIAGNOSES: 1. Right hydronephrosis. 2. Atrophic kidney. 3. Renal failure. 4. Hematuria. 5. Probable retention. 6. Acute urinary retention. 7. Potential sepsis. 8. Chronic obstructive pulmonary disease. ASSESSMENT AND PLAN: A very pleasant lady, she is a 83 years old with multiple medical issues with the above history. The Urology plan is as follows; We put in a Mariscal catheter tonight. We will see how this resolves before acting further and changing the stent. Her left stent was just changed in 06/2018, that she is at 2 months at this point. We have a scheduled date for September. We may need time to change her, but it is possible that it is just urinary retention causing trouble. So at this point, we inserted a Mariscal catheter, see separately dictated procedure note. PLAN: 1. Antibiotics. 2. Maintain a Mariscal. 3. Further plans will follow. Jareth Lau MD
--- NOTE | 2018-09-16 23:30 | HP ---
DATE OF EXAM: 09/16/2018 HISTORY OF PRESENT ILLNESS: The patient was seen and examined. I did review the note of the medical transport specialist and I do agree with it. I went over the patient's assessment and plan of care. The patient is an 83-year-old female who is coming from [facility]. She was not eating well, having diarrhea. She was not participating in physical therapy. She was brought into the ER for further evaluation. The patient was found to be septic and have acute kidney injury and that she was felt to be hypovolemic she was started on IV fluids. She was given antibiotics with Flagyl and vancomycin. ID and Urology were consulted. She has a history of the right renal stent secondary to obstruction. She has a left chronic hydro with renal atrophy. She has underlying chronic kidney disease. LABORATORY DATA: The patient had a repeat blood work and her white count has been improving. Hemoglobin is 6.8, her hemoglobin has decreased from 8.9. She was hypoxemic on admission to the hospital and that has improved as well and her potassium is 5. The patient's creatinine is about the same, it was 6.2 on admission and it was 5.8 on repeat blood work this morning. She had the urine cultures that have been sent. She has UA that is abnormal, but she does have a stent and so I do not think she has UTI causing her sepsis. IMPRESSION AND PLAN: I think she most likely has a C. difficile and that is the cause of her sepsis. She is going to be placed on nebulizer treatments. She is going to be on a heart-healthy diet. She does have a Mariscal that was placed to help with diuresis and if in case she has an obstruction, we will have to repeat the patient's blood work tomorrow. Ede Rebolledo MD
--- NOTE | 2018-09-17 01:11 | CP.PCM.PN ---
Subjective - Date & Time of Evaluation Date of Evaluation: 09/17/18 Time of Evaluation: 01:10 - Subjective Subjective: TBD II headache. Rx, tylenol Objective - Vital Signs/Intake and Output Vital Signs (last 24 hours): Temp Pulse Resp BP Pulse Ox 97.5 F L 99 H 20 133/60 93 L 09/16/18 17:10 09/16/18 22:00 09/16/18 17:10 09/16/18 17:10 09/16/18 17:10 Intake and Output: 09/16/18 09/17/18 18:59 06:59 Intake Total 900 960 Output Total 800 800 Balance 100 160 - Medications Medications: Current Medications Acetaminophen (Tylenol 325mg Tab) 650 mg PO Q6H PRN PRN Reason: Headache Last Admin: 09/16/18 22:43 Dose: 650 mg Albuterol/Ipratropium (Duoneb 3 Mg/0.5 Mg (3 Ml) Ud) 3 ml IH [id number] MIKEL Last Admin: 09/16/18 19:19 Dose: 3 ml Famotidine (Pepcid) 20 mg IVP DAILY [facility] Last Admin: 09/16/18 18:32 Dose: 20 mg Metronidazole (Flagyl) 500 mg in 100 mls @ 100 mls/hr IVPB Q8 MIKEL; Protocol Stop: 09/24/18 22:01 Last Admin: 09/16/18 22:12 Dose: 100 mls/hr Vancomycin HCl (Vancocin 25 Mg/Ml (Oral Use)) 500 mg PO QID [facility]KEL; Protocol Stop: 09/24/18 22:01 Last Admin: 09/16/18 22:09 Dose: 500 mg - Labs Labs: 09/16/18 06:00 09/16/18 06:00 PT 17.5 SECONDS (9.4-12.5) H 09/15/18 13:00 INR 1.58 09/15/18 13:00 APTT 36.2 Seconds (26.9-38.3) 09/15/18 13:00
[2018-09-17] MEDS: Albuterol-Ipratrop 3 mg / 0.5 (3 ml) UD IH SCH ×7 (04:00→19:00)
[2018-09-17] MEDS: metroNIDAZOLE IV 500 mg/100 ml 500 MG/100 ML BAG IVPB SCH ×3 (05:22→21:19)
[2018-09-17 06:33] LABS: MEAN CELL VOLUME 83.3 fl (80.0-105.0); MEAN CORPUSCULAR HEMOGLOBIN 25.6 pg (25.0-35.0); MEAN CORPUSCULAR HGB CONC 30.8 g/dl (31.0-37.0); MEAN PLATELET VOLUME 8.2 fl (7.0-11.0); RBC 3.12 10^6/uL (3.5-6.1); RED CELL DISTRIBUTION WIDTH 16.8 % (11.5-14.5); WHITE BLOOD COUNT 19.1 10^3/uL (4.5-11.0)
[2018-09-17 06:57] LABS: ALB/GLOB RATIO 0.8 (1.1-1.8); ALBUMIN 3.2 g/dL (3.0-4.8); CALCIUM 8.1 mg/dL (8.4-10.5)
--- NOTE | 2018-09-17 07:39 | CP.PCM.PN ---
<Addie Yap - Last Filed: 09/17/18 12:29> Subjective - Date & Time of Evaluation Date of Evaluation: 09/17/18 Time of Evaluation: 07:39 - Subjective Subjective: Addie Yap, PGY2, Medicine Progress Note for Dr Rebolledo: Patient seen and examined at bedside. No acute events overnight. Patient reports no diarrhea episodes in past 24 hours. Denies fevers, chills, nausea, vomiting. States that she would like to go home, refusing [facility] rehab currently. States that she feels anxious as well. Objective - Vital Signs/Intake and Output Vital Signs (last 24 hours): Temp Pulse Resp BP Pulse Ox 97.3 F L 83 20 137/63 93 L 09/16/18 22:00 09/17/18 06:00 09/16/18 22:00 09/16/18 22:00 09/16/18 17:10 Intake and Output: 09/17/18 09/17/18 06:59 18:59 Intake Total 960 Output Total 800 Balance 160 - Medications Medications: Current Medications Acetaminophen (Tylenol 325mg Tab) 650 mg PO Q6H PRN PRN Reason: Headache Last Admin: 09/16/18 22:43 Dose: 650 mg Albuterol/Ipratropium (Duoneb 3 Mg/0.5 Mg (3 Ml) Ud) 3 ml IH [id number] [facility] Last Admin: 09/17/18 04:00 Dose: Not Given Famotidine (Pepcid) 20 mg IVP DAILY [facility] Last Admin: 09/16/18 18:32 Dose: 20 mg Metronidazole (Flagyl) 500 mg in 100 mls @ 100 mls/hr IVPB Q8 MIKEL; Protocol Stop: 09/24/18 22:01 Last Admin: 09/17/18 05:22 Dose: 100 mls/hr Vancomycin HCl (Vancocin 25 Mg/Ml (Oral Use)) 500 mg PO QID [facility]; Protocol Stop: 09/24/18 22:01 Last Admin: 09/16/18 22:09 Dose: 500 mg - Labs Labs: 09/17/18 06:00 09/17/18 06:00 PT 17.5 SECONDS (9.4-12.5) H 09/15/18 13:00 INR 1.58 09/15/18 13:00 APTT 36.2 Seconds (26.9-38.3) 09/15/18 13:00 - Additional Findings Additional findings: - Constitutional Appears: Non-toxic, No Acute Distress - Head Exam Head Exam: ATRAUMATIC, NORMOCEPHALIC - Eye Exam Eye Exam: EOMI, PERRL. absent: Conjunctival injection, Nystagmus, Periorbital tenderness, Scleral icterus Pupil Exam: PERRL. absent: Miosis - ENT Exam ENT Exam: Mucous Membranes Moist - Neck Exam Neck exam: Positive for: Full Rom - Respiratory Exam Respiratory Exam: Clear to Auscultation Bilateral. absent: Accessory Muscle Use, Wheezes, Respiratory Distress - Cardiovascular Exam Cardiovascular Exam: RRR, +S1, +S2. absent: Systolic Murmur - GI/Abdominal Exam GI & Abdominal Exam: Normal Bowel Sounds, Soft. absent: Distended, Organomegaly, Pulsatile Mass, Rebound, Rigid - Extremities Exam Extremities exam: Positive for: normal inspection. Negative for: calf tenderness, pedal edema - Back Exam Back exam: NORMAL INSPECTION - Neurological Exam Neurological exam: Alert, Oriented x3 - Skin Skin Exam: Dry, Normal Color, Warm Assessment and Plan - Assessment and Plan (Free Text) Assessment: 1. Sepsis 2. Diarrhea, r/o c diff 3. JAMI 4. Hypovolemia 5. Distended urinary bladder 6. COPD 7. HTN 8. elevated procal Patient on IV Flagyl and PO Vancomycin as per ID, will continue the regimen. Patient does not have any more diarrheal episodes, unable to obtain specimen for cdiff. JAMI is improving, will monitor. Dr Lau consulted for urinary retention, put in vaughn catheter, will maintain strict I&Os. Discussed with Dr Lau regarding penitentiary care, it seems that patient will likely go to rehab on vaughn cathether. Continue with duonebs. Will hold anti-HTN in setting of sepsis. Will add Xanax for anxiety. Will consult [facility] for advanced directive. Continue with heart healthy diet. Physical therapy evaluation recommends subacute rehab. PPX: Pepcid, SCDs Case discussed with Dr Rebolledo. <Ede Rebolledo - Last Filed: 09/18/18 06:03> Objective - Vital Signs/Intake and Output Vital Signs (last 24 hours): Temp Pulse Resp BP Pulse Ox 98.2 F 90 19 130/66 90 L 09/17/18 22:00 09/17/18 22:00 09/17/18 16:27 09/17/18 22:00 09/17/18 16:27 Intake and Output: 09/17/18 09/18/18 18:59 06:59 Intake Total 780 Output Total 900 Balance -120 - Medications Medications: Current Medications Acetaminophen (Tylenol 325mg Tab) 650 mg PO Q6H PRN PRN Reason: Headache Last Admin: 09/17/18 20:07 Dose: 650 mg Albuterol/Ipratropium (Duoneb 3 Mg/0.5 Mg (3 Ml) Ud) 3 ml IH [id number] [facility] Last Admin: 09/17/18 19:00 Dose: Not Given Alprazolam (Xanax) 0.25 mg PO BID PRN; Protocol PRN Reason: Anxiety Stop: 09/24/18 10:01 Last Admin: 09/18/18 03:38 Dose: 0.25 mg Famotidine (Pepcid) 20 mg PO DAILY [facility] Metronidazole (Flagyl) 500 mg in 100 mls @ 100 mls/hr IVPB Q8 [facility]; Protocol Stop: 09/24/18 22:01 Last Admin: 09/18/18 05:13 Dose: 100 mls/hr Vancomycin HCl (Vancocin 25 Mg/Ml (Oral Use)) 500 mg PO QID [facility]; Protocol Stop: 09/24/18 22:01 Last Admin: 09/17/18 22:28 Dose: 500 mg Zolpidem Tartrate (Ambien) 5 mg PO HS PRN; Protocol PRN Reason: Insomnia - Labs Labs: 09/17/18 06:00 09/17/18 06:00 PT 17.5 SECONDS (9.4-12.5) H 09/15/18 13:00 INR 1.58 09/15/18 13:00 APTT 36.2 Seconds (26.9-38.3) 09/15/18 13:00 Assessment and Plan - Assessment and Plan (Free Text) Assessment: Pt seen and examined by me. I have reviewed the note of the medical claims examiner and I agree with it. I have discussed the assessment and plan with the resident. I have reviewed the medications and the last labs. Spoke to family and gave update. She has sepsis and JAMI. Spoke to Dr Lau. She has a vaughn for her urinary retention. Xanax added for anxiety. She is not interested in going to rehab.
[2018-09-17 08:44] LABS: IRON 48 ug/dL (45-180)
[2018-09-17 08:53] LABS: % IRON SATURATION 29 % (20-55); TOTAL IRON BINDING CAPACITY 165 ug/dL (265-497)
[2018-09-17] MEDS: Vancomycin 25 MG/ML PO SCH ×4 (10:51→22:28)
--- NOTE | 2018-09-17 12:13 | CP.PCM.CON ---
History of Present Illness - History of Present Illness History of Present Illness: Palliative consult requested by Dr Antelmo Rebolledo Reason:Goals of care and advance care planning 83 year old female with history of CHF, COPD, HTN who was sent from [facility] because of diarrhea. She was recently hospitalized on 09/08/18 with CHF exacerbation on She denied fever, chills,dysuria, headache,chest pain, abdominal pain, headache. CT of Abdomen: right sided double J ureteral stent insitu, persistent moderate hydronephrosis, mild renal cortical atrophy. Severe left hydronephrosis and severe renal cortical atrophy. Gas in ascending and transverse colon, no evidence of diverticulitis. Bilobed fusiform infrarenal aortic aneurysm. Tree bud opacities in left lower lobes most compatible with infectious bronchiolitis and pneumonia. PMH: CHF,COPD, HTN, cervical cancer s/p chemotherapy , AAA, left hip fracture PSH: hysterectomy, cholecystectomy, L hip ORIF Family History: Non contributory Social History: Current smoker, denies alcohol or drug us. Lives alone. Advance Care Planning: The patient has an Advanced Directive. Review of Systems: Asper HPI, 12 point review otherwise negative Past Patient History - Infectious Disease Hx of Infectious Diseases: C.diff - Tetanus Immunizations Tetanus Immunization: Unknown - Past Social History Smoking Status: Light Smoker < 10 Cigarettes Daily - CARDIAC Hx Cardiac Disorders: Yes Hx Congestive Heart Failure: Yes Hx Hypertension: Yes - PULMONARY Hx Respiratory Disorders: Yes Hx Bronchitis: Yes Hx Chronic Obstructive Pulmonary Disease (COPD): Yes Hx Pneumonia: Yes Hx Respiratory Tract Infection: Yes - NEUROLOGICAL Hx Dizziness: Yes - HEENT Hx HEENT Problems: Yes Hx Cataracts: Yes Hx Macular Degeneration: Yes - RENAL Hx Renal Failure: No - ENDOCRINE/METABOLIC Hx Endocrine Disorders: No - HEMATOLOGICAL/ONCOLOGICAL Hx Blood Disorders: Yes Hx Cancer: Yes (ovarian CA with surgeries and radiation) - INTEGUMENTARY Hx Dermatological Problems: Yes (HYPOPIGMENTATION-WHITISH SKIN DISCOLORATION. SCARRING TO LEFT ARM,R ARM,LE) Hx Basil Cell: No Hx Eczema: No Hx Melanoma: No Hx Psoriasis: No Hx Squamous Cell: No - MUSCULOSKELETAL/RHEUMATOLOGICAL Hx Arthritis: Yes Hx Back Pain: Yes Hx Falls: Yes Hx Fractures: Yes (left hip) Hx Gout: Yes Hx Osteoarthritis: Yes Hx Unsteady Gait: Yes - GASTROINTESTINAL Hx Gastrointestinal Disorders: Yes (CONSTIPATION) Hx Colostomy: No Hx Crohn's Disease: No Hx Diverticulitis: No Hx Gall Bladder Disease: Yes (CHOLECYSTECTOMY,) Hx Gastroesophageal Reflux: Yes Hx Ileostomy: No Hx Liver Failure: No Hx Pancreatitis: No HX Swallowing Problems: No Other/Comment: c-diff precaution - GENITOURINARY/GYNECOLOGICAL Hx Hematuria: Yes Hx Urinary Tract Infection: Yes - PSYCHIATRIC Hx Anxiety: Yes - SURGICAL HISTORY Hx Surgeries: Yes (right kidney stent hysterectomy) Hx Hysterectomy: Yes - ANESTHESIA Hx Anesthesia: Yes Hx Anesthesia Reactions: No Hx Malignant Hyperthermia: No Meds Allergies/Adverse Reactions: Allergies Allergy/AdvReac Type Severity Reaction Status Date / Time No Known Allergies Allergy Verified 09/03/18 12:35 - Medications Medications: Current Medications Acetaminophen (Tylenol 325mg Tab) 650 mg PO Q6H PRN PRN Reason: Headache Last Admin: 09/16/18 22:43 Dose: 650 mg Albuterol/Ipratropium (Duoneb 3 Mg/0.5 Mg (3 Ml) Ud) 3 ml IH [id number] [facility] Last Admin: 09/17/18 10:33 Dose: Not Given Alprazolam (Xanax) 0.25 mg PO BID PRN; Protocol PRN Reason: Anxiety Stop: 09/24/18 10:01 Famotidine (Pepcid) 20 mg IVP DAILY [facility] Last Admin: 09/17/18 10:51 Dose: 20 mg Metronidazole (Flagyl) 500 mg in 100 mls @ 100 mls/hr IVPB Q8 [facility]; Protocol Stop: 09/24/18 22:01 Last Admin: 09/17/18 05:22 Dose: 100 mls/hr Vancomycin HCl (Vancocin 25 Mg/Ml (Oral Use)) 500 mg PO QID [facility]; Protocol Stop: 09/24/18 22:01 Last Admin: 09/17/18 10:51 Dose: 500 mg Zolpidem Tartrate (Ambien) 5 mg PO HS PRN; Protocol PRN Reason: Insomnia Physical Exam - Constitutional Appears: Chronically Ill - Head Exam Head Exam: NORMOCEPHALIC - Eye Exam Eye Exam: Normal appearance, PERRL - ENT Exam ENT Exam: Mucous Membranes Moist, Normal Oropharynx - Neck Exam Neck exam: Positive for: Normal Inspection - Respiratory Exam Respiratory Exam: Decreased Breath Sounds, Rhonchi - Cardiovascular Exam Cardiovascular Exam: REGULAR RHYTHM, +S1, +S2 - GI/Abdominal Exam GI & Abdominal Exam: Normal Bowel Sounds, Soft Additional comments: no tenderness,mild distention - Extremities Exam Extremities exam: Positive for: pedal edema - Back Exam Back exam: NORMAL INSPECTION - Neurological Exam Neurological exam: Alert, Oriented x3 - Psychiatric Exam Psychiatric exam: Anxious - Skin Skin Exam: Dry, Pallor, Warm - Additional Findings Additional findings: Palliative performance scale rating 50% Results - Vital Signs Recent Vital Signs: Last Vital Signs Temp 97.8 F 09/17/18 08:29 Pulse 82 09/17/18 08:29 Resp 20 09/17/18 08:29 BP 137/56 L 09/17/18 08:29 Pulse Ox 98 09/17/18 08:29 - Labs Result Diagrams: 09/17/18 06:00 09/17/18 06:00 Labs: Laboratory Results - last 24 hr 09/16/18 09/17/18 09/17/18 06:00 06:00 06:00 WBC 19.1 H RBC 3.12 L Hgb 8.0 L Hct 26.0 L MCV 83.3 MCH 25.6 MCHC 30.8 L RDW 16.8 H Plt Count 288 MPV 8.2 Retic Count Sodium 142 Potassium 4.3 Chloride 116 H Carbon Dioxide 15 L Anion Gap 16 BUN 92 H Creatinine 4.7 H Est GFR ( Amer) 11 Est GFR (Non-Af Amer) 9 Random Glucose 135 H Calcium 8.1 L Iron TIBC % Saturation Total Bilirubin 0.3 AST 22 ALT 7 Alkaline Phosphatase 69 Total Protein 7.1 Albumin 3.2 Globulin 3.9 Albumin/Globulin Ratio 0.8 L Procalcitonin 4.38 H 09/17/18 09/17/18 08:20 08:20 WBC RBC Hgb Hct MCV MCH MCHC RDW Plt Count MPV Retic Count 0.89 Sodium Potassium Chloride Carbon Dioxide Anion Gap BUN Creatinine Est GFR ( Amer) Est GFR (Non-Af Amer) Random Glucose Calcium Iron 48 TIBC 165 L % Saturation 29 Total Bilirubin AST ALT Alkaline Phosphatase Total Protein Albumin Globulin Albumin/Globulin Ratio Procalcitonin Assessment & Plan - Assessment and Plan (Free Text) Assessment: 83 year old female with history of CHF,COPD, HTN, cervical cancer,AAA who is admitted with diarrhea, right hydronephrosis, atrophic left kidney, renal failure, urinal retention, sepsis, The patient is alert, oriented, anxious. Denies any complaints at this time. Advance care planning discussion ensued. The patient states that she has an advanced directive and that she is DNR/DNI. She does not remember where her advance directive is, states its home somewhere. Patent understands benefits and burdens of CPR/intubation and affirms that she is DNR/DNI. I offered to complete a POLST directive with her. The patient did not want to complete at this time. The patient states that her son Bao is her health care surrogate, Time spent in advance care planning discussion, 30 minutes Plan: Goals of care and advance care planning, DNR/DNI Sepsis: Continue Flagyl ,Vancomycin. Diarrhea resolved unable to obtain stool specimen for C Diff Urinary retention: following, recs for vaughn Anxiety: Xanax as needed Duoneba Deconditioning; PT/OT return to [facility]
--- NOTE | 2018-09-17 14:16 | PCM.URO ---
Urology Progress Note - Objective Lab Studies: Reviewed (maintain vaughn, pt,) Lab Results Last 24 Hours: Laboratory Results - last 24 hr 09/17/18 09/17/18 09/17/18 06:00 06:00 08:20 WBC 19.1 H RBC 3.12 L Hgb 8.0 L Hct 26.0 L MCV 83.3 MCH 25.6 MCHC 30.8 L RDW 16.8 H Plt Count 288 MPV 8.2 Retic Count 0.89 Sodium 142 Potassium 4.3 Chloride 116 H Carbon Dioxide 15 L Anion Gap 16 BUN 92 H Creatinine 4.7 H Est GFR ( Amer) 11 Est GFR (Non-Af Amer) 9 Random Glucose 135 H Calcium 8.1 L Iron TIBC % Saturation Total Bilirubin 0.3 AST 22 ALT 7 Alkaline Phosphatase 69 Total Protein 7.1 Albumin 3.2 Globulin 3.9 Albumin/Globulin Ratio 0.8 L 09/17/18 08:20 WBC RBC Hgb Hct MCV MCH MCHC RDW Plt Count MPV Retic Count Sodium Potassium Chloride Carbon Dioxide Anion Gap BUN Creatinine Est GFR ( Amer) Est GFR (Non-Af Amer) Random Glucose Calcium Iron 48 TIBC 165 L % Saturation 29 Total Bilirubin AST ALT Alkaline Phosphatase Total Protein Albumin Globulin Albumin/Globulin Ratio Intake & Output: Intake & Output 09/16/18 09/17/18 09/17/18 18:59 06:59 18:59 Intake Total 900 960 Output Total 800 800 Balance 100 160 Intake: IV 900 Left Forearm 900 Oral 960 Output: Urine 800 800 Urethral (Vaughn) 800 800 Other: # Bowel Movements 0 Vital Signs: Vital Signs - 24 hr 09/16/18 09/16/18 09/17/18 17:10 22:00 02:00 Temperature 97.5 F L 97.3 F L Pulse Rate 84 84 90 Respiratory 20 20 Rate Blood Pressure 133/60 137/63 O2 Sat by Pulse 93 L Oximetry 09/17/18 09/17/18 06:00 08:29 Temperature 97.8 F Pulse Rate 83 82 Respiratory 20 Rate Blood Pressure 137/56 L O2 Sat by Pulse 98 Oximetry
--- NOTE | 2018-09-17 14:58 | CP.PCM.PN ---
Subjective - Date & Time of Evaluation Date of Evaluation: 09/17/18 Time of Evaluation: 11:05 - Subjective Subjective: No diarrhea, no fevers, not in distress but feels uncomfortable in bed and wants to move around. Objective - Vital Signs/Intake and Output Vital Signs (last 24 hours): Temp Pulse Resp BP Pulse Ox 97.8 F 61 20 127/59 L 95 09/16/18 07:56 09/16/18 10:00 09/16/18 07:56 09/16/18 07:56 09/16/18 07:56 - Medications Medications: Current Medications Albuterol/Ipratropium (Duoneb 3 Mg/0.5 Mg (3 Ml) Ud) 3 ml IH [id number] MIKEL Last Admin: 09/16/18 11:10 Dose: 3 ml Metronidazole (Flagyl) 500 mg in 100 mls @ 100 mls/hr IVPB Q8 [facility]; Protocol Stop: 09/24/18 22:01 Last Admin: 09/16/18 14:48 Dose: 100 mls/hr Vancomycin HCl (Vancocin 25 Mg/Ml (Oral Use)) 500 mg PO QID [facility]; Protocol Stop: 09/24/18 22:01 Last Admin: 09/16/18 14:48 Dose: 500 mg - Labs Labs: 09/16/18 06:00 09/16/18 06:00 PT 17.5 SECONDS (9.4-12.5) H 09/15/18 13:00 INR 1.58 09/15/18 13:00 APTT 36.2 Seconds (26.9-38.3) 09/15/18 13:00 - Constitutional Appears: Chronically Ill - Head Exam Head Exam: NORMAL INSPECTION - Respiratory Exam Respiratory Exam: Decreased Breath Sounds - Cardiovascular Exam Cardiovascular Exam: +S1, +S2 - GI/Abdominal Exam GI & Abdominal Exam: Soft. absent: Tenderness Assessment and Plan - Assessment and Plan (Free Text) Plan: Assessment systemic inflammatory response syndrome with diarrhea, R/O C. diff. history of systemic inflammatory response syndrome, due acute decompensated heart failure, as well as left sided HCAP S/P left hip surgery for fracture chronic CHF history of pneumonia history of urinary tract infection chronic renal failure COPD HTN dyslipidemia history of cervical cancer S/P radiation and hysterectomy abdominal aortic aneurysm S/P cholecystectomy calcifications on the left kidney Plan continue PO vancomycin and IV flagyl day 2 and follow up stool for C. diff.; cultures are negative will continue to trend WBC count will continue to monitor clinically
[2018-09-18] MEDS: Albuterol-Ipratrop 3 mg / 0.5 (3 ml) UD IH SCH ×6 (00:30→19:43)
[2018-09-18] MEDS: metroNIDAZOLE IV 500 mg/100 ml 500 MG/100 ML BAG IVPB SCH ×2 (05:13→13:19)
--- NOTE | 2018-09-18 07:33 | PN ---
DATE: 09/17/2018 The patient was seen and examined by me. I did review the note of the medical orderly, and I do agree with it. I have participated in the assessment and plan of care for this patient. The patient has sepsis, most likely from C. diff. She was not able to give sample. She was having diarrhea at [facility] and had been started on Flagyl and vancomycin in the emergency room. She has acute kidney injury, most likely from urinary retention. A Mariscal was placed and catheter was draining. Her creatinine has been improving. The patient has hypertension, it is controlled. She has a right-sided renal artery stent that is in place. She has left-sided hydro and kidney is not functioning well on the left side. I did speak to Dr. Lau. No surgical interventions planned at this point. The patient had a urine culture and blood culture that is negative. She is being followed by Dr. Lockhart. I did review Dr. Lockhart's notes. The patient is also DNR. We will continue to follow closely. She may need to have the catheter stay in. I did speak to the patient's family. I spoke with the patient's [id number] to give an update in the patient's diagnosis and plan of care. She is very uncomfortable this morning when I saw her. I have placed her on some Xanax to help her get more comfortable. I have also placed her on Ambien, although I did warn her about the potential side effects. I will not get blood work on her tomorrow because she is very uncomfortable regarding getting repeat blood work. Ede Rebolledo MD
--- NOTE | 2018-09-18 09:30 | PCM.URO ---
Urology Progress Note - Objective Lab Studies: Reviewed (maintain vaughn) Lab Results Last 24 Hours: Laboratory Results - last 24 hr 09/17/18 08:20 Ferritin 1170.0 Intake & Output: Intake & Output 09/17/18 09/18/18 09/18/18 18:59 06:59 18:59 Intake Total 780 Output Total 900 Balance -120 Intake: Oral 780 Output: Urine 900 Urethral (Vaughn) 900 Other: # Bowel Movements 1 Vital Signs: Vital Signs - 24 hr 09/17/18 09/17/18 16:27 22:00 Temperature 98 F 98.2 F Pulse Rate 91 H 90 Respiratory 19 Rate Blood Pressure 133/69 130/66 O2 Sat by Pulse 90 L Oximetry
[2018-09-18] MEDS: Vancomycin 25 MG/ML PO SCH ×2 (09:44→13:20)
--- NOTE | 2018-09-18 10:13 | PN ---
DATE: 09/18/2018 SUBJECTIVE: See the progress notes before. See the previously dictated notes. The patient is currently resting comfortably. BUN and creatinine is still pending today. The past medical and surgical, no other changes. PHYSICAL EXAMINATION: ABDOMEN: The abdomen is overall soft. Mariscal catheter is draining well. DIAGNOSES: Urinary retention, renal failure, azotemia, right hydronephrosis. PLAN: The plan is as follows: For now, continue to monitor the BUN and creatinine. We may need to change her stents sooner than later. We will see how she does clinically. But for now, we are going to maintain Mariscal, antibiotics, continue physical therapy. We will continue to follow along. Jareth Lau MD
--- NOTE | 2018-09-18 13:09 | PN ---
DATE: 09/17/2018 SUBJECTIVE: Please see the previously dictated notes from 09/15/2018 and the procedure note from 09/15/2018 and the daily progress note from 09/16/2018. The patient is currently resting comfortably. Mariscal catheter is draining well. She has vague aches and complaints. PAST MEDICAL AND SURGICAL: No other changes. PHYSICAL EXAMINATION: GENERAL: A well-developed female, she is resting comfortably. ABDOMEN: Overall soft. Mariscal catheter is draining clear urine. LABORATORY DATA: Creatinine is down to 4.8. DIAGNOSIS: Urinary retention, voiding dysfunction, and hydronephrosis. PLAN: The plan is as follows, to continue with inpatient care, maintain the Mariscal catheter. We will continue to monitor the BUN and creatinine and the I's and O's, and also we are going to order physical therapy consult to assist the patient. Jareth Lau MD
--- NOTE | 2018-09-18 14:12 | CP.PCM.PN ---
Subjective - Date & Time of Evaluation Date of Evaluation: 09/18/18 Time of Evaluation: 10:40 - Subjective Subjective: Patient having increased cough and some difficulty breathing at rest, no fevers overnight, no diarrhea for 2 days now. Objective - Vital Signs/Intake and Output Vital Signs (last 24 hours): Temp Pulse Resp BP Pulse Ox 97.8 F 82 20 137/56 L 98 09/17/18 08:29 09/17/18 08:29 09/17/18 08:29 09/17/18 08:29 09/17/18 08:29 Intake and Output: 09/17/18 09/17/18 06:59 18:59 Intake Total 960 Output Total 800 Balance 160 - Medications Medications: Current Medications Acetaminophen (Tylenol 325mg Tab) 650 mg PO Q6H PRN PRN Reason: Headache Last Admin: 09/16/18 22:43 Dose: 650 mg Albuterol/Ipratropium (Duoneb 3 Mg/0.5 Mg (3 Ml) Ud) 3 ml IH [id number] MIKEL Last Admin: 09/17/18 10:33 Dose: Not Given Alprazolam (Xanax) 0.25 mg PO BID PRN; Protocol PRN Reason: Anxiety Stop: 09/24/18 10:01 Famotidine (Pepcid) 20 mg PO DAILY MIKEL Metronidazole (Flagyl) 500 mg in 100 mls @ 100 mls/hr IVPB Q8 MIKEL; Protocol Stop: 09/24/18 22:01 Last Admin: 09/17/18 14:33 Dose: Not Given Vancomycin HCl (Vancocin 25 Mg/Ml (Oral Use)) 500 mg PO QID MIKEL; Protocol Stop: 09/24/18 22:01 Last Admin: 09/17/18 14:33 Dose: Not Given Zolpidem Tartrate (Ambien) 5 mg PO HS PRN; Protocol PRN Reason: Insomnia - Labs Labs: 09/17/18 06:00 09/17/18 06:00 PT 17.5 SECONDS (9.4-12.5) H 09/15/18 13:00 INR 1.58 09/15/18 13:00 APTT 36.2 Seconds (26.9-38.3) 09/15/18 13:00 - Constitutional Appears: Chronically Ill - Head Exam Head Exam: NORMAL INSPECTION - Respiratory Exam Respiratory Exam: Decreased Breath Sounds, Rales (scattered), Wheezes (expiratory) - Cardiovascular Exam Cardiovascular Exam: +S1, +S2 - GI/Abdominal Exam GI & Abdominal Exam: Soft. absent: Tenderness Assessment and Plan - Assessment and Plan (Free Text) Plan: Assessment systemic inflammatory response syndrome with persistent leukocytosis, consider COPD exacerbation R/O HCAP diarrhea resolved, negative C. diff tests history of systemic inflammatory response syndrome, due acute decompensated heart failure, as well as left sided HCAP S/P left hip surgery for fracture chronic CHF history of pneumonia history of urinary tract infection chronic renal failure COPD HTN dyslipidemia history of cervical cancer S/P radiation and hysterectomy abdominal aortic aneurysm S/P cholecystectomy calcifications on the left kidney Plan will d/c PO vancomycin and IV flagyl WBC count is still elevated - will repeat blood cx, get sputum cx, get CXR, PCT and start PO Doxycycline and Cefepime will continue to trend WBC count will continue to monitor clinically
[2018-09-18] MEDS: Cefepime IV 2 gm in NS 2 GM/100 ML BAG IVPB SCH (14:52)
[2018-09-18] MEDS ORDERED: Darbepoetin Alfa 100 mcg/ml Inj SC ONE (16:14)
--- NOTE | 2018-09-18 16:34 | RAD ---
Date of service: 09/18/2018 HISTORY: rule out pneumonia COMPARISON: 09/08/2018 FINDINGS: LUNGS: There is a patchy interstitial infiltrate in the left upper lobe and the right upper lobe as well as peribronchial thickening. Findings are consistent with bronchitis and early pneumonia PLEURA: No significant pleural effusion identified, no pneumothorax apparent. CARDIOVASCULAR: No aortic atherosclerotic calcification present. Normal cardiac size. No pulmonary vascular congestion. OSSEOUS STRUCTURES: No significant abnormalities. VISUALIZED UPPER ABDOMEN: Normal. OTHER FINDINGS: None. IMPRESSION: There is a patchy interstitial infiltrate in the left upper lobe and the right upper lobe as well as peribronchial thickening. Findings are consistent with bronchitis and early pneumonia
--- NOTE | 2018-09-18 19:38 | PN ---
DATE: 09/18/2018 SUBJECTIVE: The patient has no complaints of any chest pain. No shortness of breath. She says she does not like to be in the hospital, she prefers to leave. She did get some sleep last night. PHYSICAL EXAMINATION: VITAL SIGNS: Temperature is 98.6, pulse is 100, blood pressure is 165/78, and respirations are 18. GENERAL: The patient is lying in bed, flat, comfortable. HEENT: No oral lesion. Anicteric sclerae. Moist mucosa. NECK: No JVD, adenopathy, or thyromegaly. CARDIOVASCULAR: S1 and S2, regular. No murmurs, rubs, or gallops. LUNGS: Clear to auscultation bilaterally. No wheeze, rales, or rhonchi. ABDOMEN: Bowel sounds are positive, soft, nontender and nondistended. EXTREMITIES: No cyanosis, clubbing or edema. LABORATORY DATA: White count of 19.1, hemoglobin is 8, and creatinine is 4.7. ASSESSMENT: 1. Sepsis. 2. Diarrhea, improved. 3. Acute kidney injury. 4. Urinary retention, status post Mariscal placement. 5. Chronic obstructive pulmonary disease. 6. Hypertension. 7. Anxiety. 8. Do not resuscitate/do not intubate. 9. Anemia, chronic. PLAN: The patient is currently comfortable. She has C. diff that is negative, it is unlikely that she has C. diff at this point. She has not had any diarrhea since she has been in the hospital. The patient is on doxycycline for antibiotics. The patient is on cefepime for antibiotics as well. She is on Xanax. She is receiving heart-healthy diet. Her creatinine continues to improve. The patient has an iron saturation of 29% with ferritin of 1170. She has bicarb that is 15. Her potassium has improved. She did not get blood work today because of the fact that she was very uncomfortable yesterday. I will order blood work for tomorrow. I will give her a dose of Aranesp because of the anemia that she has. The patient does not wish to go back to subacute rehab and prefers to go home. The family will secure assistance at home. Ede Rebolledo MD [facility] # [phone]
[2018-09-19] MEDS: Albuterol-Ipratrop 3 mg / 0.5 (3 ml) UD IH SCH ×7 (00:15→23:27)
--- NOTE | 2018-09-19 04:33 | CP.PCM.PN ---
<Addie Yap - Last Filed: 09/19/18 12:52> Subjective - Date & Time of Evaluation Date of Evaluation: 09/19/18 Time of Evaluation: 04:33 - Subjective Subjective: Addie Yap, PGY2, Medicine Progress Note for Dr Rebolledo: Patient seen and examined at bedside. No acute events overnight. Patient states that she would like to go home, refuses rehab, may be amenable to TCU. As per nurse, patient had low PO intake yesterday and was OOB to chair for only 10-15 mins. Denies fevers, chills, nausea, vomiting. Objective - Vital Signs/Intake and Output Vital Signs (last 24 hours): Temp Pulse Resp BP Pulse Ox 98.6 F 100 H 18 165/78 H 94 L 09/18/18 06:00 09/18/18 06:00 09/18/18 06:00 09/18/18 06:00 09/18/18 06:00 Intake and Output: 09/18/18 09/19/18 18:59 06:59 Intake Total 960 Output Total 1325 Balance -365 - Medications Medications: Current Medications Acetaminophen (Tylenol 325mg Tab) 650 mg PO Q6H PRN PRN Reason: Headache Last Admin: 09/17/18 20:07 Dose: 650 mg Albuterol/Ipratropium (Duoneb 3 Mg/0.5 Mg (3 Ml) Ud) 3 ml IH [id number] MIKEL Last Admin: 09/18/18 19:43 Dose: Not Given Alprazolam (Xanax) 0.25 mg PO BID PRN; Protocol PRN Reason: Anxiety Stop: 09/24/18 10:01 Last Admin: 09/18/18 13:43 Dose: 0.25 mg Doxycycline Hyclate (Doryx) 100 mg PO Q12 MIKEL; Protocol Last Admin: 09/18/18 21:51 Dose: 100 mg Famotidine (Pepcid) 20 mg PO DAILY MIKEL Last Admin: 09/18/18 09:45 Dose: 20 mg Cefepime HCl (Maxipime 2gm) 2 gm in 100 mls @ 100 mls/hr IVPB DAILY MIKEL; Protocol Stop: 09/23/18 14:16 Last Admin: 09/18/18 14:52 Dose: 100 mls/hr Zolpidem Tartrate (Ambien) 5 mg PO HS PRN; Protocol PRN Reason: Insomnia Last Admin: 09/18/18 21:51 Dose: 5 mg - Labs Labs: 09/17/18 06:00 09/17/18 06:00 PT 17.5 SECONDS (9.4-12.5) H 09/15/18 13:00 INR 1.58 09/15/18 13:00 APTT 36.2 Seconds (26.9-38.3) 09/15/18 13:00 - Additional Findings Additional findings: - Constitutional Appears: Non-toxic, No Acute Distress - Head Exam Head Exam: ATRAUMATIC, NORMOCEPHALIC - Eye Exam Eye Exam: EOMI, PERRL. absent: Conjunctival injection, Nystagmus, Periorbital tenderness, Scleral icterus Pupil Exam: PERRL. absent: Miosis - ENT Exam ENT Exam: Mucous Membranes Moist - Neck Exam Neck exam: Positive for: Full Rom - Respiratory Exam Respiratory Exam: Clear to Auscultation Bilateral. absent: Accessory Muscle Use, Wheezes, Respiratory Distress - Cardiovascular Exam Cardiovascular Exam: RRR, +S1, +S2. absent: Systolic Murmur - GI/Abdominal Exam GI & Abdominal Exam: Normal Bowel Sounds, Soft. absent: Distended, Organomega ly, Pulsatile Mass, Rebound, Rigid - Extremities Exam Extremities exam: Positive for: normal inspection. Negative for: calf tenderness, pedal edema - Back Exam Back exam: NORMAL INSPECTION - Neurological Exam Neurological exam: Alert, Oriented x3 - Skin Skin Exam: Dry, Normal Color, Warm Assessment and Plan - Assessment and Plan (Free Text) Assessment: 1. Sepsis 2/2 HCAP, improving 2. Diarrhea, resolved and ruled out C diff 3. JAMI, improving, 2/2 post renal (urinary distention) 4. Hypovolemia 5. Distended urinary bladder, s/p vaughn cath 6. COPD 7. HTN 8. elevated procal 9. Anemia of chronic disease (from CKD) Continue with IV Cefepime and PO Doxycycline as per ID for pneumonia. C diff negative, blood cultures and urine cultures also negative. JAMI improving, tiny nue with vaughn catheter. With rising BP, will re-start some home anti-HTN, coreg and norvasc. Monitor BP. S/p Aranesp for ACD. Palliative input appreciated, patient DNR/DNI. Continue with heart healthy diet. Physical therapy evaluation recommends subacute rehab, however, discussed with patient and family. They would rather that patient went home, patient has 4 family member at home to help her. Family amenable to hire help if needed. PPX: Tracy, SCDs Case discussed with Dr Rebolledo. <Ede Rebolledo S - Last Filed: 09/22/18 11:31> Objective - Vital Signs/Intake and Output Vital Signs (last 24 hours): Temp Pulse Resp BP Pulse Ox 97.8 F 95 H 20 137/73 99 09/20/18 07:58 09/20/18 10:20 09/20/18 07:58 09/20/18 10:20 09/20/18 07:58 - Labs Labs: 09/19/18 06:00 09/19/18 06:00 PT 17.5 SECONDS (9.4-12.5) H 09/15/18 13:00 INR 1.58 09/15/18 13:00 APTT 36.2 Seconds (26.9-38.3) 09/15/18 13:00 Assessment and Plan - Assessment and Plan (Free Text) Assessment: Pt seen and examined by me. This is a late entry. I have reviewed the note of the medical auditor and I agree with it. I have discussed the assessment and plan with the resident. Pt with sepsis. She is on IV Abx. She has a vaughn due to urinary retention. She is DNR/DNI. She does not want to go to [facility]. Not eating well. Family updated.
[2018-09-19 06:37] LABS: HEMOGLOBIN 9.3 g/dL (12.0-16.0); MEAN CELL VOLUME 84.7 fl (80.0-105.0); MEAN CORPUSCULAR HEMOGLOBIN 25.4 pg (25.0-35.0); MEAN PLATELET VOLUME 8.3 fl (7.0-11.0); RBC 3.66 10^6/uL (3.5-6.1); RED CELL DISTRIBUTION WIDTH 17.4 % (11.5-14.5); WHITE BLOOD COUNT 13.5 10^3/uL (4.5-11.0)
[2018-09-19 07:20] LABS: ALB/GLOB RATIO 0.8 (1.1-1.8); ALBUMIN 3.4 g/dL (3.0-4.8); ALT/SGPT < 6 U/L (7-56); AST/SGOT 16 U/L (14-36); BLOOD UREA NITROGEN 63 mg/dL (7-21); CALCIUM 9.2 mg/dL (8.4-10.5); GFR NON-AFRICAN AMERICAN 15
[2018-09-19] MEDS: Cefepime IV 2 gm in NS 2 GM/100 ML BAG IVPB SCH (10:48)
--- NOTE | 2018-09-19 13:58 | CP.PCM.PN ---
Subjective - Date & Time of Evaluation Date of Evaluation: 09/19/18 Time of Evaluation: 10:05 - Subjective Subjective: Has some cough, breathing a little better, no fevers. Objective - Vital Signs/Intake and Output Vital Signs (last 24 hours): Temp Pulse Resp BP Pulse Ox 98.6 F 100 H 18 165/78 H 94 L 09/18/18 06:00 09/18/18 06:00 09/18/18 06:00 09/18/18 06:00 09/18/18 06:00 - Medications Medications: Current Medications Acetaminophen (Tylenol 325mg Tab) 650 mg PO Q6H PRN PRN Reason: Headache Last Admin: 09/17/18 20:07 Dose: 650 mg Albuterol/Ipratropium (Duoneb 3 Mg/0.5 Mg (3 Ml) Ud) 3 ml IH [id number] MIKEL Last Admin: 09/18/18 11:35 Dose: Not Given Alprazolam (Xanax) 0.25 mg PO BID PRN; Protocol PRN Reason: Anxiety Stop: 09/24/18 10:01 Last Admin: 09/18/18 13:43 Dose: 0.25 mg Doxycycline Hyclate (Doryx) 100 mg PO Q12 MIKEL; Protocol Famotidine (Pepcid) 20 mg PO DAILY MIKEL Last Admin: 09/18/18 09:45 Dose: 20 mg Cefepime HCl (Maxipime 2gm) 2 gm in 100 mls @ 100 mls/hr IVPB DAILY MIKEL; Protocol Stop: 09/23/18 14:16 Zolpidem Tartrate (Ambien) 5 mg PO HS PRN; Protocol PRN Reason: Insomnia - Labs Labs: 09/17/18 06:00 09/17/18 06:00 PT 17.5 SECONDS (9.4-12.5) H 09/15/18 13:00 INR 1.58 09/15/18 13:00 APTT 36.2 Seconds (26.9-38.3) 09/15/18 13:00 - Constitutional Appears: Chronically Ill - Head Exam Head Exam: NORMAL INSPECTION - Neck Exam Neck Exam: absent: Meningismus - Respiratory Exam Respiratory Exam: Decreased Breath Sounds, Rales (scattered) - Cardiovascular Exam Cardiovascular Exam: +S1, +S2 - GI/Abdominal Exam GI & Abdominal Exam: Soft. absent: Tenderness Assessment and Plan - Assessment and Plan (Free Text) Plan: Assessment systemic inflammatory response syndrome with persistent leukocytosis, consider COPD exacerbation as well as bilateral HCAP diarrhea resolved, negative C. diff tests history of systemic inflammatory response syndrome, due acute decompensated heart failure, as well as left sided HCAP S/P left hip surgery for fracture chronic CHF history of pneumonia history of urinary tract infection chronic renal failure COPD HTN dyslipidemia history of cervical cancer S/P radiation and hysterectomy abdominal aortic aneurysm S/P cholecystectomy calcifications on the left kidney Plan follow up repeat blood cx, sputum cx; reviewed CXR yesterday showing bronchitis and upper lobe infiltrates; PCT is elevated but patient has renal failure; continue PO Doxycycline and Cefepime day 2 will continue to trend WBC count will continue to monitor clinically
[2018-09-20] MEDS: Albuterol-Ipratrop 3 mg / 0.5 (3 ml) UD IH SCH ×4 (04:01→15:25)
[2018-09-20 07:59] VITALS: BP 137/73; PULSE 95; RESP 20; TEMP 97.8; O2SAT 99
[2018-09-20] MEDS: Cefepime IV 2 gm in NS 2 GM/100 ML BAG IVPB SCH (10:20)
--- NOTE | 2018-09-20 23:20 | PN ---
DATE: 09/20/2018 SUBJECTIVE: The patient seen earlier today in room 360, bed 1. No fevers, no chills. No nausea or vomiting. PHYSICAL EXAMINATION: VITAL SIGNS: Temperature of 97, blood pressure is 130/70, respiratory rate of 20, heart rate of 95. HEENT: Unremarkable. NECK: Supple. LUNGS: Decreased breath sounds. HEART: Normal S1, S2. ABDOMEN: Soft. LABORATORY DATA: Reveals the patient's white count is 13,500, hemoglobin of 9, platelets of 311. Chemistries are noted with a creatinine of 2.9. Urinalysis is noted. Microbiology is reviewed, and review of orders were noted. ASSESSMENT AND PLAN: An 83-year-old female, was seen earlier today in 360, bed 1, with systemic inflammatory response syndrome, leukocytosis improving with chronic obstructive pulmonary disease exacerbation as well as bilateral healthcare-associated pneumonia. Diarrhea is resolved with a negative Clostridium difficile test and with a history of chronic congestive heart failure, history of pneumonia, history of urinary tract infection, chronic obstructive pulmonary disease, hypertension, dyslipidemia, cervical cancer, abdominal aortic aneurysm, monitor white blood cells, and doxycycline and cefepime day #3. Raúl Colbert MD
--- NOTE | 2018-09-21 02:01 | DS ---
HISTORY OF PRESENT ILLNESS: The patient is an 83-year-old female who was admitted to the hospital because of sepsis. She had acute kidney injury secondary to urinary retention. She was having diarrhea initially, was thought that she may have C. diff, but the C. diff was negative. The patient has improvement of her symptoms. Her sepsis has improved with antibiotics. Her white count is essentially normal. The creatinine is also improved significantly after she had a Mariscal that was placed. I did speak to Dr. Lau, who advised that we should continue with a Mariscal. My recommendation to the patient was to go to a subacute rehab. She is adamant about not going and prefers to go home. She does have a daughter that she will be staying with and will get supplies to her house. The patient will get a hospital bed and commode. She is going to get visiting nurses as well. She is currently comfortable and the fact that she is going to go home and not to a rehab facility and I try to get her to the Transitional Care Unit, but her insurance is not accepted. She has not been eating well. I have concerns that she will continue to decline even while she is at home, but she does have insight and judgment and is able to make this decision for herself. PHYSICAL EXAMINATION: VITAL SIGNS: Temperature is 97.8, pulse of 95, blood pressure 137/73, respirations 20, and O2 saturation 99%. GENERAL: The patient is lying in bed, flat, comfortable. HEENT: No oral lesion. Anicteric sclerae. Moist mucosa. NECK: No JVD, adenopathy, or thyromegaly. CARDIOVASCULAR: S1 and S2, regular. No murmurs, rubs, or gallops. LUNGS: Clear to auscultation bilaterally. No wheeze, rales, or rhonchi. ABDOMEN: Bowel sounds are positive, soft, nontender and nondistended. EXTREMITIES: No cyanosis, clubbing or edema. ASSESSMENT: 1. Sepsis. 2. Diarrhea, resolved. 3. Acute kidney injury, improved. 4. Urinary retention, status post Mariscal. 5. Chronic obstructive pulmonary disease. 6. Hypertension. 7. Anxiety. 8. Anemia, chronic. 9. Chronic kidney disease, stage III. 10. Do not resuscitate/do not intubate. PLAN: The patient is currently on Ambien for sleep. She is on carvedilol. She is going to continue with her nebulizer treatment. She is on Norvasc for hypertension. She is on Pepcid. She is receiving Xanax as needed. She is on a heart-healthy diet. She is being followed by Infectious Disease, I did review their note. At this point, the patient's antibiotics were discontinued. Condition stable. Activities increase as tolerated. Ede Rebolledo MD
== END 2018-09-20 18:49 | disposition home health service (06) | DRG 871 ==
LOC: ED 11:37 → ERH 15:04 → 3RNO 17:33
PROVIDERS: ADMIT Internal Medicine Nephrology; ATTEND Internal Medicine Nephrology
PROC: 0T9B70Z Drainage of Bladder with Drainage Device, Via Natural or Artificial Opening (ICD-10-PCS; principal; 2018-09-15)
DX: A41.9 Sepsis, unspecified organism (principal); J18.9 Pneumonia, unspecified organism; I50.33 Acute on chronic diastolic (congestive) heart failure; I13.0 Hypertensive heart and chronic kidney disease with heart failure and stage 1 through stage 4 chronic kidney disease, or unspecified chronic kidney disease; N17.9 Acute kidney failure, unspecified; J44.0 Chronic obstructive pulmonary disease with (acute) lower respiratory infection; J44.1 Chronic obstructive pulmonary disease with (acute) exacerbation; N13.30 Unspecified hydronephrosis; N18.3 Chronic kidney disease, stage 3 (moderate); D63.1 Anemia in chronic kidney disease; R33.9 Retention of urine, unspecified; R31.9 Hematuria, unspecified; I71.4 Abdominal aortic aneurysm, without rupture; F17.200 Nicotine dependence, unspecified, uncomplicated; F41.9 Anxiety disorder, unspecified; Z66 Do not resuscitate; H35.30 Unspecified macular degeneration; E86.1 Hypovolemia; R19.7 Diarrhea, unspecified; E78.5 Hyperlipidemia, unspecified; Y95 Nosocomial condition; Z85.43 Personal history of malignant neoplasm of ovary; Z85.41 Personal history of malignant neoplasm of cervix uteri; Z92.3 Personal history of irradiation; Z92.21 Personal history of antineoplastic chemotherapy